=== PATIENT | female | born 1965 | race Caucasian/White ===

== ENCOUNTER 2018-04-27 17:34 | Inpatient (IN) ==
--- NOTE | 2018-04-27 18:05 | Emergency Department Report ---
General Adult HPI - General Stated complaint: pos intestinal blockage, vom Time Seen by Provider: 04/27/18 17:55 Source: patient Limitations: no limitations - History of Present Illness HPI narrative: Sxs started yesterday afternoon. Pain and vomiting started at 4pm. Last BM was yesterday - regular/formed. Was able to pass gas a few hours ago. Rates pain 9/10. Percocet 20mg up to QID for psoriatic arthritis and RA. Has h/o multiple abd surgeries and multiple bouts of SBO of which some have resolved w/ o hospitalization. Pt reports last hospitalization was 6-7 mos ago in [place]. complaint: REJI Garzon ([place]) - Related Data Home Medications Medication Instructions Recorded Confirmed Cyclobenzaprine [Flexeril] 10 mg PO TID PRN 04/27/18 04/27/18 Folic Acid [Folate] 1 mg PO HS 04/27/18 04/27/18 METHOTREXATE 2.5mg TAB 7.5 mg PO TH@2200 04/27/18 04/27/18 [Methotrexate] Oxycodone CR [Oxycontin] 20 mg PO QID PRN 04/27/18 04/27/18 Pantoprazole Sodium [Protonix] 40 mg PO HS 04/27/18 04/27/18 Warfarin [Coumadin] 6 mg PO HS 04/27/18 04/27/18 Allergies Allergy/AdvReac Type Severity Reaction Status Date / Time amoxicillin Allergy Verified 04/27/18 18:24 cefaclor [From Ceclor] Allergy Verified 04/27/18 18:24 levofloxacin [From Levaquin] Allergy Verified 04/27/18 18:24 Penicillins Allergy Verified 04/27/18 18:24 Sulfa (Sulfonamide Allergy Verified 04/27/18 18:24 Antibiotics) Review of Systems All systems: reviewed and negative except as stated (vomiting, nausea, pain, chronic pain) PFSH Patient Stated Medical History Cataracts Yes Gastroesophageal Reflux Yes Disease Ulcer Yes Hx Kidney Stones Yes: HX RA, psoriatic arthritis, chronic pain, gastric bypass surgery, PE following hyst - started on warfarin when port placed, power port chest Surgical History: c sect x 2, hyst, gastric bypass, surgery for repair of ruptured gastric ulcer, hernia repair from previous ulcer surgery, b/l TKA, R shoulder replacement, cataract, retinal detachment, levi cord stimulator R hip , uvula/tonsil/adenoids Family History: F, M - unknown - pt adopted - Social History Smoking status: Never smoker Substance use type: does not use Alcohol intake frequency: holidays/special occasions only Household members: none (during summer her daughter is home) Current occupational status: employed Current occupation: Drives bus for [employer] Current residence: Apartment/Private Home Physical Exam - Limitations Limitations: no limitations - General General appearance: in distress (pain) - Normal Exams: Head:: Normocephalic without trauma Eyes:: Pupils are PERRLA w/ EOMI Neck:: Full range of motion, without adenopathy Chest/Respirations:: Clear all [place] Cardiovascular:: Regular rate and rhythm, capillary refill Abdomen:: Bowel sounds positive Neurological:: Patient is alert, and oriented, exams w/o gross deficits Psychiatric:: Patient exhibits, appropriate attention - Abdominal Exam Abdominal exam: Present: tenderness (diffuse, worse in the epigastric region) - Skin Skin exam: Present: other (psoriatic rash on legs and arms) Course Vital Signs Temperature 98.6 F 04/27/18 17:35 Pulse Rate 101 H 04/27/18 17:35 Respiratory Rate 20 04/27/18 17:35 Blood Pressure 131/91 H 04/27/18 17:35 Pulse Oximetry 98 04/27/18 17:35 Temperature 96.2 F L 04/27/18 20:06 Pulse Rate 102 H 04/27/18 20:06 Respiratory Rate 16 04/27/18 20:06 Blood Pressure 121/66 04/27/18 20:06 Pulse Oximetry 96 04/27/18 20:06 Medical Decision Making - [facility] Narrative Medical decision making narrative: Pt with SBO confirmed by CT abd/pelvis. Pt takes oxycodone 20mg up to QID prn pain for her psoriatic/rheumatoid arthritis. Pt had significant improvement following Compazine 10mg IV and Fentanyl 50mcg IV. Pain improved to 5/10 compared to 9/10 initially. Nausea resolved. Bolused 1 L NS in ER. Discussed with Dr. Leong who accepted for pt for admission due to failed OP tx, pain control, etc. - Lab Data Result diagrams: 04/27/18 18:25 04/27/18 18:25 Lab Results 07/17/18 07/17/18 07/17/18 Range/Units 18:25 18:25 19:29 WBC 13.2 H (4.5-11.0) T/MM3 RBC 5.30 H (4.00-5.20) M/MM3 Hgb 15.2 (12-16) GM/DL Hct 45.1 (36-46) % MCV 85.1 (80-100) UM3 MCH 28.7 (26-34) UUG MCHC 33.7 (31-37) GM/DL RDW Std Deviation 43.1 (36.9-50.2) FL Plt Count 413 H (130-400) T/MM3 MPV 10.2 (9.4-12.4) UM3 Immature Gran % (Auto) Not performed Neut % (Auto) Not performed Lymph % (Auto) Not performed [place] % (Auto) Not performed Eos % (Auto) Not performed Baso % (Auto) Not performed Neut # (Auto) Not performed Lymph # (Auto) Not performed [place] # (Auto) Not performed Eos # (Auto) Not performed Baso # (Auto) Not performed Abs Immat Gran (auto) Not performed Neutrophils % (Manual) 90.0 H (33-66) % Band Neutrophils % 1.0 (0-6) % Lymphocytes % (Manual) 7.0 L (23-45) % Monocytes % (Manual) 2.0 (0-9.0) % Neutrophils # (Manual) 11.9 H (1.8-7.7) T/MM3 Band Neutrophils # 0.1 T/MM3 Lymphocytes # (Manual) 0.9 L (1-4.8) T/MM3 Monocytes # (Manual) 0.3 (0-0.8) T/MM3 RBC Morph Comment Normal Turbidity < 20 (0-20) Sodium 145 (136-146) MEQ/L Potassium 3.7 (3.6-5) MEQ/L Chloride 108 H (98-107) MEQ/L Carbon Dioxide 26 (22-30) MEQ/L Anion Gap 11 (5-15) meq/L BUN 12.0 (7-17) MG/DL Creatinine 0.5 L (0.7-1.2) mg/dL GFR Calculation 130 BUN/Creatinine Ratio 24 (6-26) RATIO Glucose 128 H (65-110) MG/DL Calculated Osmolality 281 H (261-280) MOSM/KG Calcium 9.7 (8.4-10.2) MG/DL Total Bilirubin 1.00 (0.20-1.30) MG/DL Icterus Index < 2 (0-7) AST 32 (14-36) U/L ALT 49 H (1-35) U/L Alkaline Phosphatase 219 H (38-126) U/L Total Protein 7.6 (6.3-8.2) g/dL Albumin 4.3 (3.5-5.0) g/dL Globulin 3.3 (2.4-3.6) G/DL Albumin/Globulin Ratio 1.3 (1.1-2.2) RATIO Specimen Hemolysis < 15 (0-25) Ur Collection Type Urine, void-cc/notcc Urine Color [place] (YELLOW) Urine Clarity Clear Urine pH 5.5 (5.0-8.0) Ur Specific [place] >=1.030 H (1.015-1.025) Urine Protein 2+ A (NEGATIVE) Urine Glucose (UA) Negative (NEGATIVE) Urine Ketones 1+ A (NEGATIVE) Urine Occult Blood Negative (NEGATIVE) Urine Nitrate Negative (NEGATIVE) Urine Bilirubin 1+ A (NEGATIVE) Urine Urobilinogen 1.0 (NORMAL) EU/DL Ur Leukocyte Esterase Negative (NEGATIVE) Urine RBC None seen (0-3) /HPF Urine WBC 5-10 H (0-5) /HPF Ur Squamous Epith Cells 0-5 Urine Bacteria Trace H (NEGATIVE) Ur Culture Indicated? Cult not indicated Disposition Clinical Impression: Small bowel obstruction Disposition: 02 To [facility] Acute Care Condition: Stable - Seen By: midlevel
[2018-04-27] MEDS ORDERED: FentaNYL 100 MCG/2 ML INJECTION IVP ONE (18:15)
[2018-04-27] MEDS ORDERED: NS 1,000 ML IV ONE (18:15)
[2018-04-27] MEDS ORDERED: PROCHLORPERAZINE 10 MG/2 ML INJECTION IVP ONE (18:15)
--- OUTSIDE RECORDS SUMMARY | 2018-04-27 18:33 | External Medical Summary ---
:1965 Author Name GENERATED, SYSTEM Care Team Providers Name Role Phone ROBERT MORENO DAWNA Primary Care Provider [phone] Reason For Visit Reason for Visit from 11/23/2017 2:04 PM:Pt Stated Reason for Adm : Lab draw/ Port flush Chief Complaint D50.9 D51 M17.9 Social History Functional Status Functional Status from 11/23/2017 2:04 PM:LOC : AlertOriented To : Person,Place, Time,Event Vital Signs Hospital Vital Signs from 11/23/2017 2:04 PM:Weight : 210/ lbs,ozHeight : 5/6 ft, inHeight : 5/6 ft,inTemperature : 96.5 FPulse : 99Respirations : 18BP : 137/83 Results Chemistry from 11/23/2017 2:25 [id number] MCG/DL (50-170 MCG/DL) VITAMIN [id number] PG/ML H (180-914 PG/ML) IABJUUY79.2 NG/ML (>3.0- NG/ML) RKLPXTXI86 NG/ML (13-150 NG/ML)Hematology from 11/23/2017 2:25 PMWBC7.4 X10e3/UL (3.6-11.2 X10e3/UL) RBC4.91 X10e6/UL (3.63-4.92 X10e6/UL) ACTWLWGEJE03.4 G/DL H (11.0-14.3 G/DL) FAEDAFFMPR75.3 % H (31.2-41.9 %) *MCV86.1 FL (79.0-98.0 FL) *MCH29.4 PG (27.0-33.0 PG) *MCHC34.2 G/DL (32.0-36.0 G/DL) *RDW13.4 % (12.3-17.0 %) *RDWSD41.1 (37.1-47.8 ) [id number] X10e3/UL (159-386 X10e3/UL) *MPV8.5 FL (7.4-10.4 FL)Coagulation from 11/23/2017 2:25 PM*PROTHROMBIN TIME19.6 SECONDS H (9.4-11.5 SECONDS) *INR1.87 H (0.90-1.10 ) Problems Encounter Diagnosis No relevant problems exist. Additional Problems Fall Risk Comment:Problem resolved by [facility] Workflow upon Discharge, Status: Resolved.Nausea & Vomiting Comment:Problem resolved by [facility] Workflow upon Discharge, Status:Resolved.Small Bowel Obstruction Comment:Problem resolved by [facility] Workflow upon Discharge, Status:Resolved. Encounters Encounter Diagnosis No relevant problems exist. Plan of Care Procedures Completed Procedure Code: [id number] Procedure Name: not valued, on 10/31/2015 12: 00 AMCompleted , on 02/13/2012 12:00 AMCompleted , on 01/16/2012 12:00 AMCompleted , on 10/30/2010 12:00 AMCompleted , on 10/30/2010 12:00 AMCompleted , on 2008 12:00 AMCompleted , on 07/31/2009 12:00 AMCompleted , on 02/26/2009 12:00 AM Immunizations No immunizations administered or ordered. Hospital Course Hospital Discharge Instructions Allergies, Adverse Reactions, Alerts This section is service liaison representative of the current allergy information, at the time of the CCD generation. In the case of regeneration of the CCD, the allergy information may not reflect the state of known allergies at the time of the CCD' s subject visit. Levaquin causes Unknown.erythromycin base causes Unknown.amoxicillin causes Unknown.Sulfa (Sulfonamide Antibiotics) causes Hives.Penicillins causes prob breathing.Macrolide Antibiotics causes Hives.No Latex Allergy.No IV Contrast Allergy.No Known Food Allergies. Medication Medication reconciliation has not been performed.
--- OUTSIDE RECORDS SUMMARY | 2018-04-27 18:33 | External Medical Summary ---
:1965 Author Name GENERATED, SYSTEM Care Team Providers Name Role Phone ROBERT MORENO DAWNA Primary Care Provider [phone] Reason For Visit Chief Complaint 02/23/17 RT SHOULDER Social History Functional Status Vital Signs Results Coagulation from 04/30/2017 10:16 AM*PROTHROMBIN TIME23.0 SECONDS H (9.4-11.5 SECONDS) *INR2.2 H (0.9-1.1 ) Problems Encounter Diagnosis No relevant problems exist. Additional Problems Fall Risk Comment:Problem resolved by [facility] Workflow upon Discharge, Status: Resolved.Nausea & Vomiting Comment:Problem resolved by [facility] Workflow upon Discharge, Status:Resolved.Small Bowel Obstruction Comment:Problem resolved by [facility] Workflow upon Discharge, Status:Resolved. Encounters Encounter Diagnosis No relevant problems exist. Plan of Care Procedures Completed Procedure Code: [id number] Procedure Name: not valued, on 10/31/2015 12: 00 AMCompleted , on 02/13/2012 12:00 AMCompleted , on 01/16/2012 12:00 AMCompleted , on 10/30/2010 12:00 AMCompleted , on 10/30/2010 12:00 AMCompleted , on 2008 12:00 AMCompleted , on 07/31/2009 12:00 AMCompleted , on 02/26/2009 12:00 AM Immunizations No immunizations administered or ordered. Hospital Course Hospital Discharge Instructions Allergies, Adverse Reactions, Alerts This section is security systems sales representative of the current allergy information, at [...]
--- OUTSIDE RECORDS SUMMARY | 2018-04-27 18:33 | External Medical Summary ---
:1965 Author Name GENERATED, SYSTEM Care Team Providers Name Role Phone CARY MORENON JITENDRA Primary Care Provider [phone] Reason For Visit Reason for Visit from 12/11/2016 8:40 AM:Pt Stated Reason for Adm : Portacath flush Chief Complaint PAC MAINTENANCE Social History Functional Status Functional Status from 12/11/2016 8:40 AM:LOC : AlertOriented To : Person,Place, Time,Event Vital Signs Hospital Vital Signs from 12/11/2016 8:40 AM:Weight : 99.79/ kgHeight : /67 ft, inHospital Vital Signs from 12/11/2016 8:17 AM:Height : /67 ft,inTemperature : 96.3 FPulse : 90Respirations : 18BP : 118/72 Results Coagulation from 12/11/2016 8:23 AM*PROTHROMBIN TIME23.4 SECONDS H (9.4-11.5 SECONDS) *INR2.2 H (0.9-1.1 ) Problems Encounter Diagnosis No relevant problems exist. Additional Problems Fall Risk Comment:Problem resolved by [facility] Workflow upon Discharge, Status: Resolved.Nausea & Vomiting Comment:Problem resolved by [facility] Workflow upon Discharge, Status:Resolved.Small Bowel Obstruction Comment:Problem resolved by [facility] Workflow upon Discharge, Status:Resolved. Encounters Encounter Diagnosis No relevant problems exist. Plan of Care Procedures Completed Procedure Code: [id number] Procedure Name: not valued, on 10/31/2015 12: 00 AMCompleted , on 02/13/2012 12:00 AMCompleted , on 01/16/2012 12:00 AMCompleted , on 10/30/2010 12:00 AMCompleted , on 10/30/2010 12:00 AMCompleted , on 2008 12:00 AMCompleted , on 07/31/2009 12:00 AMCompleted , on 02/26/2009 12:00 AM Immunizations No immunizations administered or ordered. Hospital Course Hospital Discharge Instructions Allergies, Adverse Reactions, Alerts Levaquin causes Unknown.erythromycin base causes Unknown.amoxicillin causes Unknown.Sulfa (Sulfonamide Antibiotics) causes Hives.Penicillins causes prob breathing.Macrolide Antibiotics causes Hives.No Latex Allergy.No IV Contrast Allergy.No Known Food Allergies. Medication Medication reconciliation has not been performed.
--- OUTSIDE RECORDS SUMMARY | 2018-04-27 18:33 | External Medical Summary ---
:1965 Author Name GENERATED, SYSTEM Care Team Providers Name Role Phone ROBERT MORENO DAWNA Primary Care Provider [phone] Reason For Visit Chief Complaint SWELLING L ARM Social History Functional Status Vital Signs Results Problems Encounter Diagnosis No relevant problems exist. Additional Problems Fall Risk Comment:Problem resolved by [facility] Workflow upon Discharge, Status: Resolved.Nausea & Vomiting Comment:Problem resolved by [facility] Workflow upon Discharge, Status:Resolved.Small Bowel Obstruction Comment:Problem resolved by [facility] Workflow upon Discharge, Status:Resolved. Encounters Encounter Diagnosis No relevant problems exist. Plan of Care Procedures Completed Procedure Code: [id number] Procedure Name: not valued, on 10/31/2015 12: 00 AMCompleted , on 02/13/2012 12:00 AMCompleted , on 01/16/2012 12:00 AMCompleted , on 10/30/2010 12:00 AMCompleted , on 10/30/2010 12:00 AMCompleted , on 2008 12:00 AMCompleted , on 07/31/2009 12:00 AMCompleted , on 02/26/2009 12:00 AM Immunizations No immunizations administered or ordered. Hospital Course Hospital Discharge Instructions Allergies, Adverse Reactions, Alerts This section is motor vehicle field representative of the current allergy information, at the time of the CCD generation. In the case of regeneration of the CCD, the allergy information may not reflect the state of known allergies at the time of the CCD' s subject visit. Levaquin causes Unknown.erythromycin base causes Unknown.amoxicillin causes Unknown.Sulfa (Sulfonamide Antibiotics) causes Hives.Penicillins causes prob breathing.Macrolide Antibiotics causes Hives.Latex Allergy has not been assessed.IV Contrast Allergy has not been assessed.No Known Food Allergies. Medication Medication reconciliation has not been performed.
--- OUTSIDE RECORDS SUMMARY | 2018-04-27 18:33 | External Medical Summary ---
:1965 Author Name GENERATED, SYSTEM Care Team Providers Name Role Phone ROBERT MORENO DAWNA Primary Care Provider [phone] Reason For Visit Reason for Visit from 03/16/2018 3:47 PM:Pt Stated Reason for Adm : PAC accessed and flush Chief Complaint Z86.2, D50.9, Z79.D Social History Functional Status Functional Status from 03/16/2018 3:47 PM:LOC : AlertOriented To : Person,Place, Time Vital Signs Hospital Vital Signs from 03/16/2018 3:47 PM:Weight : 203/ lbs,ozWeight : 92.079/ kgHeight : 5/6.5 ft,inHeight : 5/6.5 ft,inTemperature : 98.1 FPulse : 91Respirations : 18BP : 114/75 Results Problems Encounter Diagnosis No relevant problems exist. Additional Problems Fall Risk Comment:Problem resolved by [facility] Workflow upon Discharge, Status: Resolved.Nausea & Vomiting Comment:Problem resolved by [facility] Workflow upon Discharge, Status:Resolved.Small Bowel Obstruction Comment:Problem resolved by [facility] Workflow upon Discharge, Status:Resolved. Encounters Encounter Diagnosis No relevant problems exist. Plan of Care Procedures Completed Procedure Code: [id number] Procedure Name: not valued, on 10/31/2015 12: 00 AMCompleted , on 02/13/2012 12:00 AMCompleted , on 01/16/2012 12:00 AMCompleted , on 10/30/2010 12:00 AMCompleted , on 10/30/2010 12:00 AMCompleted , on 2008 12:00 AMCompleted , on 07/31/2009 12:00 AMCompleted , on 02/26/2009 12:00 AM Immunizations No immunizations administered or ordered. Hospital Course Hospital Discharge Instructions Allergies, Adverse Reactions, Alerts This section is food service sales representatives of the current allergy information, at the [...]
--- OUTSIDE RECORDS SUMMARY | 2018-04-27 18:33 | External Medical Summary ---
:1965 Author Name GENERATED, SYSTEM Care Team Providers Name Role Phone ROBERT MORENO DAWNA Primary Care Provider [phone] Reason For Visit Reason for Visit from 08/31/2017 1:00 PM:Pt Stated Reason for Adm : Lab/port flush Chief Complaint D50.9 D51 M17.9 Social History Functional Status Functional Status from 09/01/2017 2:00 PM:LOC : AlertOriented To : Person,Place, TimeFunctional Status from 08/31/2017 1:00 PM:LOC : AlertOriented To : Person, Place,Time,Event Vital Signs Hospital Vital Signs from 08/31/2017 1:00 PM:Weight : 196/ lbs,ozHeight : 5/7.5 ft,inHeight : 5/7.5 ft,inTemperature : 97.1 FPulse : 90Respirations : 18BP : 127 /85 Results Chemistry from 08/31/2017 1:18 MSQUIH55 MCG/DL (50-170 MCG/DL) VITAMIN B12>1500 PG/ML H (180-914 PG/ML) EJNOCZM63.4 NG/ML (>3.0- NG/ML) ASDOQDUU06 NG/ML (13-150 NG/ML)Hematology from 08/31/2017 1:18 PMWBC6.7 X10e3/ UL (3.6-11.2 X10e3/UL) RBC4.42 X10e6/UL (3.63-4.92 X10e6/UL) IDIHYCDMUV62.3 G/DL (11.0-14.3 G/DL) RQVEHQQHIE03.3 % (31.2-41.9 %) *MCV86.6 FL (79.0-98.0 FL) *MCH30.2 PG (27.0-33.0 PG) *MCHC34.8 G/DL (32.0-36.0 G/DL) *RDW13.5 % (12.3-17.0 %) *RDWSD41.6 (37.1-47.8 ) PXHCHVVC076 X10e3/UL (159-386 X10e3/UL) *MPV8.6 FL (7.4-10.4 FL) AUTOMATED DIFFPERFORMED (Reference Range: not available) SEGS69.4 % (Reference Range: not available) *ZRHOBBSYWFT90.1 % (Reference Range: not available) *MONOCYTES4.4 % (Reference Range: not available) *EOSINOPHILS1.0 % (Reference Range: not available) *BASOPHILS1.1 % (Reference Range: not available) *ABSOLUTE NEUTROPHILS4.70 X10e3/UL (1.80-7.80 X10e3/UL) *ABSOLUTE LYMPHOCYTES1.60 X10e3/UL (1.00-3.00 X10e3/UL) *ABSOLUTE MONOCYTES0.30 X10e3/UL (0.30-1.00 X10e3/UL) *ABSOLUTE EOSINOPHILS0.10 X10e3/UL (0.00-0.50 X10e3/UL) *ABSOLUTE BASOPHILS0.10 X10e3/UL (0.00-0.20 X10e3/UL)Coagulation from 2016 2:20 PM*PROTHROMBIN TIME14.9 SECONDS H (9.4-11.5 SECONDS) *INR1.41 H (0.90-1.10 ) Problems Encounter Diagnosis No relevant problems exist. Additional Problems Fall Risk Comment:Problem resolved by [facility] Workflow upon Discharge, Status: Resolved.Nausea & Vomiting Comment:Problem resolved by [facility] Workflow upon Discharge, Status:Resolved.Small Bowel Obstruction Comment:Problem resolved by [facility] Workflow upon Discharge, Status:Resolved. Encounters Encounter Diagnosis No relevant problems exist. Plan of Care Procedures Completed Procedure Code: [id number] Procedure Name: not valued, on 10/31/2015 12: 00 AMCompleted , on 02/13/2012 12:00 AMCompleted , on 01/16/2012 12:00 AMCompleted , on 10/30/2010 12:00 AMCompleted , on 10/30/2010 12:00 AMCompleted , on 2008 12:00 AMCompleted , on 07/31/2009 12:00 AMCompleted , on 02/26/2009 12:00 AM Immunizations No immunizations administered or ordered. Hospital Course Hospital Discharge Instructions Allergies, Adverse Reactions, Alerts This section is senior patient account representative of the current allergy information, at [...]
--- OUTSIDE RECORDS SUMMARY | 2018-04-27 18:33 | External Medical Summary | Clinical Summary ---
:1965 Author Organization [facility] Address [address] [place] [address] Care Team Providers Name Role Phone Self, Referral Primary Care Provider Unavailable Source Comments Some departments are not documenting in the electronic medical record. If you do not see the information that you expected, contact Release of Information in the Health Information Management department at [phone] for further assistance in locating additional records.[facility] Allergies Active Allergy Reactions Severity Noted Date Comments Amoxicillin ANAPHYLAXIS High 02/02/2017 Cefaclor HIVES Medium 02/02/2017 Erythromycin HIVES Medium 02/02/2017 Penicillins ANAPHYLAXIS High 02/02/2017 Sulfa (Sulfonamide Antibiotics) HIVES Medium 02/02/2017 Vancomycin HIVES Medium 02/02/2017 Current Medications Prescription Sig. Disp. Refills Start Date End Date Status oxycodone(+) (ROXICODONE, Take 10 mg by Active OXY-IR) 10 mg tablet mouth every 6 hours as needed for Pain oxyCODONE SR (OXYCONTIN) 20 Take 20 mg by Active mg tablet mouth every 12 hours cyclobenzaprine (FLEXERIL) Take 10 mg by Active 10 mg tablet mouth twice daily. warfarin (COUMADIN) 6 mg Take 6 mg by Active tablet mouth daily. PANTOPRAZOLE SODIUM Take by mouth. Active (PANTOPRAZOLE PO) Social History Tobacco Use Types Packs/Day Years Used Date Never Smoker Alcohol Use Drinks/Week oz/Week Comments Yes 0 Standard drinks or equivalent 0.0 rarely Sex Assigned at Date Recorded Not on file Last Filed Vital Signs Vital Sign Reading Time Taken Blood Pressure 128/91 04/03/2017 9:09 AM CDT Pulse 86 04/03/2017 9:09 AM CDT Temperature 37 C (98.6 F) 04/03/2017 8:31 AM CDT Respiratory Rate 16 02/02/2017 2:50 PM CDT Oxygen Saturation 96% 04/03/2017 9:09 AM CDT Inhaled Oxygen Concentration - - Weight 96.6 kg (213 lb) 04/03/2017 7:29 AM CDT Height 167.6 cm (5' 6") 04/03/2017 7:29 AM CDT Body Mass Index 34.38 04/03/2017 7:29 AM CDT Plan of Treatment Health Maintenance Due Date Last Done Comments PHYSICAL (COMPREHENSIVE) EXAM 1973 PERTUSSIS VACCINE 1977 HIV SCREENING 1981 TETANUS VACCINE 1983 CERVICAL CANCER SCREENING 1996 SHINGLES RECOMBINANT VACCINE (1 of 2) 2016 BREAST CANCER SCREENING 04/02/2018 04/02/2017 INFLUENZA VACCINE 07/12/2018 COLORECTAL CANCER SCREENING 04/03/2027 04/03/2017 Implants Implanted Type [employer] Device Identifier Expiration Date Model / Serial / Lot Port
--- OUTSIDE RECORDS SUMMARY | 2018-04-27 18:34 | External Medical Summary ---
:1965 Author Name GENERATED, SYSTEM Care Team Providers Name Role Phone ROBERT MORENO DAWNA Primary Care Provider [phone] Reason For Visit Chief Complaint 02/23/17 RT [...] Plan of Care Procedures Completed Procedure Code: [id number] Procedure Name: not valued, on 10/31/2015 12: 00 AMCompleted , on 02/13/2012 12:00 AMCompleted , on 01/16/2012 12:00 AMCompleted , on 10/30/2010 12:00 AMCompleted , on 10/30/2010 12:00 AMCompleted , on 2008 12:00 AMCompleted , on 07/31/2009 12:00 AMCompleted , on 02/26/2009 12:00 AM Immunizations No immunizations administered or ordered. Hospital Course Hospital Discharge Instructions Allergies, Adverse Reactions, Alerts This section is indirect sales representative of the current allergy information, [...]
--- OUTSIDE RECORDS SUMMARY | 2018-04-27 18:34 | External Medical Summary ---
:1965 Author Organization [facility] Address [address] [place], [place] [id number] Care Team Providers Name Role Phone Daphne Cortezberley Unavailable Unavailable PROBLEMS Type Condition ICD9-CM Code NEJ61-DV Onset Condition SNOMED Code Code Dates Status Problem Personal history of V12.51 Active 073659264 venous thrombosis and embolism Problem Peptic ulcer 533.90 Active 15161250 Problem Chronic back pain 724.5 Active 778741912 Problem Generalized 715.00 Active 588005967 osteoarthrosis, unspecified site Problem Unspecified iron 280.9 Active 28406794 deficiency anemia Problem Venous embolism 453.6 Active 333272574 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
--- OUTSIDE RECORDS SUMMARY | 2018-04-27 18:34 | External Medical Summary ---
:1965 Author Name GENERATED, SYSTEM Care Team Providers Name Role Phone ROBERT MORENO DAWNA Primary Care Provider [phone] Reason For Visit Chief Complaint PAC MAINTENANCE, HX PE AND DVT Social History Functional Status Vital Signs Results Problems Encounter Diagnosis No relevant problems exist. Additional Problems Fall Risk Comment:Problem resolved by [facility] Workflow upon Discharge, Status: Resolved.Nausea & Vomiting Comment:Problem resolved by [facility] Workflow upon Discharge, Status:Resolved.Small Bowel Obstruction Comment:Problem resolved by [facility] Workflow upon Discharge, Status:Resolved. Encounters Encounter Diagnosis No relevant problems exist. Plan of Care Procedures Completed Procedure Code: [id number] Procedure Name: not valued, on 10/31/2015 12: 00 AMCompleted , on 02/13/2012 12:00 AMCompleted , on 01/16/2012 12:00 AMCompleted , on 10/30/2010 12:00 AMCompleted , on 10/30/2010 12:00 AMCompleted , on 2008 12:00 AMCompleted , on 07/31/2009 12:00 AMCompleted , on 02/26/2009 12:00 AM Immunizations No immunizations administered or ordered. Hospital Course Hospital Discharge Instructions Allergies, Adverse Reactions, Alerts This section is screening representative of the current allergy information, at [...]
--- OUTSIDE RECORDS SUMMARY | 2018-04-27 18:34 | External Medical Summary ---
:1965 Author Name GENERATED, SYSTEM Care Team Providers Name Role Phone ROBERT MORENO DAWNA Primary Care Provider [phone] Reason For Visit Chief Complaint D50.9 D51 M17.9 Social History Functional Status Vital Signs Results Coagulation from 09/13/2017 4:17 PM*PROTHROMBIN TIME15.4 SECONDS H (9.4-11.5 SECONDS) *INR1.46 H (0.90-1.10 )CT Scan from 09/13/2017 2:43 PMCT PELVIS W/O CONTRASTHistory: trauma, mid back pain 52y/o f c injury yesterday, a horse ran into her, she hit a wall while standing c her right shoulder, fell on right side, did not hit head, no LOC, having back pain, radiates down right leg, denies GONZALES, denies vision changes, no bleeding mouth/ears Technique: Two-dimensional only reconstructions were performed Priors: None. Findings: No acute fractures are identified. The hips and proximal femora appear intact. SI joints and sacrum appear within normal limits. Soft tissues of the pelvis appear unremarkable. The uterus is surgically absent. There is a stimulating device in the subcutaneous fat of the right lower back Impression: No evidence acute fracture. Electronically signed by: Cody Tamez MD Dictated: 09/13/2017 15:55 (Reference Range: not available) CT SPINE LUMBAR W/O CONTRASTHistory: trauma, mid back pain. 52y/o f c injury yesterday, a horse ran into her, she hit a wall while standing c her right shoulder, fell on right side, did not hit head, no LOC, having back pain, radiates down right leg, denies GONZALES, denies vision changes, no bleeding mouth/ears Technique: All CT scans at are performed using dose optimization techniques as appropriate to a performed exam including the following: Automated exposure control Adjustment of the mA and/or kV according to patient size Use of iterative reconstruction technique Priors: None. Findings: Lumbar alignment is within normal limits No acute fractures are identified There is mild disc space narrowing all levels lumbar spine consistent mild diffuse degenerative disc disease. No focal disc protrusions or significant central spinal stenosis is identified. The visualized abdominal structures are unremarkable. Impression: Mild degenerative disease without acute fracture. Electronically signed by: Cody Tamez MD Dictated: 09/13/2017 15:52 (Reference Range: not available) CT SPINE THORACIC W/O CONTRASTHistory: trauma, mid back pain. 52y/o f c injury yesterday, a horse ran into her, she hit a wall while standing c her right shoulder, fell on right side, did not hit head, no LOC, having back pain, radiates down right leg, denies GONZALES, denies vision changes, no bleeding mouth/ears Technique: All CT scans at are performed using dose optimization techniques as appropriate to a performed exam including the following: Automated exposure control Adjustment of the mA and/or kV according to patient size Use of iterative reconstruction technique Priors: None. Findings: Thoracic alignment is within normal limits note is made of a dorsal column stimulator identified in the mid thoracic spine at the T7/T8 level. No acute Fractures or subluxations are identified Disc spaces are well maintained. No focal disc protrusions or significant central spinal stenosis is identified. Impression: No evidence acute fracture Electronically signed by: Cody Tamez MD Dictated: 09/13/2017 15:53 (Reference Range: not available) Problems Encounter Diagnosis No relevant problems exist. Additional Problems Fall Risk Comment:Problem resolved by [facility] Workflow upon Discharge, Status: Resolved.Nausea & Vomiting Comment:Problem resolved by [facility] Workflow upon Discharge, Status:Resolved.Small Bowel Obstruction Comment:Problem resolved by [facility] Workflow upon Discharge, Status:Resolved. Encounters Encounter Diagnosis No relevant problems exist. Plan of Care Procedures Completed Procedure Code: [id number] Procedure Name: not valued, on 10/31/2015 12: 00 AMCompleted , on 02/13/2012 12:00 AMCompleted , on 01/16/2012 12:00 AMCompleted , on 10/30/2010 12:00 AMCompleted , on 10/30/2010 12:00 AMCompleted , on 2008 12:00 AMCompleted , on 07/31/2009 12:00 AMCompleted , on 02/26/2009 12:00 AM Immunizations No immunizations administered or ordered. Hospital Course Hospital Discharge Instructions Allergies, Adverse Reactions, Alerts This section is labor union business representative of the current allergy information, at [...]
--- OUTSIDE RECORDS SUMMARY | 2018-04-27 18:34 | External Medical Summary ---
:1965 Author Name GENERATED, SYSTEM Care Team Providers Name Role Phone ROBERT MORENO DAWNA Primary Care Provider [phone] Reason For Visit Chief Complaint PAC MAINTENANNCE,CBC CMP LIPID TSH FT4 AIC IRON FERRITIN,B12 FOLATE Social History Functional Status Vital Signs Results Problems Encounter Diagnosis No relevant problems exist. Additional Problems Fall Risk Comment:Problem resolved by [facility] Workflow upon Discharge, Status: Resolved.Nausea & Vomiting Comment:Problem resolved by [facility] Workflow upon Discharge, Status:Resolved.Small Bowel Obstruction Comment:Problem resolved by [facility] Workflow upon Discharge, Status:Resolved. Encounters Encounter Diagnosis No relevant problems exist. Plan of Care Procedures Completed Procedure Code: [id number] Procedure Name: not valued, on 10/31/2015 12: [...]
--- OUTSIDE RECORDS SUMMARY | 2018-04-27 18:34 | External Medical Summary ---
:1965 Author Name GENERATED, SYSTEM Care Team Providers Name Role Phone ROBERT MORENO DAWNA Primary Care Provider [phone] Reason For Visit Chief Complaint PAC MAINTENANCE; HX PE AND DVT Social History Functional [...] Plan of Care Procedures Completed Procedure Code: [id number] Procedure Name: not valued, on 10/31/2015 12: 00 AMCompleted , on 02/13/2012 12:00 AMCompleted , on 01/16/2012 12:00 AMCompleted , on 10/30/2010 12:00 AMCompleted , on 10/30/2010 12:00 AMCompleted , on 2008 12:00 AMCompleted , on 07/31/2009 12:00 AMCompleted , on 02/26/2009 12:00 AM Immunizations No immunizations administered or ordered. Hospital Course Hospital Discharge Instructions Allergies, Adverse Reactions, Alerts This section is field sales representative of the current allergy information, [...]
--- OUTSIDE RECORDS SUMMARY | 2018-04-27 18:34 | External Medical Summary ---
:1965 Author Name GENERATED, SYSTEM Care Team Providers Name Role Phone ROBERT MORENO DAWNA Primary Care Provider [phone] Reason For Visit Reason for Visit from 01/26/2017 12:32 PM:Pt Stated Reason for Adm : lab and PAC flush Chief Complaint PAC MAINTENANCE Social History Functional Status Functional Status from 01/26/2017 12:32 PM:Oriented To : Person,Place,Time,Event Vital Signs Hospital Vital Signs from 01/26/2017 12:32 PM:Weight : 210/ lbs,ozHeight : 5/6.5 ft,inHospital Vital Signs from 01/26/2017 11:00 AM:Height : 5/6.5 ft, inTemperature : 96.2 FPulse : 87Respirations : 18BP : 131/94 Results Chemistry from 01/26/2017 11:45 [id number] MMOL/L (136-145 MMOL/L) POTASSIUM4.2 MMOL/L (3.5-5.1 MMOL/L) [id number] MMOL/L (98-107 MMOL/L) TWC928.7 MMOL/L (21.0-32.0 MMOL/L) *ANION GAP4.3 MMOL/L L (8.0-16.0 MMOL/L) BUN9 MG/DL (7-18 MG/DL) CREATININE0.57 MG/DL (0.55-1.02 MG/DL) *BUN/CREATININE RATIO15.8 (9.1-17.0 ) GDABCRI49 MG/DL (65-99 MG/DL) *GFR EST NON AFR ETHIOPIAN>90 ML/MIN (Reference Range: not available) *GFR EST AFR AMER>90 ML/MIN (Reference Range: not available) CALCIUM8.7 MG/DL (8.5-10.1 MG/DL) BILIRUBIN TOTAL0.90 MG/DL (0.20-1.00 MG/DL) TOTAL PROTEIN7.2 GM/DL (6.4-8.2 GM/DL) ALBUMIN3.4 GM/DL (3.4-5.0 GM/DL) *GLOBULIN3.8 GM/DL H (2.3-3.5 GM/DL) *A/G RATIO0.9 MG/DL L (1.5-2.2 MG/DL) ALK WGXW881 U/L H (46-116 U/L) ALT (SGPT)84 U/L H (16-63 U/L) AST (SGOT)90 U/L H (15-37 U/L)Hematology from 01/26/2017 11:45 AMWBC5.2 X10e3/UL (3.6-11.2 X10e3/UL) RBC4.54 X10e6/UL (3.63-4.92 X10e6/UL) ROPOAYKMYD61.1 G/DL (11.0-14.3 G/DL) UTHGFFDAIE24.9 % (31.2-41.9 %) *MCV85.7 FL (79.0-98.0 FL) *MCH28.9 PG (27.0-33.0 PG) *MCHC33.7 G/DL (32.0-36.0 G/DL) *RDW14.0 % (12.3-17.0 %) *RDWSD42.4 (37.1-47.8 ) CRSTOQYO134 X10e3/UL (159-386 X10e3/UL) *MPV8.5 FL (7.4-10.4 FL)Coagulation from 01/26/2017 11:45 AM*PROTHROMBIN TIME21.8 SECONDS H (9.4-11.5 SECONDS) *INR2.1 H (0.9-1.1 )Microbiology from 01/26/2017 11:53 [facility] C[facility] Specimen Number: [id number] Sample Collection Date/Time: 01/26/2017 11:53 AM Specimen Source: Nares Bilateral Nares MRSA SURVEILLANCE CULTURE: Negative- No MRSA detected Problems Encounter Diagnosis No relevant problems exist. Additional Problems Fall Risk Comment:Problem resolved by [facility] Workflow upon Discharge, Status: Resolved.Nausea & Vomiting Comment:Problem resolved by [facility] Workflow upon Discharge, Status:Resolved.Small Bowel Obstruction Comment:Problem resolved by [facility] Workflow upon Discharge, Status:Resolved. Encounters Encounter Diagnosis No relevant problems exist. Plan of Care Procedures Completed Procedure Code: [id number] Procedure Name: not valued, on 10/31/2015 12: 00 AMCompleted , on 02/13/2012 12:00 AMCompleted , on 01/16/2012 12:00 AMCompleted , on 10/30/2010 12:00 AMCompleted , on 10/30/2010 12:00 AMCompleted , on 2008 12:00 AMCompleted , on 07/31/2009 12:00 AMCompleted , on 02/26/2009 12:00 AM Immunizations No immunizations administered or ordered. Hospital Course Hospital Discharge Instructions Allergies, Adverse Reactions, Alerts This section is promotional representative of the current allergy information, at [...]
--- OUTSIDE RECORDS SUMMARY | 2018-04-27 18:34 | External Medical Summary ---
:1965 Author Organization [facility] Address [address] [place], [place] [id number] Care Team Providers Name Role Phone Iesha Cortez Unavailable Unavailable PROBLEMS ALLERGIES Unknown Allergies SOCIAL HISTORY No smoking Hx information available PLAN OF CARE VITAL SIGNS MEDICATIONS Unknown Medications RESULTS No Results PROCEDURES No Known procedures IMMUNIZATIONS No Known Immunizations
--- OUTSIDE RECORDS SUMMARY | 2018-04-27 18:34 | External Medical Summary ---
:1965 Author Name GENERATED, SYSTEM Care Team Providers Name Role Phone ROBERT MORENO DAWNA Primary Care Provider [phone] Reason For Visit Chief Complaint 02/23/17 RT [...] Plan of Care Procedures Completed Procedure Code: [id number] Procedure Name: not valued, on 10/31/2015 12: 00 AMCompleted , on 02/13/2012 12:00 AMCompleted , on 01/16/2012 12:00 AMCompleted , on 10/30/2010 12:00 AMCompleted , on 10/30/2010 12:00 AMCompleted , on 2008 12:00 AMCompleted , on 07/31/2009 12:00 AMCompleted , on 02/26/2009 12:00 AM Immunizations No immunizations administered or ordered. Hospital Course Hospital Discharge Instructions Allergies, Adverse Reactions, Alerts This section is sales development representative of the current allergy information, at [...]
--- OUTSIDE RECORDS SUMMARY | 2018-04-27 18:34 | External Medical Summary ---
:1965 Author Name GENERATED, SYSTEM Care Team Providers Name Role Phone ROBERT MORENO DAWNA Primary Care Provider [phone] Reason For Visit Chief Complaint D50.9 D51 [...] Plan of Care Procedures Completed Procedure Code: [id number] Procedure Name: not valued, on 10/31/2015 12: 00 AMCompleted , on 02/13/2012 12:00 AMCompleted , on 01/16/2012 12:00 AMCompleted , on 10/30/2010 12:00 AMCompleted , on 10/30/2010 12:00 AMCompleted , on 2008 12:00 AMCompleted , on 07/31/2009 12:00 AMCompleted , on 02/26/2009 12:00 AM Immunizations No immunizations administered or ordered. Hospital Course Hospital Discharge Instructions Allergies, Adverse Reactions, Alerts This section is business representative of the current allergy information, [...]
--- OUTSIDE RECORDS SUMMARY | 2018-04-27 18:34 | External Medical Summary ---
:1965 Author Name GENERATED, SYSTEM Care Team Providers Name Role Phone ROBERT MORENO DAWNA Primary Care Provider [phone] Reason For Visit Chief Complaint Z86.2 D50.9 Z79.01 Social History Functional Status Vital Signs Results Problems Encounter Diagnosis No relevant problems exist. Additional Problems Fall Risk Comment:Problem resolved by [facility] Workflow upon Discharge, Status: Resolved.Nausea & Vomiting Comment:Problem resolved by [facility] Workflow upon Discharge, Status:Resolved.Small Bowel Obstruction Comment:Problem resolved by [facility] Workflow upon Discharge, Status:Resolved. Encounters Encounter Diagnosis No relevant problems exist. Plan of Care Procedures Completed Procedure Code: [id number] Procedure Name: not valued, on 10/31/2015 12: 00 AMCompleted , on 02/13/2012 12:00 AMCompleted , on 01/16/2012 12:00 AMCompleted , on 10/30/2010 12:00 AMCompleted , on 10/30/2010 12:00 AMCompleted , on 2008 12:00 AMCompleted , on 07/31/2009 12:00 AMCompleted , on 02/26/2009 12:00 AM Immunizations No immunizations administered or ordered. Hospital Course Hospital Discharge Instructions Allergies, Adverse Reactions, Alerts This section is tour sales representative of the current allergy information, [...]
--- OUTSIDE RECORDS SUMMARY | 2018-04-27 18:34 | External Medical Summary ---
:1965 Author Name GENERATED, SYSTEM Care Team Providers Name Role Phone ROBERT MORENO DAWNA Primary Care Provider [phone] Reason For Visit Reason for Visit from 11/02/2017 4:59 PM:Pt Stated Reason for Adm : Lab/Port flush Chief Complaint D50.9 D51 M17.9 Social History Functional Status Functional Status from 11/02/2017 4:59 PM:LOC : AlertOriented To : Person,Place, Time,Event Vital Signs Hospital Vital Signs from 11/02/2017 4:59 PM:Weight : 205/ lbs,ozHeight : 5/6.5 ft,inHeight : 5/6.5 ft,inTemperature : 97.5 FPulse : 87Respirations : 18BP : 123 /71 Results Chemistry from 11/02/2017 5:18 [id number] MCG/DL (50-170 MCG/DL) VITAMIN [id number] PG/ML H (180-914 PG/ML) LSSXDFN10.7 NG/ML (>3.0- NG/ML) FGKUSKMI67 NG/ML (13-150 NG/ML)Hematology from 11/02/2017 5:18 PMWBC7.7 X10e3/UL (3.6-11.2 X10e3/UL) RBC4.64 X10e6/UL (3.63-4.92 X10e6/UL) MMYJAQFVDV24.7 G/DL (11.0-14.3 G/DL) EAYAYNQYHJ93.9 % (31.2-41.9 %) *MCV86.0 FL (79.0-98.0 FL) *MCH29.4 PG (27.0-33.0 PG) *MCHC34.2 G/DL (32.0-36.0 G/DL) *RDW13.7 % (12.3-17.0 %) *RDWSD41.6 (37.1-47.8 ) OHWDBEKA422 X10e3/UL (159-386 X10e3/UL) *MPV8.6 FL (7.4-10.4 FL)Coagulation from 11/02/2017 5:18 PM*PROTHROMBIN TIME22.7 SECONDS H (9.4-11.5 SECONDS) *INR2.17 H (0.90-1.10 ) Problems Encounter Diagnosis No relevant problems exist. Additional Problems Fall Risk Comment:Problem resolved by [facility] Workflow upon Discharge, Status: Resolved.Nausea & Vomiting Comment:Problem resolved by [facility] Workflow upon Discharge, Status:Resolved.Small Bowel Obstruction Comment:Problem resolved by [facility] Workflow upon Discharge, Status:Resolved. Encounters Encounter Diagnosis No relevant problems exist. Plan of Care Procedures Completed Procedure Code: [id number] Procedure Name: not valued, on 10/31/2015 12: 00 AMCompleted , on 02/13/2012 12:00 AMCompleted , on 01/16/2012 12:00 AMCompleted , on 10/30/2010 12:00 AMCompleted , on 10/30/2010 12:00 AMCompleted , on 2008 12:00 AMCompleted , on 07/31/2009 12:00 AMCompleted , on 02/26/2009 12:00 AM Immunizations No immunizations administered or ordered. Hospital Course Hospital Discharge Instructions Allergies, Adverse Reactions, Alerts This section is sales representative business courses of the current allergy information, at the [...]
--- OUTSIDE RECORDS SUMMARY | 2018-04-27 18:34 | External Medical Summary ---
:1965 Author Name GENERATED, SYSTEM Care Team Providers Name Role Phone [facility] TECHNICIANJITENDRA Rodriguez Primary Care Provider [phone] Reason For Visit Reason for Visit from 02/12/2017 12:45 PM:Pt Stated Reason for Adm : Activase Chief Complaint PAC MAINTENANCE Social History Functional Status Functional Status from 02/16/2017 4:54 PM:LOC : AlertOriented To : Person,Place, Time,EventFunctional Status from 02/12/2017 12:45 PM:LOC : AlertOriented To : Person,Place,Time Vital Signs Hospital Vital Signs from 02/12/2017 12:45 PM:Weight : 97.522/ kgHeight : 5/6 ft, inHospital Vital Signs from 02/12/2017 12:28 PM:Weight : 215/ lbs,ozHeight : 5/6 ft,inTemperature : 96.7 FPulse : 93Respirations : 18BP : 126/80 Results Coagulation from 02/12/2017 1:18 PM*PROTHROMBIN TIME24.4 SECONDS H (9.4-11.5 SECONDS) *INR2.3 H (0.9-1.1 )Reference Lab from 02/16/2017 4:55 PMCEA2.3 ng/mL (0.0-4.7 ng /mL) Problems Encounter Diagnosis No relevant problems exist. Additional Problems Fall Risk Comment:Problem resolved by [facility] Workflow upon Discharge, Status: Resolved.Nausea & Vomiting Comment:Problem resolved by [facility] Workflow upon Discharge, Status:Resolved.Small Bowel Obstruction Comment:Problem resolved by [facility] Workflow upon Discharge, Status:Resolved. Encounters Encounter Diagnosis No relevant problems exist. Plan of Care Procedures Completed Procedure Code: [id number] Procedure Name: not valued, on 10/31/2015 12: 00 AMCompleted , on 02/13/2012 12:00 AMCompleted , on 01/16/2012 12:00 AMCompleted , on 10/30/2010 12:00 AMCompleted , on 10/30/2010 12:00 AMCompleted , on 2008 12:00 AMCompleted , on 07/31/2009 12:00 AMCompleted , on 02/26/2009 12:00 AM Immunizations No immunizations administered or ordered. Hospital Course Hospital Discharge Instructions Allergies, Adverse Reactions, Alerts This section is assisted sales representative of the current allergy information, [...]
--- OUTSIDE RECORDS SUMMARY | 2018-04-27 18:34 | External Medical Summary ---
:1965 Author Name GENERATED, SYSTEM Care Team Providers Name Role Phone ROBERT MORENO DAWNA Primary Care Provider [phone] Reason For Visit Chief Complaint PAC MAINTENANCE; HX PE AND DVT Social History Functional Status Functional Status from 07/02/2017 11:17 AM:LOC : AlertOriented To : Person,Place, Time,Event Vital Signs Results Chemistry from 07/02/2017 9:45 [id number] MCG/DL (50-170 MCG/DL) VITAMIN [id number] PG/ML (180-914 PG/ML) SGATYFW66.1 NG/ML (>3.0- NG/ML) IFNQSNRR51 NG/ML (13-150 NG/ML)Hematology from 07/02/2017 9:45 AMWBC5.1 X10e3/UL (3.6-11.2 X10e3/UL) RBC4.67 X10e6/UL (3.63-4.92 X10e6/UL) LYJZUZYNZG18.8 G/DL (11.0-14.3 G/DL) ICZWFFCXGV10.9 % (31.2-41.9 %) *MCV85.4 FL (79.0-98.0 FL) *MCH29.6 PG (27.0-33.0 PG) *MCHC34.7 G/DL (32.0-36.0 G/DL) *RDW14.1 % (12.3-17.0 %) *RDWSD42.9 (37.1-47.8 ) QKDFATSE498 X10e3/UL (159-386 X10e3/UL) *MPV8.4 FL (7.4-10.4 FL)Coagulation from 07/02/2017 9:45 AM*PROTHROMBIN TIME28.5 SECONDS H (9.4-11.5 SECONDS) *INR2.74 H (0.90-1.10 ) Problems Encounter Diagnosis No relevant problems exist. Additional Problems Fall Risk Comment:Problem resolved by [facility] Workflow upon Discharge, Status: Resolved.Nausea & Vomiting Comment:Problem resolved by [facility] Workflow upon Discharge, Status:Resolved.Small Bowel Obstruction Comment:Problem resolved by [facility] Workflow upon Discharge, Status:Resolved. Encounters Encounter Diagnosis No relevant problems exist. Plan of Care Procedures Completed Procedure Code: [id number] Procedure Name: not valued, on 10/31/2015 12: 00 AMCompleted , on 02/13/2012 12:00 AMCompleted , on 01/16/2012 12:00 AMCompleted , on 10/30/2010 12:00 AMCompleted , on 10/30/2010 12:00 AMCompleted , on 2008 12:00 AMCompleted , on 07/31/2009 12:00 AMCompleted , on 02/26/2009 12:00 AM Immunizations No immunizations administered or ordered. Hospital Course Hospital Discharge Instructions Allergies, Adverse Reactions, Alerts This section is parts sales representative of the current allergy information, [...]
--- OUTSIDE RECORDS SUMMARY | 2018-04-27 18:34 | External Medical Summary ---
:1965 Author Name GENERATED, SYSTEM Care Team Providers Name Role Phone ROBERT MORENO DAWNA Primary Care Provider [phone] Reason For Visit Reason for Visit from 01/20/2018 5:40 PM:Pt Stated Reason for Adm : PAC flush Chief Complaint Z86.2 D50.9 Z79.01 Social History Functional Status Functional Status from 01/20/2018 5:40 PM:LOC : AlertOriented To : Person,Place, Time,Event Vital Signs Hospital Vital Signs from 01/20/2018 5:40 PM:Weight : 210/ lbs,ozHeight : 5/6 ft, in Results Chemistry from 02/01/2018 4:36 [id number] MMOL/L (136-145 MMOL/L) POTASSIUM4.0 MMOL/L (3.5-5.1 MMOL/L) VEJRYVZH686 MMOL/L (98-107 MMOL/L) KSD814.7 MMOL/L (21.0-32.0 MMOL/L) *ANION GAP8.3 MMOL/L (8.0-16.0 MMOL/L) BUN12 MG/DL (7-18 MG/DL) CREATININE0.56 MG/DL (0.55-1.02 MG/DL) *BUN/CREATININE RATIO21.4 H (9.1-17.0 ) EJSDNIW089 MG/DL H (65-99 MG/DL) *GFR EST NON AFR [place] AND [place]>90 ML/MIN (Reference Range: not available) *GFR EST AFR AMER>90 ML/MIN (Reference Range: not available) CALCIUM8.5 MG/DL (8.5-10.1 MG/DL) BILIRUBIN TOTAL0.70 MG/DL (0.20-1.00 MG/DL) TOTAL PROTEIN7.4 GM/DL (6.4-8.2 GM/DL) ALBUMIN3.5 GM/DL (3.4-5.0 GM/DL) *GLOBULIN3.9 GM/DL H (2.3-3.5 GM/DL) *A/G RATIO0.9 L (1.5-2.2 ) ALK LIDI887 U/L H (46-116 U/L) ALT (SGPT)39 U/L (16-63 U/L) AST (SGOT)36 U/L (15-37 U/L) URIC ACID4.0 MG/DL (2.6-6.0 MG/DL) C-REACTIVE PROTEIN0.17 MG/DL (0.00-0.30 MG/DL)Hematology from 02/01/2018 4:36 PMWBC6.3 X10e3/UL (3.6-11.2 X10e3/UL) RBC4.66 X10e6/UL (3.63-4.92 X10e6/UL) KRVIBNUMKP02.8 G/DL (11.0-14.3 G/DL) DUFRYBRXAX12.7 % (31.2-41.9 %) *MCV85.3 FL (79.0-98.0 FL) *MCH29.7 PG (27.0-33.0 PG) *MCHC34.8 G/DL (32.0-36.0 G/DL) *RDW14.0 % (12.3-17.0 %) *RDWSD42.4 (37.1-47.8 ) APZRJLFA864 X10e3/UL (159-386 X10e3/UL) *MPV8.1 FL (7.4-10.4 FL) SED RATE23 MM/HR (0-30 MM/HR)Coagulation from 01/20/2018 5:28 PM*PROTHROMBIN TIME34.5 SECONDS H (9.4-11.5 SECONDS) *INR3.48 H (0.90-1.10 )Serology from 02/01/2018 4:36 PMRHEUMATOID FACTOR NO REFLEXNegative (NEGATIVE )Reference Lab from 02/01/2018 4:36 PMCYCLIC CITRULLINATED PEPTIDE8 units (0-19 units) *BORIS SCREENNegative (Reference Range: not available) Problems Encounter Diagnosis No relevant problems exist. Additional Problems Fall Risk Comment:Problem resolved by [facility] Workflow upon Discharge, Status: Resolved.Nausea & Vomiting Comment:Problem resolved by [facility] Workflow upon Discharge, Status:Resolved.Small Bowel Obstruction Comment:Problem resolved by [facility] Workflow upon Discharge, Status:Resolved. Encounters Encounter Diagnosis No relevant problems exist. Plan of Care Procedures Completed Procedure Code: [id number] Procedure Name: not valued, on 10/31/2015 12: 00 AMCompleted , on 02/13/2012 12:00 AMCompleted , on 01/16/2012 12:00 AMCompleted , on 10/30/2010 12:00 AMCompleted , on 10/30/2010 12:00 AMCompleted , on 2008 12:00 AMCompleted , on 07/31/2009 12:00 AMCompleted , on 02/26/2009 12:00 AM Immunizations No immunizations administered or ordered. Hospital Course Hospital Discharge Instructions Allergies, Adverse Reactions, Alerts This section is representative phlebotomy services of the current allergy information, at the [...]
--- OUTSIDE RECORDS SUMMARY | 2018-04-27 18:34 | External Medical Summary ---
:1965 Author Organization [facility] Address [address] [place], [place] [address] Care Team Providers Name Role Phone Iesha Cortez Unavailable Unavailable PROBLEMS Type Condition ICD9-CM Code [id number] Onset Condition SNOMED Code Code Dates Status Problem Personal history of V12.51 Active 911061178 venous thrombosis and embolism Problem Peptic ulcer 533.90 Active 34814961 Problem Chronic back pain 724.5 Active 458932110 Problem Generalized 715.00 Active 491738181 osteoarthrosis, unspecified site Problem Unspecified iron 280.9 Active 81323164 deficiency anemia Problem Venous embolism 453.6 Active 339438244 Problem correction (current) V58.61 Active 376630224 use of anticoagulants ALLERGIES No Information ENCOUNTERS Encounter Location Date Diagnosis [facility] [address] Jan, [place] [address] [facility] [address] Nov, Encounter for PPD test [place], [place] Z11.1 [address] [facility] [address] Apr, [place] [address] [facility] [address] Nov, [place] [address] [facility] [address] Nov, [place] [address] [facility] [address] Sep, [place] [address] [facility] [address] Aug, Peptic ulcer 533.90 ; [place] Venous embolism 453.6 ; [address] Unspecified iron deficiency anemia 280.9 ; Chronic back pain 724.5 ; 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 and Encounter for care related to Port-a-Cath V58.81 [facility] [address] Aug, Sprain shoulder/arm 840.9 [place] [address] shoulder region 716.91 [facility] [address] Jul, Other affections of [place] shoulder region, not [address] elsewhere classified 726.2 [facility] [address] Jul, Other affections of [place] shoulder region, not [address] elsewhere classified 726.2 [facility] [address] Jul, [place] [address] [facility] [address] Jul, Other affections of [place] shoulder region, not [address] elsewhere classified 726.2 [facility] [address] Jul, [place] [address] [facility] [address] Jul, [place] [address] [facility] [address] Jul, Other affections of [place] shoulder region, not [address] elsewhere classified 726.2 [facility] [address] Jul, [place] [address] [facility] [address] Jul, Other affections of [place] shoulder region, not [address] elsewhere classified 726.2 [facility] [address] Jun, [place] [address] [facility] [address] Jun, Other affections of [facility] [place] shoulder region, not [address] elsewhere classified 726.2 [facility] [address] Jun, Other affections of [place] shoulder region, not [address] elsewhere classified 726.2 [facility] [address] Jun, Other affections of [place] shoulder region, not [address] elsewhere classified 726.2 [facility] [address] February, [place] [address] [facility] [address] February, [place] [address] REJI Irby-Fritz [facility] Sep, [place] [address] REJI Irby-Fritz [facility] May, [facility] [place] [address] REJI Irby-Fritz [facility] Apr, [place] [address] Radha Arndt PA-C [facility] Apr, [facility] [place] [address] REJI Irby-Fritz [facility] February, [facility] [place] [address] REJI Irby-Fritz [facility] February, [facility] [place] [address] REJI Irby-Fritz [facility] Jan, [facility] [place] [address] REJI Irby-Fritz [facility] Jan, [facility] [place] [address] Radha Arndt PA-C [facility] Jan, [facility] [place] [address] REJI Irby-Fritz [facility] Jan, [facility] [place] [address] REJI Irby-Fritz [facility] Jan, [facility] [place] [address] Radha Arndt PA-C [facility] Jan, [facility] [place] [address] Radha Arndt PA-C [facility] Dec, [facility] [place] [address] Radha Arndt PA-C [facility] Nov, [facility] [place] [address] Radha Arndt PA-C [facility] Sep, [facility] [place] [address] Radha Arndt PA-C [facility] Sep, [facility] [place] [address] Radha Arndt PA-C [facility] Aug, [facility] [place] [address] Radha Arndt PA-C [facility] Aug, [place] [address] Radha Arndt PA-C [facility] Aug, [place] [address] [facility] [address] Jun, [place] [address] [facility] [address] Jun, [place] [address] [facility] [address] May, [place] [address] [facility] [address] May, [place] [address] [facility] [address] May, [place] [address] [facility] [address] May, [place] [address] [facility] [address] May, [place] [address] [facility] [address] Apr, [place] [address] [facility] [address] Apr, [place] [address] [facility] [address] Apr, [place] [address] [facility] [address] Apr, [facility] [place] [address] IMMUNIZATIONS No Known Immunizations SOCIAL HISTORY Never Assessed REASON FOR VISIT Updating surgical Hx PLAN OF CARE VITAL SIGNS MEDICATIONS Unknown Medications RESULTS No Results PROCEDURES No Known procedures INSTRUCTIONS MEDICATIONS ADMINISTERED No Known Medications MEDICAL (GENERAL) HISTORY Type Description Date Medical History Wears dentures Medical History Arthritis Medical History Breast mass in female Medical History Injury of right shoulder Medical History Generalized osteoarthrosis, unspecified site Medical History Closed fracture of distal phalanx or phalanges of hand Medical History Unspecified iron deficiency anemia Medical History Personal history of venous thrombosis and embolism Medical History Unspecified nonsenile cataract Medical History Peptic ulcer Medical History Chronic back pain Medical History Port-a-cath for infed therapy d/t iron deficeincy anemia Surgical History bilateral total knee 2003,2006 Surgical History x2 1996,1995 Surgical History TOTAL HYSTERECTOMY - secondary to DUB, has both ovaries 1997 Surgical History perforated abdominal ulcer 2011 Surgical History 3 abdominal hernia repairs 2013 Surgical History cataract 2011,2012
--- OUTSIDE RECORDS SUMMARY | 2018-04-27 18:34 | External Medical Summary ---
:1965 Author Name GENERATED, SYSTEM Care Team Providers Name Role Phone ROBERT MORENO DAWNA Primary Care Provider [phone] Reason For Visit Reason for Visit from 03/30/2017 3:35 PM:Pt Stated Reason for Adm : Lab/ Port flush Chief Complaint PAC MAINTENANCE Social History Functional Status Functional Status from 03/30/2017 3:35 PM:LOC : AlertOriented To : Person,Place, Time,Event Vital Signs Hospital Vital Signs from 03/30/2017 3:35 PM:Weight : 213/ lbs,ozHeight : 5/6 ft, inHeight : 5/6 ft,inTemperature : 96.7 FPulse : 97Respirations : 18BP : 160/79 Results Chemistry from 03/30/2017 3:53 KVMXWN65 MCG/DL (50-170 MCG/DL) IHONBMXW80 NG/ML (13-150 NG/ML)Hematology from 03/30/2017 3:53 PMWBC6.8 X10e3/UL (3.6-11.2 X10e3/UL) RBC4.78 X10e6/UL (3.63-4.92 X10e6/UL) KYLTXGTGSN45.9 G/DL (11.0-14.3 G/DL) GURZEUEOTW40.9 % (31.2-41.9 %) *MCV85.6 FL (79.0-98.0 FL) *MCH29.1 PG (27.0-33.0 PG) *MCHC34.0 G/DL (32.0-36.0 G/DL) *RDW13.6 % (12.3-17.0 %) *RDWSD41.1 (37.1-47.8 ) VDTKWYBR778 X10e3/UL (159-386 X10e3/UL) *MPV9.0 FL (7.4-10.4 FL)Coagulation from 03/30/2017 3:53 PM*PROTHROMBIN TIME24.7 SECONDS H (9.4-11.5 SECONDS) *INR2.4 H (0.9-1.1 ) Problems Encounter Diagnosis No relevant problems exist. Additional Problems Fall Risk Comment:Problem resolved by [facility] Workflow upon Discharge, Status: Resolved.Nausea & Vomiting Comment:Problem resolved by [facility] Workflow upon Discharge, Status:Resolved.Small Bowel Obstruction Comment:Problem resolved by [facility] Workflow upon Discharge, Status:Resolved. Encounters Encounter Diagnosis No relevant problems exist. Plan of Care Procedures Completed Procedure Code: [id number] Procedure Name: not valued, on 10/31/2015 12: 00 AMCompleted , on 02/13/2012 12:00 AMCompleted , on 01/16/2012 12:00 AMCompleted , on 10/30/2010 12:00 AMCompleted , on 10/30/2010 12:00 AMCompleted , on 2008 12:00 AMCompleted , on 07/31/2009 12:00 AMCompleted , on 02/26/2009 12:00 AM Immunizations No immunizations administered or ordered. Hospital Course Hospital Discharge Instructions Allergies, Adverse Reactions, Alerts This section is practice representative of the current allergy information, at [...]
--- OUTSIDE RECORDS SUMMARY | 2018-04-27 18:34 | External Medical Summary ---
:1965 Author Name GENERATED, SYSTEM Care Team Providers Name Role Phone ROBERT MORENO DAWNA Primary Care Provider [phone] Reason For Visit Chief Complaint HIP/ BACK PAIN Social History Functional Status Vital Signs Results [...] Plan of Care Procedures Completed Procedure Code: [id number] Procedure Name: not valued, on 10/31/2015 12: 00 AMCompleted , on 02/13/2012 12:00 AMCompleted , on 01/16/2012 12:00 AMCompleted , on 10/30/2010 12:00 AMCompleted , on 10/30/2010 12:00 AMCompleted , on 2008 12:00 AMCompleted , on 07/31/2009 12:00 AMCompleted , on 02/26/2009 12:00 AM Immunizations No immunizations administered or ordered. Hospital Course Hospital Discharge Instructions Allergies, Adverse Reactions, Alerts This section is inside technical sales representative of the current allergy information, [...]
--- OUTSIDE RECORDS SUMMARY | 2018-04-27 18:34 | External Medical Summary ---
:1965 Author Organization [facility] Address [address] [place], [place] [address] Care Team Providers Name Role Phone Kristopher Juarez Unavailable Unavailable PROBLEMS Type Condition ICD9-CM Code [id number] Onset Condition SNOMED Code Code Dates Status Problem Personal history of V12.51 Active 013673793 venous thrombosis and embolism Problem Peptic ulcer 533.90 Active 92930069 Problem Chronic back pain 724.5 Active 398319735 Problem Generalized 715.00 Active 649102906 osteoarthrosis, unspecified site Problem Unspecified iron 280.9 Active 41456544 deficiency anemia Problem Venous embolism 453.6 Active 624812920 Problem FDC (current) V58.61 Active 794039142 use of anticoagulants ALLERGIES No Information ENCOUNTERS Encounter Location Date Diagnosis [facility] [address] Nov, Encounter for PPD test [place], [place] Z11.1 [address] [facility] [address] Apr, [place] [address] [facility] [address] Nov, [place] [address] [facility] [address] Nov, [place] [address] [facility] [address] Sep, [place] [address] [facility] [address] Aug, Peptic ulcer 533.90 ; [place], [place] Venous embolism 453.6 ; [address] Unspecified iron deficiency anemia 280.9 ; Chronic back pain 724.5 ; FDC (current) use of anticoagulants V58.61 and Encounter for care related to Port-a-Cath V58.81 [facility] [address] Aug, Sprain shoulder/arm 840.9 [place] [address] shoulder region 716.91 [facility] [address] Jul, Other affections of [place] shoulder region, not [address] elsewhere classified 726.2 [facility] [address] Jul, Other affections of [place] shoulder region, not [address] elsewhere classified 726.2 [facility] [address] Jul, [place] [address] [facility] [address] Jul, Other affections of [place] shoulder region, not [address] elsewhere classified 726.2 [facility] [address] Jul, [place] [address] [facility] [address] Jul, [place] [address] [facility] [address] Jul, Other affections of [place] shoulder region, not [address] elsewhere classified 726.2 [facility] [address] Jul, [place] [address] [facility] [address] Jul, Other affections of [place] shoulder region, not [address] elsewhere classified 726.2 [facility] [address] Jun, [place] [address] [facility] [address] Jun, Other affections of [place] shoulder region, not [address] elsewhere classified 726.2 [facility] [address] Jun, Other affections of [place] shoulder region, not [address] elsewhere classified 726.2 [facility] [address] Jun, Other affections of [place] shoulder region, not [address] elsewhere classified 726.[address] [facility] [address] February, [place] [address] [facility] [address] February, [place] [address] REJI Irby-C [facility] Sep, [facility] [place] [address] REJI Irby-C [facility] May, [facility] [place] [address] REJI Irby-C [facility] Apr, [facility] [place] [address] REJI Irby-Fritz [facility] Apr, [facility] [place] [address] REJI Irby-Fritz [facility] February, [facility] [place] [address] REJI Irby-C [facility] February, [facility] [place] [address] REJI Irby-C [facility] Jan, [facility] [place] [address] REJI Irby-Fritz [facility] Jan, [facility] [place] [address] REJI Irby-C [facility] Jan, [facility] [place] [address] REJI Irby-C [facility] Jan, [facility] [place] [address] REJI Irby-C [facility] Jan, [facility] [place] [address] REJI Irby-Fritz [facility] Jan, [facility] [place] [address] REJI Irby-Fritz [facility] Dec, [facility] [place] [address] REJI Irby-Fritz [facility] Nov, [facility] [place] [address] Radha Arndt PA-C [facility] Sep, [facility] [place] [address] Radha Arndt PA-C [facility] Sep, [facility] [place] [address] [facility]C [facility] Aug, [facility] [place] [address] Rad[facility] Arndt PA-C [facility] Aug, [facility] [place] [address] Radha Arndt PA-C [facility] Aug, [facility] [place] [address] [facility] [address] Jun, [facility] [place] [address] [facility] [address] Jun, [facility] [place] [address] [facility] [address] May, [facility] [place] [address] [facility] [address] May, [facility] [place] [address] [facility] [address] May, [facility] [place] [address] [facility] [address] May, [facility] [place] [address] [facility] [address] May, [facility] [place] [address] [facility] [address] Apr, [facility] [place] [address] [facility] [address] Apr, [facility] [place] [address] [facility] [address] Apr, [facility] [place] [address] [facility] [address] Apr, [facility] [place] [address] IMMUNIZATIONS Vaccine Route Administration Date Status *TB skin test (PPD) ID Intradermal Nov 23, 2017 Administered SOCIAL HISTORY Never Assessed REASON FOR VISIT tb test, Nurse TB skin test - placement and results - keep note open until resulted PLAN OF CARE VITAL SIGNS MEDICATIONS Medication Instructions Dosage Frequency Start End Duration Status Date Date Warfarin Sodium Orally 6.5mg 5mg 1Mg Active 5 MG daily 0.5mg=6.5mg total Heparin Flush by Intravenous May, Active 10 unit/mL route 2011 Infed 50 MG/ML by Injection May, Active route every 2011 month Flexeril Active Lansoprazole 30 take 1 capsule Aug, Active mg (30 mg) by 2011 oral route once daily before a meal for 8 weeks RESULTS No Results PROCEDURES Procedure Date Ordered Result Body Site OTHER-INTRADERMAL INJECTION FEE 2017-11-23 N/A INTRADERMAL TESTS Nov 23, 2017 *TB skin test (PPD) Nov 23, 2017 INSTRUCTIONS MEDICATIONS ADMINISTERED No Known Medications MEDICAL [...] 2003,2006 Surgical History x2 1996,1995 Surgical History partial hysterectomy secondary to DUB, has both ovaries 1997 Surgical History perforated abdominal ulcer 2011 Surgical History 3 abdominal hernia repairs 2013 Surgical History cataract 2011,2012
--- OUTSIDE RECORDS SUMMARY | 2018-04-27 18:34 | External Medical Summary ---
:1965 Author Name GENERATED, SYSTEM Care Team Providers Name Role Phone CARY MORENOJITENDRA Rodriguez Primary Care Provider [phone] Reason For Visit Reason for Visit from 04/30/2017 12:28 PM:Pt Stated Reason for Adm : lab and PAC flush Chief Complaint PAC MAINTENANCE, HX PE AND DVT Social History Functional Status Functional Status from 04/30/2017 12:28 PM:LOC : AlertOriented To : Person,Place, Time,Event Vital Signs Hospital Vital Signs from 04/30/2017 12:28 PM:Weight : 94.347/ kgHeight : 5/6 ft, inHospital Vital Signs from 04/30/2017 12:26 PM:Weight : 208/ lbs,ozHeight : 5/6 ft,inTemperature : 96.7 FPulse : 82Respirations : 18BP : 139/80 Results Coagulation from 04/30/2017 10:16 AM*PROTHROMBIN TIME23.0 [...] Plan of Care Procedures Completed Procedure Code: [id number] Procedure Name: not valued, on 10/31/2015 12: 00 AMCompleted , on 02/13/2012 12:00 AMCompleted , on 01/16/2012 12:00 AMCompleted , on 10/30/2010 12:00 AMCompleted , on 10/30/2010 12:00 AMCompleted , on 2008 12:00 AMCompleted , on 07/31/2009 12:00 AMCompleted , on 02/26/2009 12:00 AM Immunizations No immunizations administered or ordered. Hospital Course Hospital Discharge Instructions Allergies, Adverse Reactions, Alerts This section is support representative of the current allergy information, at [...]
--- OUTSIDE RECORDS SUMMARY | 2018-04-27 18:34 | External Medical Summary ---
:1965 Author Name GENERATED, SYSTEM Care Team Providers Name Role Phone ROBERT MORENO DAWNA Primary Care Provider [phone] Reason For Visit Chief Complaint M06.4, L40.8, D64.9 Social History Functional Status Vital Signs Results Problems Encounter Diagnosis No relevant problems exist. Additional Problems Fall Risk Comment:Problem resolved by [facility] Workflow upon Discharge, Status: Resolved.Nausea & Vomiting Comment:Problem resolved by [facility] Workflow upon Discharge, Status:Resolved.Small Bowel Obstruction Comment:Problem resolved by [facility] Workflow upon Discharge, Status:Resolved. Encounters Encounter Diagnosis No relevant problems exist. Plan of Care Procedures Completed Procedure Code: [id number] Procedure Name: not valued, on 10/31/2015 12: 00 AMCompleted , on 02/13/2012 12:00 AMCompleted , on 01/16/2012 12:00 AMCompleted , on 10/30/2010 12:00 AMCompleted , on 10/30/2010 12:00 AMCompleted , on 2008 12:00 AMCompleted , on 07/31/2009 12:00 AMCompleted , on 02/26/2009 12:00 AM Immunizations No immunizations administered or ordered. Hospital Course Hospital Discharge Instructions Allergies, Adverse Reactions, Alerts This section is termite control representative of the current allergy information, at [...]
--- OUTSIDE RECORDS SUMMARY | 2018-04-27 18:35 | External Medical Summary | Continuity of Care Document ---
:1965 Author Organization [facility] Allergies Active Description Code Type Severity Reaction Onset Reported/ Identified Relationship Clinical to Patient Status Yes 10-05-03 Drug N/A N/A PCN,AMOXIL,C Aller ECLOR,ERYTHR gy OMYCIN,ZYRTE C Yes No Known 17891 Misce Moderate N/A Drug 998 llane Allergies ous Aller gy Yes AMOXICILLIN 91253 Drug Unknown Hives 376 Aller gy Yes ERYTHROMYCIN 44327 Drug Unknown Hives 326 Aller gy Yes LEVAQUIN 25163 Drug Unknown Hives 604 Aller gy Yes PCN 92236 Drug Unknown Anaphylax (penicillin) 020 Aller is gy Yes SULFA 53475 Drug Unknown Hives (sulfonamide 022 Aller ) gy Yes AMOXIL AMOXI Drug null N/A L Aller gy Yes AMPICILLIN AMPIC Drug null N/A SODIUM ILLIN Aller SODIU gy M Yes PENICILLIN V PENIC Drug null N/A POTASSIUM ILLIN Aller V gy POTAS SIUM Yes SULFA DRUGS SULFA Drug null N/A DRUGS Aller gy Yes NKDA N/A N/A Yes PCN 41819 Drug Unknown N/A (penicillin) 020 Aller gy Yes AMOXIL AMOXI Drug N/A N/A L Aller gy Yes AMPICILLIN AMPIC Drug N/A N/A SODIUM ILLIN Aller SODIU gy M Yes PENICILLIN V PENIC Drug N/A N/A POTASSIUM ILLIN Aller V gy POTAS SIUM Yes SULFA DRUGS SULFA Drug N/A N/A DRUGS Aller gy Yes ciprofloxaci cipro Drug Unknown N/A 02/15/2004 n floxa Aller ivette gy Yes clindamycin clind Drug Unknown N/A 02/15/2004 amyci Aller n gy Yes Penicillins Penic Drug Unknown N/A 02/15/2004 illin Aller s gy Yes rofecoxib rofec Drug Unknown N/A 02/15/2004 oxib Aller gy Yes Sulfa Sulfa Drug Unknown N/A 02/15/2004 (Sulfonamide (Sulf Aller Antibiotics) onami gy de Antib iotic s) Yes .ANTIBIOTI .ANTI Drug Unknown PCN-RESPI 06/06/2004 BIOTI Aller RATORY gy PROBLEMS; EVERYTHIN G ELSE-HIVE S Yes No Known No Drug Unknown N/A 06/06/2004 Contrast Known Aller Allergies Contr gy ast Aller gies Yes No Known No Drug Unknown N/A 06/06/2004 Food Known Aller Allergies Food gy Aller gies Yes NO KNOWN NO Drug Unknown N/A 06/06/2004 LATEX KNOWN Aller ALLERGY/SENS LATEX gy ITI ALLER GY/SE NSITI Yes VIOXX VIOXX Drug Unknown GI BLEED 06/06/2004 Aller gy Yes Amoxicillin Drug Moderate HIVES 11/06/2010 Aller gy Yes Ceclor Drug Moderate HIVES 11/06/2010 Aller gy Yes Erythromycin Drug Moderate HIVES 11/06/2010 Base Aller gy Yes Penicillins Drug Severe ANAPHYLAC 11/06/2010 Aller TIC gy Yes Sulfa Drug Moderate HIVES 11/06/2010 (Sulfonamide Aller Antibiotics gy Yes Vancomycin Drug Moderate HIVES 11/06/2010 Aller gy Yes Zithromax Drug Moderate HIVES 11/06/2010 Aller gy Yes Levaquin Drug N/A Urticaria 02/09/2014 Aller (hives) gy Yes No Known Food N/A N/A 02/09/2014 Food Aller Allergies gy Yes Green Food N/A Wheezing 02/17/2014 Peppers Aller gy Yes ciprofloxaci cipro Drug Unknown UNKNOWN 06/05/2015 n floxa Aller ivette gy Yes clindamycin clind Drug Unknown UNKNOWN 06/05/2015 amyci Aller n gy Yes Penicillins Penic Drug Unknown ANAPHLYAX 06/05/2015 illin Aller IS s gy Yes rofecoxib rofec Drug Unknown UNKNOWN 06/05/2015 oxib Aller gy Yes Sulfa Sulfa Drug Unknown UNKNOWN 06/05/2015 (Sulfonamide (Sulf Aller Antibiotics) onami gy de Antib iotic s) Yes cefaclor cefac Drug Unknown UNKNOWN 03/11/2016 david Aller gy Yes levofloxacin levof Drug Unknown UNKNOWN 03/11/2016 loxac Aller in gy Medications Medication Packaging Start Date Stop Date Route Dosage Sig ZOFRAN ORAL 04/28/2016 ORAL 30 3 times a day WARFARIN ORAL 04/28/2016 ORAL 30 SODIUM daily ORAL 04/28/2016 ORAL 30 PANTOPRAZOLE SODIUM daily OXYCONTIN ORAL 04/28/2016 ORAL 60 twice daily OXYCODONE ORAL 04/28/2016 ORAL 40 HCL every 6 hours ORAL 04/28/2016 ORAL 30 CYCLOBENZAPRINE HCL 3 times a day ORAL 05/08/2016 ORAL 10 DOXYCYCLINE HYCLATE 6 twice daily 02/23/2017 600 CLINDAMYCIN (CLEOCIN) 7 Q6H&1400, 600 MG/4ML 2000,2000, 02/23/2017 0.5 HYDROMORPHONE 1 MG/ML 7 PRN& OXYCONTIN 02/23/2017 30 10 MG TAB BID&0900, 2100, TEMAZEPAM 02/23/2017 15 15 MG CAP 100 UD PRNHS& BISACODYL 02/23/2017 10 10 MG SUP PRN& 02/23/2017 4 ONDANSETRON 2MG/1ML PRNQ6H& SDV 02/23/2017 6.25 PROMETHAZINE 25 MG/ML PRNQ4H& AMP 1ML MORPHINE 02/23/2017 5 10 MG/ML 1ML PRNQ3H& DEMEROL 02/23/2017 50 25 MG/ML 1ML PRNQ3H& 02/23/2017 2 OXYCODONE/APAP 5/325 PRNQ4H& MG TAB 02/23/2017 30 MAG-AL/SIM PLUS ÓSCAR PRN& 30 ML NF 02/23/2017 40 PANTOPRAZOLE SODIUM DAILY&090 40MG ORAL TABLET, 0, 02/24/2017 600 CLINDAMYCIN (CLEOCIN) 7 X1& 600 MG/4ML SODIUM 02/24/2017 3 CHLOR 0.9 P/F VL Q12H& 10ML LOVENOX 02/24/2017 30 30 MG SYG 10 BID&0900, 2100, 02/24/2017 4 ONDANSETRON 2MG/1ML PRNQ6H& SDV COUMADIN 02/24/2017 6.5 5 MG TAB 100 UD 1700&1700 , Problems Date Dx Attending Type Code Diagnosis Diagnosed By Coded 07/19/2013 Final 534.90 GJU NOS W/O COMP 07/19/2013 Admitting 789.09 ABDOMINAL PAIN-SITE NEC 02/14/2014 Hugh KNOX, Final 518.52 PI NEC FOLLOW Burak B TRAUM/SURG 02/14/2014 Hugh KNOX, Final 553.21 INCISIONAL HERNIA Burak B 02/14/2014 Hugh KNOX, Final 564.00 CONSTIPATION NOS Burak B 02/14/2014 Hugh KNOX, Final 788.20 RETENTION OF URINE Burak B NOS 06/15/2015 Ingris KNOX, A 361.02 PART DETACH-MULT Pierre D DEFECT 11/11/2015 CRISTHIAN PEÑA D509 Iron deficiency A anemia, unspecified 11/11/2015 CRATERCRISTHIAN D519 Vitamin B12 A deficiency anemia, unspecified 11/11/2015 CRATERCRISTHIAN E8342 Hypomagnesemia A 11/11/2015 CRATERCRISTHIAN F329 Major depressive A disorder, single episode, unspecified 11/11/2015 CRATERCRISTHIAN G8929 Other chronic pain A 11/11/2015 CRATERCRISTHIAN K565 Intestinal adhesions A w obst (postprocedural) (postinfection) 11/11/2015 CRATERCRISTHIAN A K5660 Unspecified A intestinal obstruction 11/11/2015 CRATER, CRISTHIAN Degroot M549 Dorsalgia, A unspecified 11/11/2015 CRATERCRISTHIAN 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 11/11/2015 CRISTHIAN PEÑA [id number] Personal history of A pulmonary embolism 11/11/2015 CRISTHIAN PEÑA Z9884 Bariatric surgery A status 11/12/2015 CRISTHIAN PEÑA D509 Iron deficiency A anemia, unspecified 11/12/2015 CRACRISTHIAN RODRIGUEZ D519 Vitamin B12 A deficiency anemia, unspecified 11/12/2015 CRATERCRISTHIAN D E8342 Hypomagnesemia A 11/12/2015 CRATERCRISTHIAN D F329 Major depressive A disorder, single episode, unspecified 11/12/2015 CRATERCRISTHIAN D G8929 Other chronic pain A 11/12/2015 CRATER, CRISTHIAN D K565 Intestinal adhesions A w obst (postprocedural) (postinfection) 11/12/2015 CRATER, CRISTHIAN A K5660 Unspecified A intestinal obstruction 11/12/2015 CRATER, CRISTHIAN D M549 Dorsalgia, A unspecified 11/12/2015 CRATERCRISTHIAN D 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 11/12/2015 CRISTHIAN PEÑA [id number] Personal history of A pulmonary embolism 11/12/2015 CRISTHIAN PEÑA Z9884 Bariatric surgery A status 03/11/2016 Gerber KNOX, F D50.9 IRON DEFICIENCY Blanquita L ANEMIA, UNSPECIFIED 03/11/2016 Gerber KNOX, F E66.9 OBESITY, UNSPECIFIED Blanquita L 03/11/2016 Gerber KNOX, F G89.4 CHRONIC PAIN Blanquita L SYNDROME 03/11/2016 Gerber KNOX, F K21.9 GASTRO-ESOPHAGEAL Blanquita L REFLUX DISEASE WITHOUT ESOPHAGIT 03/11/2016 Gerber KNOX, F K27.9 PEPTIC ULC, SITE Blanquita L UNSP, UNSP AC OR CHR, W/O HEMO 03/11/2016 Gerber KNOX, F K56.60 UNSPECIFIED Blanquita L INTESTINAL OBSTRUCTION 03/11/2016 Gerber KNOX, A R11.2 NAUSEA WITH Blanquita L VOMITING, UNSPECIFIED 03/11/2016 Gerber KNOX, F Z68.33 BODY MASS INDEX Blanquita L (BMI) 33.0-33.9, ADULT 03/11/2016 Gerber KNOX, F Z79.01 GROUP HOME (CURRENT) Blanquita L USE OF ANTICOAGULANTS 03/11/2016 Gerber KNOX, F Z86.718 PERSONAL HISTORY OF Blanquita L OTHER VENOUS THROMBOSIS AND EM 03/11/2016 Gerber KNOX, F Z88.0 ALLERGY STATUS TO Blanquita L PENICILLIN 03/11/2016 Gerber KNOX, F Z88.1 ALLERGY STATUS TO Blanquita L OTHER ANTIBIOTIC AGENTS STATUS 03/11/2016 Gerber KNOX, F Z88.2 ALLERGY STATUS TO Blanquita L SULFONAMIDES STATUS 03/11/2016 Gerber KNOX, F Z98.84 BARIATRIC SURGERY Blanquita L STATUS 11/20/2016 F M19.011 Primary osteoarthritis, right shoulder 12/24/2016 F M17.11 Unilateral primary osteoarthritis, right knee 12/24/2016 F M17.12 Unilateral primary osteoarthritis, left knee 12/24/2016 F Z96.651 Presence of right artificial knee joint 12/24/2016 F Z96.652 Presence of left artificial knee joint 02/23/2017 F M19.011 Primary osteoarthritis, right shoulder 02/23/2017 F M66.821 Spontaneous rupture of other tendons, right upper arm 02/24/2017 PROHASKA, S E669 Obesity, unspecified JOSE Parsons 02/24/2017 PROEFRA S W77781 Unspecified asthma, JOSE Parsons uncomplicated 02/24/2017 QUOC S K219 Gastro-esophageal JOSE Parsons reflux disease without esophagitis 02/24/2017 QUOC P S35982 Primary JOSE Parsons osteoarthritis, right shoulder 02/24/2017 QUOC S P90806 Pain in right JOSE Parsons shoulder 02/24/2017 PROEFRA S S85802 Osteophyte, right JOSE Parsons shoulder 02/24/2017 PROEFRA S S83535 Incomplete rotator JOSE Parsons cuff tear or rupture of right shoulder, not specified as traumatic 02/24/2017 QUOC S 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, JOSE Parsons right shoulder 02/24/2017 QUOC S Z6835 Body mass index JOSE Parsons (BMI) 35.0-35.9, adult 02/24/2017 QUOC S Z7901 residential (current) JOSE Parsons use of anticoagulants 02/24/2017 QUOC S 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 02/24/2017 QUOC S M30349 Personal history of JOSE Parsons pulmonary embolism 02/24/2017 QUOC S Z880 Allergy status to JOSE Parsons penicillin 02/24/2017 QUOC S Z881 Allergy status to JOSE Parsons other antibiotic agents status 02/24/2017 QUOC S Z882 Allergy status to JOSE Parsons sulfonamides status 02/24/2017 QUOC S L43987 Presence of JOSE Parsons artificial knee joint, bilateral 02/24/2017 QUOC S Z9884 Bariatric surgery JOSE Parsons status 04/07/2017 F M19.011 Primary osteoarthritis, right shoulder 04/17/2017 JITENDRA MORENO D649 Anemia, unspecified 04/17/2017 JITENDRA MORENO Z452 Encounter for adjustment and management of VAD 05/18/2017 JITENDRA MORENO Z452 Encounter for adjustment and management of VAD 05/18/2017 JITENDRA MORENO K38746 Personal history of pulmonary embolism 05/18/2017 JITENDRA MORENO E00584 Personal history of other venous thrombosis and embolism 05/19/2017 F M19.011 Primary osteoarthritis, right shoulder 10/06/2017 ROSE HECTOR [id number] Breakdown R (mechanical) of infusion catheter, initial encounter 10/06/2017 ROSE HECTOR Y828 Other medical R devices associated with adverse incidents 10/13/2017 ROSE HECTOR Z39625 Other specified R postprocedural states 10/14/2017 ROSE HECTOR S67947 Other specified R postprocedural states 12/16/2017 JITENDRA MORENO D509 Iron deficiency anemia, unspecified 12/16/2017 JITENDRA MORENO D519 Vitamin B12 deficiency anemia, unspecified 12/16/2017 JITENDRA MORENO M179 Osteoarthritis of knee, unspecified 12/22/2017 ROSE HECTOR Z452 Encounter for R adjustment and management of vascular access device 12/23/2017 ROSE HECTOR Z452 Encounter for R adjustment and management of vascular access device 02/09/2018 ROSE HECTOR [id number] Breakdown R (mechanical) of infusion catheter, initial encounter 02/09/2018 ORSE HECTOR Y828 Other medical R devices associated with adverse incidents 02/16/2018 ROSE HECTOR Z4889 Encounter for other R specified surgical aftercare 02/16/2018 ROSE HECTOR I93556 Other specified R postprocedural states 02/17/2018 ROSE HECTOR Z4889 Encounter for other R specified surgical aftercare 02/17/2018 ROSE HECTOR E80983 Other specified R postprocedural states Procedures Code Description [place] [address] [facility] Dixie WALDROP MD, W 07/19/2013 ENDOSCOPY, DIAGNOSIS [place] 53.61 INC HERNIA Hugh KNOX, Burak Stevens 02/14/2014 REPAIR-GRAFT 86.83 SIZE RED Hugh KNOX, Burak Stevens 02/14/2014 PLASTIC OP 14.54 MARTA RETINA Ingris KNOX, Pierre Degroot 06/05/2015 LASER COAG 14.74 KELLE Amado MD, Pierre Degroot 06/05/2015 VITRECTOMY NEC 14.52 MARTA Amado MD, Pierre Degroot 06/15/2015 RETINA[facility]OTHERAP 14.74 [facility], Pierre Degroot 06/15/2015 VITRECTOMY NEC 10/31/2015 [id number] INSPECTION OF Blayne KNOX, Imad I 03/11/2016 [id number] UPPER INTESTINAL TRACT, ENDO 89416 Total [place], Jose 11/20/2016 Shoulder Arthroplasty 74150 5V Shldr IMP [place], Jose 11/20/2016 L3670 Ultrasling [place], Jose 11/20/2016 09356 Knee 1V Lat Serg Crowley 12/24/2016 83443 Knee 4V WB Serg Crowley 12/24/2016 Repair Right 02/23/2017 [id number] Shoulder Tendon, Open Approach Replacement 02/23/2017 [id number] of Right Shoulder Joint with Synthetic Substitute, Open Approach Introduction 02/23/2017 [id number] of Regional Anesthetic into Peripheral Nerves and Plexi, Percutaneous Approach 30533 Open Long [place], Jose 02/23/2017 Head of the Biceps Tendon Tenodesis 62909 Total [place], Jose 02/23/2017 Shoulder Arthroplasty 97995 Shld True Barbara Nation 04/07/2017 AP/Axillary 2V 93447 10/06/2017 55467 10/06/2017 28927 02/09/2018 60764 02/09/2018 <section xmlns="urn:hl7-org:v3" xmlns:xsi="http://www.w3.org/ 2001/XMLSchema-instance"> <templateId root=" [id number]" /> <templateId root=" [id number]" /> <code codeSystemName=" LOINC" codeSystem="[id number]" code="35425-8&quot ; displayName="Results" /> <title>Results</title> &lt ;text> <table> <thead> <tr> <th& gt;Test</th> <th>Result</th> <th>Range </th> </tr> </thead> <tbody> &lt ;tr> <th colspan="10"> TEST, SERUM - 14:28</th> </tr> <tr> <td> TEST, SERUM</td> <td>NEGATIVE </td> <td>NEGATIVE</td> </tr> <tr> & lt;td>Microbiology</td> <td> </td> < td /> </tr> <tr> <th colspan="10"& gt;PROTHROMBIN TIME WITH INR - 06/15/15 14:28</th> </tr> <tr> <td>INTERNATIONAL NORMAL RATIO</td> <td>1.5 </td> <td>0.9-1.1</td> </tr ><tr> <td>PROTHROMBIN TIME</td> <td&gt ;17.5 sec</td> <td>9.3-12.2</td> </tr> <tr> <td>Microbiology</td> <td> < /td> <td /> </tr> <tr> < th colspan="10">MRSA SURVEILLANCE SCREEN - 06/15/15 15:28</th&gt ; </tr> <tr> <td>Microbiology</td> <td> </td> <td /> </tr> <tr> <th colspan="10">URINALYSIS, ROUTINE - 03/11 16:24</th> </tr> <tr> <td>UA LEUKOCYTE ESTERASE DIPSTICK</td> <td>NEGATIVE </td> <td>NEGATIVE</td> </tr> <tr> < td>UA NITRITE DIPSTICK</td> <td>NEGATIVE </td> <td>NEGATIVE</td> </tr> <tr> & lt;td>UA PROTEIN DIPSTICK</td> <td>3+ </td> <td>NEGATIVE</td> </tr> <tr><td> UA GLUCOSE DIPSTICK</td> <td>NEGATIVE </td> <td>NEGATIVE</td> </tr> <tr> < td>UA KETONE DIPSTICK</td> <td>NEGATIVE </td> <td>NEGATIVE</td> </tr> <tr> <td>UA UROBILINOGEN DIPSTICK</td> <td>NORMAL </ td> <td>NORMAL</td> </tr> <tr&gt ; <td>UA BILIRUBIN DIPSTICK</td> <td>1+ < /td> <td>NEGATIVE</td> </tr> <tr& gt; <td>UA BLOOD DIPSTICK</td> <td>NEGATIVE </td& gt; <td>NEGATIVE</td> </tr> <tr> <td>UA SPECIFIC GRAVITY</td> <td>>= 1.030 </td> <td>1.015-1.025</td> </tr> <tr> <td>UR PH</td> <td>5.5 &lt ;/td> <td>5.0-7.0</td> </tr> <tr& gt; <th colspan="10">UA MICROSCOPIC - 05 16:24&lt ;/th> </tr> <tr> <td>UA BACTERIA< /td> <td>4+ </td> <td>NEGATIVE</td&gt ; </tr> <tr> <td>UA EPITHELIAL CELLS</td& gt; <td>3+ epi/hpf</td> <td>0 - 1+</td&gt ; </tr> <tr> <td>UA MUCUS</td> <td>2+ </td> <td>NEG TO 1+</td> &lt ;/tr> <tr> <td>UA RBC</td> <td& gt;0-3 rbc/hpf</td> <td>0 - 3</td> </tr&gt ; <tr> <td>UA VOLUME FOR EXAM</td> & lt;td>12.0 mL</td> <td>(12mL STD)</td> < /tr> <tr> <td>UA WBC</td> <td& gt;2-5 wbc/hpf</td> <td>0 - 5</td> </tr> <tr> <th colspan="10">CHEM/HEM PROFILE- BEDSIDE - 03/11/16 17:01</th> </tr> <tr> <td>POTASSIUM</td> <td>3.9 mmol/L</td> <td>3.5-5.3</td> </tr> <tr> <td>METHOD</td> <td>Bedside </td> <td /&gt ; </tr> <tr><td>ANION GAP</td> & lt;td>18 mmol/L</td> <td>10-20</td> </tr > <tr> <td>METHOD</td> <td> Bedside </td> <td /> </tr> <tr> <td>GLUCOSE</td> <td>113 mg/dL</td> <td>70-99</td> </tr> <tr> <td>BLOOD UREA NITROGEN</td> <td>11 mg/dL</td&gt ; <td>7-20</td> </tr> <tr> <td>CREATININE</td> <td>0.4 mg/dL</td> <td>0.6-1.0</td> </tr> <tr> <td>HEMOGLOBIN</td> <td>13.9 gm/dL</td> <td>12.0-16.0</td> </tr> <tr> & lt;td>HEMATOCRIT</td> <td>41.0 %</td> <td>37.0-47.0</td> </tr> <tr> <td>SODIUM</td> <td>139 mmol/L</td> < td>135-148</td> </tr> <tr> <td&gt ;CHLORIDE</td> <td>103 mmol/L</td> <td&gt ;98-110</td> </tr> <tr> <td> CARBON DIOXIDE</td> <td>23 mmol/L</td> < td>21-32</td> </tr> <tr> <td> CALCIUM IONIZED</td> <td>4.7 mg/dL</td> < td>4.5-5.3</td> </tr> <tr> <th colspan="10">CBC W/DIFF - 03/11/16 17:05</th> </tr& gt; <tr> <td>EOSINOPHIL #</td> <td> 0.1 k/cumm</td> <td>0.1-0.5</td> </tr> <tr> <td>EOSINOPHIL %</td> & lt;td>1 %</td> <td>2-4</td> </tr > <tr> <td>GRANULOCYTE #</td> <td& gt;7.0 k/cumm</td> <td>2.0-9.0</td> </tr> <tr> <td>GRANULOCYTE %</td> <td>73 %</td> <td>50-75</td> &lt ;/tr> <tr> <td>LYMPHOCYTE #</td> & lt;td>1.9 k/cumm</td> <td>1.0-4.0</td> < /tr> <tr> <td>LYMPHOCYTE %</td> <td>20 %</td> <td>20-30</td> </tr> <tr> <td>MEAN CELL HGB</td> <td>27.4 pg</td> <td>27.0-33.0</td> </tr> <tr> <td>MEAN CELL HGB CONCENTRATION< /td> <td>33.7 g/dL</td> <td>32.0-37.0< /td> </tr> <tr> <td>MEAN CELL VOLUME</td& gt; <td>81.3 fl</td> <td>80.0-100.0</td& gt; </tr> <tr> <td>MONOCYTE #</td&gt ; <td>0.6 k/cumm</td> <td>0.1-1.0</td> </tr> <tr> <td>MONOCYTE %</td&gt ; <td>6 %</td> <td>4-6</td> </tr> <tr> <td>RED BLOOD CELL</td> <td>5.03 m/cumm</td> <td>4.00-6.00</td& gt; </tr> <tr> <td>RED CELL DISTRIBUTION WIDTH</td> <td>15.3 %</td> <td&gt ;11.0-15.6</td> </tr><tr> <td>WHITE BLOOD CELL</td> <td>9.6 k/cumm</td> <td> 5.0-10.0</td> </tr> <tr> <td> HEMOGLOBIN</td> <td>13.8 gm/dL</td> <td& gt;12.0-16.0</td> </tr> <tr> <td> HEMATOCRIT</td> <td>40.9 %</td> < td>37.0-47.0</td> </tr> <tr> <td> PLATELET COUNT</td> <td>359 k/cumm</td> < td>150-400</td> </tr> <tr> <th colspan="10">HEPATIC FUNCTION PANEL - 03/11/16 17:05</th> </tr> <tr> <td>BILI UNCONJUGATED</td& gt; <td>0.8 mg/dL</td> <td>0.0-0.7</td&gt ; </tr> <tr> <td>AST/SGOT</td> <td>23 Units/L</td> <td>10-37</td> </tr> <tr> <td>ALT/SGPT</td> <td >19 Units/L</td> <td><66</td> </ tr> <tr> <td>TOTAL PROTEIN</td> <td&gt ;8.1 gm/dL</td> <td>6.4-8.2</td> </tr> <tr> <td>ALBUMIN</td> <td>3.7 gm/dL</td> <td>3.4-5.0</td> </tr> <tr> <td>BILI TOTAL</td> <td>0.9 mg/ dL</td> <td>0.0-1.0</td> </tr> <tr& gt; <td>ALKALINE PHOSPHATASE TOTAL</td> <td> 120 IU/L</td> <td>45-117</td> </tr> <tr> <td>BILI CONJUGATED</td> <td> 0.1 mg/dL</td> <td>0.0-0.3</td> </tr> <tr> <th colspan="10">PROTHROMBIN TIMEWITH INR - 03/11/16 17:05</th> </tr> <tr> & lt;td>INTERNATIONAL NORMAL RATIO</td> <td>3.9 </td&gt ; <td>0.9-1.1</td> </tr> <tr> <td>PROTHROMBIN TIME</td> <td>46.0 sec</td& gt; <td>9.3-12.2</td> </tr> <tr> <th colspan="10">LACTIC ACID - 03/12/16 05:30</th&gt ; </tr> <tr> <td>LACTIC ACID</td> <td>0.6 mmol/L</td> <td>0.5-2.0</td> </tr> <tr> <th colspan="10"> CBC W/DIFF - 03/12/16 05:30</th> </tr> <tr> <td>BASOPHIL #</td> <td>0.0 k/cumm</td> <td>0.0-0.2</td> </tr> <tr> <td>BASOPHIL %</td> <td>1 %</td> <td>0-1</td> </tr> <tr> <td>EOSINOPHIL #</td> <td>0.1 k/cumm</td> <td>0.1-0.5</td> </tr> <tr> <td>EOSINOPHIL %</td> <td>1 %</ td> <td>2-4</td> </tr> <tr> <td>GRANULOCYTE #</td> <td>2.1 k/cumm</td& gt; <td>2.0-9.0</td> </tr> <tr> <td>GRANULOCYTE %</td> <td>50 &# 37;</td> <td>50-75</td> </tr> &lt ;tr> <td>LYMPHOCYTE #</td> <td>1.7 k/cumm</td& gt; <td>1.0-4.0</td> </tr> <tr> <td>LYMPHOCYTE %</td> <td>40 &# 37;</td> <td>20-30</td> </tr> &lt ;tr> <td>MEAN CELL HGB</td> <td>26.6 pg& lt;/td> <td>27.0-33.0</td> </tr> <tr&gt ; <td>MEAN CELL HGB CONCENTRATION</td> <td> 32.2 g/dL</td> <td>32.0-37.0</td> </tr> <tr> <td>MEAN CELL VOLUME</td> < td>82.4 fl</td> <td>80.0-100.0</td> </tr > <tr> <td>MONOCYTE #</td> <td& gt;0.3 k/cumm</td> <td>0.1-1.0</td> </tr&gt ; <tr> <td>MONOCYTE %</td> & lt;td>8 %</td> <td>4-6</td> </tr > <tr> <td>RED BLOOD CELL</td> &lt ;td>4.03 m/cumm</td> <td>4.00-6.00</td> &lt ;/tr> <tr> <td>RED CELL DISTRIBUTION WIDTH</td > <td>15.3 %</td> <td>11.0-15.6& lt;/td> </tr> <tr> <td>WHITE BLOOD CELL</td> <td>4.3 k/cumm</td> <td>5.0- 10.0</td> </tr> <tr> <td> HEMOGLOBIN</td> <td>10.7 gm/dL</td> <td& gt;12.0-16.0</td> </tr> <tr> <td> HEMATOCRIT</td> <td>33.2 %</td> < td>37.0-47.0</td> </tr> <tr> <td& gt;PLATELET COUNT</td> <td>223 k/cumm</td> & lt;td>150-400</td> </tr> <tr> < th colspan="10">METABOLIC PANEL, [facility] - 03/12/16 05:30</th& gt; </tr> <tr> <td>POTASSIUM</td> <td>3.8 mmol/L</td> <td>3.5-5.3</td> </tr> <tr> <td>EST GFR (MDRD)</td> & lt;td>> 60 mL/min</td> <td>> 59</td&gt ; </tr> <tr> <td>ANION GAP</td> <td>7 mmol/L</td> <td>5-15</td> & lt;/tr> <tr> <td>EST CrCl (CG)</td> <td>> 60 mL/min</td> <td>> 59</td > </tr> <tr> <td>GLUCOSE</td> <td>94 mg/dL</td> <td>70-99</td> </tr> <tr> <td>CALCIUM</td> <td>7.2 mg/dL</td> <td>8.5-10.1</td> & lt;/tr> <tr> <td>BLOOD UREA NITROGEN</td> <td>11 mg/dL</td> <td>7-20</td> </tr> <tr> <td>CREATININE</td> <td>0.4 mg/dL</td> <td>0.6-1.0</td> & lt;/tr> <tr> <td>SODIUM</td><td>141 mmol/L</td> <td>135-148</td> </tr> <tr> <td>CHLORIDE</td> <td>111 mmol /L</td> <td>98-110</td> </tr> &lt ;tr> <td>AST/SGOT</td> <td>166 Units/L</td > <td>10-37</td> </tr><tr> & lt;td>ALT/SGPT</td> <td>106 Units/L</td><td> < 66</td> </tr> <tr> <td> CARBON DIOXIDE</td> <td>23 mmol/L</td> < td>21-32</td> </tr> <tr> <td> TOTAL PROTEIN</td> <td>6.2 gm/dL</td> <td >6.4-8.2</td> </tr> <tr> <td> ALBUMIN</td> <td>2.8 gm/dL</td> <td> 3.4-5.0</td> </tr> <tr> <td>BILI TOTAL</td> <td>0.6 mg/dL</td> <td>0.0- 1.0</td> </tr> <tr> <td>ALKALINE PHOSPHATASE TOTAL</td> <td>166 IU/L</td> &lt ;td>45-117</td> </tr> <tr> <th colspan="10">PHOSPHORUS - 03/12/16 05:30</th> </tr& gt; <tr> <td>PHOSPHORUS</td> <td& gt;2.6 mg/dL</td> <td>2.5-4.9</td> </tr&gt ; <tr> <th colspan="10">MAGNESIUM - 05:30</th> </tr> <tr> <td> MAGNESIUM</td> <td>1.8 mg/dL</td> <td> 1.8-2.4</td> </tr> <tr> <th colspan=& quot;10">PROTHROMBIN TIME WITH INR - 03/12/16 05:30</th></tr&gt ; <tr> <td>INTERNATIONAL NORMAL RATIO</td> <td>4.2 </td> <td>0.9-1.1</td> & lt;/tr> <tr> <td>PROTHROMBIN TIME</td> & lt;td>49.1 sec</td> <td>9.3-12.2</td> </ tr> <tr> <th colspan="10">CBC W/DIFF - 03/13/16 06:10</th> </tr> <tr> <td& gt;BASOPHIL#</td> <td>0.0 k/cumm</td> <td >0.0-0.2</td> </tr> <tr> <td> BASOPHIL %</td> <td>1 %</td> <td>0-1</td> </tr> <tr> <td& gt;EOSINOPHIL #</td> <td>0.0 k/cumm</td> &lt ;td>0.1-0.5</td> </tr> <tr> <td& gt;EOSINOPHIL %</td> <td>1 %</td> <td>2-4</td> </tr> <tr> <td& gt;GRANULOCYTE #</td> <td>3.2 k/cumm</td> <td> 2.0-9.0</td> </tr> <tr> <td> GRANULOCYTE %</td> <td>68 %</td> <td>50-75</td> </tr> <tr> <td >LYMPHOCYTE #</td> <td>1.2 k/cumm</td> & lt;td>1.0-4.0</td> </tr> <tr> <td >LYMPHOCYTE %</td> <td>25 %</td> <td>20-30</td> </tr> <tr> <td>MEAN CELL HGB</td> <td>26.7 pg</td> <td>27.0-33.0</td> </tr> <tr> < td>MEAN CELL HGB CONCENTRATION</td> <td>32.7 g/dL</td > <td>32.0-37.0</td> </tr> <tr&gt ; <td>MEAN CELL VOLUME</td> <td>81.7 fl</ td> <td>80.0-100.0</td> </tr> <tr > <td>MONOCYTE #</td> <td>0.3 k/cumm</ td> <td>0.1-1.0</td> </tr> <tr&gt ; <td>MONOCYTE %</td> <td>6 &#37 ;</td> <td>4-6</td> </tr> <tr> <td>RED BLOOD CELL</td> <td>4.04 m/cumm</td& gt; <td>4.00-6.00</td> </tr> <tr&gt ; <td>RED CELL DISTRIBUTION WIDTH</td> <td> 14.6 %</td> <td>11.0-15.6</td> </tr > <tr> <td>WHITE BLOOD CELL</td> & lt;td>4.8 k/cumm</td><td>5.0-10.0</td> </tr> <tr> <td>HEMOGLOBIN</td> <td> 10.8 gm/dL</td> <td>12.0-16.0</td> </tr&gt ; <tr> <td>HEMATOCRIT</td> <td> 33.0 %</td> <td>37.0-47.0</td> </tr > <tr> <td>PLATELET COUNT</td> &lt ;td>204 k/cumm</td> <td>150-400</td> </ tr> <tr> <th colspan="10">PROTHROMBIN TIME WITH INR - 03/13/16 06:10</th> </tr> <tr> <td>INTERNATIONAL NORMAL RATIO</td> <td>2.3 </td> <td>0.9-1.1</td> </tr> < tr> <td>PROTHROMBIN TIME</td> <td>26.4 sec</td> <td>9.3-12.2</td> </tr> <tr> <th colspan="10">[facility]:10</th> </tr> <tr> <td> POTASSIUM</td> <td>3.7 mmol/L</td> <td&gt ;3.5-5.3</td> </tr> <tr> <td>EST GFR (MDRD)</td> <td>> 60 mL/min</td> <td>> 59</td> </tr> <tr> & lt;td>ANION GAP</td> <td>9 mmol/L</td> < td>5-15</td> </tr> <tr> <td> EST CrCl (CG)</td> <td>> 60 mL/min</td> <td>> 59</td> </tr> <tr> <td>GLUCOSE</td> <td>76 mg/dL</td> <td>70-99</td> </tr> <tr> < td>CALCIUM</td> <td>7.6 mg/dL</td> <td >8.5-10.1</td> </tr> <tr> <td> BLOOD UREA NITROGEN</td> <td>8 mg/dL</td> & lt;td>7-20</td> </tr> <tr> <td&gt ;CREATININE</td> <td>0.4 mg/dL</td> <td& gt;0.6-1.0</td> </tr> <tr> <td>SODIUM< /td> <td>140 mmol/L</td> <td>135-148</ td> </tr> <tr> <td>CHLORIDE</td& gt; <td>108 mmol/L</td> <td>98-110</td&gt ; </tr> <tr> <td>AST/SGOT</td> <td>53 Units/L</td> <td>10-37</td> & lt;/tr> <tr> <td>ALT/SGPT</td> &lt ;td>67 Units/L</td> <td>< 66</td> & lt;/tr> <tr> <td>CARBON DIOXIDE</td> <td>23 mmol/L</td> <td>21-32</td> & lt;/tr> <tr> <td>TOTAL PROTEIN</td> <td>6.4 gm/dL</td> <td>6.4-8.2</td> & lt;/tr> <tr> <td>ALBUMIN</td> < td>2.9 gm/dL</td> <td>3.4-5.0</td> </tr> <tr> <td>BILI TOTAL</td> <td> 1.5 mg/dL</td> <td>0.0-1.0</td> </tr> <tr> <td>ALKALINE PHOSPHATASE TOTAL</td> <td>145 IU/L</td> <td>45-117</td> & lt;/tr> <tr> <th colspan="10">PHOSPHORUS - 11/27 06:10</th> </tr><tr> <td> PHOSPHORUS</td> <td>2.4 mg/dL</td><td>2.5-4.9& lt;/td> </tr> <tr> <th colspan="10 ">MAGNESIUM - 03/13/16 06:10</th> </tr> <tr > <td>MAGNESIUM</td> <td>1.7 mg/dL</td > <td>1.8-2.4</td> </tr> <tr> <th colspan="10">THYROID STIM HORMONE (TSH) - 03/13/16 06 :10</th> </tr> <tr> <td>THYROID STIM HORMONE (TSH)</td> <td>0.71 uIU/mL</td> <td>0.34-4.82</td> </tr> <tr> & lt;th colspan="10">PROTHROMBIN TIMEWITH INR - 03/14/16 17:37</th > </tr> <tr> <td>INTERNATIONAL NORMAL RATIO</td> <td>1.6 </td> <td> 0.9-1.1</td> </tr> <tr> <td> PROTHROMBIN TIME</td> <td>18.6 sec</td> < td>9.3-12.2</td> </tr> <tr> <th colspan="10">PROTHROMBIN TIME WITH INR - 03/15/16 05:20</th> </tr> <tr> <td>INTERNATIONAL NORMAL RATIO</ td> <td>1.5 </td> <td>0.9-1.1</td> </tr> <tr> <td>PROTHROMBIN TIME</td> <td>16.9 sec</td> <td>9.3-12.2</td> </tr> <tr> <th colspan="10"> CBC W/MANUAL DIFF - 03/15/16 09:27</th> </tr> <tr& gt; <td>MEAN CELL HGB</td> <td>26.9 pg</ td> <td>27.0-33.0</td> </tr> <tr& gt; <td>MEAN CELL HGB CONCENTRATION</td> <td>33.8 g/dL</td> <td>32.0-37.0</td> </tr><tr > <td>MEAN CELL VOLUME</td> <td>79.6 fl& lt;/td> <td>80.0-100.0</td> </tr> <tr& gt; <td>RED BLOOD CELL</td> <td>4.31 m/cumm& lt;/td> <td>4.00-6.00</td> </tr> <tr > <td>RED CELL DISTRIBUTION WIDTH</td> <td>14.3 & amp;#37;</td> <td>11.0-15.6</td> </tr> <tr> <td>WHITE BLOOD CELL</td> <td> 5.5 k/cumm</td> <td>5.0-10.0</td> </tr> <tr> <td>HEMOGLOBIN</td> <td> 11.6 gm/dL</td> <td>12.0-16.0</td> </tr> <tr> <td>HEMATOCRIT</td> <td>34.3 %</td> <td>37.0-47.0</td> </tr> <tr> <td>PLATELET COUNT</td> <td>252 k/cumm</td> <td>150-400</td> </tr> <tr> <th colspan="10">MANUAL DIFF(O) - 09:27</th> </tr> <tr> <td> GRANULOCYTE #</td> <td>4.2 k/cumm</td> < td>2.0-9.0</td> </tr> <tr> <td> LYMPHOCYTE #</td> <td>1.0 k/cumm</td> <td >1.0-4.0</td> </tr> <tr> <td> LYMPHOCYTE %</td> <td>18 %</td> <td>20-30</td> </tr> <tr> & lt;td>DIFFERENTIAL</td> <td>MANUAL </td> &lt ;td /> </tr> <tr> <td>MONOCYTE #</td&gt ; <td>0.3 k/cumm</td> <td>0.1-1.0</td&gt ; </tr> <tr> <td>MONOCYTE %< /td> <td>5 %</td> <td>4-6</td&gt ; </tr> <tr> <td>RBC MORPH</td> <td>NOTED </td> <td /> </tr> <tr> <td>SEGMENTED NEUTROPHIL %</td> <td>77 %</td> <td>50-70</td> </tr> <tr> <th colspan="10"> METABOLIC PANEL, COMPREHN - 03/15/16 09:27</th> </tr> <tr> <td>POTASSIUM</td><td>3.4 mmol/L</td&gt ; <td>3.5-5.3</td> </tr> <tr> <td>EST GFR (MDRD)</td> <td>> 60 mL/min </td> <td>> 59</td> </tr> & lt;tr> <td>ANION GAP</td> <td>9 mmol/L&lt ;/td> <td>5-15</td> </tr> <tr&gt ; <td>EST CrCl (CG)</td> <td>> 60 mL/ min</td> <td>> 59</td> </tr> <tr> <td>GLUCOSE</td> <td>86 mg/dL< /td> <td>70-99</td> </tr> <tr&gt ; <td>CALCIUM</td> <td>8.0 mg/dL</td> <td>8.5-10.1</td> </tr> <tr> <td>BLOOD UREA NITROGEN</td> <td>5 mg/dL</td& gt; <td>7-20</td> </tr> <tr> <td>CREATININE</td> <td>0.4 mg/dL</td> <td>0.6-1.0</td> </tr><tr> <td&gt ;SODIUM</td> <td>141 mmol/L</td> <td> 135-148</td> </tr> <tr> <td> CHLORIDE</td> <td>109 mmol/L</td> <td> 98-110</td> </tr> <tr> <td>AST/SGOT& lt;/td> <td>18 Units/L</td> <td>10-37</td&gt ; </tr> <tr> <td>ALT/SGPT</td> <td>41 Units/L</td> <td>< 66</td&gt ; </tr> <tr> <td>CARBON DIOXIDE</td& gt; <td>23 mmol/L</td> <td>21-32</td> </tr> <tr> <td>TOTAL PROTEIN</td&gt ; <td>6.8 gm/dL</td> <td>6.4-8.2</td> </tr> <tr> <td>ALBUMIN</td> <td>3.1 gm/dL</td> <td>3.4-5.0</td> </tr> <tr> <td>BILI TOTAL</td> <td>1.3 mg/dL</td> <td>0.0-1.0</td> </tr> <tr> <td>ALKALINE PHOSPHATASE TOTAL</ td> <td>131 IU/L</td> <td>45-117</td&gt ; </tr> <tr> <th colspan="10"> PHOSPHORUS - 03/15/ 09:27</th> </tr> <tr> <td>PHOSPHORUS</td> <td>2.5 mg/dL</td> <td>2.5-4.9</td> </tr> <tr> <th colspan="10">MAGNESIUM - 03/15/16 09:27</th> </tr> <tr> <td>MAGNESIUM</td> <td>1.6 mg/dL</td> <td>1.8-2.4</td> < /tr> <tr> <th colspan="10">PROTHROMBIN TIME WITH INR - 03/16/16 06:00</th> </tr> <tr> <td>INTERNATIONAL NORMAL RATIO</td> <td>2.0 </td> <td>0.9-1.1</td> </tr> < tr> <td>PROTHROMBIN TIME</td> <td>22.3 sec< /td> <td>9.3-12.2</td> </tr> <tr& gt; <th colspan="10">METABOLIC PANEL, COMPREHN - 06:00</th> </tr> <tr> <td> POTASSIUM</td> <td>3.4 mmol/L</td> <td&gt ;3.5-5.3</td> </tr> <tr> <td>EST GFR ( MDRD)</td> <td>> 60 mL/min</td> < td>> 59</td> </tr> <tr> < td>ANION GAP</td> <td>8 mmol/L</td> < td>5-15</td> </tr> <tr> <td>EST CrCl (CG)</td> <td>> 60 mL/min</td> & lt;td>> 59</td> </tr> <tr> & lt;td>GLUCOSE</td> <td>84 mg/dL</td> < td>70-99</td> </tr> <tr> <td> CALCIUM</td> <td>8.2 mg/dL</td> <td> 8.5-10.1</td> </tr> <tr> <td> BLOOD UREA NITROGEN</td> <td>3 mg/dL</td> & lt;td>7-20</td> </tr> <tr> <td&gt ;CREATININE</td> <td>0.4 mg/dL</td> <td& gt;0.6-1.0</td> </tr> <tr> <td> SODIUM</td> <td>141 mmol/L</td> <td> 135-148</td> </tr> <tr> <td> CHLORIDE</td><td>109 mmol/L</td> <td>98-110< /td> </tr> <tr> <td>AST/SGOT</td& gt; <td>17 Units/L</td> <td>10-37</td&gt ; </tr> <tr> <td>ALT/SGPT</td> <td>32 Units/L</td> <td>< 66</td> </tr> <tr> <td>CARBON DIOXIDE</td> <td>24 mmol/L</td> <td>21-32</td> </ tr> <tr> <td>TOTAL PROTEIN</td> & lt;td>6.6 gm/dL</td> <td>6.4-8.2</td> </ tr> <tr> <td>ALBUMIN</td> <td& gt;3.0 gm/dL</td> <td>3.4-5.0</td> </tr&gt ; <tr> <td>BILI TOTAL</td> <td> 1.1 mg/dL</td> <td>0.0-1.0</td> </tr> <tr> <td>ALKALINE PHOSPHATASE TOTAL</td> & lt;td>120 IU/L</td> <td>45-117</td> </tr > <tr> <th colspan="10">PHOSPHORUS - 06:00</th> </tr> <tr> <td> PHOSPHORUS</td> <td>2.1 mg/dL</td> <td> 2.5-4.9</td> </tr> <tr> <th colspan= "10">MAGNESIUM - 03/16/16 06:00</th> </tr> <tr> <td>MAGNESIUM</td> <td>1.9 mg/ dL</td> <td>1.8-2.4</td> </tr> & lt;tr> <th colspan="10">PROTHROMBIN TIME WITH INR - 03/17/16 06:35</th> </tr> <tr> <td& gt;INTERNATIONAL NORMAL RATIO</td> <td>2.7 </td> <td>0.9-1.1</td> </tr> <tr> <td>PROTHROMBIN TIME</td> <td>30.8 sec</td> <td>9.3-12.2</td> </tr> <tr> <th colspan="10">CBC WITH PLATELET NO DIFFERENTIAL - 16:46</th> </tr> <tr> <td>MPV& lt;/td> <td>8.7 fL</td> <td>7.4-10.4</ td> </tr> <tr> <td>PLATELETS</td& gt; <td>298 10*3/uL</td> <td>159-386</td& gt; </tr> <tr> <td>WBC</td> <td>7.9 10*3/uL</td> <td>3.6-11.2</td> </tr> <tr><td>RBC</td> <td> 4.65 </td> <td>3.63-4.92</td> </tr> <tr> <td>HEMOGLOBIN</td> <td>13.0 & lt;/td> <td>11.0-14.3</td> </tr> &lt ;tr> <td>HEMATOCRIT</td> <td>38.1 &# 37;</td> <td>31.2-41.9</td> </tr> <tr> <td>MCV</td> <td>82.0 fL</td > <td>79.0-98.0</td> </tr> <tr&gt ; <td>MCH</td> <td>27.9 pg</td> <td>27.0-33.0</td> </tr> <tr> &lt ;td>MCHC</td> <td>34.0 </td> <td> 32.0-36.0</td> </tr> <tr> <td>RDW</td& gt; <td>15.5 %</td> <td>12.3-17.0&lt ;/td> </tr> <tr> <td>RDWSD</td&gt ; <td>45.1 </td> <td>37.1-47.8</td> </tr> <tr> <th colspan="10">TSH - 11/ 15/16 16:46</th> </tr> <tr> <td> TSH</td> <td>0.431 u[IU]/L</td> <td> 0.340-4.820</td> </tr> <tr> <th colspan="10">THYROXINE, FREE - 08/26/16 16:46</th> &lt ;/tr> <tr> <td>THYROXINE FREE (FT4) (LAB)</td& gt; <td>1.08 ng/dL</td> <td>0.76-1.46</td > </tr> <tr> <th colspan="10" >IRON - 08/26/16 16:46</th> </tr> <tr> <td>IRON</td> <td>47 ug/dL</td> &lt ;td>50-170</td> </tr> <tr> <th colspan=& quot;10">COMPREHENSIVE METABOLIC PANEL - 08/26/16 16:46</th> </tr> <tr> <td>SODIUM</td> & lt;td>138 mmol/L</td> <td>136-145</td> < /tr> <tr> <td>POTASSIUM</td> <td& gt;3.9 mmol/L</td> <td>3.5-5.1</td> </tr&gt ; <tr> <td>CHLORIDE</td> <td>105 mmol/L& lt;/td> <td>98-107</td> </tr> <tr > <td>TCO2</td> <td>26.2 mmol/L</td&gt ; <td>21.0-32.0</td> </tr> <tr> <td>*ANION GAP</td> <td>6.8 mmol/L</td> <td>8.0-16.0</td> </tr> <tr> <td>BUN</td> <td>10 </td> <td&gt ;7-18</td> </tr> <tr> <td> CREATININE</td> <td>0.70 </td> <td>0.55-1.02& lt;/td> </tr> <tr> <td>*BUN/ CREATININE RATIO</td> <td>14.3 </td> <td>9.1- 17.0</td> </tr> <tr> <td>GLUCOSE& lt;/td> <td>104 </td> <td>65-99</td&gt ; </tr> <tr> <td>CALCIUM</td> <td>8.5 </td> <td>8.5-10.1</td> </tr& gt; <tr> <td>BILIFUBIN TOTAL</td> &lt ;td>0.60 </td> <td>0.20-1.00</td> </tr& gt; <tr> <td>TOTAL PROTEIN</td> <td >7.6 </td> <td>6.4-8.2</td> </tr> & lt;tr> <td>ALBUMIN</td> <td>3.7 </td& gt; <td>3.4-5.0</td> </tr> <tr> <td>*GLOBULIN</td> <td>3.9 </td><td& gt;2.3-3.5</td> </tr> <tr> <td>*A /G RATIO</td> <td>0.9 </td> <td>1.5- 2.2</td> </tr> <tr> <td>ALK PHOS</ td> <td>211 U/L</td><td>46-116</td> & lt;/tr> <tr> <td>ALT (SGPT)</td> & lt;td>147 U/L</td> <td>16-63</td> </tr& gt; <tr> <td>AST (SGOT)</td> <td> 150 U/L</td> <td>15-37</td> </tr> <tr& gt; <th colspan="10">LIPID PANEL W/ LDL DIRECT REFLEX - 08/26/16 16:46</th> </tr> <tr> <td >TRIGLYCERIDES</td> <td>60 </td> <td& gt;0-149</td> </tr> <tr> <td> CHOLESTEROL</td> <td>154 </td> <td>50-199&lt ;/td> </tr> <tr> <td>HDL CHOLESTEROL </td> <td>62 </td> <td>40-60</td&gt ; </tr> <tr> <td>*LDL (CALCULATED) CHOL </td> <td>80 </td> <td>0-99</td&gt ; </tr> <tr> <th colspan="10"> FERRITIN - 08/26/16 16:46</th> </tr> <tr> <td>FERRITIN</td> <td>16 ng/mL</td> <td>13-150</td> </tr> <tr> &lt ;th colspan="10">GFR ESTIMATION - 08/26/16 16:46</th> </tr> <tr> <td>*GFR EST NON AFR COSTA RICAN</td& gt; <td>>90 mL/min</td> <td>NRG</ td> </tr> <tr> <td>*GRFA ESTAFR AMER </td> <td>>90 mL/min</td> <td> NRG</td> </tr> <tr> <th colspan=& quot;10">VITAMIN B12 & FOLATE - 08/26/16 16:46</th> </tr> <tr> <td>VITAMIN B12</td> <td>529 pg/mL</td> <td>180-914</td> </tr> <tr> <th colspan="10"> HEMOGLOBIN A1C - 08/26/16 16:46</th> </tr> <tr> <td>HEMOGLOBIN A1C</td> <td>5.5 %</td&gt ; <td>4.5-6.2</td> </tr><tr> & lt;th colspan="10">EST AVG. GLUCOSE - 08/26/16 16:46</th> </tr> <tr> <td>EST AVG. GLUCOSE</td> <td>111.2 g/dL</td> <td>NRG</td> </tr> <tr><th colspan="10">HEPATIC FUNCTION PANEL - 09/24/16 17:04</th> </tr> <tr> <td>BILIFUBIN TOTAL</td> <td>0.60 </td> <td>0.20-1.00</td> </tr> <tr> <td>BILIRUBIN DIRECT</td> <td>0.10 </td> <td>0.00-0.30</td> </tr> <tr> & lt;td>TOTAL PROTEIN</td> <td>7.3 </td> & lt;td>6.4-8.2</td> </tr> <tr> <td >ALBUMIN</td> <td>3.5 </td> <td>3.4 -5.0</td> </tr> <tr> <td>ALK PHOS&lt ;/td> <td>116 U/L</td> <td>46-116</td& gt; </tr> <tr> <td>ALT (SGPT)</td&gt ; <td>25 U/L</td> <td>16-63</td> & lt;/tr> <tr> <td>AST (SGOT)</td> & lt;td>21 U/L</td> <td>15-37</td> </tr&gt ; <tr> <th colspan="10">PROTHROMBIN TIME - 12/11/16 08:23</th> </tr> <tr> <td >*INR</td> <td>2.2 </td> <td>0.9- 1.1</td> </tr> <tr> <td>* PROTHROMBIN TIME</td> <td>23.4 s</td> <td> 9.4-11.5</td> </tr> <tr> <th colspan ="10">CBC WITH PLATELET NO DIFFERENTIAL - 01/26/17 11:45</th&gt ; </tr> <tr> <td>MPV</td> <td>8.5 fL</td> <td>7.4-10.4</td> &lt ;/tr> <tr> <td>PLATELETS</td> <td> 263 10*3/uL</td> <td>159-386</td> </tr> <tr> <td>WBC</td> <td>5.2 10*3 /uL</td> <td>3.6-11.2</td> </tr> <tr> <td>RBC</td> <td>4.54 </td> <td>3.63-4.92</td> </tr> <tr> <td>HEMOGLOBIN</td> <td>13.1 </td> <td>11.0-14.3</td> </tr> <tr> <td>HEMATOCRIT</td> <td>38.9 %</td> <td>31.2-41.9</td> </tr> <tr> <td>MCV</td> <td>85.7 fL</td> <td> 79.0-98.0</td> </tr> <tr> <td>MCH </td> <td>28.9 pg</td> <td>27.0-33.0& lt;/td> </tr> <tr> <td>MCHC</td& gt; <td>33.7 </td> <td>32.0-36.0</td> </tr> <tr> <td>RDW</td> <td>14.0 %</td> <td>12.3-17.0</td> </tr> <tr> <td>RDWSD</td><td&gt ;42.4 </td> <td>37.1-47.8</td> </tr> <tr> <th colspan="10">COMPREHENSIVE METABOLIC PANEL - 01/26/17 11:45</th> </tr> <tr&gt ; <td>SODIUM</td> <td>140 mmol/L</td> <td>136-145</td> </tr> <tr> <td>POTASSIUM</td> <td>4.2 mmol/L</td> <td>3.5-5.1</td> </tr> <tr> <td>CHLORIDE</td> <td>105 mmol/L</td> <td>98-107</td> </tr> <tr> < td>TCO2</td> <td>30.7 mmol/L</td> <td& gt;21.0-32.0</td> </tr> <tr> <td> *ANION GAP</td> <td>4.3 mmol/L</td> <td& gt;8.0-16.0</td> </tr> <tr> <td> BUN</td> <td>9 </td> <td>7-18</td& gt; </tr> <tr> <td>CREATININE</td&gt ; <td>0.57 </td> <td>0.55-1.02</td> </tr> <tr> <td>*BUN/CREATININE RATIO</td& gt; <td>15.8 </td> <td>9.1-17.0</td> </tr> <tr> <td>GLUCOSE</td> & lt;td>96 </td> <td>65-99</td> </tr> <tr> <td>CALCIUM</td> <td>8.7 & lt;/td> <td>8.5-10.1</td> </tr> < tr> <td>BILIFUBIN TOTAL</td> <td>0.90 </td& gt; <td>0.20-1.00</td> </tr> <tr&gt ; <td>TOTAL PROTEIN</td> <td>7.2 </td&gt ; <td>6.4-8.2</td> </tr> <tr> <td>ALBUMIN</td> <td>3.4 </td> < td>3.4-5.0</td> </tr> <tr> <td&gt ;*GLOBULIN</td> <td>3.8 </td> <td>2.3- 3.5</td> </tr> <tr> <td>*A/G RATIO</td> <td>0.9 </td> <td>1.5-2.2</td& gt; </tr> <tr> <td>ALK PHOS</td> <td>153 U/L</td> <td>46-116</td> </tr> <tr> <td>ALT (SGPT)</td> &lt ;td>84 U/L</td> <td>16-63</td> </tr> <tr> <td>AST (SGOT)</td> <td> 90 U/L</td> <td>15-37</td> </tr> <tr> <th colspan="10">GFR ESTIMATION - 01/26/17 11:45</th> </tr> <tr> <td>*GFR EST NON AFR [facility]STA R[facility]</td> <td>>90 mL/min</td> <td>NRG</td> </tr> <tr> <td>*GRFA EST AFR AMER</td> <td>>90 mL/min</td& gt; <td>NRG</td> </tr> <tr> & lt;th colspan="10">PROTHROMBIN TIME - 01/26/17 11:45</th> </tr> <tr> <td>*INR</td> &lt ;td>2.1 </td> <td>0.9-1.1</td> </tr> <tr> <td>*PROTHROMBIN TIME</td> < td>21.8 s</td> <td>9.4-11.5</td> </tr&gt ; <tr> <th colspan="10">MRSA SCREEN - 11:53</th> </tr> <tr> <td> MRSA SURVEILLANCE CULTURE</td> <td>Negative- No MRSA detected </td> <td>NRG</td> </tr> <tr> <th colspan="10">PROTHROMBIN TIME - 13:18</th> </tr> <tr> <td>*INR </td> <td>2.3 </td> <td>0.9-1.1</td&gt ; </tr> <tr> <td>*PROTHROMBIN TIME</ td> <td>24.4 s</td> <td>9.4-11.5</td& gt; </tr> <tr> <th colspan="10"& gt;CEA - 02/16/17 16:55</th> </tr> <tr> <td>CEA</td> <td>2.3 </td> <td&gt ;0.0-4.7</td> </tr> <tr> <th colspan= "10">Bas Metab 2000 Pnl W Ca-I SerPl - 02/24/17 04:25</th> </tr> <tr> <td>BMP</td> & lt;td>LAB </td> <td /> </tr> <tr& gt; <td>GLUCOSE</td> <td>117 mg/dL</td&gt ; <td>70 - 105</td> </tr> <tr> <td>BUN</td> <td>6 mg/dL</td> &lt ;td>8 - 26</td> </tr> <tr> <td&gt ;CREATININE</td> <td>0.4 mg/dL</td> <td& gt;0.6 - 1.3</td> </tr> <tr> <td> SODIUM</td> <td>138 mEq/L</td> <td> 136 - 144</td> </tr> <tr> <td> POTASSIUM</td> <td>4.1 mEq/L</td> <td> 3.6 - 5.1</td> </tr> <tr> <td> CHLORIDE</td> <td>99 mEq/L</td> <td> 99 - 109</td> </tr> <tr> <td>TCO2</ td> <td>24 %</td> <td>22 - 32< /td> </tr> <tr> <td>ANION GAP</td > <td>19.0 mEq/L</td> <td>10.0 - 20.0< /td> </tr> <tr> <td>iCALCIUM</td& gt; <td>1.11 mmol/L</td> <td>1.19 - 1.41< /td> </tr> <tr> <th colspan="10& quot;>Hct/Hgb Bld Auto-Rto - 02/24/17 04:29</th> </tr> <tr><td>HEMOGLOBIN</td> <td>12.2 g/dL</ td> <td>14.0 - 18.0</td> </tr> < tr> <td>HEMATOCRIT</td> <td>36.0 &#37 ;PCV</td> <td>37.0 - 47.0</td> </tr> <tr> <th colspan="10">CBC WITH PLATELET NO DIFFERENTIAL - 03/30/17 15:53</th> </tr> <tr> <td>MPV</td> <td>9.0 fL</td> & lt;td>7.4-10.4</td> </tr> <tr> < td>PLATELETS</td> <td>267 10*3/uL</td> & lt;td>159-386</td> </tr> <tr> <td >WBC</td> <td>6.8 10*3/uL</td> <td> 3.6-11.2</td> </tr> <tr> <td>RBC& lt;/td> <td>4.78 </td> <td>3.63-4.92</ td> </tr> <tr> <td>HEMOGLOBIN</td > <td>13.9 </td> <td>11.0-14.3</td> </tr> <tr> <td>HEMATOCRIT</td> <td>40.9 %</td> <td>31.2-41.9</td> </tr> <tr> <td>MCV</td> < td>85.6 fL</td> <td>79.0-98.0</td> </tr& gt; <tr> <td>MCH</td> <td>29.1 pg&lt ;/td> <td>27.0-33.0</td> </tr> < tr> <td>MCHC</td> <td>34.0 </td> <td>32.0-36.0</td> </tr> <tr> <td>RDW</td> <td>13.6 %</td> & lt;td>12.3-17.0</td> </tr> <tr> < td>RDWSD</td> <td>41.1 </td> <td>37.1- 47.8</td> </tr> <tr> <th colspan=& quot;10">PROTHROMBIN TIME - 03/30/17 15:53</th> </tr> <tr> <td>*INR</td> <td>2.4 </td > <td>0.9-1.1</td> </tr> <tr> <td>*PROTHROMBIN TIME</td> <td>24.7 s</ td> <td>9.4-11.5</td> </tr> <tr&gt ; <th colspan="10">FERRITIN - 03/30/17 15:53</th&gt ; </tr> <tr> <td>FERRITIN</td> <td>48 ng/mL</td> <td>13-150</td> </tr> <tr> <th colspan="10">IRON - 03/30/17 15:53</th> </tr> <tr> <td> IRON</td> <td>65 ug/dL</td> <td>50-170 </td> </tr> <tr> <th colspan=" 10">PROTHROMBIN TIME - 04/30/17 10:16</th> </tr> <tr> <td>*INR</td> <td>2.2 </td > <td>0.9-1.1</td> </tr> <tr> <td>*PROTHROMBIN TIME</td> <td>23.0 s</ td> <td>9.4-11.5</td> </tr> <tr& gt; <thcolspan="10">CBC WITH PLATELET NO DIFFERENTIAL - 07/02/17 09:45</th> </tr> <tr> <td >MPV</td> <td>8.4 fL</td> <td>7.4-10.4< /td> </tr> <tr> <td>PLATELETS</td > <td>237 10*3/uL</td> <td>159-386</td > </tr> <tr> <td>WBC</td> <td>5.1 10*3/uL</td> <td>3.6-11.2</td> </tr> <tr> <td>RBC</td> & lt;td>4.67 </td> <td>3.63-4.92</td> </tr > <tr> <td>HEMOGLOBIN</td> <td& gt;13.8 </td> <td>11.0-14.3</td> </tr> <tr> <td>HEMATOCRIT</td> <td>39.9 & amp;#37;</td> <td>31.2-41.9</td> </tr> <tr> <td>MCV</td> <td>85.4 fL</ td> <td>79.0-98.0</td> </tr> <tr& gt; <td>MCH</td> <td>29.6 pg</td> <td>27.0-33.0</td></tr> <tr> < td>MCHC</td> <td>34.7 </td> <td>32.0 -36.0</td> </tr> <tr> <td>RDW< /td> <td>14.1 %</td> <td>12.3- 17.0</td> </tr> <tr> <td>RDWSD</td&gt ; <td>42.9 </td> <td>37.1-47.8</td> </tr> <tr> <th colspan="10"> PROTHROMBIN TIME - 07/02/17 09:45</th> </tr> <tr&gt ; <td>*INR</td> <td>2.74 </td> <td>0.90-1.10</td> </tr> <tr> <td>*PROTHROMBIN TIME</td> <td>28.5 s</td> & lt;td>9.4-11.5</td> </tr> <tr> < th colspan="10">FERRITIN - 07/02/17 09:45</th> </tr > <tr> <td>FERRITIN</td> <td&gt ;64 ng/mL</td> <td>13-150</td> </tr> <tr> <th colspan="10">IRON - 07/02/17 09:45&lt ;/th> </tr> <tr> <td>IRON</td&gt ; <td>151 ug/dL</td> <td>50-170</td> & lt;/tr> <tr> <th colspan="10">VITAMIN B12 & FOLATE - 07/02/17 09:45</th> </tr> < tr> <td>VITAMIN B12</td> <td>660 pg/mL&lt ;/td> <td>180-914</td> </tr> <tr& gt; <th colspan="10">CBC WITH PLATELET AND DIFFERENTIAL - 08/31/17 13:18</th> </tr> <tr> <td>SEGS</td> <td>69.4 %</td> <td>NRG</td> </tr><tr> <td>* BASOPHILS</td> <td>1.1 %</td> <td> NRG</td> </tr> <tr> <td>* EOSINOPHILS</td> <td>1.0 %</td> < td>NRG</td> </tr> <tr> <td> AUTOMATED DIFF</td> <td>PERFORMED </td> < td>NRG</td> </tr> <tr> <td>* LYMPHOCYTES</td> <td>24.1 %</td> &lt ;td>NRG</td> </tr> <tr> <td>* MONOCYTES</td> <td>4.4 %</td> <td >NRG</td> </tr> <tr> <td>* ABSOLUTE BASOPHILS</td> <td>0.10 10*3/uL</td> <td>0.00-0.20</td> </tr> <tr> <td>*ABSOLUTE EOSINOPHILS</td> <td>0.10 10*3/uL</ td> <td>0.00-0.50</td> </tr> <tr& gt; <td>*ABSOLUTE LYMPHOCYTES</td> <td>1.60 10*3/uL</td> <td>1.00-3.00</td> </tr> <tr> <td>*ABSOLUTE MONOCYTES</td> <td& gt;0.30 10*3/uL</td> <td>0.30-1.00</td> </ tr> <tr> <td>*ABSOLUTE NEUTROPHILS</td> <td>4.70 10*3/uL</td> <td>1.80-7.80</td&gt ; </tr> <tr> <td>MPV</td> <td>8.6 fL</td> <td>7.4-10.4</td> < /tr> <tr> <td>PLATELETS</td> < td>291 10*3/uL</td> <td>159-386</td> </ tr> <tr> <td>WBC</td> <td> 6.7 10*3/uL</td> <td>3.6-11.2</td> </tr&gt ; <tr> <td>RBC</td> <td>4.42 & lt;/td> <td>3.63-4.92</td> </tr> <tr& gt; <td>HEMOGLOBIN</td> <td>13.3 </td&gt ; <td>11.0-14.3</td> </tr> <tr> <td>HEMATOCRIT</td> <td>38.3 %</ td> <td>31.2-41.9</td> </tr> <tr& gt; <td>MCV</td> <td>86.6 fL</td> <td>79.0-98.0</td> </tr> <tr> &lt ;td>MCH</td> <td>30.2 pg</td> <td> 27.0-33.0</td> </tr> <tr> <td> MCHC</td> <td>34.8 </td> <td>32.0-36.0 </td> </tr> <tr> <td>RDW</td& gt; <td>13.5 %</td> <td>12.3-17.0&lt ;/td> </tr> <tr> <td>RDWSD</td&gt ; <td>41.6 </td> <td>37.1-47.8</td> </tr> <tr><th colspan="10">IRON - 08/31 13:18</th> </tr> <tr> <td> IRON</td> <td>64 ug/dL</td> <td>50-170 </td> </tr> <tr> <th colspan=" 10">FERRITIN - 08/31/17 13:18</th> </tr> < tr> <td>FERRITIN</td> <td>79 ng/mL</td > <td>13-150</td> </tr> <tr> <th colspan="10">VITAMIN B12 & FOLATE - 08/31/17 13: 18</th> </tr> <tr> <td>VITAMIN B12</td> <td>>1500 pg/mL</td> <td& gt;180-914</td> </tr> <tr> <th colspan=& quot;10">PROTHROMBIN TIME - 09/01/17 14:20</th> </tr> <tr> <td>*INR</td> <td>1.41 &lt ;/td> <td>0.90-1.10</td> </tr> < tr> <td>*PROTHROMBIN TIME</td> <td>14.9 s </td> <td>9.4-11.5</td> </tr> &lt ;tr> <th colspan="10">PROTHROMBIN TIME- 09/13/17 16: 17</th> </tr> <tr> <td>*INR</ td> <td>1.46 </td> <td>0.90-1.10</td&gt ; </tr><tr> <td>*PROTHROMBIN TIME</td> <td>15.4 s</td> <td>9.4-11.5</td> &lt ;/tr> <tr> <th colspan="10"> COMPREHENSIVE PROFILE* - 10/06/17 08:50</th> </tr> &lt ;tr> <td>ALBUMIN </td> <td>3.2 g/dL</td& gt; <td>3.4 - 5.0</td> </tr> <tr&gt ; <td>ALPI </td> <td>145 U/L</td> <td>46 - 116</td> </tr> <tr> <td>BUN</td> <td>9 mg/dL</td> < td>7 - 18</td> </tr> <tr> <td> CALCIUM </td> <td>8.6 mg/dL</td> <td> 8.5 - 10.1</td> </tr> <tr> <td> GLUCOSE </td> <td>93 mg/dL</td> <td>74 - 106</td> </tr> <tr> <td> POTASSIUM </td> <td>4.30 mmol/L</td> <td> 3.50 - 5.10</td> </tr> <tr> <td> SODIUM </td> <td>144 mmol/L</td> <td>136 - 145& lt;/td> </tr> <tr> <td> COMPREHENSIVEPROFILE*</td> <td> </td> <td >NRG</td> </tr> <tr> <td> CREATININE</td> <td>0.4 mg/dL</td> <td&gt ;0.6 - 1.3</td> </tr> <tr> <td> CHLORIDE</td> <td>107 mmol/L</td> <td> 98 - 107</td> </tr> <tr> <td>CO2</ td> <td>27 mmol/L</td> <td>21 - 32</td > </tr> <tr> <td>TOTAL PROTEIN</ td> <td>6.3 g/dL</td> <td>6.4 - 8.2</ td> </tr> <tr> <td>TOTAL BILI</td > <td>0.50 mg/dL</td> <td>0.50 - 1.50< /td> </tr> <tr> <td>AST</td> <td>26 U/L</td> <td>15 - 36</td> & lt;/tr> <tr> <td>ALTI</td> <td& gt;30 U/L</td> <td>30 - 65</td> </tr> <tr> <td>AGE</td> <td>52 years& lt;/td> <td>NRG</td> </tr> <tr> <td>eGFR NON AFR AMER</td> <td>168.28 mL/min< /td> <td>NRG</td> </tr> <tr> & lt;td>eGFR AFR AMER</td> <td>203.62 mL/min</td> <td>NRG</td> </tr> <tr> & lt;th colspan="10">CBC WITHPLATELET NO DIFFERENTIAL - 11/02/17 17: 18</th> </tr> <tr> <td>MPV</td > <td>8.6 fL</td> <td>7.4-10.4</td&gt ; </tr> <tr> <td>PLATELETS</td> <td>266 10*3/uL</td> <td>159-386</td> </tr> <tr> <td>WBC</td> & lt;td>7.7 10*3/uL</td> <td>3.6-11.2</td> & lt;/tr> <tr> <td>RBC</td> <td& gt;4.64 </td> <td>3.63-4.92</td> </tr> <tr> <td>HEMOGLOBIN</td> <td> 13.7 </td> <td>11.0-14.3</td> </tr> <tr> <td>HEMATOCRIT</td> <td>39.9 %</td> <td>31.2-41.9</td> </tr> <tr> <td>MCV</td> <td>86.0 fL& lt;/td> <td>79.0-98.0</td> </tr> &lt ;tr> <td>MCH</td> <td>29.4 pg</td> <td>27.0-33.0</td> </tr> <tr> <td>MCHC</td> <td>34.2 </td> <td& gt;32.0-36.0</td> </tr> <tr> <td> RDW</td> <td>13.7 %</td> <td> 12.3-17.0</td> </tr> <tr> <td>RDWSD&lt ;/td> <td>41.6 </td> <td>37.1-47.8</td > </tr> <tr> <th colspan="10" >PROTHROMBIN TIME - 11/02/17 17:18</th> </tr> < tr> <td>*INR</td> <td>2.17 </td> <td>0.90-1.10</td> </tr> <tr> & lt;td>*PROTHROMBIN TIME</td> <td>22.7 s</td> <td>9.4-11.5</td> </tr> <tr> < th colspan="10">FERRITIN - 11/02/17 17:18</th> </tr > <tr> <td>FERRITIN</td> <td&gt ;66 ng/mL</td> <td>13-150</td> </tr> <tr> <th colspan="10">IRON - 11/02/17 17:18& lt;/th> </tr> <tr> <td>IRON</td& gt; <td>60 ug/dL</td> <td>50-170</td> </tr> <tr> <th colspan="10"> VITAMIN B12 & FOLATE - 11/02/17 17:18</th></tr> < tr> <td>VITAMIN B12</td> <td>1028 pg/mL& lt;/td> <td>180-914</td> </tr> < tr> <th colspan="10">CBC WITH PLATELET NO DIFFERENTIAL - 11/23/17 14:25</th> </tr> <tr> <td>MPV</td> <td>8.5 fL</td> <td >7.4-10.4</td> </tr> <tr> <td> PLATELETS</td> <td>286 10*3/uL</td> <td& gt;159-386</td> </tr> <tr> <td> WBC</td> <td>7.4 10*3/uL</td> <td>3.6- 11.2</td> </tr> <tr> <td>RBC</ td> <td>4.91 </td> <td>3.63-4.92</td& gt; </tr> <tr> <td>HEMOGLOBIN</td&gt ; <td>14.4 </td> <td>11.0-14.3</td> </tr> <tr> <td>HEMATOCRIT</td> <td>42.3 %</td> <td>31.2-41.9</td&gt ; </tr> <tr> <td>MCV</td> <td>86.1 fL</td> <td>79.0-98.0</td> & lt;/tr> <tr> <td>MCH</td> <td& gt;29.4 pg</td> <td>27.0-33.0</td> </tr> <tr> <td>MCHC</td> <td>34.2 </td > <td>32.0-36.0</td> </tr> <tr&gt ; <td>RDW</td> <td>13.4 %</td&gt ; <td>12.3-17.0</td> </tr> <tr> <td>RDWSD</td> <td>41.1 </td> < td>37.1-47.8</td> </tr> <tr> <th colspan="10">PROTHROMBIN TIME - 11/23/17 14:25</th> & lt;/tr> <tr> <td>*INR</td> <td& gt;1.87 </td> <td>0.90-1.10</td> </tr> <tr> <td>*PROTHROMBIN TIME</td> <td&gt ;19.6 s</td> <td>9.4-11.5</td> </tr> <tr> <th colspan="10">FERRITIN - 11/23/17 14 :25</th> </tr> <tr> <td>FERRITIN& lt;/td> <td>65 ng/mL</td> <td>13-150</ td> </tr> <tr> <th colspan="10& quot;>IRON - 11/23/17 14:25</th> </tr> <tr> <td>IRON</td> <td>70 ug/dL</td> <td>50-170</td> </tr> <tr> <th colspan="10">VITAMIN B12 & FOLATE - 11/23/17 14:25</th& gt; </tr> <tr> <td>VITAMIN B12</td& gt; <td>1330 pg/mL</td> <td>180-914</td& gt; </tr> <tr> <th colspan="10"& gt;PROTHROMBIN TIME - 01/20/18 17:28</th> </tr> <tr > <td>*INR</td> <td>3.48 </td> <td>0.90-1.10</td> </tr> <tr> <td >*PROTHROMBIN TIME</td> <td>34.5 s</td> & lt;td>9.4-11.5</td> </tr> <tr> < th colspan="10">CBC WITH PLATELET NO DIFFERENTIAL - 02/01/18 16:36& lt;/th> </tr> <tr><td>MPV</td> <td>8.1 fL</td> <td>7.4-10.4</td> </ tr> <tr> <td>PLATELETS</td> <td >276 10*3/uL</td> <td>159-386</td> </tr& gt; <tr> <td>WBC</td> <td>6.3 10*3/uL&lt ;/td> <td>3.6-11.2</td> </tr> <tr > <td>RBC</td> <td>4.66</td> <td>3.63-4.92</td> </tr> <tr> <td>HEMOGLOBIN</td> <td>13.8 </td> & lt;td>11.0-14.3</td> </tr> <tr> < td>HEMATOCRIT</td> <td>39.7 %</td> <td>31.2-41.9</td> </tr> <tr> <td>MCV</td> <td>85.3 fL</td> <td& gt;79.0-98.0</td> </tr> <tr> <td> MCH</td> <td>29.7 pg</td> <td>27.0- 33.0</td> </tr> <tr> <td>MCHC</td& gt; <td>34.8 </td> <td>32.0-36.0</td> </tr> <tr> <td>RDW</td> <td>14.0 %</td> <td>12.3-17.0</td> </tr> <tr> <td>RDWSD</td> & lt;td>42.4 </td> <td>37.1-47.8</td> </tr > <tr> <th colspan="10">COMPREHENSIVE METABOLIC PANEL - 02/01/18 16:36</th> </tr> <tr&gt ; <td>SODIUM</td> <td>139 mmol/L</td> <td>136-145</td> </tr> <tr> <td>POTASSIUM</td> <td>4.0 mmol/L</td> <td>3.5-5.1</td> </tr> <tr> &lt ;td>CHLORIDE</td> <td>105 mmol/L</td> &lt ;td>98-107</td> </tr> <tr> <td&gt ;TCO2</td> <td>25.7 mmol/L</td> <td> 21.0-32.0</td> </tr> <tr> <td>*ANION GAP& lt;/td> <td>8.3 mmol/L</td> <td>8.0-16.0& lt;/td> </tr> <tr> <td>BUN</td&gt ; <td>12 </td> <td>7-18</td> & lt;/tr> <tr> <td>CREATININE</td> & lt;td>0.56 </td> <td>0.55-1.02</td> </tr > <tr> <td>*BUN/CREATININE RATIO</td><td >21.4 </td> <td>9.1-17.0</td> </tr> <tr> <td>GLUCOSE</td> <td>106 & lt;/td> <td>65-99</td> </tr> <tr& gt; <td>CALCIUM</td> <td>8.5 </td> <td>8.5-10.1</td> </tr> <tr> < td>BILIFUBIN TOTAL</td> <td>0.70 </td> & lt;td>0.20-1.00</td> </tr> <tr> < td>TOTAL PROTEIN</td> <td>7.4 </td> <td> 6.4-8.2</td> </tr> <tr> <td> ALBUMIN</td> <td>3.5 </td> <td>3.4-5.0 </td> </tr> <tr> <td>*GLOBULIN&lt ;/td> <td>3.9 </td> <td>2.3-3.5</td&gt ; </tr> <tr> <td>*A/G RATIO</td> <td>0.9 </td> <td>1.5-2.2</td> & lt;/tr> <tr> <td>ALK PHOS</td> &lt ;td>179 U/L</td> <td>46-116</td> </tr&gt ; <tr> <td>ALT (SGPT)</td> <td>39 U/L</td> <td>16-63</td> </tr> &lt ;tr> <td>AST (SGOT)</td> <td>36 U/L</ td> <td>15-37</td> </tr> <tr> <th colspan="10">C-REACTIVE PROTEIN - 02/01/18 16:36</ th> </tr> <tr> <td>C-REACTIVE PROTEIN</td> <td>0.17 </td> <td>0.00- 0.30</td> </tr> <tr> <th colspan=& quot;10">URIC ACID - 02/01/18 16:36</th> </tr> <tr> <td>URIC ACID</td> <td>4.0 </td > <td>2.6-6.0</td> </tr> <tr> <th colspan="10">GFR ESTIMATION - 02/01/18 16:36</ th> </tr> <tr> <td>*GFR EST NON AFR [facility]</td> <td>>90 mL/min</td> &lt ;td>NRG</td> </tr> <tr> <td>* GRFA EST AFR AMER</td> <td>>90 mL/min</td> <td>NRG</td> </tr> <tr> & lt;th colspan="10">ERYTH. SED. RATE - 02/01/18 16:36</th>< /tr> <tr> <td>ERYTH. SED. RATE</td> <td>23 mm/h</td> <td>0-30</td> </ tr> <tr> <th colspan="10">RHEUMATOID FACTOR NO REFLEX - 02/01/18 16:36</th> </tr> <tr&gt ; <td>RHEUMATOID FACTOR NO REFLEX</td> <td> Negative </td> <td>NEGATIVE</td> </tr> <tr><th colspan="10">ANTINUCLEAR ANTIBODIES, IFA - 02/01/18 16:36</th> </tr> <tr> <td& gt;*BORIS SCREEN</td> <td>Negative </td> < td>NRG</td> </tr> <tr> <th colspan="10">CYCLIC CITRULLINATED PEPTIDE - 02/01/18 16:36</th& gt; </tr><tr> <td>CYCLIC CITRULLINATED PEPTIDE </td> <td>8 </td> <td>0-19</td> </tr> <tr> <th colspan="10"> CBC AUTO DIFF MANUAL IF INDICATED* - 02/09/18 06:55</th> </tr&gt ; <tr> <td>HEMATOCRIT </td> <td> 39.4 %</td> <td>36.0 - 44.0</td> </ tr> <tr> <td>HEMOGLOBIN </td> < td>13.5 g/dL</td> <td>12.0 - 15.0</td> < /tr> <tr> <td>WBC </td> <td> 5.9 10^3/mL</td> <td>4.0 - 10.1</td> </tr& gt; <tr><td>%LYMPH</td> <td>34 & amp;#37;</td> <td>24- 44</td> </tr> <tr> <td>%MONO</td> <td>6.6 & amp;#37;</td> <td>1.0 - 15.0</td> </tr> <tr> <td>%GRAN</td> <td> 57.0 %</td> <td>35.0 - 71.0</td> </ tr> <tr> <td>%EOS</td> &lt ;td>1 %</td> <td>0 - 4</td> </tr > <tr> <td>%BASO</td> < td>1 %</td> <td>0 - 2</td> </tr& gt; <tr> <td>RBC</td> <td>4.56 10^6 /mL</td> <td>3.50 - 6.00</td> </tr> <tr> <td>MCV</td> <td>86.4 fl</ td> <td>80.0 - 100</td> </tr> <tr > <td>MCH</td> <td>29.6 pg</td> <td>27.0 - 34.0</td> </tr> <tr> <td>MCHC</td> <td>34.3 g/dL</td> <td>31.5 - 36.0</td> </tr> <tr> <td>RDW</td> <td>13.7 %</td> <td>11.5 - 14.0</td> </tr> <tr> <td>PLT</td> <td>279 10^3/mL</td> <td> 150 - 450</td> </tr> <tr> <td>MPV </td> <td>10.3 fl</td> <td>7.4 - 11.0& lt;/td> </tr> <tr> <td>MANUAL DIFF& lt;/td> <td>NOT INDICATED </td> <td>NRG&lt ;/td> </tr> <tr> <th colspan="10" >COMPREHENSIVE PROFILE* - 02/09/18 06:55</th> </tr> <tr> <td>ALBUMIN </td> <td>3.5 g/dL& lt;/td> <td>3.4 - 5.0</td> </tr> &lt ;tr> <td>ALPI </td> <td>180 U/L</td> <td>46 - 116</td> </tr> <tr> <td>BUN</td> <td>13 mg/dL</td> & lt;td>7 - 18</td> </tr> <tr><td> CALCIUM </td> <td>8.1 mg/dL</td> <td> 8.5 - 10.1</td> </tr> <tr> <td> GLUCOSE </td> <td>97 mg/dL</td> <td> 74 - 106</td> </tr> <tr> <td> POTASSIUM </td> <td>4.10 mmol/L</td> <td& gt;3.50 - 5.10</td> </tr> <tr> <td& gt;SODIUM </td> <td>139 mmol/L</td> <td> 136 - 145</td> </tr> <tr> <td> COMPREHENSIVEPROFILE*</td> <td> </td> <td> NRG</td> </tr> <tr> <td> CREATININE</td> <td>0.6 mg/dL</td> <td&gt ;0.6 - 1.3</td> </tr> <tr> <td> CHLORIDE</td> <td>104 mmol/L</td> <td> 98 - 107</td> </tr> <tr> <td>CO2& lt;/td> <td>28 mmol/L</td> <td>21 - 32&lt ;/td> </tr> <tr> <td>TOTAL PROTEIN& lt;/td> <td>7.2 g/dL</td> <td>6.4 - 8.2& lt;/td> </tr> <tr> <td>TOTAL BILI&lt ;/td> <td>1.00 mg/dL</td> <td>0.20 - 1.00 </td> </tr> <tr> <td>AST</td& gt; <td>39 U/L</td> <td>15 - 37</td> </tr> <tr> <td>ALTI</td> <td>52 U/L</td> <td>12 - 78</td> </tr& gt; <tr> <td>AGE</td> <td>52 years</td> <td>NRG</td> </tr> &lt ;tr> <td>eGFRNON AFR AMER</td> <td> 105.39 mL/min</td> <td>NRG</td> </tr> <tr> <td>eGFR AFR AMER</td> <td> 127.53 mL/min</td> <td>NRG</td> </tr> <tr> <th colspan="10">=>PATHOLOGY ORDER& amp;lt;=- 05 09:50</th> </tr> <tr> & lt;td>=>PATHOLOGYORDER<=</td> <td> </td> <td>NRG</td> </tr> </tbody> < /table> </text> <entry> <organizer moodCode="EVN& quot; classCode="BATTERY"> <templateId root=" [id number].1" /> <id nullFlavor="NA" /&gt ; <code codeSystem="local" code="PREG" displayName=& quot; TEST, SERUM" /> <statusCode code="completed& quot; /> <component> <observation moodCode="EVN& quot; classCode="OBS"> <templateId root=" 2.16.840.1.360285.10.20.22.4.2" /> <id nullFlavor="NA& quot; /> <code codeSystem="local" code="PREG&quot ; displayName=" TEST, SERUM" /> <statusCode code="completed" /> <effectiveTime value=" [id number]" /> <value xsi:type="ST" value=" <pre><b> TEST, SERUM</b> NEGATIVE</pre>" / > <referenceRange> <observationRange> <text>NEGATIVE</text> </observationRange> </referenceRange> </observation> </component> <component> <observation moodCode="EVN" classCode=& quot;OBS"> <templateId root=" 2.16.840.1.661647.10.20.22.4.2" /> <id nullFlavor="NA& quot; /> <code codeSystem="local" code="MB" displayName="Microbiology" /> <statusCode code=" completed" /> <effectiveTime value="374084956453" /> <value xsi:type="ST" value="<pre><b> TEST, SERUM</b> NEGATIVE</pre>" /> < referenceRange> <observationRange> <text /& gt; </observationRange> </referenceRange> </observation> </component> </organizer> </entry > <entry> <organizer moodCode="EVN" classCode=" BATTERY"> <templateId root="2.16.840.1.996139.10.20.22.4.1& quot; /> <id nullFlavor="NA" /> <code codeSystem=& quot;local" code="PT" displayName="PROTHROMBIN TIME WITHINR& quot; /> <statusCode code="completed" /> < component> <observation moodCode="EVN" classCode=" OBS"> <templateId root="2.16.840.1.721335.10.20.22.4.2& quot; /> <id nullFlavor="NA" /> <code codeSystem ="local" code="INRX" displayName="INTERNATIONAL NORMALRATIO" /> <statusCode code="completed" /&gt ; <effectiveTime value="699347812397" /> < value xsi:type="ST" value="<pre><b>PROTHROMBIN TIME WITH INR</b> 17.51.5</pre>" /> < interpretationCode codeSystem="local" code="*" /> <referenceRange> <observationRange> <text& gt;0.9-1.1</text> </observationRange> </ referenceRange> </observation> </component> < component> <observation moodCode="EVN" classCode=" OBS"> <templateId root="2.16.840.1.003431.10.20.22.4.2& quot; /> <id nullFlavor="NA" /> <code codeSystem="local" code="PTPAT" displayName=" PROTHROMBIN TIME" /> <statusCode code="completed" /> <effectiveTime value="318914178389" /> < value xsi:type="ST" value="<pre><b>PROTHROMBIN TIME WITH INR</b> 17.51.5</pre>" /> < interpretationCode codeSystem="local" code="*" /> <referenceRange> <observationRange> < text>9.3-12.2</text> </observationRange> </ referenceRange> </observation> </component> < component> <observation moodCode="EVN" classCode=" OBS"> <templateId root="2.16.840.1.955177.10.20.22.4.2& quot; /> <id nullFlavor="NA" /> <code codeSystem="local" code="MB" displayName="Microbiology& quot; /> <statusCode code="completed" /> & lt;effectiveTime value="548179122688" /> <value xsi: type="ST" value="<pre><b>PROTHROMBIN TIME WITH INR&lt ;/b> 17.51.5</pre>" /> <referenceRange> <observationRange> <text /> </ observationRange> </referenceRange> </observation&gt ; </component> </organizer> </entry> <entry> <organizermoodCode="EVN" classCode="BATTERY"> <templateId root="2.16.840.1.377788.10.20.22.4.1" /> < id nullFlavor="NA" /> <code codeSystem="local" code="MRSAS" displayName="MRSA SURVEILLANCE SCREEN" />&lt ;statusCode code="completed" /> <component> < observation moodCode="EVN" classCode="OBS"> < templateId root="2.16.840.1.603875.10.20.22.4.2" /> < id nullFlavor="NA" /> <code codeSystem="local&quot ; code="MB" displayName="Microbiology" /> < statusCode code="completed" /> <effectiveTime value=& quot;142339765839" /> <value xsi:type="ST" value=& quot;<pre><b>MRSA SURVEILLANCE SCREEN</b> See BelowMRSA SURVEILLANCE SCREEN(F) Silvia Date/Time: 06/15/2015 15:28 Gracia Date/ Time: 06/16/2015 12:56SOURCE: ANTERIOR NARESSPEC DESC: [facility] [place] [address]</pre>" /> <referenceRange> < observationRange> <text /> </observationRange&gt ; </referenceRange> </observation> </ component> </organizer> </entry> <entry> < organizer moodCode="EVN" classCode="BATTERY"> < templateId root="2.16.840.1.036036.10.20.22.4.1" /> <id nullFlavor="NA" /> <code codeSystem="local" code= "UA" displayName="URINALYSIS, ROUTINE" /> < statusCode code="completed" /> <component> < observation moodCode="EVN" classCode="OBS"> < templateId root="2.16.840.1.216400.10.20.22.4.2" /> < id nullFlavor="NA" /> <code codeSystem="local&quot ; code="LEUESU" displayName="UA LEUKOCYTE ESTERASE DIPSTICK&quot ; /> <statusCode code="completed" /> < effectiveTime value="235430384864" /> <value unit=&quot ;" xsi:type="PQ" value="NEGATIVE" /> < referenceRange> <observationRange> <text> NEGATIVE</text> </observationRange> </ referenceRange> </observation> </component> < component> <observation moodCode="EVN"classCode="OBS "> <templateId root="2.16.840.1.975359.10.20.22.4.2& quot; /> <id nullFlavor="NA" /> <code codeSystem="local" code="NITRIU" displayName="UA NITRITE DIPSTICK" /> <statusCode code="completed" /> <effectiveTime value="575619003021" /> < value unit="" xsi:type="PQ" value="NEGATIVE" /&gt ; <referenceRange> <observationRange> <text>NEGATIVE</text> </observationRange> </referenceRange> </observation> </component> <component> <observation moodCode="EVN" classCode= "OBS"> <templateId root=" 2.16.840.1.250724.10.20.22.4.2" /> <id nullFlavor="NA& quot; /> <code codeSystem="local" code="PROTEIU& quot; displayName="UA PROTEIN DIPSTICK" /> <statusCode code="completed" /> <effectiveTime value=" 438041834830" /> <value unit="" xsi:type="PQ& quot; value="3+" /> <interpretationCode codeSystem=& quot;local" code="*" /> <referenceRange> < observationRange> <text>NEGATIVE</text> & lt;/observationRange> </referenceRange> </ observation> </component> <component> < observation moodCode="EVN" classCode="OBS"> < templateId root="2.16.840.1.352803.10.20.22.4.2" /> < id nullFlavor="NA" /> <code codeSystem="local&quot ; code="DGLUU" displayName="UA GLUCOSE DIPSTICK" /> <statusCode code="completed" /> <effectiveTime value=& quot;628858096848" /> <value unit="" xsi:type=& quot;PQ" value="NEGATIVE" /> <referenceRange> <observationRange> <text>NEGATIVE</text& gt; </observationRange> </referenceRange> </observation> </component> <component> &lt ;observation moodCode="EVN" classCode="OBS"> &lt ;templateId root="2.16.840.1.420746.10.20.22.4.2" /> < id nullFlavor="NA" /> <code codeSystem="local&quot ; code="KETONU" displayName="UA KETONE DIPSTICK" /> <statusCode code="completed" /> <effectiveTime value="159149508011" /> <value unit="" xsi: type="PQ" value="NEGATIVE" /> <referenceRange > <observationRange> <text>NEGATIVE</ text> </observationRange> </referenceRange> &lt ;/observation> </component> <component> < observation moodCode="EVN" classCode="OBS"> < templateIdroot="2.16.840.1.725979.10.20.22.4.2" /> <id nullFlavor="NA" /> <code codeSystem="local" code="UROBILU" displayName="UA UROBILINOGEN DIPSTICK" /> <statusCode code="completed" /> < effectiveTime value="934374735474" /> <value unit=&quot ;" xsi:type="PQ" value="NORMAL" /> < referenceRange> <observationRange> <text> NORMAL</text> </observationRange> </ referenceRange> </observation> </component> < component><observation moodCode="EVN" classCode="OBS"& gt; <templateId root="2.16.840.1.583836.10.20.22.4.2" /&gt ; <id nullFlavor="NA" /> <code codeSystem=" local" code="BILU" displayName="UA BILIRUBIN DIPSTICK" /> <statusCode code="completed" /> < effectiveTime value="674404432894" /> <value unit=&quot ;" xsi:type="PQ" value="1+" /> < interpretationCode codeSystem="local" code="*" /> <referenceRange> <observationRange> < text>NEGATIVE</text> </observationRange> < /referenceRange> </observation> </component> &lt ;component> <observation moodCode="EVN" classCode=" OBS"> <templateId root="2.16.840.1.385751.10.20.22.4.2& quot; /> <id nullFlavor="NA" /> <code codeSystem="local" code="MARTINA" displayName="UA BLOOD DIPSTICK" /> <statusCode code="completed" /> <effectiveTime value="406779413938" /> < value unit="" xsi:type="PQ" value="NEGATIVE" /&gt ; <referenceRange> <observationRange> < text>NEGATIVE</text> </observationRange> < /referenceRange> </observation> </component> &lt ;component> <observation moodCode="EVN" classCode=" OBS"> <templateId root="2.16.840.1.222848.10.20.22.4.2& quot;/> <id nullFlavor="NA" /> <code codeSystem="local"code="SPGRU" displayName="UA SPECIFIC GRAVITY" /> <statusCode code="completed" /> <effectiveTime value="951802066169" /> <value unit="" xsi:type="PQ" value=">=1.030" /> <interpretationCode codeSystem="local" code="*" /> <referenceRange> <observationRange> & lt;text>1.015-1.025</text> </observationRange> </ referenceRange> </observation> </component> < component> <observation moodCode="EVN" classCode=" OBS"> <templateId root="2.16.840.1.722031.10.20.22.4.2& quot; /><id nullFlavor="NA" /> <code codeSystem=& quot;local" code="KIRA" displayName="UR PH" /> <statusCode code="completed" /> <effectiveTime value="056288674299" /> <value unit="" xsi: type="PQ" value="5.5" /> <referenceRange> <observationRange> <text>5.0-7.0</text& gt; </observationRange> </referenceRange> & lt;/observation> </component> </organizer> </entry&gt ; <entry> <organizer moodCode="EVN" classCode=" BATTERY"> <templateId root="2.16.840.1.862029.10.20.22.4.1& quot; /> <id nullFlavor="NA" /> <code codeSystem ="local" code="UAMICRO" displayName="UA MICROSCOPIC& quot; /> <statusCode code="completed" /> < component> <observation moodCode="EVN" classCode=" OBS"> <templateId root="2.16.840.1.146199.10..22.4.2" /& gt; <id nullFlavor="NA" /> <code codeSystem ="local" code="BACU" displayName="UA BACTERIA" /& gt; <statusCode code="completed" /> < effectiveTime value="541367173913" /> <value unit=&quot ;" xsi:type="PQ" value="4+" /> < interpretationCode codeSystem="local" code="*" /> <referenceRange> <observationRange> < text>NEGATIVE</text> </observationRange> < /referenceRange> </observation> </component> &lt ;component> <observation moodCode="EVN" classCode=" OBS"> <templateId root="2.16.840.1.596272.10.20.22.4.2& quot; /> <id nullFlavor="NA" /> <code codeSystem="local" code="EPIU" displayName="UA EPITHELIAL CELLS" /> <statusCode code="completed" /&gt ; <effectiveTime value="521496334621" /> < value unit="epi/hpf" xsi:type="PQ" value="3+" /&gt ; <interpretationCode codeSystem="local" code="*&quot ; /> <referenceRange> <observationRange> <text>0 - 1+</text> </observationRange> </referenceRange> </observation> </component> <component> <observation moodCode="EVN" classCode ="OBS"> <templateId root=" 2.16.840.1.371865.10.20.22.4.2" /> <id nullFlavor="NA& quot; /> <code codeSystem="local" code="MUCUSU& quot; displayName="UA MUCUS" /> <statusCode code=" completed" /> <effectiveTime value="365894442313" /> <valueunit="" xsi:type="PQ" value="2+ " /> <interpretationCodecodeSystem="local" code=& quot;*" /> <referenceRange> < observationRange> <text>NEG TO 1+</text> </observationRange> </referenceRange> </ observation> </component> <component> < observation moodCode="EVN" classCode="OBS"> < templateId root="2.16.840.1.125377.10.20.22.4.2" /> < id nullFlavor="NA" /> <code codeSystem="local&quot ; code="RBCU" displayName="UA RBC" /> < statusCode code="completed" /> <effectiveTime value=& quot;007420152797" /> <value unit="rbc/hpf" xsi: type="PQ" value="0-3" /> <referenceRange> <observationRange> <text>0 - 3</text&gt ; </observationRange> </referenceRange> & lt;/observation> </component> <component> < observation moodCode="EVN" classCode="OBS"> < templateId root="2.16.840.1.172467.10.20.22.4.2" /> < id nullFlavor="NA" /> <code codeSystem="local&quot ; code="UAVOL" displayName="UA VOLUME FOR EXAM" /> <statusCode code="completed" /> <effectiveTime value="081724441277" /> <value unit="mL" xsi: type="PQ" value="12.0" /> <referenceRange&gt ; <observationRange> <text>(12mL STD)</ text> </observationRange> </referenceRange> </observation> </component> <component> <observation moodCode="EVN" classCode="OBS"> <templateId root="2.16.840.1.860106.10.20.22.4.2" /> <id nullFlavor="NA" /> <code codeSystem=" local" code="WBCU" displayName="UA WBC" /> <statusCode code="completed" /> <effectiveTime value ="022640256394" /> <value unit="wbc/hpf" xsi: type="PQ" value="2-5" /> <referenceRange> <observationRange> <text>0 - 5</text> </observationRange> </referenceRange> & lt;/observation> </component> </organizer> </entry&gt ; <entry> <organizer moodCode="EVN" classCode=" BATTERY"> <templateId root="2.16.840.1.314298.10.20.22.4.1& quot; /> <id nullFlavor="NA" /> <code codeSystem ="local" code="iCHEM8" displayName="CHEM/HEM PROFILE- BEDSIDE" /> <statusCode code="completed" /> < component> <observation moodCode="EVN" classCode=" OBS"> <templateId root="2.16.840.1.664552.10.20.22.4.2& quot; /> <id nullFlavor="NA" /> <code codeSystem="local" code="K" displayName="POTASSIUM&quot ; /> <statusCode code="completed" /> < effectiveTime value="454093641750" /> <value unit=" mmol/L" xsi:type="PQ" value="3.9" /> < referenceRange> <observationRange> <text> 3.5-5.3</text> </observationRange> </ referenceRange> </observation> </component> < component> <observation moodCode="EVN" classCode=" OBS"> <templateId root="2.16.840.1.944462.10.20.22.4.2& quot; /> <id nullFlavor="NA" /> <code codeSystem="local" code="CMETHOD" displayName="METHOD& quot; /> <statusCode code="completed" /> & lt;effectiveTime value="671946157710" /> <value unit=& quot;" xsi:type="PQ" value="Bedside" /> &lt ;referenceRange> <observationRange> <text /& gt; </observationRange> </referenceRange> </observation> </component> <component> &lt ;observation moodCode="EVN" classCode="OBS"> &lt ;templateId root="2.16.840.1.684958.10.20.22.4.2" /> < id nullFlavor="NA" /> <code codeSystem="local&quot ; code="GAP" displayName="ANION GAP" /> < statusCode code="completed" /> <effectiveTime value=& quot;273927801176" /> <value unit="mmol/L" xsi: type="PQ" value="18" /> <referenceRange> <observationRange> <text>10-20</text> </observationRange> </referenceRange> < /observation> </component> <component> < observation moodCode="EVN" classCode="OBS"> < templateId root="[id number]" /> < id nullFlavor="NA" /> <code codeSystem="local&quot ; code="HMETHOD" displayName="METHOD" /> < statusCode code="completed" /> <effectiveTime value=& quot;455624479853" /> <value unit="" xsi:type=& quot;PQ" value="Bedside" /> <referenceRange> <observationRange> <text /> </ observationRange> </referenceRange> </observation&gt ; </component> <component> <observation moodCode= "EVN" classCode="OBS"> <templateId root=&quot ;[id number]" /> <id nullFlavor="NA& quot; /> <code codeSystem="local" code="GLU" displayName="GLUCOSE" /> <statusCode code=" completed" /> <effectiveTime value="[id number]" /> <value unit="mg/dL" xsi:type="PQ" value=& quot;113" /> <interpretationCode codeSystem="local&quot ; code="*" /> <referenceRange> < observationRange> <text>70-99</text> < /observationRange> </referenceRange> </observation&gt ; </component> <component> <observation moodCode ="EVN" classCode="OBS"> <templateId root=& quot;[id number]" /> <id nullFlavor=&quot ;NA" /> <code codeSystem="local" code="BUN& quot; displayName="BLOOD UREA NITROGEN" /> <statusCode code="completed" /> <effectiveTime value=" [id number]" /> <value unit="mg/dL" xsi:type=& quot;PQ" value="11" /> <referenceRange> <observationRange> <text>7-20</text> </observationRange> </referenceRange> </ observation> </component> <component> < observation moodCode="EVN" classCode="OBS"> < templateId root="[id number]" /> < id nullFlavor="NA" /> <code codeSystem="local" code=& quot;CREAT" displayName="CREATININE" /> < statusCode code="completed" /> <effectiveTime value=& quot;075391197910" /> <value unit="mg/dL" xsi:type ="PQ" value="0.4" /> <interpretationCode codeSystem="local" code="*" /> <referenceRange > <observationRange> <text>0.6-1.0</ text> </observationRange> </referenceRange> </observation> </component> <component> <observation moodCode="EVN" classCode="OBS"> <templateId root="[id number].2" /> <id nullFlavor="NA" /> <code codeSystem=" local" code="HGBT" displayName="HEMOGLOBIN" /> <statusCode code="completed" /> <effectiveTime value="[id number]" /> <value unit="gm/dL" xsi:type="PQ" value="13.9" /> <referenceRange > <observationRange> <text>12.0-16.0</ text> </observationRange> </referenceRange> </observation> </component> <component> &lt ;observation moodCode="EVN" classCode="OBS"> &lt ;templateId root="[id number].2" /> <id nullFlavor="NA" /> <code codeSystem="local" code="HCTT" displayName="HEMATOCRIT" /> < statusCode code="completed" /> <effectiveTime value=& quot;[id number]" /> <value unit="%" xsi: type="PQ" value="41.0" /> <referenceRange&gt ; <observationRange> <text>37.0-47.0</text > </observationRange> </referenceRange> </observation> </component> <component> & lt;observation moodCode="EVN" classCode="OBS"> & lt;templateId root="2.16.840.1.095242.10.20.22.4.2" /> &lt ;id nullFlavor="NA" /> <code codeSystem="local& quot; code="NA" displayName="SODIUM" /> < statusCode code="completed" /> <effectiveTime value=& quot;352786684806" /> <value unit="mmol/L" xsi: type="PQ" value="139" /> <referenceRange> <observationRange> <text>135-148</text& gt; </observationRange> </referenceRange> </ observation> </component> <component> < observation moodCode="EVN" classCode="OBS"> < templateId root="[id number].2" /> < id nullFlavor="NA" /> <code codeSystem="local&quot ; code="CL" displayName="CHLORIDE" /> < statusCode code="completed" /> <effectiveTime value=& quot;192749468067" /> <value unit="mmol/L" xsi: type="PQ" value="103" /> <referenceRange> <observationRange> <text>98-110</text> </observationRange> </referenceRange> </ observation> </component> <component> < observation moodCode="EVN" classCode="OBS"> < templateId root="2.16.840.1.823168.10.20.22.4.2" /> < id nullFlavor="NA" /> <code codeSystem="local&quot ; code="CO2" displayName="CARBON DIOXIDE" /> < statusCode code="completed" /> <effectiveTime value=& quot;643375922407" /> <value unit="mmol/L" xsi: type="PQ" value="23" /> <referenceRange> <observationRange> <text>21-32</text> </observationRange> </referenceRange> & lt;/observation> </component> <component> < observation moodCode="EVN" classCode="OBS"> < templateId root="2.16.840.1.819714.10.20.22.4.2" /> < id nullFlavor="NA" /> <code codeSystem="local&quot ; code="CAION" displayName="CALCIUM IONIZED" /> <statusCodecode="completed" /> <effectiveTime value= "768754434509" /> <value unit="mg/dL" xsi:type=& quot;PQ" value="4.7" /> <referenceRange> <observationRange> <text>4.5-5.3</text> </observationRange> </referenceRange> </ observation> </component> </organizer> </entry> &lt ;entry> <organizer moodCode="EVN" classCode="BATTERY& quot;> <templateId root="2.16.840.1.958309.10.20.22.4.1" /& gt; <id nullFlavor="NA" /> <code codeSystem=" local" code="CBCD" displayName="CBC W/DIFF" /> <statusCode code="completed" /> <component> & lt;observation moodCode="EVN" classCode="OBS"> & lt;templateId root="2.16.840.1.396088.10.20.22.4.2" /> &lt ;id nullFlavor="NA" /> <code codeSystem="local& quot; code="EO#" displayName="EOSINOPHIL #" /> & lt;statusCode code="completed" /> <effectiveTime value= "836311705175" /> <value unit="k/cumm" xsi: type="PQ" value="0.1" /> <referenceRange> <observationRange> <text>0.1-0.5</text& gt; </observationRange> </referenceRange> </observation> </component> <component> &lt ;observation moodCode="EVN" classCode="OBS"> &lt ;templateId root="2.16.840.1.597501.10.20.22.4.2" /> < idnullFlavor="NA" /> <code codeSystem="local&quot ; code="EO%" displayName="EOSINOPHIL %" /&gt ; <statusCode code="completed" /> < effectiveTime value="791973774160" /> <value unit=&quot ;%" xsi:type="PQ" value="1" /> < interpretationCode codeSystem="local" code="*" /> <referenceRange><observationRange> <text>2-4& lt;/text> </observationRange> </referenceRange& gt; </observation> </component> <component> <observation moodCode="EVN" classCode="OBS"> <templateId root="2.16.840.1.564517.10.20.22.4.2" /> <id nullFlavor="NA" /> <code codeSystem=&quot ;local" code="GR#" displayName="GRANULOCYTE #" /> <statusCode code="completed" /> < effectiveTime value="821012289235" /> <value unit=&quot ;k/cumm" xsi:type="PQ" value="7.0" /> < referenceRange> <observationRange> <text> 2.0-9.0</text> </observationRange> </ referenceRange> </observation> </component> < component><observation moodCode="EVN" classCode="OBS"& gt; <templateId root="2.16.840.1.080936.10.20.22.4.2" /&gt ; <id nullFlavor="NA" /> <code codeSystem=" local" code="GR%" displayName="GRANULOCYTE%& quot; /> <statusCode code="completed" /> & lt;effectiveTime value="191275275933" /> <value unit=& quot;%" xsi:type="PQ" value="73" /> <referenceRange> <observationRange> < text>50-75</text> </observationRange> </ referenceRange> </observation> </component> < component> <observation moodCode="EVN" classCode=" OBS"> <templateId root="2.16.840.1.251207.10.20.22.4.2& quot; /> <id nullFlavor="NA" /> <code codeSystem="local" code="LY#" displayName="LYMPHOCYTE # " /> <statusCode code="completed" /> & lt;effectiveTime value="573146705097" /> <value unit=& quot;k/cumm" xsi:type="PQ" value="1.9" /> & lt;referenceRange> <observationRange> <text& gt;1.0-4.0</text> </observationRange> </ referenceRange> </observation> </component> < component> <observation moodCode="EVN" classCode=" OBS"> <templateId root="2.16.840.1.450049.10.20.22.4.2& quot; /> <id nullFlavor="NA" /> <code codeSystem="local" code="LY%" displayName=" LYMPHOCYTE %" /> <statusCode code="completed& quot; /> <effectiveTime value="799748573044" /> <value unit="%" xsi:type="PQ" value=" 20" /> <referenceRange> <observationRange& gt; <text>20-30</text> </observationRange > </referenceRange> </observation> </ component> <component> <observation moodCode="EVN& quot; classCode="OBS"> <templateId root=" 2.16.840.1.464085.10..22.4.2" /> <id nullFlavor="NA& quot; /> <code codeSystem="local" code="MCH" displayName="MEAN CELL HGB" /> <statusCode code=" completed" /> <effectiveTime value="414693085133" /> <value unit="pg" xsi:type="PQ" value=&quot ;27.4" /> <referenceRange> <observationRange&gt ; <text>27.0-33.0</text> </ observationRange> </referenceRange> </observation&gt ; </component> <component> <observation moodCode ="EVN" classCode="OBS"> <templateId root=& quot;2.16.840.1.398701.10..22.4.2" /> <id nullFlavor=&quot ;NA" /> <code codeSystem="local" code="[facility]& quot; displayName="MEAN CELL HGB CONCENTRATION" /> < statusCode code="completed" /> <effectiveTime value=& quot;709418099299" /> <value unit="g/dL" xsi:type= "PQ" value="33.7" /> <referenceRange> <observationRange> <text>32.0-37.0</text> </observationRange> </referenceRange> </ observation> </component> <component> < observation moodCode="EVN" classCode="OBS"> < templateId root="2.16.840.1.432702.10.20.22.4.2" /> < id nullFlavor="NA" /> <code codeSystem="local&quot ; code="MCV" displayName="MEAN CELL VOLUME" /> & lt;statusCode code="completed" /> <effectiveTime value= "325830420866" /> <value unit="fl" xsi:type=& quot;PQ" value="81.3" /> <referenceRange> <observationRange> <text>80.0-100.0</text&gt ; </observationRange> </referenceRange> </ observation> </component> <component> < observation moodCode="EVN" classCode="OBS"> < templateId root="2.16.840.1.174153.10.20.22.4.2" /> <id nullFlavor="NA" /> <code codeSystem="local" code="MO#" displayName="MONOCYTE #" /> < statusCode code="completed"/> <effectiveTime value=& quot;262778115014" /> <value unit="k/cumm" xsi: type="PQ" value="0.6" /> <referenceRange> <observationRange> <text>0.1-1.0</text> </observationRange> </referenceRange> </ observation> </component> <component> < observation moodCode="EVN" classCode="OBS"> < templateId root="2.16.840.1.619077.10.20.22.4.2" /> < id nullFlavor="NA" /> <code codeSystem="local&quot ; code="MO%" displayName="MONOCYTE %" /> <statusCode code="completed" /> < effectiveTime value="279798232008" /> <value unit=&quot ;%" xsi:type="PQ" value="6" /> < referenceRange> <observationRange> <text>4-6</ text> </observationRange> </referenceRange> </observation> </component> <component> <observation moodCode="EVN" classCode="OBS"> <templateId root="2.16.840.1.217479.10.20.22.4.2" /> <id nullFlavor="NA" /> <code codeSystem=" local" code="RBC" displayName="RED BLOOD CELL" /> <statusCode code="completed" /> < effectiveTime value="193597355941" /> <value unit=&quot ;m/cumm" xsi:type="PQ" value="5.03" /> < referenceRange> <observationRange> <text> 4.00-6.00</text> </observationRange> </referenceRange > </observation> </component> <component> <observation moodCode="EVN" classCode="OBS"> <templateId root="2.16.840.1.173705.10.20.22.4.2" /> <id nullFlavor="NA" /> <code codeSystem=&quot ;local" code="RDW" displayName="RED CELL DISTRIBUTION WIDTH& quot; /> <statusCode code="completed" /> & lt;effectiveTime value="856771654469" /> <value unit=& quot;%" xsi:type="PQ" value="15.3" /> <referenceRange> <observationRange> < text>11.0-15.6</text> </observationRange> </ referenceRange> </observation> </component> < component> <observation moodCode="EVN" classCode=" OBS"> <templateId root="2.16.840.1.871422.10.20.22.4.2& quot; /> <id nullFlavor="NA" /> <code codeSystem="local" code="WBC" displayName="WHITE BLOOD CELL" /> <statusCode code="completed" /> <effectiveTime value="533462448779" /> <value unit="k/cumm" xsi:type="PQ" value="9.6" /> <referenceRange> <observationRange> &lt ;text>5.0-10.0</text> </observationRange> &lt ;/referenceRange> </observation> </component> & lt;component> <observation moodCode="EVN" classCode=&quot ;OBS"> <templateId root="2.16.840.1.933888.10..22.4.2 " /> <id nullFlavor="NA" /> <code codeSystem ="local" code="HGBT" displayName="HEMOGLOBIN" /&gt ; <statusCode code="completed" /> < effectiveTime value="018176974825" /> <value unit=&quot ;gm/dL" xsi:type="PQ" value="13.8" /> < referenceRange> <observationRange> <text> 12.0-16.0</text> </observationRange> </ referenceRange> </observation> </component> < component> <observation moodCode="EVN" classCode=" OBS"> <templateId root="2.16.840.1.410742.10.20.22.4.2& quot; /> <id nullFlavor="NA" /> <code codeSystem="local" code="HCTT" displayName="HEMATOCRIT& quot; /> <statusCode code="completed" /> & lt;effectiveTime value="221433209759" /> <value unit=& quot;%" xsi:type="PQ" value="40.9" /> <referenceRange> <observationRange> < text>37.0-47.0</text> </observationRange> &lt ;/referenceRange> </observation> </component> & lt;component> <observation moodCode="EVN" classCode=&quot ;OBS"> <templateId root="2.16.840.1.690859.10.20.22.4.2 " /> <id nullFlavor="NA" /> <code codeSystem="local" code="PLT" displayName="PLATELET COUNT" /> <statusCode code="completed" /> <effectiveTime value="425304463507" /> <value unit=& quot;k/cumm" xsi:type="PQ" value="359" /> & lt;referenceRange> <observationRange> <text& gt;150-400</text> </observationRange> </ referenceRange> </observation> </component> </ organizer> </entry> <entry> <organizer moodCode="EVN " classCode="BATTERY"> <templateId root=" 2.16.840.1.865060.10.20.22.4.1" /> <id nullFlavor="NA&quot ; /> <code codeSystem="local" code="LIVER" displayName="HEPATIC FUNCTION PANEL" /> <statusCode code=& quot;completed" /> <component> <observation moodCode="EVN" classCode="OBS"> <templateId root="2.16.840.1.794195.10.20.22.4.2" /> <id nullFlavor ="NA" /> <code codeSystem="local" code=" BILUC" displayName="BILI UNCONJUGATED" /> < statusCode code="completed" /> <effectiveTime value=& quot;045146592131" /> <value unit="mg/dL" xsi:type=& quot;PQ" value="0.8" /><interpretationCode codeSystem=&quot ;local" code="*" /> <referenceRange> <observationRange> <text>0.0-0.7</text></ observationRange> </referenceRange> </observation&gt ; </component> <component> <observation moodCode ="EVN" classCode="OBS"> <templateId root=& quot;2.16.840.1.283060.10.20.22.4.2" /> <id nullFlavor=&quot ;NA" /> <code codeSystem="local" code="AST& quot; displayName="AST/SGOT" /> <statusCode code=" completed" /> <effectiveTime value="304246985616" /&gt ; <value unit="Units/L" xsi:type="PQ" value=& quot;23" /> <referenceRange> < observationRange> <text>10-37</text> < /observationRange> </referenceRange> </observation& gt; </component> <component> <observation moodCode="EVN" classCode="OBS"> <templateId root="2.16.840.1.188700.10.20.22.4.2" /> <id nullFlavor ="NA" /> <code codeSystem="local" code=" ALT" displayName="ALT/SGPT" /> <statusCode code=& quot;completed" /> <effectiveTimevalue="016118948678& quot; /> <value unit="Units/L" xsi:type="PQ" value="19" /> <referenceRange> < observationRange> <text>< 66</text> & lt;/observationRange> </referenceRange> </ observation> </component> <component> < observation moodCode="EVN" classCode="OBS"> < templateId root="2.16.840.1.575864.10.20.22.4.2" /> < id nullFlavor="NA" /> <code codeSystem="local" code=& quot;TP" displayName="TOTAL PROTEIN" /> < statusCode code="completed" /> <effectiveTime value=& quot;401658262413" /> <value unit="gm/dL" xsi:type ="PQ" value="8.1" /> <referenceRange> <observationRange> <text>6.4-8.2</text> </observationRange> </referenceRange> </ observation> </component> <component> < observation moodCode="EVN" classCode="OBS"> < templateId root="2.16.840.1.969368.10.20.22.4.2" /> < id nullFlavor="NA" /> <code codeSystem="local&quot ; code="ALB" displayName="ALBUMIN" /> < statusCode code="completed" /> <effectiveTime value=& quot;163062056561" /> <value unit="gm/dL" xsi:type=& quot;PQ" value="3.7" /> <referenceRange> < observationRange> <text>3.4-5.0</text> & lt;/observationRange> </referenceRange> </ observation> </component> <component> < observation moodCode="EVN" classCode="OBS"> < templateId root="2.16.840.1.350017.10.20.22.4.2" /> < id nullFlavor="NA" /> <code codeSystem="local&quot ; code="BILTOT" displayName="BILI TOTAL" /> < statusCode code="completed" /> <effectiveTime value=& quot;365959470868" /> <valueunit="mg/dL" xsi:type= "PQ" value="0.9" /> <referenceRange> <observationRange> <text>0.0-1.0</text> </observationRange> </referenceRange> < /observation> </component> <component> < observation moodCode="EVN" classCode="OBS"> < templateId root="2.16.840.1.414871.10.20.22.4.2" /> < id nullFlavor="NA" /> <code codeSystem="local&quot ; code="ALKP" displayName="ALKALINE PHOSPHATASE TOTAL" /&gt ; <statusCode code="completed" /> < effectiveTime value="824265464121" /> <value unit=&quot ;IU/L" xsi:type="PQ" value="120" /> < interpretationCode codeSystem="local" code="*" /> <referenceRange> <observationRange> < text>45-117</text> </observationRange> </ referenceRange> </observation> </component> < component> <observation moodCode="EVN" classCode=" OBS"> <templateId root="2.16.840.1.708143.10.20.22.4.2& quot; /> <id nullFlavor="NA" /> <code codeSystem="local" code="BILC" displayName="BILI CONJUGATED" /> <statusCode code="completed" /> <effectiveTime value="427429011964" /> < value unit="mg/dL" xsi:type="PQ" value="0.1" /&gt ; <referenceRange> <observationRange> <text>0.0-0.3</text> </observationRange> </referenceRange> </observation> </component> </organizer> </entry> <entry> <organizer moodCode= "EVN" classCode="BATTERY"> <templateId root=" 2.16.840.1.297016.10.20.22.4.1" /> <id nullFlavor="NA&quot ; /> <code codeSystem="local" code="PT" displayName="PROTHROMBIN TIME WITH INR" /> <statusCode code ="completed" /> <component> <observation moodCode="EVN" classCode="OBS"> <templateId root="2.16.840.1.298281.10.20.22.4.2" /> <id nullFlavor ="NA" /> <code codeSystem="local" code=" INRX" displayName="INTERNATIONAL NORMAL RATIO" /> &lt ;statusCode code="completed" /> <effectiveTime value=" 903470892439" /> <value unit="" xsi:type="PQ& quot; value="3.9" /> <interpretationCode codeSystem=& quot;local" code="*" /> <referenceRange> <observationRange> <text>0.9-1.1</text> </observationRange> </referenceRange> </ observation> </component> <component> < observation moodCode="EVN" classCode="OBS"> < templateId root="2.16.840.1.980299.10.20.22.4.2" /> < id nullFlavor="NA" /> <code codeSystem="local&quot ; code="PTPAT" displayName="PROTHROMBIN TIME" /> <statusCode code="completed" /> <effectiveTime value="800717969442" /> <value unit="sec" xsi :type="PQ" value="46.0" /> < interpretationCode codeSystem="local" code="*" /> <referenceRange> <observationRange> < text>9.3-12.2</text> </observationRange> < /referenceRange> </observation> </component> </ organizer> </entry> <entry> <organizer moodCode="EVN " classCode="BATTERY"> <templateId root=" 2.16.840.1.646906.10.20.22.4.1" /> <id nullFlavor="NA&quot ; /> <code codeSystem="local" code="LACT" displayName="LACTIC ACID" /> <statusCode code=" completed" /> <component> <observation moodCode=& quot;EVN" classCode="OBS"> <templateId root=" 2.16.840.1.368105.10.20.22.4.2" /> <id nullFlavor="NA& quot; /> <code codeSystem="local" code="LACT&quot ; displayName="LACTIC ACID" /> <statusCode code=" completed" /> <effectiveTime value="485097736034" /> <value unit="mmol/L" xsi:type="PQ" value="0.6 " /> <referenceRange> <observationRange&gt ; <text>0.5-2.0</text> </observationRange& gt; </referenceRange> </observation> </component > </organizer> </entry> <entry> <organizer moodCode="EVN" classCode="BATTERY"> <templateId root="2.16.840.1.244152.10.20.22.4.1" /> <id nullFlavor=& quot;NA" /> <code codeSystem="local" code="CBCD& quot; displayName="CBC W/DIFF" /> <statusCode code=" completed" /> <component> <observation moodCode=& quot;EVN" classCode="OBS"> <templateId root=" 2.16.840.1.336213.10.20.22.4.2" /> <id nullFlavor="NA& quot; /> <code codeSystem="local" code="BA#" displayName="BASOPHIL #" /> <statusCode code=" completed" /> <effectiveTime value="169999756717" /> <value unit="k/cumm" xsi:type="PQ" value=& quot;0.0" /> <referenceRange> < observationRange> <text>0.0-0.2</text> & lt;/observationRange> </referenceRange> </ observation> </component> <component> < observation moodCode="EVN" classCode="OBS"> < templateId root="2.16.840.1.263950.10.20.22.4.2" /> < id nullFlavor="NA" /> <code codeSystem="local&quot ; code="BA%" displayName="BASOPHIL %" /> <statusCode code="completed" /> < effectiveTime value="525186726523" /> <value unit=&quot ;%" xsi:type="PQ" value="1" /> < referenceRange> <observationRange> <text>0-1 </text> </observationRange> </referenceRange& gt; </observation> </component> <component> <observation moodCode="EVN" classCode="OBS"> &lt ;templateId root="2.16.840.1.825951.10.20.22.4.2" /> < id nullFlavor="NA" /> <code codeSystem="local&quot ; code="EO#" displayName="EOSINOPHIL #" /> < statusCode code="completed" /> <effectiveTime value=& quot;054084374727" /> <value unit="k/cumm" xsi: type="PQ" value="0.1" /> <referenceRange> <observationRange> <text>0.1-0.5</text& gt; </observationRange> </referenceRange> </ observation> </component> <component> < observation moodCode="EVN" classCode="OBS"> < templateId root="2.16.840.1.493433.10.20.22.4.2" /> < id nullFlavor="NA" /> <code codeSystem="local&quot ; code="EO%" displayName="EOSINOPHIL %" /&gt ; <statusCode code="completed" /> < effectiveTime value="088454579640" /> <value unit=&quot ;%" xsi:type="PQ" value="1" /> < interpretationCode codeSystem="local" code="*" /> <referenceRange> <observationRange> <text& gt;2-4</text> </observationRange> </ referenceRange> </observation> </component> < component> <observation moodCode="EVN" classCode=" OBS"> <templateId root="2.16.840.1.570229.10.20.22.4.2& quot; /> <id nullFlavor="NA" /> <code codeSystem="local" code="GR#" displayName="GRANULOCYTE #" /> <statusCode code="completed" /> < effectiveTime value="452520404507" /> <value unit=&quot ;k/cumm" xsi:type="PQ" value="2.1" /> < referenceRange> <observationRange> <text> 2.0-9.0</text> </observationRange> </ referenceRange> </observation> </component> < component> <observation moodCode="EVN" classCode=" OBS"> <templateId root="2.16.840.1.719744.10..22.4.2& quot; /> <id nullFlavor="NA" /> <code codeSystem="local" code="GR%" displayName=" GRANULOCYTE %" /> <statusCode code="completed" /& gt; <effectiveTime value="262443435219" /> &lt ;value unit="%" xsi:type="PQ" value="50" / > <referenceRange> <observationRange> <text>50-75</text> </observationRange> </referenceRange> </observation> </component&gt ; <component> <observation moodCode="EVN" classCode="OBS"> <templateId root=" 2.16.840.1.285454.10.20.22.4.2" /> <id nullFlavor="NA& quot; /> <code codeSystem="local" code="LY#" displayName="LYMPHOCYTE #" /> <statusCode code=" completed" /> <effectiveTime value="617650461004" /> <value unit="k/cumm" xsi:type="PQ" value=" 1.7" /> <referenceRange> <observationRange& gt; <text>1.0-4.0</text> </ observationRange> </referenceRange> </observation&gt ; </component> <component> <observation moodCode=& quot;EVN" classCode="OBS"> <templateId root=" 2.16.840.1.573864.10.20.22.4.2" /> <id nullFlavor="NA& quot; /> <code codeSystem="local" code="LY&#37 ;" displayName="LYMPHOCYTE %" /> < statusCode code="completed" /> <effectiveTime value=& quot;110365360434" /> <value unit="%" xsi:type=& quot;PQ" value="40" /> <interpretationCode codeSystem="local" code="*" /> < referenceRange> <observationRange> <text> 20-30</text> </observationRange> </ referenceRange> </observation> </component> < component> <observation moodCode="EVN" classCode=" OBS"> <templateId root="2.16.840.1.167422.10..22.4.2& quot; /> <id nullFlavor="NA" /> <code codeSystem="local" code="MCH" displayName="MEAN CELL HGB" /> <statusCode code="completed" /> & lt;effectiveTime value="739929714996" /> <value unit=& quot;pg"xsi:type="PQ" value="26.6" /> < interpretationCode codeSystem="local" code="*" /> <referenceRange> <observationRange> < text>27.0-33.0</text> </observationRange> &lt ;/referenceRange> </observation> </component> & lt;component> <observation moodCode="EVN" classCode="OBS& quot;> <templateId root="2.16.840.1.764046.10.20.22.4.2&quot ; /> <id nullFlavor="NA" /> <code codeSystem="local" code="[facility]" displayName="MEAN CELL HGB CONCENTRATION" /> <statusCode code="completed&quot ; /> <effectiveTime value="245592411322" /> <value unit="g/dL" xsi:type="PQ" value="32.2&quot ; /> <referenceRange> <observationRange> <text>32.0-37.0</text> </observationRange&gt ; </referenceRange> </observation> </ component> <component> <observation moodCode="EVN" classCode="OBS"> <templateId root=" 2.16.840.1.907326.10.20.22.4.2" /> <id nullFlavor="NA& quot; /> <code codeSystem="local" code="MCV" displayName="MEAN CELL VOLUME" /> <statusCode code=& quot;completed" /> <effectiveTime value="665857100626& quot; /> <value unit="fl" xsi:type="PQ" value ="82.4" /> <referenceRange> < observationRange> <text>80.0-100.0</text> </ observationRange> </referenceRange> </observation&gt ; </component> <component> <observation moodCode ="EVN" classCode="OBS"> <templateId root=& quot;2.16.840.1.758738.10..22.4.2" /> <id nullFlavor=&quot ;NA" /> <code codeSystem="local" code="MO#& quot; displayName="MONOCYTE #" /><statusCode code=" completed" /> <effectiveTime value="662898611573" /> <value unit="k/cumm" xsi:type="PQ" value=& quot;0.3" /> <referenceRange> < observationRange> <text>0.1-1.0</text> & lt;/observationRange> </referenceRange> </ observation> </component> <component> < observation moodCode="EVN" classCode="OBS"> < templateId root="2.16.840.1.406320.10..22.4.2" /> < id nullFlavor="NA" /> <code codeSystem="local&quot ; code="MO%" displayName="MONOCYTE %" /> <statusCode code="completed" /> < effectiveTime value="339161470179" /> <value unit=&quot ;%" xsi:type="PQ" value="8" /> < interpretationCode codeSystem="local" code="*" /> <referenceRange> <observationRange> < text>4-6</text> </observationRange> </ referenceRange> </observation> </component> < component> <observation moodCode="EVN" classCode=" OBS"> <templateId root="2.16.840.1.267452.10.20.22.4.2& quot; /> <id nullFlavor="NA" /> <code codeSystem="local" code="RBC" displayName="RED BLOOD CELL" /> <statusCode code="completed" /> <effectiveTime value="925101394522" /> <value unit="m/cumm" xsi:type="PQ" value="4.03" /> <referenceRange> <observationRange> & lt;text>4.00-6.00</text> </observationRange> </referenceRange> </observation> </component> <component> <observation moodCode="EVN" classCode=& quot;OBS"> <templateId root=" 2.16.840.1.612040.10..22.4.2" /> <id nullFlavor="NA& quot; /> <code codeSystem="local" code="RDW" displayName="RED CELL DISTRIBUTION WIDTH" /> < statusCode code="completed" /> <effectiveTime value=& quot;418095688340" /> <value unit="%" xsi: type="PQ" value="15.3" /> <referenceRange&gt ; <observationRange> <text>11.0-15.6</ text> </observationRange> </referenceRange> </observation> </component> <component> <observation moodCode="EVN" classCode="OBS"> <templateId root="2.16.840.1.171080.10.20.22.4.2" /> <idnullFlavor="NA" /> <code codeSystem=" local" code="WBC" displayName="WHITE BLOOD CELL" /> <statusCode code="completed" /> < effectiveTime value="350566635867" /> <value unit=&quot ;k/cumm" xsi:type="PQ" value="4.3" /> < interpretationCode codeSystem="local" code="*" /> <referenceRange> <observationRange> < text>5.0-10.0</text> </observationRange> </ referenceRange> </observation> </component> < component> <observation moodCode="EVN" classCode=" OBS"> <templateId root="[id number]& quot; /> <id nullFlavor="NA" /> <code codeSystem="local" code="HGBT" displayName="HEMOGLOBIN& quot; /> <statusCode code="completed" /> & lt;effectiveTime value="[id number]" /> <value unit=& quot;gm/dL" xsi:type="PQ" value="10.7" /> & lt;interpretationCode codeSystem="local" code="*" /> <referenceRange> <observationRange> & lt;text>12.0-16.0</text> </observationRange> </referenceRange> </observation> </component> < component> <observation moodCode="EVN" classCode=" OBS"> <templateId root="[id number]& quot; /> <id nullFlavor="NA" /> <code codeSystem="local" code="HCTT" displayName="HEMATOCRIT& quot; /> <statusCode code="completed" /> & lt;effectiveTime value="019602919566" /> <value unit=& quot;%" xsi:type="PQ" value="33.2" /> <interpretationCode codeSystem="local" code="*" /> <referenceRange> <observationRange> <text>37.0-47.0</text> </observationRange> </referenceRange> </observation> </component> & lt;component> <observation moodCode="EVN" classCode=&quot ;OBS"> <templateId root="2.16.840.1.327133.10.20.22.4.2 " /> <id nullFlavor="NA" /> <code codeSystem="local" code="PLT" displayName="PLATELET COUNT" /> <statusCode code="completed" /> <effectiveTime value="180171162586" /> <value unit="k/cumm" xsi:type="PQ" value="223" /> <referenceRange> <observationRange> & lt;text>150-400</text> </observationRange> & lt;/referenceRange> </observation> </component> & lt;/organizer> </entry> <entry> <organizer moodCode=&quot ;EVN" classCode="BATTERY"> <templateId root=" 2.16.840.1.082538.10.20.22.4.1" /> <id nullFlavor="NA&quot ; /> <code codeSystem="local" code="METABC" displayName="METABOLIC PANEL, COMPREHN" /> <statusCode code ="completed" /> <component> <observation moodCode="EVN" classCode="OBS"> <templateId root="2.16.840.1.470602.10.20.22.4.2" /> <id nullFlavor= "NA" /> <code codeSystem="local" code="K " displayName="POTASSIUM" /> <statusCode code=& quot;completed" /> <effectiveTime value="305525371703& quot; /> <value unit="mmol/L" xsi:type="PQ" value="3.8" /> <referenceRange> < observationRange> <text>3.5-5.3</text> & lt;/observationRange> </referenceRange> </ observation> </component> <component> < observation moodCode="EVN" classCode="OBS"> < templateId root="2.16.840.1.646435.10.20.22.4.2" /> < id nullFlavor="NA" /> <code codeSystem="local&quot ; code="eGFR" displayName="EST GFR (MDRD)" /> & lt;statusCode code="completed" /> <effectiveTime value=" 104501505202" /> <value unit="mL/min"xsi:type=& quot;PQ" value="> 60" /> <referenceRange&gt ; <observationRange> <text>> 59</text> </observationRange> </referenceRange> < /observation> </component> <component> < observation moodCode="EVN" classCode="OBS"> < templateId root="2.16.840.1.720564.10.20.22.4.2" /> < id nullFlavor="NA" /> <code codeSystem="local&quot ; code="GAP" displayName="ANION GAP" /> < statusCode code="completed" /> <effectiveTime value=& quot;513354399479" /> <value unit="mmol/L" xsi: type="PQ" value="7" /> <referenceRange> <observationRange> <text>5-15</text> </observationRange> </referenceRange> < /observation> </component> <component> <observation moodCode="EVN" classCode="OBS"> <templateId root="2.16.840.1.701245.10.20.22.4.2" /> <id nullFlavor ="NA" /> <code codeSystem="local" code="eCrCl " displayName="EST CrCl (CG)" /> <statusCode code= "completed" /> <effectiveTime value="452247442047& quot; /> <value unit="mL/min" xsi:type="PQ" value="> 60" /> <referenceRange> & lt;observationRange> <text>> 59</text> </observationRange> </referenceRange> </ observation> </component> <component> < observation moodCode="EVN" classCode="OBS"> < templateId root="2.16.840.1.065403.10.20.22.4.2" /> < id nullFlavor="NA" /> <code codeSystem="local" code=& quot;GLU" displayName="GLUCOSE" /> <statusCode code=& quot;completed" /> <effectiveTime value="097890392324& quot; /> <value unit="mg/dL" xsi:type="PQ" value="94" /> <referenceRange> < observationRange> <text>70-99</text> < /observationRange> </referenceRange> </observation& gt; </component> <component> <observation moodCode="EVN" classCode="OBS"> <templateId root="2.16.840.1.425209.10.20.22.4.2" /> <id nullFlavor ="NA" /> <code codeSystem="local" code=" CA" displayName="CALCIUM" /> <statusCode code=& quot;completed" /> <effectiveTime value="926508551826& quot; /> <value unit="mg/dL" xsi:type="PQ" value="7.2" /> <interpretationCode codeSystem=" local" code="*" /> <referenceRange> & lt;observationRange> <text>8.5-10.1</text> </observationRange> </referenceRange> </ observation> </component> <component> < observation moodCode="EVN" classCode="OBS"> < templateId root="2.16.840.1.644352.10.20.22.4.2" /> < id nullFlavor="NA" /> <code codeSystem="local&quot ; code="BUN" displayName="BLOOD UREA NITROGEN" /> <statusCode code="completed" /> <effectiveTime value="025558863927" /> <value unit="mg/dL" xsi:type="PQ" value="11" /> <referenceRange& gt; <observationRange> <text>7-20</text& gt; </observationRange> </referenceRange> </observation> </component> <component> &lt ;observation moodCode="EVN" classCode="OBS"> &lt ;templateId root="2.16.840.1.590529.10.20.22.4.2" /> < id nullFlavor="NA" /> <code codeSystem="local&quot ; code="CREAT" displayName="CREATININE" /> < statusCode code="completed" /> <effectiveTime value=& quot;252931939513" /> <value unit="mg/dL" xsi:type ="PQ" value="0.4" /> <interpretationCode codeSystem="local" code="*" /> < referenceRange> <observationRange><text>0.6-1.0</ text> </observationRange> </referenceRange> </observation> </component> <component> <observation moodCode="EVN" classCode="OBS"> <templateId root="2.16.840.1.444250.10.20.22.4.2" /> <id nullFlavor="NA" /> <code codeSystem=" local" code="NA" displayName="SODIUM" /> & lt;statusCode code="completed" /> <effectiveTime value= "088601721197" /> <value unit="mmol/L" xsi: type="PQ" value="141" /> <referenceRange> <observationRange> <text>135-148</text> </observationRange> </referenceRange> </ observation> </component> <component> < observation moodCode="EVN" classCode="OBS"> < templateId root="2.16.840.1.844641.10.20.22.4.2"/> <id nullFlavor="NA" /> <code codeSystem="local" code="CL" displayName="CHLORIDE" /> < statusCode code="completed" /> <effectiveTime value=& quot;808987655342" /> <value unit="mmol/L" xsi: type="PQ" value="111" /> <interpretationCode codeSystem="local" code="*" /> < referenceRange><observationRange> <text>98-110</ text> </observationRange> </referenceRange> </observation> </component> <component> <observation moodCode="EVN" classCode="OBS"> <templateId root="2.16.840.1.682563.10.20.22.4.2" /> <id nullFlavor="NA" /> <code codeSystem=" local" code="AST" displayName="AST/SGOT" /> <statusCode code="completed" /> <effectiveTime value="357944659047" /> <value unit="Units/L&quot ; xsi:type="PQ" value="166" /> < interpretationCode codeSystem="local" code="*" /> <referenceRange> <observationRange> <text>10-37& lt;/text> </observationRange> </referenceRange& gt; </observation> </component> <component> <observation moodCode="EVN" classCode="OBS"> <templateId root="2.16.840.1.741144.10.20.22.4.2" /> <id nullFlavor="NA" /> <code codeSystem=&quot ;local" code="ALT" displayName="ALT/SGPT" /> <statusCode code="completed" /> <effectiveTime value="693279840981" /> <value unit="Units/L&quot ; xsi:type="PQ" value="106" /> < interpretationCode codeSystem="local" code="*" /> <referenceRange> <observationRange> < text>< 66</text> </observationRange> & lt;/referenceRange> </observation> </component> < component> <observation moodCode="EVN" classCode=" OBS"> <templateId root="2.16.840.1.447448.10.20.22.4.2& quot; /> <id nullFlavor="NA" /> <code codeSystem="local" code="CO2" displayName="CARBON DIOXIDE" /> <statusCode code="completed" /> <effectiveTime value="716232780135" /> < value unit="mmol/L" xsi:type="PQ" value="23" /&gt ; <referenceRange> <observationRange> <text>21-32</text> </observationRange> </referenceRange> </observation> </component> <component> <observation moodCode="EVN" classCode= "OBS"> <templateId root=" 2.16.840.1.568045.10.20.22.4.2" /> <id nullFlavor="NA& quot; /> <code codeSystem="local" code="TP" displayName="TOTAL PROTEIN" /> <statusCode code=" completed" /> <effectiveTime value="572733810401" /> <value unit="gm/dL" xsi:type="PQ" value="6.2 " /> <interpretationCode codeSystem="local" code=& quot;*" /> <referenceRange> < observationRange> <text>6.4-8.2</text> & lt;/observationRange> </referenceRange> </ observation> </component> <component> < observation moodCode="EVN" classCode="OBS"> < templateId root="2.16.840.1.934561.10.20.22.4.2" /> < id nullFlavor="NA" /> <code codeSystem="local" code=& quot;ALB" displayName="ALBUMIN" /> <statusCode code=& quot;completed" /> <effectiveTime value="416782505503& quot; /> <value unit="gm/dL" xsi:type="PQ" value="2.8" /> <interpretationCode codeSystem=" local" code="*" /> <referenceRange> < observationRange> <text>3.4-5.0</text> & lt;/observationRange> </referenceRange> </ observation> </component> <component> < observation moodCode="EVN"classCode="OBS"> < templateId root="2.16.840.1.936414.10.20.22.4.2" /> < id nullFlavor="NA" /> <code codeSystem="local&quot ; code="BILTOT" displayName="BILI TOTAL" /> < statusCode code="completed" /> <effectiveTime value=& quot;763226090999" /> <value unit="mg/dL" xsi:type ="PQ" value="0.6" /> <referenceRange> <observationRange> <text>0.0-1.0</text> </observationRange> </referenceRange> </ observation> </component> <component> < observation moodCode="EVN" classCode="OBS"> < templateId root="2.16.840.1.290376.10.20.22.4.2" /> < id nullFlavor="NA" /> <code codeSystem="local&quot ; code="ALKP" displayName="ALKALINE PHOSPHATASE TOTAL" /&gt ; <statusCode code="completed" /> < effectiveTime value="046949844681" /> <valueunit=" IU/L" xsi:type="PQ" value="166" /> < interpretationCode codeSystem="local" code="*" /> <referenceRange> <observationRange> <text>45- 117</text> </observationRange> </ referenceRange> </observation> </component> </ organizer> </entry> <entry> <organizer moodCode="EVN " classCode="BATTERY"> <templateId root=" 2.16.840.1.130670.10.20.22.4.1" /> <id nullFlavor="NA&quot ; /> <code codeSystem="local" code="PHOS" displayName="PHOSPHORUS" /> <statusCode code=" completed" /> <component> <observation moodCode=& quot;EVN" classCode="OBS"> <templateId root=" 2.16.840.1.700617.10.20.22.4.2" /> <id nullFlavor="NA& quot; /> <code codeSystem="local" code="PHOS&quot ; displayName="PHOSPHORUS" /> <statusCode code=" completed" /> <effectiveTime value="788162941326" /> <value unit="mg/dL" xsi:type="PQ" value=& quot;2.6" /> <referenceRange> < observationRange> <text>2.5-4.9</text> & lt;/observationRange> </referenceRange> </ observation> </component> </organizer> </entry> & lt;entry> <organizer moodCode="EVN" classCode="BATTERY& quot;> <templateId root="2.16.840.1.057408.10.20.22.4.1" /& gt; <id nullFlavor="NA" /> <code codeSystem=" local" code="MAG" displayName="MAGNESIUM" /> & lt;statusCode code="completed" /> <component> < observation moodCode="EVN" classCode="OBS"> < templateId root="2.16.840.1.752614.10.20.22.4.2" /> < id nullFlavor="NA" /> <code codeSystem="local" code="MAG" displayName="MAGNESIUM" /> < statusCode code="completed" /> <effectiveTime value=& quot;867410280153" /> <value unit="mg/dL" xsi:type ="PQ" value="1.8" /> <referenceRange> <observationRange> <text>1.8-2.4</text> </observationRange> </referenceRange> < /observation> </component> </organizer> </entry> <entry> <organizer moodCode="EVN" classCode="BATTERY& quot;> <templateId root="2.16.840.1.412867.10.20.22.4.1" /& gt; <id nullFlavor="NA" /> <code codeSystem="local& quot; code="PT" displayName="PROTHROMBIN TIME WITH INR" /&gt ; <statusCode code="completed" /> <component> <observation moodCode="EVN" classCode="OBS"> <templateId root="2.16.840.1.648866.10.20.22.4.2" /> <id nullFlavor="NA" /><code codeSystem="local&quot ; code="INRX" displayName="INTERNATIONAL NORMAL RATIO" /&gt ; <statusCode code="completed" /> < effectiveTime value="280535724914" /> <value unit=&quot ;" xsi:type="PQ" value="4.2" /> < interpretationCode codeSystem="local" code="" /> <referenceRange> <observationRange> < text>0.9-1.1</text> </observationRange> </ referenceRange> </observation> </component> < component> <observation moodCode="EVN" classCode=" OBS"> <templateId root="2.16.840.1.769416.10.20.22.4.2& quot; /> <id nullFlavor="NA" /> <code codeSystem="local" code="PTPAT" displayName=" PROTHROMBIN TIME" /> <statusCode code="completed" /> <effectiveTime value="795759031967" /> & lt;value unit="sec" xsi:type="PQ" value="49.1" /& gt; <interpretationCode codeSystem="local" code="*" / > <referenceRange> <observationRange> <text>9.3-12.2</text> </observationRange> </referenceRange> </observation> </component> </organizer> </entry> <entry> <organizer moodCode=& quot;EVN" classCode="BATTERY"> <templateId root=" 2.16.840.1.795831.10.20.22.4.1" /> <id nullFlavor="NA&quot ; /> <code codeSystem="local" code="CBCD" displayName="CBC W/DIFF" /> <statusCode code=" completed" /> <component> <observation moodCode=& quot;EVN" classCode="OBS"> <templateId root=" 2.16.840.1.241558.10.20.22.4.2" /> <id nullFlavor="NA" / > <code codeSystem="local" code="BA#" displayName="BASOPHIL #" /> <statusCode code=" completed" /> <effectiveTime value="149162304640" /> <value unit="k/cumm" xsi:type="PQ" value=& quot;0.0" /> <referenceRange> <observationRange& gt; <text>0.0-0.2</text> </ observationRange> </referenceRange> </observation&gt ; </component> <component> <observation moodCode=& quot;EVN" classCode="OBS"> <templateId root=" 2.16.840.1.444304.10.20.22.4.2" /> <id nullFlavor="NA& quot; /> <code codeSystem="local" code="BA&#37 ;" displayName="BASOPHIL %" /> < statusCode code="completed" /> <effectiveTime value=& quot;206091282337" /> <value unit="%" xsi: type="PQ" value="1" /> <referenceRange> <observationRange> <text>0-1</text> </observationRange> </referenceRange> </ observation> </component> <component> < observation moodCode="EVN" classCode="OBS">< templateId root="2.16.840.1.338312.10.20.22.4.2" /> < id nullFlavor="NA" /> <code codeSystem="local&quot ; code="EO#" displayName="EOSINOPHIL #" /> < statusCode code="completed" /> <effectiveTime value=& quot;338834048183" /> <value unit="k/cumm" xsi: type="PQ" value="0.0" /> <interpretationCode codeSystem="local"code="*" /> <referenceRange > <observationRange> <text>0.1-0.5</text> </observationRange> </referenceRange> < /observation> </component> <component> < observation moodCode="EVN" classCode="OBS"> < templateId root="2.16.840.1.346217.10.20.22.4.2" /> < id nullFlavor="NA" /> <code codeSystem="local&quot ; code="EO%" displayName="EOSINOPHIL %" /&gt ; <statusCode code="completed" /> < effectiveTime value="077007438590" /> <value unit=&quot ;%" xsi:type="PQ" value="1" /> < interpretationCode codeSystem="local" code="*" /> <referenceRange> <observationRange> < text>2-4</text> </observationRange> </ referenceRange> </observation> </component> < component> <observation moodCode="EVN" classCode=" OBS"> <templateId root="2.16.840.1.467045.10.20.22.4.2& quot; /> <id nullFlavor="NA" /> <code codeSystem="local" code="GR#" displayName="GRANULOCYTE #" /> <statusCode code="completed" /> <effectiveTime value="952711364526" /> <value unit="k/ cumm" xsi:type="PQ" value="3.2" /> < referenceRange> <observationRange> <text> 2.0-9.0</text> </observationRange> </ referenceRange> </observation> </component> < component> <observation moodCode="EVN" classCode=" OBS"> <templateId root="2.16.840.1.547350.10.20.22.4.2& quot; /> <id nullFlavor="NA" /> <code codeSystem="local" code="GR%" displayName=" GRANULOCYTE %" /> <statusCode code="completed& quot; /> <effectiveTime value="934900486074" /> &lt ;value unit="%" xsi:type="PQ" value="68" / > <referenceRange> <observationRange> <text>50-75</text> </observationRange> </referenceRange> </observation> </component> <component> <observation moodCode="EVN" classCode=& quot;OBS"> <templateId root=" 2.16.840.1.255343.10.20.22.4.2" /> <id nullFlavor="NA&quot ; /> <code codeSystem="local" code="LY#" displayName="LYMPHOCYTE #" /> <statusCode code=" completed" /> <effectiveTime value="447450429256" /> <value unit="k/cumm" xsi:type="PQ" value=& quot;1.2" /> <referenceRange> < observationRange> <text>1.0-4.0</text> & lt;/observationRange> </referenceRange> </ observation> </component> <component> < observation moodCode="EVN" classCode="OBS"> < templateId root="2.16.840.1.339627.10.20.22.4.2" /> < id nullFlavor="NA" /> <code codeSystem="local&quot ; code="LY%" displayName="LYMPHOCYTE %" /&gt ; <statusCode code="completed" /> < effectiveTime value="340957751039" /> <value unit=&quot ;%" xsi:type="PQ" value="25" /> &lt ;referenceRange> <observationRange> <text&gt ;20-30</text> </observationRange> </ referenceRange> </observation> </component> < component> <observation moodCode="EVN" classCode=" OBS"> <templateId root="2.16.840.1.234611.10.20.22.4.2& quot; /> <id nullFlavor="NA" /> <code codeSystem="local" code="MCH" displayName="MEAN CELL HGB" /> <statusCode code="completed" /> < effectiveTime value="273215280169" /> <value unit=&quot ;pg" xsi:type="PQ" value="26.7" /> < interpretationCode codeSystem="local" code="*" /> <referenceRange> <observationRange> < text>27.0-33.0</text> </observationRange> &lt ;/referenceRange> </observation> </component> & lt;component> <observation moodCode="EVN" classCode=&quot ;OBS"> <templateId root="2.16.840.1.472000.10.20.22.4.2 " /> <id nullFlavor="NA" /> <code codeSystem="local" code="MCHC" displayName="MEAN CELL HGB CONCENTRATION" /> <statusCode code="completed&quot ; /> <effectiveTime value="100056963628" /> <value unit="g/dL" xsi:type="PQ" value="32.7&quot ; /> <referenceRange> <observationRange> <text>32.0-37.0</text> </observationRange> </referenceRange> </observation> </ component> <component> <observation moodCode="EVN& quot; classCode="OBS"> <templateId root=" 2.16.840.1.014977.10.20.22.4.2" /> <id nullFlavor="NA& quot; /> <code codeSystem="local" code="MCV" displayName="MEAN CELL VOLUME"/> <statusCode code=&quot ;completed" /> <effectiveTime value="368895089980&quot ; /> <value unit="fl" xsi:type="PQ" value=& quot;81.7" /> <referenceRange> < observationRange> <text>80.0-100.0</text> </observationRange> </referenceRange> </ observation> </component> <component> < observation moodCode="EVN" classCode="OBS"> < templateId root="2.16.840.1.114949.10.20.22.4.2" /> < id nullFlavor="NA" /> <code codeSystem="local&quot ; code="MO#" displayName="MONOCYTE #" /> < statusCode code="completed" /> <effectiveTime value=& quot;436592222788"/> <value unit="k/cumm" xsi:type ="PQ" value="0.3" /> <referenceRange> <observationRange> <text>0.1-1.0</text> </observationRange> </referenceRange> < /observation> </component> <component> < observation moodCode="EVN" classCode="OBS"> < templateId root="2.16.840.1.626310.10.20.22.4.2" /> < id nullFlavor="NA" /> <code codeSystem="local&quot ; code="MO%" displayName="MONOCYTE %" /> <statusCode code="completed" /> < effectiveTime value="279096202537" /> <value unit=&quot ;%" xsi:type="PQ" value="6" /> < referenceRange> <observationRange> <text> 4-6</text> </observationRange> </ referenceRange> </observation> </component> < component> <observation moodCode="EVN" classCode=" OBS"> <templateId root="2.16.840.1.283627.10.20.22.4.2& quot; /> <id nullFlavor="NA" /> <code codeSystem="local" code="RBC" displayName="RED BLOOD CELL" /> <statusCode code="completed" /> <effectiveTime value="597074147061" /> <value unit="m/cumm" xsi:type="PQ" value="4.04" /> <referenceRange> <observationRange> & lt;text>4.00-6.00</text> </observationRange> </ referenceRange> </observation> </component> < component> <observation moodCode="EVN" classCode=" OBS"> <templateId root="2.16.840.1.534975.10.20.22.4.2& quot; /><id nullFlavor="NA" /> <code codeSystem=& quot;local" code="RDW" displayName="RED CELL DISTRIBUTION WIDTH" /> <statusCode code="completed" /> <effectiveTime value="541056258232" /> <value unit="%" xsi:type="PQ" value="14.6" /> <referenceRange> <observationRange> <text>11.0-15.6</text> </observationRange> & lt;/referenceRange> </observation> </component> <component> <observation moodCode="EVN" classCode=& quot;OBS"> <templateId root=" 2.16.840.1.859497.10.20.22.4.2" /> <id nullFlavor="NA" /& gt; <code codeSystem="local" code="WBC" displayName="WHITE BLOOD CELL" /> <statusCode code=& quot;completed" /> <effectiveTime value="474386953408& quot; /> <value unit="k/cumm" xsi:type="PQ" value="4.8" /> <interpretationCode codeSystem=" local" code="*" /> <referenceRange> <observationRange> <text>5.0-10.0</text> </observationRange> </referenceRange> </ observation> </component> <component> < observation moodCode="EVN" classCode="OBS"> < templateId root="2.16.840.1.298469.10.20.22.4.2" /> < id nullFlavor="NA" /> <code codeSystem="local&quot ; code="HGBT" displayName="HEMOGLOBIN" /> < statusCode code="completed" /> <effectiveTime value=& quot;409407443647" /> <value unit="gm/dL" xsi:type ="PQ" value="10.8" /> <interpretationCode codeSystem="local" code="*" /> < referenceRange> <observationRange> <text>12.0-16.0&lt ;/text> </observationRange> </referenceRange&gt ; </observation> </component> <component> <observation moodCode="EVN" classCode="OBS"> <templateId root="2.16.840.1.923194.10.20.22.4.2" /> <id nullFlavor="NA" /> <codecodeSystem=" local" code="HCTT" displayName="HEMATOCRIT" />< statusCode code="completed" /> <effectiveTime value=& quot;420087280194" /> <value unit="%" xsi: type="PQ" value="33.0" /> < interpretationCode codeSystem="local" code="*" /> < referenceRange> <observationRange> <text> 37.0-47.0</text> </observationRange> </ referenceRange> </observation> </component> < component> <observation moodCode="EVN"classCode="OBS "> <templateId root="2.16.840.1.737634.10..22.4.2& quot; /> <id nullFlavor="NA" /> <code codeSystem="local" code="PLT" displayName="PLATELET COUNT" /> <statusCode code="completed" /> <effectiveTime value="793146517609" /> <value unit="k/cumm" xsi:type="PQ" value="204" /> <referenceRange> <observationRange> & lt;text>150-400</text> </observationRange> </ referenceRange> </observation> </component> </ organizer> </entry> <entry> <organizer moodCode="EVN " classCode="BATTERY"> <templateId root=" 2.16.840.1.969487.10.20.22.4.1" /> <id nullFlavor="NA&quot ; /> <code codeSystem="local" code="PT" displayName="PROTHROMBIN TIME WITH INR" /> <statusCode code ="completed" /> <component> <observation moodCode="EVN" classCode="OBS"> <templateId root="2.16.840.1.387021.10.20.22.4.2"/> <id nullFlavor= "NA" /> <code codeSystem="local"code=" INRX" displayName="INTERNATIONAL NORMAL RATIO" /> &lt ;statusCode code="completed" /> <effectiveTime value=& quot;282763688913" /> <value unit="" xsi:type=" PQ" value="2.3" /> <interpretationCode codeSystem= "local" code="*" /> <referenceRange> <observationRange> <text>0.9-1.1</text> </observationRange> </referenceRange> < /observation> </component> <component> < observation moodCode="EVN" classCode="OBS"> < templateId root="2.16.840.1.694404.10.20.22.4.2" /> < id nullFlavor="NA" /> <code codeSystem="local&quot ; code="PTPAT" displayName="PROTHROMBIN TIME" /> <statusCode code="completed" /> <effectiveTime value="945433334990" /> <value unit="sec" xsi :type="PQ" value="26.4" /> < interpretationCode codeSystem="local" code="*" /> <referenceRange> <observationRange> < text>9.3-12.2</text> </observationRange> </ referenceRange> </observation> </component> </ organizer></entry> <entry> <organizer moodCode="EVN& quot; classCode="BATTERY"> <templateId root=" 2.16.840.1.232817.10.20.22.4.1" /> <id nullFlavor="NA&quot ; /> <code codeSystem="local" code="METABC" displayName="METABOLIC PANEL, COMPREHN" /> <statusCode code ="completed" /> <component> <observation moodCode=& quot;EVN" classCode="OBS"> <templateId root=" 2.16.840.1.866477.10.20.22.4.2" /> <id nullFlavor="NA& quot; /> <code codeSystem="local" code="K" displayName="POTASSIUM" /> <statusCode code=" completed" /> <effectiveTime value="267532029146" /> <value unit="mmol/L" xsi:type="PQ" value=& quot;3.7" /> <referenceRange> < observationRange> <text>3.5-5.3</text> & lt;/observationRange> </referenceRange> </ observation> </component> <component> < observation moodCode="EVN" classCode="OBS"> < templateId root="[id number]" /> < id nullFlavor="NA" /> <code codeSystem="local" code="eGFR" displayName="EST GFR (MDRD)" /> < statusCode code="completed" /> <effectiveTime value=& quot;[id number]" /> <value unit="mL/min" xsi: type="PQ" value="> 60" /> < referenceRange> <observationRange> <text>& amp;gt; 59</text> </observationRange> </ referenceRange> </observation> </component> < component><observation moodCode="EVN" classCode="OBS"& gt; <templateId root="[id number]" /&gt ; <id nullFlavor="NA" /> <code codeSystem=" local" code="GAP" displayName="ANION GAP" /> <statusCode code="completed" /> <effectiveTime value="140787789229" /> <value unit="mmol/L" xsi:type="PQ" value="9" /> <referenceRange&gt ; <observationRange> <text>5-15</text&gt ; </observationRange> </referenceRange></ observation> </component> <component> < observation moodCode="EVN" classCode="OBS"> < templateId root="2.16.840.1.543734.10.20.22.4.2" /> < id nullFlavor="NA" /> <code codeSystem="local&quot ; code="eCrCl" displayName="EST CrCl (CG)" /> & lt;statusCode code="completed" /> <effectiveTime value= "848290499125" /> <value unit="mL/min" xsi: type="PQ" value="> 60" /> < referenceRange> <observationRange> <text> > 59</text> </observationRange> </ referenceRange> </observation> </component> < component> <observation moodCode="EVN" classCode=" OBS"> <templateId root="2.16.840.1.836851.10.20.22.4.2& quot; /> <id nullFlavor="NA" /> <code codeSystem="local" code="GLU" displayName="GLUCOSE&quot ; /> <statusCode code="completed" /> < effectiveTime value="081807136229" /><value unit="mg/dL& quot; xsi:type="PQ" value="76" /> < referenceRange> <observationRange> <text> 70-99</text> </observationRange> </referenceRange&gt ; </observation> </component> <component> <observation moodCode="EVN" classCode="OBS"> <templateId root="2.16.840.1.109920.10.20.22.4.2" /> < id nullFlavor="NA" /> <code codeSystem="local&quot ; code="CA" displayName="CALCIUM" /> < statusCode code="completed" /> <effectiveTime value=& quot;641646602252" /> <value unit="mg/dL" xsi:type ="PQ" value="7.6" /> <interpretationCode codeSystem="local" code="*" /> < referenceRange> <observationRange> <text> 8.5-10.1</text> </observationRange> </referenceRange& gt; </observation> </component> <component> <observation moodCode="EVN" classCode="OBS"> <templateIdroot="2.16.840.1.491395.10.20.22.4.2" /> <id nullFlavor="NA" /> <code codeSystem=" local" code="BUN" displayName="BLOOD UREA NITROGEN" /& gt; <statusCode code="completed" /> < effectiveTime value="818503318047" /> <value unit=&quot ;mg/dL" xsi:type="PQ" value="8" /> < referenceRange> <observationRange> <text>7-20& lt;/text> </observationRange> </referenceRange& gt; </observation> </component> <component> <observation moodCode="EVN" classCode="OBS"> <templateId root="2.16.840.1.427709.10.20.22.4.2" /> <id nullFlavor="NA" /> <code codeSystem=&quot ;local" code="CREAT" displayName="CREATININE" /> & lt;statusCode code="completed" /> <effectiveTime value= "682135200556" /> <value unit="mg/dL" xsi: type="PQ" value="0.4" /> <interpretationCode codeSystem="local" code="*" /> <referenceRange> <observationRange> <text>0.6-1.0</text> </observationRange> </referenceRange> & lt;/observation> </component> <component> < observation moodCode="EVN" classCode="OBS"> < templateId root="2.16.840.1.748048.10.20.22.4.2" /> < id nullFlavor="NA" /> <code codeSystem="local&quot ; code="NA" displayName="SODIUM" /> < statusCode code="completed" /> <effectiveTime value=& quot;023883047930" /> <value unit="mmol/L" xsi: type="PQ" value="140" /> <referenceRange> <observationRange> <text>135-148</text&gt ; </observationRange> </referenceRange> & lt;/observation> </component> <component> < observation moodCode="EVN" classCode="OBS"> < templateId root="2.16.840.1.977020.10.20.22.4.2" /> < id nullFlavor="NA" /> <code codeSystem="local&quot ; code="CL" displayName="CHLORIDE" /> < statusCode code="completed" /> <effectiveTime value=& quot;949452858984" /> <value unit="mmol/L" xsi: type="PQ" value="108" /> <referenceRange> <observationRange> <text>98-110</text&gt ; </observationRange> </referenceRange> </ observation> </component> <component> < observation moodCode="EVN" classCode="OBS"> < templateId root="2.16.840.1.710620.10.20.22.4.2" /> < id nullFlavor="NA" /> <code codeSystem="local&quot ; code="AST" displayName="AST/SGOT" /> < statusCode code="completed" /> <effectiveTime value=& quot;511503570869" /> <value unit="Units/L" xsi: type="PQ" value="53" /> <interpretationCode codeSystem="local" code="*" /> < referenceRange> <observationRange> <text> 10-37</text> </observationRange> </ referenceRange> </observation> </component> < component> <observation moodCode="EVN" classCode=" OBS"> <templateId root="2.16.840.1.340943.10..22.4.2& quot; /> <id nullFlavor="NA" /> <code codeSystem="local" code="ALT" displayName="ALT/SGPT& quot; /> <statusCode code="completed" /> & lt;effectiveTime value="886529446939" /> <value unit=& quot;Units/L" xsi:type="PQ" value="67" /> & lt;interpretationCode codeSystem="local" code="*" /> <referenceRange> <observationRange> &lt ;text>< 66</text> </observationRange> </referenceRange> </observation> </component> <component> <observation moodCode="EVN" classCode=& quot;OBS"> <templateId root=" 2.16.840.1.976584.10.20.22.4.2" /> <id nullFlavor="NA& quot; /> <code codeSystem="local" code="CO2" displayName="CARBON DIOXIDE" /> <statusCode code=" completed" /> <effectiveTime value="048979160041" /& gt; <value unit="mmol/L" xsi:type="PQ" value=& quot;23" /> <referenceRange> < observationRange> <text>21-32</text> < /observationRange> </referenceRange> </observation& gt; </component> <component> <observation moodCode="EVN" classCode="OBS"> <templateId root="2.16.840.1.486618.10.20.22.4.2" /> <id nullFlavor ="NA" /> <code codeSystem="local" code=" TP" displayName="TOTAL PROTEIN" /> <statusCode code="completed" /> <effectiveTime value=" 836929942194" /> <value unit="gm/dL" xsi:type=& quot;PQ" value="6.4" /> <referenceRange> <observationRange> <text>6.4-8.2</text> </observationRange> </referenceRange> </ observation> </component> <component> < observation moodCode="EVN" classCode="OBS"> < templateId root="2.16.840.1.271318.10.20.22.4.2" /> < id nullFlavor="NA" /> <code codeSystem="local" code=& quot;ALB" displayName="ALBUMIN" /> <statusCode code=& quot;completed" /> <effectiveTime value="038883157346& quot; /> <value unit="gm/dL" xsi:type="PQ" value="2.9" /> <interpretationCode codeSystem=" local" code="*" /> <referenceRange> < observationRange> <text>3.4-5.0</text> & lt;/observationRange> </referenceRange> </ observation> </component> <component> < observation moodCode="EVN"classCode="OBS"> < templateId root="2.16.840.1.269696.10.20.22.4.2" /> < id nullFlavor="NA" /> <code codeSystem="local&quot ; code="BILTOT" displayName="BILI TOTAL" /> < statusCode code="completed" /> <effectiveTime value=& quot;357794962821" /> <value unit="mg/dL" xsi:type ="PQ" value="1.5" /> <interpretationCode codeSystem="local" code="*" /> < referenceRange> <observationRange> <text>0.0- 1.0</text> </observationRange> </ referenceRange> </observation> </component> < component> <observation moodCode="EVN" classCode=" OBS"> <templateId root="2.16.840.1.049907.10.20.22.4.2&quot ; /> <id nullFlavor="NA" /> <code codeSystem="local" code="ALKP" displayName="ALKALINE PHOSPHATASE TOTAL" /> <statusCode code="completed&quot ; /> <effectiveTime value="187032879725" /> <value unit="IU/L" xsi:type="PQ" value="145" /> <interpretationCode codeSystem="local" code="*& quot; /> <referenceRange> <observationRange> <text>45-117</text> </observationRange& gt; </referenceRange> </observation> </component> </organizer> </entry> <entry> <organizer moodCode= "EVN" classCode="BATTERY"> <templateId root=&quot ;2.16.840.1.870975.10.20.22.4.1" /> <id nullFlavor="NA&quot ; /> <code codeSystem="local" code="PHOS" displayName="PHOSPHORUS" /> <statusCode code=" completed" /> <component> <observation moodCode=& quot;EVN" classCode="OBS"> <templateId root=" 2.16.840.1.238090.10.20.22.4.2" /> <id nullFlavor="NA& quot; /> <code codeSystem="local" code="PHOS&quot ; displayName="PHOSPHORUS" /> <statusCode code=" completed" /> <effectiveTime value="641571523853" /> <value unit="mg/dL" xsi:type="PQ" value=& quot;2.4" /> <interpretationCode codeSystem="local&quot ; code="*" /> <referenceRange> < observationRange> <text>2.5-4.9</text> & lt;/observationRange> </referenceRange> </ observation> </component> </organizer> </entry> & lt;entry> <organizer moodCode="EVN" classCode="BATTERY& quot;> <templateId root="2.16.840.1.166354.10.20.22.4.1" /& gt; <id nullFlavor="NA" /> <code codeSystem=" local" code="MAG" displayName="MAGNESIUM" /> & lt;statusCode code="completed" /> <component> &lt ;observation moodCode="EVN" classCode="OBS"> &lt ;templateId root="2.16.840.1.117919.10.20.22.4.2" /> < id nullFlavor="NA" /> <code codeSystem="local&quot ; code="MAG" displayName="MAGNESIUM" /> < statusCode code="completed" /> <effectiveTime value=& quot;464055235115" /> <value unit="mg/dL" xsi:type=&quot ;PQ" value="1.7" /> <interpretationCode codeSystem ="local" code="*" /> <referenceRange> <observationRange> <text>1.8-2.4</text> </observationRange> </referenceRange> &lt ;/observation> </component> </organizer> </entry> <entry> <organizer moodCode="EVN" classCode=" BATTERY"> <templateId root="2.16.840.1.932151.10.20.22.4.1& quot; /> <id nullFlavor="NA" /> <code codeSystem ="local" code="TSH" displayName="THYROID STIM HORMONE ( TSH)" /> <statusCode code="completed" /> < component> <observation moodCode="EVN" classCode=" OBS"> <templateId root="2.16.840.1.586187.10.20.22.4.2& quot; /> <id nullFlavor="NA" /> <code codeSystem="local" code="TSH" displayName="THYROID STIM HORMONE (TSH)" /> <statusCode code="completed&quot ; /> <effectiveTime value="122119570698" /> < value unit="uIU/mL" xsi:type="PQ" value="0.71" /& gt; <referenceRange> <observationRange> <text>0.34-4.82</text> </observationRange> </referenceRange> </observation> </component&gt ; </organizer> </entry> <entry> <organizer moodCode ="EVN" classCode="BATTERY"> <templateId root=& quot;2.16.840.1.650342.10.20.22.4.1" /> <id nullFlavor="NA& quot; /> <code codeSystem="local" code="PT" displayName="PROTHROMBIN TIME WITH INR" /> <statusCode code ="completed" /> <component> <observation moodCode="EVN" classCode="OBS"> <templateId root="2.16.840.1.436685.10.20.22.4.2" /> <id nullFlavor ="NA" /> <code codeSystem="local" code=" INRX" displayName="INTERNATIONAL NORMAL RATIO" /> &lt ;statusCode code="completed" /> <effectiveTime value=& quot;797513342211" /> <value unit="" xsi:type=& quot;PQ" value="1.6" /> <interpretationCode codeSystem=& quot;local" code="*" /> <referenceRange> <observationRange> <text>0.9-1.1</text> </observationRange> </referenceRange> </ observation> </component> <component> < observation moodCode="EVN" classCode="OBS"> < templateId root="2.16.840.1.004912.10.20.22.4.2" /><id nullFlavor="NA" /> <code codeSystem="local" code="PTPAT" displayName="PROTHROMBIN TIME" /> & lt;statusCode code="completed" /> <effectiveTime value= "303433714124" /> <value unit="sec" xsi:type= "PQ" value="18.6" /> <interpretationCode codeSystem="local" code="*" /> < referenceRange> <observationRange> <text> 9.3-12.2</text> </observationRange> </ referenceRange> </observation> </component> </ organizer> </entry> <entry> <organizer moodCode="EVN " classCode="BATTERY"> <templateId root=" 2.16.840.1.491273.10.20.22.4.1" /> <id nullFlavor="NA&quot ; /> <code codeSystem="local" code="PT" displayName="PROTHROMBIN TIME WITH INR" /> <statusCode code ="completed" /> <component> <observation moodCode="EVN" classCode="OBS"> <templateId root="2.16.840.1.442906.10.20.22.4.2" /> <id nullFlavor ="NA" /> <code codeSystem="local" code=" INRX" displayName="INTERNATIONAL NORMAL RATIO" /> &lt ;statusCode code="completed" /> <effectiveTime value=& quot;625872878635" /> <value unit="" xsi:type=& quot;PQ" value="1.5" /> <interpretationCode codeSystem="local" code="*" /> < referenceRange> <observationRange> <text> 0.9-1.1</text> </observationRange> </referenceRange& gt; </observation> </component> <component> <observation moodCode="EVN" classCode="OBS"> <templateId root="2.16.840.1.583654.10.20.22.4.2" /> <id nullFlavor="NA" /> <code codeSystem=" local" code="PTPAT" displayName="PROTHROMBIN TIME" /&gt ; <statusCode code="completed" /> < effectiveTime value="430265233984" /> <value unit=&quot ;sec" xsi:type="PQ" value="16.9" /> < interpretationCode codeSystem="local" code="*" /> <referenceRange> <observationRange> < text>9.3-12.2</text> </observationRange> < /referenceRange> </observation> </component> </ organizer> </entry> <entry> <organizer moodCode="EVN " classCode="BATTERY"> <templateId root=" 2.16.840.1.272268.10.20.22.4.1" /> <id nullFlavor="NA&quot ; /> <code codeSystem="local" code="CBCM" displayName="CBC W/MANUAL DIFF"/> <statusCode code=" completed" /> <component> <observation moodCode=& quot;EVN" classCode="OBS"> <templateId root=" 2.16.840.1.706789.10.20.22.4.2" /> <id nullFlavor="NA& quot; /> <code codeSystem="local" code="MCH" displayName="MEAN CELL HGB" /> <statusCode code=" completed" /> <effectiveTime value="411126024820" /> <value unit="pg" xsi:type="PQ" value=&quot ;26.9" /> <interpretationCode codeSystem="local" code="*" /> <referenceRange> < observationRange> <text>27.0-33.0</text> </observationRange> </referenceRange> </ observation> </component> <component> < observation moodCode="EVN" classCode="OBS"> < templateId root="2.16.840.1.591670.10.20.22.4.2" /> < id nullFlavor="NA" /> <code codeSystem="local&quot ; code="MCHC" displayName="MEAN CELL HGB CONCENTRATION" /&gt ; <statusCodecode="completed" /> < effectiveTime value="789100702228" /> <value unit="g/dL " xsi:type="PQ" value="33.8" /> < referenceRange> <observationRange> <text> 32.0-37.0</text> </observationRange> </ referenceRange> </observation> </component> < component> <observation moodCode="EVN" classCode=" OBS"> <templateId root="2.16.840.1.527071.10.20.22.4.2& quot; /> <id nullFlavor="NA" /> <code codeSystem="local" code="MCV" displayName="MEAN CELL VOLUME" /> <statusCode code="completed" /> <effectiveTime value="892756739275" /> <value unit="fl" xsi:type="PQ" value="79.6" /> <interpretationCode codeSystem="local" code="*" /> <referenceRange> <observationRange> <text >80.0-100.0</text> </observationRange> </ referenceRange> </observation> </component> < component> <observation moodCode="EVN" classCode=" OBS"> <templateId root="2.16.840.1.768951.10.20.22.4.2&quot ; /> <id nullFlavor="NA" /> <code codeSystem="local" code="RBC" displayName="RED BLOOD CELL" /> <statusCode code="completed" /> <effectiveTime value="477871352496" /> <value unit="m/cumm" xsi:type="PQ" value="4.31" /> <referenceRange> <observationRange> & lt;text>4.00-6.00</text> </observationRange> & lt;/referenceRange> </observation> </component> <component> <observation moodCode="EVN" classCode=& quot;OBS"> <templateId root=" 2.16.840.1.349784.10.20.22.4.2" /> <id nullFlavor="NA& quot; /> <code codeSystem="local" code="RDW" displayName="RED CELL DISTRIBUTION WIDTH" /> < statusCode code="completed" /> <effectiveTime value=& quot;826695778324" /> <value unit="%" xsi: type="PQ" value="14.3" /> <referenceRange&gt ; <observationRange> <text>11.0-15.6</ text> </observationRange> </referenceRange> </observation> </component> <component> <observation moodCode="EVN" classCode="OBS"> <templateId root="2.16.840.1.704033.10.20.22.4.2" /> <id nullFlavor="NA" /> <code codeSystem=" local" code="WBC" displayName="WHITE BLOOD CELL" /> <statusCode code="completed" /> < effectiveTime value="565985011417" /> <value unit=&quot ;k/cumm" xsi:type="PQ" value="5.5" /> < referenceRange> <observationRange> <text> 5.0-10.0</text> </observationRange> </ referenceRange> </observation> </component> < component> <observation moodCode="EVN" classCode="OBS& quot;> <templateId root="2.16.840.1.913617.10..22.4.2&quot ; /> <id nullFlavor="NA" /> <code codeSystem="local" code="HGBT" displayName="HEMOGLOBIN& quot; /> <statusCode code="completed" /> & lt;effectiveTime value="205375851274" /> <value unit=& quot;gm/dL" xsi:type="PQ" value="11.6" /> & lt;interpretationCode codeSystem="local" code="*"/> <referenceRange> <observationRange> &lt ;text>12.0-16.0</text> </observationRange> & lt;/referenceRange> </observation> </component> <component> <observation moodCode="EVN" classCode=& quot;OBS"> <templateId root=" 2.16.840.1.960499.10.20.22.4.2" /> <id nullFlavor="NA& quot; /> <code codeSystem="local" code="HCTT&quot ; displayName="HEMATOCRIT" /> <statusCode code=" completed" /> <effectiveTime value="977553193076" /> <value unit="%" xsi:type="PQ" value=& quot;34.3" /> <interpretationCode codeSystem="local" code= "*" /> <referenceRange> < observationRange> <text>37.0-47.0</text> </ observationRange> </referenceRange> </observation&gt ; </component> <component> <observation moodCode ="EVN" classCode="OBS"> <templateId root=& quot;2.16.840.1.842771.10.20.22.4.2" /><id nullFlavor="NA" /> <code codeSystem="local" code="PLT" displayName="PLATELET COUNT" /> <statusCode code=" completed" /> <effectiveTime value="997412920633" /> <value unit="k/cumm" xsi:type="PQ" value=& quot;252" /> <referenceRange> <observationRange& gt; <text>150-400</text> </ observationRange> </referenceRange> </observation&gt ; </component> </organizer> </entry> <entry> & lt;organizer moodCode="EVN" classCode="BATTERY"> &lt ;templateId root="2.16.840.1.144177.10.20.22.4.1" /> <id nullFlavor="NA" /> <code codeSystem="local" code= "DIFFMORD" displayName="MANUAL DIFF(O)" /> < statusCode code="completed" /> <component> < observation moodCode="EVN" classCode="OBS"> < templateId root="2.16.840.1.616759.10.20.22.4.2" /> < id nullFlavor="NA" /> <code codeSystem="local&quot ; code="GR#"displayName="GRANULOCYTE #" /> < statusCode code="completed" /> <effectiveTime value=& quot;998137810054" /> <value unit="k/cumm" xsi: type="PQ" value="4.2" /> <referenceRange>& lt;observationRange> <text>2.0-9.0</text> </observationRange> </referenceRange> </ observation> </component> <component> < observation moodCode="EVN" classCode="OBS">< templateId root="2.16.840.1.126606.10.20.22.4.2" /> < id nullFlavor="NA" /> <code codeSystem="local&quot ; code="LY#" displayName="LYMPHOCYTE #" /> < statusCode code="completed" /> <effectiveTime value=& quot;394574413577" /> <value unit="k/cumm" xsi: type="PQ" value="1.0" /> <referenceRange> <observationRange> <text>1.0-4.0</text& gt; </observationRange> </referenceRange> </observation> </component> <component> < observation moodCode="EVN" classCode="OBS"> < templateId root="2.16.840.1.555512.10.20.22.4.2" /> < id nullFlavor="NA" /> <code codeSystem="local" code="LY%" displayName="LYMPHOCYTE %" /> <statusCode code="completed" /> < effectiveTime value="235768608685" /> <value unit=&quot ;%" xsi:type="PQ" value="18" /> &lt ;interpretationCode codeSystem="local"code="*" /> <referenceRange> <observationRange> <text>20 -30</text> </observationRange> </ referenceRange> </observation> </component> < component> <observation moodCode="EVN" classCode=" OBS"> <templateId root="2.16.840.1.253383.10.20.22.4.2& quot; /> <id nullFlavor="NA" /> <code codeSystem="local" code="MANDIFF" displayName=" DIFFERENTIAL" /> <statusCode code="completed" /> <effectiveTime value="237946507201" /> <value unit="" xsi:type="PQ" value="MANUAL"/> <referenceRange> <observationRange> < text /> </observationRange> </referenceRange&gt ; </observation> </component> <component> <observation moodCode="EVN" classCode="OBS"> <templateId root="2.16.840.1.537978.10..22.4.2" /> & lt;id nullFlavor="NA" /> <code codeSystem="local& quot; code="MO#" displayName="MONOCYTE #" /> &lt ;statusCode code="completed" /> <effectiveTime value=& quot;012425935835" /> <value unit="k/cumm" xsi: type="PQ" value="0.3" /> <referenceRange> <observationRange> <text>0.1-1.0</text&gt ; </observationRange> </referenceRange> & lt;/observation> </component> <component> < observation moodCode="EVN" classCode="OBS"> < templateId root="2.16.840.1.916003.10..22.4.2" /> < id nullFlavor="NA" /> <code codeSystem="local&quot ; code="MO%" displayName="MONOCYTE %" /> <statusCode code="completed" /> < effectiveTime value="129318679001" /> <value unit=&quot ;%" xsi:type="PQ" value="5" /> < referenceRange> <observationRange> <text>4-6& lt;/text> </observationRange> </referenceRange& gt; </observation> </component><component> <observation moodCode="EVN" classCode="OBS"> < templateId root="2.16.840.1.268914.10.20.22.4.2" /> < id nullFlavor="NA" /> <code codeSystem="local&quot ; code="RMORPH" displayName="RBC MORPH" /> < statusCode code="completed" /> <effectiveTime value=& quot;336283130213" /> <value unit="" xsi:type=& quot;PQ" value="NOTED" /> <referenceRange> <observationRange> <text /> </ observationRange> </referenceRange> </observation&gt ; </component> <component> <observation moodCode ="EVN" classCode="OBS"> <templateId root=& quot;2.16.840.1.415278.10.20.22.4.2" /> <id nullFlavor=&quot ;NA" /> <code codeSystem="local" code="SEG& amp;#37;" displayName="SEGMENTED NEUTROPHIL %" /> <statusCode code="completed" /> < effectiveTimevalue="577026594077" /> <value unit=" %" xsi:type="PQ" value="77" /> < interpretationCode codeSystem="local" code="*" /> <referenceRange> <observationRange> < text>50-70</text> </observationRange> </ referenceRange> </observation> </component> </ organizer> </entry> <entry> <organizer moodCode="EVN " classCode="BATTERY"> <templateId root=" 2.16.840.1.884977.10.20.22.4.1" /> <id nullFlavor="NA&quot ; /> <code codeSystem="local" code="METABC" displayName="METABOLIC PANEL, COMPREHN" /> <statusCode code ="completed" /> <component> <observation moodCode="EVN" classCode="OBS"> <templateId root="2.16.840.1.899228.10.20.22.4.2" /> <id nullFlavor ="NA" /> <code codeSystem="local" code="K" displayName="POTASSIUM" /> <statusCode code=" completed" /> <effectiveTime value="537194950736" /> <value unit="mmol/L" xsi:type="PQ" value=& quot;3.4" /> <interpretationCode codeSystem="local&quot ; code="*" /> <referenceRange> < observationRange> <text>3.5-5.3</text> & lt;/observationRange> </referenceRange> </ observation> </component> <component> < observation moodCode="EVN" classCode="OBS"> < templateId root="2.16.840.1.465090.10.20.22.4.2" /> < id nullFlavor="NA" /> <code codeSystem="local&quot ; code="eGFR" displayName="EST GFR (MDRD)" /> & lt;statusCode code="completed" /> <effectiveTime value= "325609208120" /> <value unit="mL/min" xsi: type="PQ" value="> 60" /> < referenceRange> <observationRange> <text> > 59</text> </observationRange> </ referenceRange> </observation> </component> < component> <observation moodCode="EVN" classCode=" OBS"> <templateId root="2.16.840.1.813507.10.20.22.4.2& quot; /> <id nullFlavor="NA" /> <code codeSystem="local" code="GAP" displayName="ANION GAP& quot; /> <statusCode code="completed" /> & lt;effectiveTime value="059563950648" /> <value unit=& quot;mmol/L" xsi:type="PQ" value="9" /> &lt ;referenceRange> <observationRange> <text&gt ;5-15</text> </observationRange> </ referenceRange> </observation> </component> < component> <observation moodCode="EVN" classCode=" OBS"> <templateId root="2.16.840.1.323014.10.20.22.4.2& quot; /> <id nullFlavor="NA" /> <code codeSystem="local" code="eCrCl" displayName="EST CrCl ( CG)" /> <statusCode code="completed" /> &lt ;effectiveTime value="860940416819" /> <value unit=& quot;mL/min" xsi:type="PQ" value="> 60" /> <referenceRange> <observationRange> <text >> 59</text> </observationRange> </ referenceRange> </observation> </component> < component> <observation moodCode="EVN" classCode=" OBS"> <templateId root="2.16.840.1.507733.10.20.22.4.2& quot; /> <id nullFlavor="NA" /> <code codeSystem="local" code="GLU" displayName="GLUCOSE&quot ; /> <statusCode code="completed" /> < effectiveTime value="408710309287" /> <value unit=&quot ;mg/dL" xsi:type="PQ" value="86" /> < referenceRange> <observationRange> <text> 70-99</text> </observationRange> </ referenceRange> </observation> </component> < component> <observation moodCode="EVN" classCode="OBS&quot ;> <templateId root="[id number]" /& gt; <id nullFlavor="NA" /> <code codeSystem=& quot;local" code="CA" displayName="CALCIUM" /> <statusCode code="completed" /> <effectiveTime value="[id number]" /> <value unit="mg/dL" xsi:type="PQ" value="8.0" /> < interpretationCode codeSystem="local" code="*" /> <referenceRange> <observationRange> <text >8.5-10.1</text> </observationRange> </ referenceRange> </observation> </component> < component> <observation moodCode="EVN" classCode=" OBS"> <templateId root="2.16.840.1.780896.10..22.4.2& quot; /> <id nullFlavor="NA" /> <code codeSystem="local" code="BUN" displayName="BLOOD UREA NITROGEN" /> <statusCode code="completed" /> <effectiveTime value="513497778752" /> <value unit ="mg/dL" xsi:type="PQ" value="5" /> & lt;interpretationCode codeSystem="local" code="*" /> <referenceRange> <observationRange> & lt;text>7-20</text> </observationRange> </ referenceRange> </observation> </component> < component> <observation moodCode="EVN" classCode=" OBS"> <templateId root="2.16.840.1.796741.10.20.22.4.2& quot; /> <id nullFlavor="NA" /> <code codeSystem="local" code="CREAT" displayName="CREATININE " /> <statusCode code="completed" /> < effectiveTime value="341395864319" /> <value unit=&quot ;mg/dL" xsi:type="PQ" value="0.4" /> < interpretationCode codeSystem="local" code="*" /> <referenceRange> <observationRange> < text>0.6-1.0</text> </observationRange> </ referenceRange> </observation> </component> < component> <observation moodCode="EVN" classCode=" OBS"> <templateId root="2.16.840.1.868006.10.20.22.4.2& quot; /> <id nullFlavor="NA" /> <code codeSystem ="local" code="NA" displayName="SODIUM" /> <statusCode code="completed" /> <effectiveTime value ="738262476765" /> <value unit="mmol/L" xsi: type="PQ" value="141" /> <referenceRange> <observationRange> <text>135-148</text& gt; </observationRange> </referenceRange> </observation> </component> <component> &lt ;observation moodCode="EVN" classCode="OBS"> &lt ;templateId root="2.16.840.1.430326.10.20.22.4.2" /> < id nullFlavor="NA" /> <code codeSystem="local&quot ; code="CL" displayName="CHLORIDE" /> < statusCode code="completed" /> <effectiveTime value=& quot;228240630093" /> <value unit="mmol/L" xsi:type=" PQ" value="109" /> <referenceRange> <observationRange> <text>98-110</text> & lt;/observationRange> </referenceRange> </ observation> </component> <component> < observation moodCode="EVN" classCode="OBS"> < templateId root="2.16.840.1.755769.10.20.22.4.2" /> <id nullFlavor="NA" /> <code codeSystem="local" code="AST" displayName="AST/SGOT" /> < statusCode code="completed" /> <effectiveTime value=& quot;949419864098" /> <value unit="Units/L" xsi: type="PQ" value="18" /> <referenceRange> <observationRange> <text>10-37</text> </observationRange> </referenceRange> </ observation> </component> <component> < observation moodCode="EVN" classCode="OBS"> < templateId root="2.16.840.1.986717.10.20.22.4.2" /> < id nullFlavor="NA" /> <code codeSystem="local&quot ; code="ALT" displayName="ALT/SGPT" /> < statusCode code="completed" /> <effectiveTime value=& quot;257999141490" /> <value unit="Units/L" xsi: type="PQ" value="41" /> <referenceRange> <observationRange> <text>< 66</ text> </observationRange> </referenceRange> & lt;/observation> </component> <component> < observation moodCode="EVN" classCode="OBS"> < templateId root="2.16.840.1.553446.10.20.22.4.2" /> < id nullFlavor="NA" /> <code codeSystem="local&quot ; code="CO2" displayName="CARBON DIOXIDE" /> &lt ;statusCode code="completed" /> <effectiveTime value=& quot;807774536144" /> <value unit="mmol/L" xsi: type="PQ" value="23" /> <referenceRange> <observationRange> <text>21-32</text> </observationRange> </referenceRange> </ observation> </component> <component> < observation moodCode="EVN" classCode="OBS"> < templateId root="2.16.840.1.670243.10.20.22.4.2" /> < id nullFlavor="NA" /> <code codeSystem="local&quot ; code="TP" displayName="TOTAL PROTEIN" /> < statusCode code="completed" /> <effectiveTime value=& quot;173810511533" /> <value unit="gm/dL" xsi:type ="PQ" value="6.8" /> <referenceRange> <observationRange> <text>6.4-8.2</text> </observationRange> </referenceRange> &lt ;/observation> </component> <component> < observation moodCode="EVN" classCode="OBS"> < templateId root="2.16.840.1.715481.10.20.22.4.2" /> < id nullFlavor="NA" /> <code codeSystem="local&quot ; code="ALB" displayName="ALBUMIN" /> < statusCode code="completed" /> <effectiveTime value=& quot;568963696019" /> <value unit="gm/dL" xsi:type ="PQ" value="3.1" /> <interpretationCode codeSystem="local" code="*" /> < referenceRange> <observationRange> <text> 3.4-5.0</text> </observationRange> </ referenceRange> </observation> </component> < component> <observation moodCode="EVN" classCode=" OBS"> <templateId root="2.16.840.1.222357.10.20.22.4.2& quot; /> <id nullFlavor="NA" /> <code codeSystem="local" code="BILTOT" displayName="BILI TOTAL" /> <statusCode code="completed" /> &lt ;effectiveTime value="496693772430" /> <value unit=& quot;mg/dL" xsi:type="PQ" value="1.3" /> & lt;interpretationCode codeSystem="local" code="*" /> <referenceRange> <observationRange> & lt;text>0.0-1.0</text> </observationRange> & lt;/referenceRange> </observation> </component> <component> <observation moodCode="EVN" classCode=& quot;OBS"> <templateId root=" 2.16.840.1.840458.10.20.22.4.2" /> <id nullFlavor="NA& quot; /> <code codeSystem="local" code="ALKP" displayName="ALKALINE PHOSPHATASE TOTAL" /> < statusCode code="completed" /> <effectiveTime value=& quot;038097091031" /> <value unit="IU/L" xsi:type= "PQ" value="131" /> <interpretationCode codeSystem="local" code="*" /> < referenceRange> <observationRange> <text> 45-117</text> </observationRange> </ referenceRange> </observation> </component> </ organizer> </entry> <entry> <organizer moodCode="EVN " classCode="BATTERY"> <templateId root=" 2.16.840.1.848106.10.20.22.4.1" /> <id nullFlavor="NA&quot ; /> <code codeSystem="local" code="PHOS" displayName="PHOSPHORUS" /> <statusCode code="completed& quot; /> <component> <observation moodCode="EVN& quot; classCode="OBS"> <templateId root=" 2.16.840.1.863276.10.20.22.4.2" /> <id nullFlavor="NA& quot; /> <code codeSystem="local" code="PHOS&quot ; displayName="PHOSPHORUS" /> <statusCode code=" completed" /> <effectiveTime value="952535792696" /> <value unit="mg/dL" xsi:type="PQ" value=& quot;2.5" /> <referenceRange> <observationRange > <text>2.5-4.9</text> </ observationRange> </referenceRange> </observation&gt ; </component> </organizer> </entry> <entry> <organizermoodCode="EVN" classCode="BATTERY"> <templateId root="2.16.840.1.422099.10.20.22.4.1" /> < id nullFlavor="NA" /> <code codeSystem="local" code="MAG" displayName="MAGNESIUM" /> < statusCode code="completed" /> <component> < observation moodCode="EVN" classCode="OBS"> < templateId root="2.16.840.1.733345.10.20.22.4.2" /> < id nullFlavor="NA" /> <code codeSystem="local&quot ; code="MAG" displayName="MAGNESIUM" /> < statusCode code="completed" /> <effectiveTime value=& quot;824130049623" /> <value unit="mg/dL" xsi:type ="PQ" value="1.6" /> <interpretationCode codeSystem="local" code="*" /> < referenceRange> <observationRange> <text>1.8-2.4& lt;/text> </observationRange> </referenceRange& gt; </observation> </component> </organizer> & lt;/entry> <entry> <organizer moodCode="EVN" classCode ="BATTERY"> <templateId root=" 2.16.840.1.525772.10.20.22.4.1" /><id nullFlavor="NA" /&gt ; <code codeSystem="local" code="PT" displayName=& quot;PROTHROMBIN TIME WITH INR" /> <statusCode code=" completed" /> <component> <observation moodCode=& quot;EVN" classCode="OBS"> <templateId root=" 2.16.840.1.993663.10.20.22.4.2" /> <id nullFlavor="NA& quot; /> <code codeSystem="local" code="INRX&quot ; displayName="INTERNATIONAL NORMAL RATIO" /> < statusCode code="completed" /> <effectiveTime value=& quot;409960679633" /> <value unit="" xsi:type=& quot;PQ" value="2.0" /> <interpretationCode codeSystem="local" code="*" /> < referenceRange> <observationRange> <text> 0.9-1.1</text> </observationRange> </ referenceRange> </observation> </component> < component> <observation moodCode="EVN" classCode=" OBS"> <templateId root="2.16.840.1.542840.10.20.22.4.2& quot; /> <id nullFlavor="NA" /> <code codeSystem="local" code="PTPAT" displayName=" PROTHROMBIN TIME" /> <statusCode code="completed" /> <effectiveTime value="712949228331" /> & lt;value unit="sec" xsi:type="PQ" value="22.3" /& gt; <interpretationCode codeSystem="local" code="*& quot; /> <referenceRange> <observationRange> <text>9.3-12.2</text> </observationRange> </referenceRange> </observation> </component> </organizer> </entry> <entry> <organizer moodCode= "EVN" classCode="BATTERY"> <templateId root=&quot ;2.16.840.1.839510.10.20.22.4.1" /> <id nullFlavor="NA&quot ; /> <code codeSystem="local" code="METABC" displayName="METABOLIC PANEL, COMPREHN" /> <statusCode code ="completed" /> <component> <observation moodCode="EVN" classCode="OBS"> < templateIdroot="2.16.840.1.971234.10.20.22.4.2" /> <id nullFlavor="NA" /> <code codeSystem="local" code="K" displayName="POTASSIUM"/> < statusCode code="completed" /> <effectiveTime value=& quot;454557927702" /> <value unit="mmol/L" xsi: type="PQ" value="3.4" /> <interpretationCode codeSystem="local" code="*" /> < referenceRange> <observationRange> <text> 3.5-5.3</text> </observationRange> </ referenceRange> </observation> </component> < component> <observation moodCode="EVN" classCode=" OBS"> <templateId root="2.16.840.1.816739.10.20.22.4.2& quot; /> <id nullFlavor="NA" /> <code codeSystem="local" code="eGFR" displayName="EST GFR ( MDRD)" /> <statusCodecode="completed" /> <effectiveTime value="443780077029" /> <value unit=& quot;mL/min" xsi:type="PQ" value="> 60" /> <referenceRange> <observationRange> &lt ;text>> 59</text> </observationRange> </referenceRange> </observation> </component> <component> <observation moodCode="EVN" classCode=& quot;OBS"> <templateId root=" 2.16.840.1.818644.10..22.4.2" /> <id nullFlavor="NA& quot; /> <code codeSystem="local" code="GAP" displayName="ANION GAP" /> <statusCode code=" completed" /> <effectiveTime value="404715172100" /> <value unit="mmol/L" xsi:type="PQ" value=& quot;8" /> <referenceRange> < observationRange> <text>5-15</text></ observationRange> </referenceRange> </observation&gt ; </component> <component> <observation moodCode ="EVN" classCode="OBS"> <templateId root=& quot;2.16.840.1.772189.10.20.22.4.2" /> <id nullFlavor=&quot ;NA" /> <code codeSystem="local" code="eCrCl& quot; displayName="EST CrCl (CG)" /> <statusCode code=& quot;completed" /> <effectiveTime value="342489455714& quot; /> <value unit="mL/min" xsi:type="PQ" value="> 60" /> <referenceRange> & lt;observationRange> <text>> 59</text> </observationRange> </referenceRange> </ observation> </component> <component> < observation moodCode="EVN" classCode="OBS"> < templateId root="2.16.840.1.539566.10..22.4.2" /> < idnullFlavor="NA" /> <code codeSystem="local&quot ; code="GLU" displayName="GLUCOSE" /> < statusCode code="completed" /> <effectiveTime value=" 683775423577" /> <value unit="mg/dL" xsi:type=& quot;PQ" value="84" /> <referenceRange> <observationRange> <text>70-99</text> </observationRange> </referenceRange> </ observation> </component> <component> < observation moodCode="EVN" classCode="OBS"> < templateId root="2.16.840.1.331580.10.20.22.4.2" /> < id nullFlavor="NA" /> <code codeSystem="local&quot ; code="CA" displayName="CALCIUM" /> < statusCode code="completed" /> <effectiveTime value=& quot;477629280103" /> <value unit="mg/dL" xsi:type ="PQ" value="8.2" /> <interpretationCode codeSystem="local" code="*" /> < referenceRange> <observationRange> <text> 8.5-10.1</text> </observationRange> </ referenceRange> </observation> </component> < component> <observation moodCode="EVN" classCode=" OBS"> <templateId root="2.16.840.1.827456.10.20.22.4.2& quot; /> <id nullFlavor="NA" /> <code codeSystem="local" code="BUN" displayName="BLOOD UREA NITROGEN" /> <statusCode code="completed" /> <effectiveTime value="314601448928" /> < value unit="mg/dL" xsi:type="PQ" value="3" /> <interpretationCode codeSystem="local" code="*" /> <referenceRange> <observationRange> <text>7-20</text></observationRange> </ referenceRange> </observation> </component> < component> <observation moodCode="EVN" classCode=" OBS"> <templateId root="2..840.1.453063.10.20.22.4.2& quot; /> <id nullFlavor="NA" /> <code codeSystem="local" code="CREAT" displayName="CREATININE " /> <statusCode code="completed" /> & lt;effectiveTime value="908867370702" /> <value unit=& quot;mg/dL" xsi:type="PQ" value="0.4" /> & lt;interpretationCode codeSystem="local" code="*" /> <referenceRange> <observationRange> & lt;text>0.6-1.0</text> </observationRange> </ referenceRange> </observation> </component> < component> <observation moodCode="EVN" classCode="OBS& quot;> <templateIdroot="2.16.840.1.170469.10.20.22.4.2&quot ; /> <id nullFlavor="NA" /> <code codeSystem="local" code="NA" displayName="SODIUM" /> <statusCode code="completed" /> < effectiveTime value="805032418806" /> <value unit=&quot ;mmol/L" xsi:type="PQ" value="141" /> < referenceRange> <observationRange> <text> 135-148</text> </observationRange> </ referenceRange> </observation> </component> < component> <observation moodCode="EVN" classCode=" OBS"> <templateId root="2.16.840.1.346367.10.20.22.4.2& quot; /> <id nullFlavor="NA" /> <code codeSystem="local" code="CL" displayName="CHLORIDE&quot ; /> <statusCode code="completed" /> < effectiveTime value="213472230856" /> <value unit=&quot ;mmol/L" xsi:type="PQ" value="109" /> < referenceRange> <observationRange> <text> 98-110</text> </observationRange> </ referenceRange> </observation> </component> < component> <observation moodCode="EVN" classCode=" OBS"> <templateId root="2.16.840.1.177039.10..22.4.2& quot; /> <id nullFlavor="NA" /> <code codeSystem="local" code="AST" displayName="AST/SGOT& quot; /> <statusCode code="completed" /> & lt;effectiveTime value="826579244212" /> <value unit=& quot;Units/L" xsi:type="PQ" value="17" /> & lt;referenceRange> <observationRange> <text& gt;10-37</text> </observationRange> </ referenceRange> </observation> </component> < component> <observation moodCode="EVN" classCode=" OBS"> <templateId root="2.16.840.1.812094.10.20.22.4.2& quot; /> <id nullFlavor="NA" /> <code codeSystem="local" code="ALT" displayName="ALT/SGPT& quot; /> <statusCode code="completed" />< effectiveTime value="926615398089" /> <value unit=&quot ;Units/L" xsi:type="PQ" value="32" /> < referenceRange> <observationRange> <text> < 66</text> </observationRange> </ referenceRange> </observation> </component> < component> <observation moodCode="EVN" classCode=" OBS"> <templateId root="2.16.840.1.026416.10.20.22.4.2& quot; /> <id nullFlavor="NA" /> <code codeSystem="local" code="CO2" displayName="CARBON DIOXIDE" /> <statusCode code="completed" /> <effectiveTime value="841878250095" /> < value unit="mmol/L" xsi:type="PQ" value="24" /&gt ; <referenceRange> <observationRange> <text>21-32</text> </observationRange> </referenceRange> </observation> </component> <component> <observation moodCode="EVN" classCode= "OBS"> <templateId root=" 2.16.840.1.268928.10..22.4.2" /> <id nullFlavor="NA& quot; /> <code codeSystem="local" code="TP" displayName="TOTAL PROTEIN" /> <statusCode code=" completed" /> <effectiveTime value="350983290039" /> <value unit="gm/dL" xsi:type="PQ" value=& quot;6.6" /> <referenceRange> < observationRange> <text>6.4-8.2</text> & lt;/observationRange> </referenceRange> </observation&gt ; </component> <component> <observation moodCode ="EVN" classCode="OBS"> <templateId root=& quot;2.16.840.1.457776.10.20.22.4.2" /> <id nullFlavor=&quot ;NA" /> <code codeSystem="local" code="ALB& quot; displayName="ALBUMIN" /> <statusCode code=" completed" /> <effectiveTime value="405416443391" /> <value unit="gm/dL" xsi:type="PQ" value=&quot ;3.0" /><interpretationCode codeSystem="local" code="* " /> <referenceRange> <observationRange&gt ; <text>3.4-5.0</text></observationRange> </referenceRange> </observation> </component> <component> <observation moodCode="EVN" classCode ="OBS"> <templateId root=" 2.16.840.1.255210.10.20.22.4.2" /> <id nullFlavor="NA& quot; /> <code codeSystem="local" code="BILTOT& quot; displayName="BILI TOTAL" /> <statusCode code=& quot;completed" /> <effectiveTime value="409244262905& quot; /> <value unit="mg/dL" xsi:type="PQ" value="1.1" /> <interpretationCode codeSystem=" local" code="*" /> <referenceRange> <observationRange> <text>0.0-1.0</text> </observationRange> </referenceRange> </observation&gt ; </component> <component> <observation moodCode= "EVN" classCode="OBS"> <templateId root=&quot ;2.16.840.1.698199.10..22.4.2" /> <id nullFlavor="NA& quot; /> <code codeSystem="local" code="ALKP&quot ; displayName="ALKALINE PHOSPHATASE TOTAL" /> < statusCode code="completed" /> <effectiveTime value=& quot;492139955435" /> <value unit="IU/L" xsi:type= "PQ" value="120" /> <interpretationCode codeSystem="local" code="*" /> < referenceRange> <observationRange> <text>45-117< /text> </observationRange> </referenceRange> </observation> </component> </organizer> < /entry> <entry> <organizer moodCode="EVN" classCode=& quot;BATTERY"> <templateId root=" 2.16.840.1.586770.10.20.22.4.1" /> <id nullFlavor="NA&quot ; /> <code codeSystem="local" code="PHOS" displayName="PHOSPHORUS"/> <statusCode code="completed " /> <component> <observation moodCode="EVN& quot; classCode="OBS"> <templateId root=" 2.16.840.1.000334.10.20.22.4.2" /> <id nullFlavor="NA& quot; /> <code codeSystem="local" code="PHOS&quot ; displayName="PHOSPHORUS" /> <statusCode code="completed& quot; /> <effectiveTime value="787204163381" /> <value unit="mg/dL" xsi:type="PQ" value="2.1& quot; /> <interpretationCode codeSystem="local" code=& quot;*" /> <referenceRange> < observationRange> <text>2.5-4.9</text> & lt;/observationRange> </referenceRange> </ observation> </component> </organizer> </entry> & lt;entry> <organizer moodCode="EVN" classCode="BATTERY& quot;> <templateId root="2.16.840.1.949569.10.20.22.4.1" /& gt; <id nullFlavor="NA" /> <code codeSystem=" local" code="MAG" displayName="MAGNESIUM" /> & lt;statusCode code="completed" /> <component> &lt ;observation moodCode="EVN" classCode="OBS"> &lt ;templateId root="2.16.840.1.587279.10.20.22.4.2" /> < id nullFlavor="NA" /> <code codeSystem="local&quot ; code="MAG" displayName="MAGNESIUM" /> < statusCode code="completed" /> <effectiveTime value=& quot;473864377140" /> <value unit="mg/dL" xsi:type ="PQ" value="1.9" /> <referenceRange> <observationRange> <text>1.8-2.4</text> </observationRange> </referenceRange> < /observation> </component> </organizer> </entry> <entry> <organizer moodCode="EVN" classCode="BATTERY& quot;> <templateId root="2.16.840.1.987670.10.20.22.4.1" /& gt; <id nullFlavor="NA" /> <code codeSystem=" local" code="PT" displayName="PROTHROMBIN TIME WITH INR&quot ; /> <statusCode code="completed" /> <component& gt; <observation moodCode="EVN" classCode="OBS"&gt ; <templateId root="2.16.840.1.212303.10.20.22.4.2" /> <id nullFlavor="NA" /> <code codeSystem=" local" code="INRX" displayName="INTERNATIONAL NORMAL RATIO& quot; /> <statusCode code="completed" /> & lt;effectiveTime value="064987158770" /> <value unit=& quot;" xsi:type="PQ" value="2.7" /> < interpretationCode codeSystem="local" code="*" /> <referenceRange> <observationRange> <text>0.9 -1.1</text> </observationRange> </ referenceRange> </observation> </component> < component> <observation moodCode="EVN" classCode=" OBS"> <templateId root="2.16.840.1.848867.10.20.22.4.2" /& gt; <id nullFlavor="NA" /> <code codeSystem ="local" code="PTPAT" displayName="PROTHROMBIN TIME& quot; /> <statusCode code="completed" /> & lt;effectiveTime value="199263935637" /> <value unit=& quot;sec" xsi:type="PQ" value="30.8" /> &lt ;interpretationCode codeSystem="local" code="*" /> <referenceRange> <observationRange> < text>9.3-12.2</text> </observationRange> < /referenceRange> </observation> </component> </ organizer> </entry> <entry> <organizer moodCode="EVN " classCode="BATTERY"> <templateId root=" 2.16.840.1.489316.10.20.22.4.1" /> <id nullFlavor="NA&quot ; /> <code codeSystem="local" code="CBCND" displayName="CBC WITH PLATELET NO DIFFERENTIAL" /> < statusCode code="completed" /> <component> < observation moodCode="EVN" classCode="OBS">< templateId root="2.16.840.1.231417.10.20.22.4.2" /> < id nullFlavor="NA" /> <code codeSystem="local&quot ; code="MPV" displayName="MPV" /> < statusCode code="completed" /> <effectiveTimevalue=& quot;379328884821" /> <value unit="fL" xsi:type=& quot;PQ" value="8.7" /> <referenceRange> <observationRange> <text>7.4-10.4</text> </observationRange> </referenceRange> </ observation> </component> <component> < observation moodCode="EVN" classCode="OBS"> < templateId root="2.16.840.1.596363.10.20.22.4.2" /> < id nullFlavor="NA" /> <code codeSystem="local&quot ; code="PLT" displayName="PLATELETS" /> <statusCode code="completed" /> <effectiveTime value=" 557970943765" /> <value unit="10*3/uL" xsi:type=& quot;PQ" value="298" /> <referenceRange> <observationRange> <text>159-386</text> </observationRange> </referenceRange> </ observation> </component> <component> < observation moodCode="EVN" classCode="OBS"> < templateId root="2.16.840.1.120383.10.20.22.4.2" /> < id nullFlavor="NA" /> <code codeSystem="local&quot ; code="WBCIR" displayName="WBC" /> < statusCode code="completed" /> <effectiveTime value=& quot;952921059482" /> <value unit="10*3/uL" xsi: type="PQ" value="7.9" /> <referenceRange> <observationRange> <text>3.6-11.2</text& gt; </observationRange> </referenceRange> & lt;/observation></component> <component> < observation moodCode="EVN" classCode="OBS"> < templateId root="2.16.840.1.964163.10.20.22.4.2" /> <id nullFlavor="NA" /> <code codeSystem="local" code="RBC" displayName="RBC" /> <statusCode code="completed" /> <effectiveTime value=" 264427870401" /> <value unit="" xsi:type="PQ& quot; value="4.65" /> <referenceRange> & lt;observationRange> <text>3.63-4.92</text> </observationRange> </referenceRange> </ observation> </component> <component> < observation moodCode="EVN" classCode="OBS"> < templateId root="2.16.840.1.412691.10.20.22.4.2" /> < id nullFlavor="NA" /> <code codeSystem="local&quot ; code="HGB" displayName="HEMOGLOBIN" /> < statusCode code="completed" /> <effectiveTime value=& quot;624380330307" /> <value unit="" xsi:type=& quot;PQ" value="13.0" /> <referenceRange> <observationRange> <text>11.0-14.3</text> </observationRange> </referenceRange> </ observation> </component> <component> < observation moodCode="EVN" classCode="OBS"> < templateId root="2.16.840.1.358788.10.20.22.4.2" /> < id nullFlavor="NA" /><code codeSystem="local" code=& quot;HCT" displayName="HEMATOCRIT" /> <statusCode code="completed" /> <effectiveTime value=" 934252755178" /> <value unit="%" xsi:type= "PQ" value="38.1" /> <referenceRange> <observationRange> <text>31.2-41.9</text&gt ; </observationRange> </referenceRange> & lt;/observation> </component> <component> < observation moodCode="EVN" classCode="OBS"> < templateId root="2.16.840.1.924418.10.20.22.4.2" /> < id nullFlavor="NA" /> <code codeSystem="local&quot ; code="MCV" displayName="MCV" /> < statusCode code="completed" /> <effectiveTime value=& quot;144078365790" /> <value unit="fL" xsi:type=&quot ;PQ" value="82.0" /> <referenceRange> <observationRange> <text>79.0-98.0</text> </observationRange> </referenceRange> </ observation> </component> <component> < observation moodCode="EVN" classCode="OBS"> < templateId root="2.16.840.1.833467.10.20.22.4.2" /> < id nullFlavor="NA" /> <code codeSystem="local&quot ; code="MCH" displayName="MCH" /> < statusCode code="completed" /> <effectiveTime value=& quot;913858146750" /> <value unit="pg" xsi:type=& quot;PQ" value="27.9" /> <referenceRange> & lt;observationRange> <text>27.0-33.0</text> </observationRange> </referenceRange> </ observation> </component> <component> < observation moodCode="EVN" classCode="OBS"> < templateId root="[id number]" /> < id nullFlavor="NA" /> <code codeSystem="local&quot ; code="MCHC" displayName="MCHC" /> < statusCode code="completed" /> <effectiveTime value=& quot;[id number]" /> <value unit="" xsi:type=& quot;PQ" value="34.0" /> <referenceRange> <observationRange> <text>32.0-36.0</text> </observationRange> </referenceRange> & lt;/observation> </component> <component> < observation moodCode="EVN" classCode="OBS"> < templateId root="2.16.840.1.675044.10..22.4.2" /> < id nullFlavor="NA" /> <code codeSystem="local" code= "RDW" displayName="RDW" /> <statusCode code=" completed" /> <effectiveTime value="157377082052" /> <value unit="%" xsi:type="PQ" value="15.5" /> <referenceRange> < observationRange> <text>12.3-17.0</text> </observationRange> </referenceRange> </observation& gt; </component> <component> <observation moodCode="EVN" classCode="OBS"> <templateId root="2.16.840.1.565579.10.20.22.4.2" /> <id nullFlavor ="NA" /> <code codeSystem="local" code=" RDWSD" displayName="RDWSD" /> <statusCode code=& quot;completed" /> <effectiveTime value="197488264332& quot; /> <value unit="" xsi:type="PQ" value=& quot;45.1" /> <referenceRange> < observationRange> <text>37.1-47.8</text> </observationRange> </referenceRange> </ observation> </component> </organizer> </entry> &lt ;entry> <organizer moodCode="EVN" classCode="BATTERY& quot;> <templateId root="2.16.840.1.807928.10.20.22.4.1" /& gt; <id nullFlavor="NA" /> <code codeSystem=" local" code="TSH" displayName="TSH" /> < statusCode code="completed" /> <component> < observation moodCode="EVN" classCode="OBS"> < templateId root="2.16.840.1.301635.10.20.22.4.2" /> <id nullFlavor="NA" /> <code codeSystem="local" code="TSH" displayName="TSH" /> <statusCode code="completed" /> <effectiveTime value=" 852441151545" /> <value unit="u[IU]/L" xsi:type=& quot;PQ" value="0.431" /> <referenceRange> &lt ;observationRange> <text>0.340-4.820</text> </observationRange> </referenceRange> </ observation> </component></organizer> </entry> < entry> <organizer moodCode="EVN" classCode="BATTERY&quot ;> <templateId root="2.16.840.1.037278.10.20.22.4.1" /> <id nullFlavor="NA" /> <code codeSystem="local& quot; code="FT4" displayName="THYROXINE, FREE" /> & lt;statusCode code="completed" /> <component> &lt ;observation moodCode="EVN" classCode="OBS"> &lt ;templateId root="2.16.840.1.341632.10.20.22.4.2" /> < id nullFlavor="NA" /> <code codeSystem="local&quot ; code="FT4" displayName="THYROXINE FREE (FT4) (LAB)" /> <statusCode code="completed" /> < effectiveTime value="592384740224" /> <value unit=&quot ;ng/dL" xsi:type="PQ" value="1.08" /> < referenceRange> <observationRange> <text>0.76 -1.46</text> </observationRange> </ referenceRange> </observation> </component> </ organizer> </entry> <entry> <organizer moodCode="EVN " classCode="BATTERY"> <templateId root=" 2.16.840.1.007311.10.20.22.4.1" /> <id nullFlavor="NA&quot ; /> <code codeSystem="local" code="IRN" displayName="IRON" /> <statusCode code="completed&quot ; /> <component> <observation moodCode="EVN" classCode="OBS"> <templateId root=" 2.16.840.1.657758.10.20.22.4.2" /> <id nullFlavor="NA& quot; /> <code codeSystem="local" code="IRN" displayName="IRON" /> <statusCode code="completed& quot; /> <effectiveTime value="992455642463" /> <value unit="ug/dL" xsi:type="PQ" value="47& quot; /> <interpretationCode codeSystem="local" code=& quot;*" /> <referenceRange> < observationRange><text>50-170</text> </ observationRange> </referenceRange> </observation&gt ; </component> </organizer> </entry> <entry> <organizer moodCode="EVN" classCode="BATTERY"> <templateIdroot="2.16.840.1.985521.10.20.22.4.1" /> < id nullFlavor="NA" /> <code codeSystem="local" code=& quot;CMP" displayName="COMPREHENSIVE METABOLIC PANEL" /> <statusCode code="completed" /> <component> < observation moodCode="EVN" classCode="OBS"> < templateId root="2.16.840.1.879519.10.20.22.4.2" /> < id nullFlavor="NA" /> <code codeSystem="local" code="NA" displayName="SODIUM" /> <statusCode code="completed" /> <effectiveTime value=" 006007206572" /> <value unit="mmol/L" xsi:type=& quot;PQ" value="138" /> <referenceRange> <observationRange> <text>136-145</text> </observationRange> </referenceRange> </ observation> </component> <component> < observation moodCode="EVN" classCode="OBS"> < templateId root="2.16.840.1.239867.10.20.22.4.2" /> < id nullFlavor="NA" /> <code codeSystem="local&quot ; code="K" displayName="POTASSIUM" /> < statusCode code="completed" /> <effectiveTime value=& quot;710400093693" /> <value unit="mmol/L" xsi:type=& quot;PQ" value="3.9" /><referenceRange> < observationRange> <text>3.5-5.1</text> & lt;/observationRange> </referenceRange> </ observation> </component> <component> < observation moodCode="EVN" classCode="OBS"> < templateId root="2.16.840.1.342013.10.20.22.4.2" /> < id nullFlavor="NA" /> <code codeSystem="local&quot ; code="CL" displayName="CHLORIDE" /> < statusCode code="completed" /> <effectiveTime value=& quot;782455763506" /> <value unit="mmol/L" xsi: type="PQ" value="105" /> <referenceRange> <observationRange> <text>98-107</text&gt ; </observationRange> </referenceRange> & lt;/observation> </component> <component> < observation moodCode="EVN" classCode="OBS"> < templateId root="2.16.840.1.562862.10.20.22.4.2" /> < id nullFlavor="NA" /> <code codeSystem="local&quot ; code="TCO2" displayName="TCO2" /> < statusCode code="completed" /> <effectiveTime value=& quot;298309053676" /> <value unit="mmol/L" xsi: type="PQ" value="26.2" /> <referenceRange&gt ; <observationRange> <text>21.0-32.0</ text> </observationRange> </referenceRange> </observation> </component> <component> < observation moodCode="EVN" classCode="OBS"> < templateId root="2.16.840.1.818720.10.20.22.4.2" /> < id nullFlavor="NA" /> <code codeSystem="local&quot ; code="AGAP" displayName="*ANION GAP" /> < statusCode code="completed" /> <effectiveTime value=& quot;087371423356" /> <value unit="mmol/L" xsi: type="PQ" value="6.8" /> <interpretationCode codeSystem="local" code="*" /> < referenceRange> <observationRange> <text> 8.0-16.0</text> </observationRange> </ referenceRange> </observation> </component> < component> <observation moodCode="EVN" classCode=" OBS"> <templateId root="2.16.840.1.872419.10.20.22.4.2& quot; /> <id nullFlavor="NA" /> <code codeSystem="local" code="BUN" displayName="BUN" /& gt; <statusCode code="completed" /> < effectiveTime value="738901114383" /> <value unit="" xsi:type="PQ" value="10" /> <referenceRange& gt; <observationRange> <text>7-18</text& gt;</observationRange> </referenceRange> </ observation> </component> <component> < observation moodCode="EVN" classCode="OBS"> < templateId root="2.16.840.1.490823.10.20.22.4.2" /> < id nullFlavor="NA" /> <code codeSystem="local&quot ; code="CREA" displayName="CREATININE" /> < statusCode code="completed" /> <effectiveTime value=& quot;630766747149" /> <value unit=""xsi:type=&quot ;PQ" value="0.70" /> <referenceRange> <observationRange> <text>0.55-1.02</text> </observationRange> </referenceRange> </ observation> </component> <component> < observation moodCode="EVN" classCode="OBS"> < templateId root="2.16.840.1.604447.10.20.22.4.2" /> < id nullFlavor="NA" /> <code codeSystem="local&quot ; code="B/C" displayName="*BUN/CREATININE RATIO" /> <statusCode code="completed" /> <effectiveTime value="551433187598" /> <value unit="" xsi: type="PQ" value="14.3" /> <referenceRange&gt ; <observationRange> <text>9.1-17.0</text > </observationRange></referenceRange> </ observation> </component> <component> < observation moodCode="EVN" classCode="OBS"> < templateId root="2.16.840.1.304980.10.20.22.4.2" /> < id nullFlavor="NA" /> <code codeSystem="local&quot ; code="GLU" displayName="GLUCOSE" /> < statusCode code="completed" /> <effectiveTime value=& quot;109368299311" /> <value unit="" xsi:type=& quot;PQ" value="104" /> <interpretationCode codeSystem="local" code="*" /> <referenceRange& gt; <observationRange> <text>65-99</text& gt; </observationRange> </referenceRange> </observation> </component> <component> &lt ;observation moodCode="EVN"classCode="OBS"> < templateId root="2.16.840.1.317711.10..22.4.2" /> < id nullFlavor="NA" /> <code codeSystem="local&quot ; code="CA" displayName="CALCIUM" /> < statusCode code="completed" /> <effectiveTime value=& quot;129082003917" /> <value unit="" xsi:type=& quot;PQ" value="8.5" /> <referenceRange> <observationRange> <text>8.5-10.1</text> </observationRange> </referenceRange> </ observation> </component> <component> < observation moodCode="EVN" classCode="OBS"> < templateId root="2.16.840.1.468988.10.20.22.4.2" /> < id nullFlavor="NA" /> <code codeSystem="local&quot ; code="BILT" displayName="BILIFUBIN TOTAL" /> & lt;statusCode code="completed" /> <effectiveTime value=&quot ;707644312618" /> <value unit="" xsi:type="PQ " value="0.60" /> <referenceRange> & lt;observationRange> <text>0.20-1.00</text> </observationRange> </referenceRange> </ observation> </component> <component> < observation moodCode="EVN" classCode="OBS"> < templateId root="2.16.840.1.921097.10.20.22.4.2" /> < id nullFlavor="NA" /> <code codeSystem="local&quot ; code="TP" displayName="TOTAL PROTEIN" /> < statusCode code="completed" /> <effectiveTime value=& quot;308803873436" /> <value unit="" xsi:type=& quot;PQ" value="7.6" /> <referenceRange> <observationRange> <text>6.4-8.2</text> </observationRange> </referenceRange> </ observation> </component> <component> < observation moodCode="EVN" classCode="OBS"> < templateId root="2.16.840.1.817235.10.20.22.4.2" /> < id nullFlavor="NA" /> <code codeSystem="local&quot ; code="ALB" displayName="ALBUMIN" /> < statusCode code="completed" /> <effectiveTime value=& quot;672132127209" /> <value unit="" xsi:type=& quot;PQ" value="3.7" /> <referenceRange> <observationRange> <text>3.4-5.0</text> </observationRange> </referenceRange> </ observation> </component> <component> < observation moodCode="EVN" classCode="OBS"> < templateId root="2.16.840.1.246037.10.20.22.4.2" /> < id nullFlavor="NA" /> <code codeSystem="local&quot ; code="GLOB" displayName="*GLOBULIN" /> < statusCode code="completed" /> <effectiveTime value=& quot;016327120471" /> <value unit="" xsi:type=& quot;PQ" value="3.9" /> <interpretationCode codeSystem="local" code="*" /> < referenceRange><observationRange> <text>2.3-3.5</ text> </observationRange> </referenceRange> </observation> </component> <component> <observation moodCode="EVN" classCode="OBS">< templateId root="2.16.840.1.320987.10.20.22.4.2" /> < id nullFlavor="NA" /> <code codeSystem="local&quot ; code="AGR" displayName="*A/G RATIO" /> < statusCode code="completed" /> <effectiveTime value=& quot;025223289609" /> <value unit="" xsi:type=& quot;PQ" value="0.9" /> <interpretationCode codeSystem="local" code="*" /> < referenceRange> <observationRange> <text> 1.5-2.2</text> </observationRange> </ referenceRange> </observation> </component> < component> <observation moodCode="EVN" classCode=" OBS"> <templateId root="2.16.840.1.237239.10.20.22.4.2& quot; /> <id nullFlavor="NA" /> <code codeSystem="local" code="ALP" displayName="ALK PHOS& quot; /> <statusCode code="completed" /> & lt;effectiveTime value="949706722519" /> <value unit=& quot;U/L" xsi:type="PQ" value="211" /> < interpretationCode codeSystem="local" code="*" /> <referenceRange> <observationRange> < text>46-116</text></observationRange> </ referenceRange> </observation> </component> < component> <observation moodCode="EVN" classCode=" OBS"> <templateId root="2.16.840.1.783617.10.20.22.4.2& quot; /> <id nullFlavor="NA" /> <code codeSystem="local" code="ALT" displayName="ALT (SGPT)& quot; /> <statusCode code="completed" /> < effectiveTime value="968373564168" /> <value unit=&quot ;U/L" xsi:type="PQ" value="147" /> < interpretationCode codeSystem="local" code="*" /> <referenceRange> <observationRange> < text>16-63</text> </observationRange> </ referenceRange> </observation> </component> < component><observation moodCode="EVN" classCode="OBS"& gt; <templateId root="2.16.840.1.054910.10.20.22.4.2" /&gt ; <id nullFlavor="NA" /> <code codeSystem=" local" code="AST" displayName="AST (SGOT)" /> <statusCode code="completed" /> <effectiveTime value="896715968224" /> <value unit="U/L" xsi :type="PQ" value="150" /> < interpretationCode codeSystem="local" code="*" /> <referenceRange> <observationRange> <text >15-37</text> </observationRange> </ referenceRange> </observation> </component> </ organizer> </entry> <entry> <organizermoodCode="EVN& quot; classCode="BATTERY"> <templateId root=" 2.16.840.1.930012.10.20.22.4.1" /> <id nullFlavor="NA&quot ; /> <code codeSystem="local" code="LIPID" displayName="LIPID PANEL W/ LDL DIRECT REFLEX" /> < statusCode code="completed" /> <component> < observation moodCode="EVN" classCode="OBS"> < templateId root="2.16.840.1.113710.10.20.22.4.2" /> < id nullFlavor="NA" /> <code codeSystem="local&quot ; code="TGL" displayName="TRIGLYCERIDES" />< statusCode code="completed" /> <effectiveTime value=& quot;668352341885" /> <value unit="" xsi:type=& quot;PQ" value="60" /> <referenceRange> <observationRange> <text>0-149</text> </observationRange> </referenceRange> </ observation> </component> <component> < observation moodCode="EVN"classCode="OBS"> < templateId root="2.16.840.1.431175.10.20.22.4.2" /> < id nullFlavor="NA" /> <code codeSystem="local&quot ; code="CHOL" displayName="CHOLESTEROL" /> < statusCode code="completed" /> <effectiveTime value=& quot;225574089683" /> <value unit="" xsi:type=& quot;PQ" value="154" /> <referenceRange> <observationRange> <text>50-199</text> </observationRange> </referenceRange> </ observation> </component> <component> < observation moodCode="EVN" classCode="OBS"> < templateId root="2.16.840.1.993565.10.20.22.4.2" /> < id nullFlavor="NA" /> <code codeSystem="local&quot ; code="HDL" displayName="HDL CHOLESTEROL" /> & lt;statusCode code="completed" /> <effectiveTime value=& quot;832144485556" /> <value unit="" xsi:type=& quot;PQ" value="62" /> <interpretationCode codeSystem="local" code="*" /> < referenceRange> <observationRange> <text> 40-60</text> </observationRange> </ referenceRange> </observation> </component> < component> <observation moodCode="EVN" classCode=" OBS"> <templateId root="2.16.840.1.258493.10.20.22.4.2& quot; /> <id nullFlavor="NA" /><code codeSystem=& quot;local" code="LDLR" displayName="*LDL (CALCULATED) CHOL& quot; /> <statusCode code="completed" /> & lt;effectiveTime value="514349645923" /> <value unit=& quot;" xsi:type="PQ" value="80" /> < referenceRange> <observationRange> <text> 0-99</text> </observationRange> </ referenceRange> </observation> </component> </ organizer> </entry> <entry> <organizer moodCode="EVN " classCode="BATTERY"> <templateId root=" 2.16.840.1.586942.10.20.22.4.1" /> <id nullFlavor="NA&quot ; /> <code codeSystem="local" code="FERR" displayName="FERRITIN" /> <statusCode code="completed&quot ; /> <component> <observation moodCode="EVN" classCode="OBS"> <templateId root=" 2.16.840.1.803892.10.20.22.4.2" /> <id nullFlavor="NA& quot; /> <code codeSystem="local" code="FERR&quot ; displayName="FERRITIN" /> <statusCode code=" completed" /> <effectiveTime value="785628943576" /> <value unit="ng/mL" xsi:type="PQ" value=& quot;16" /> <referenceRange> <observationRange> <text>13-150</text> </observationRange& gt; </referenceRange> </observation> </ component> </organizer> </entry> <entry> < organizer moodCode="EVN" classCode="BATTERY"> < templateId root="2.16.840.1.018898.10.20.22.4.1" /> <id nullFlavor="NA" /> <code codeSystem="local" code= "GFRE" displayName="GFR ESTIMATION" /> < statusCode code="completed" /> <component> < observation moodCode="EVN" classCode="OBS"> < templateId root="2.16.840.1.292935.10.20.22.4.2" /> < id nullFlavor="NA" /> <code codeSystem="local&quot ; code="GFRN" displayName="*GFR EST NON AFR [place] R[place]" /> <statusCode code="completed" /> < effectiveTime value="055741824775" /> <value unit=" mL/min" xsi:type="PQ" value=">90" /> <referenceRange> <observationRange> < text>NRG</text> </observationRange> </ referenceRange> </observation> </component> < component> <observation moodCode="EVN" classCode=" OBS"> <templateId root="2.16.840.1.605378.10..22.4.2& quot; /> <id nullFlavor="NA" /> <code codeSystem="local" code="GFRA" displayName="*GRFA EST AFR AMER" /> <statusCode code="completed" /> <effectiveTime value="893323088749" /> <value unit=& quot;mL/min" xsi:type="PQ" value=">90" /> & lt;referenceRange> <observationRange> <text& gt;NRG</text> </observationRange> </ referenceRange> </observation> </component> </ organizer> </entry> <entry> <organizer moodCode="EVN " classCode="BATTERY"> <templateId root=" 2.16.840.1.638963.10.20.22.4.1" /> <id nullFlavor="NA&quot ; /> <code codeSystem="local" code="B12FO" displayName="VITAMIN B12 & FOLATE" /> <statusCode code="completed" /> <component> <observation moodCode="EVN" classCode="OBS"> <templateId root="2.16.840.1.484972.10.20.22.4.2" /> <id nullFlavor ="NA" /> <code codeSystem="local" code=" B12" displayName="VITAMIN B12" /> <statusCode code ="completed" /> <effectiveTime value="422963287650 " /> <value unit="pg/mL" xsi:type="PQ" value ="529" /> <referenceRange> < observationRange> <text>180-914</text> & lt;/observationRange> </referenceRange> </ observation> </component> </organizer> </entry> & lt;entry> <organizer moodCode="EVN" classCode="BATTERY& quot;> <templateId root="2.16.840.1.333513.10.20.22.4.1" /& gt; <id nullFlavor="NA" /> <code codeSystem=" local" code="HBA1C" displayName="HEMOGLOBIN A1C" /> <statusCode code="completed" /> <component> <observation moodCode="EVN" classCode="OBS"> <templateId root="2.16.840.1.192162.10.20.22.4.2" /> <id nullFlavor="NA" /> <code codeSystem=" local" code="HBA1C" displayName="HEMOGLOBIN A1C" /> <statusCode code="completed" /> < effectiveTime value="601978293116" /> <value unit=&quot ;%" xsi:type="PQ" value="5.5" /> & lt;referenceRange> <observationRange> <text& gt;4.5-6.2</text> </observationRange> </ referenceRange> </observation> </component> </ organizer> </entry> <entry> <organizer moodCode="EVN " classCode="BATTERY"> <templateId root=" 2.16.840.1.952574.10.20.22.4.1" /> <id nullFlavor="NA&quot ; /> <code codeSystem="local" code="EAG" displayName="EST AVG. GLUCOSE" /> <statusCode code=" completed" /> <component> <observation moodCode=& quot;EVN" classCode="OBS"> <templateId root=" 2.16.840.1.747713.10..22.4.2" /> <id nullFlavor="NA& quot; /> <code codeSystem="local" code="EAG" displayName="EST AVG. GLUCOSE" /> <statusCode code=& quot;completed" /> <effectiveTime value="042633815131& quot; /> <value unit="g/dL" xsi:type="PQ" value="111.2" /> <referenceRange> < observationRange> <text>NRG</text> </ observationRange> </referenceRange> </observation&gt ; </component> </organizer> </entry> <entry> <organizer moodCode="EVN" classCode="BATTERY"> <templateId root="2.16.840.1.777819.10.20.22.4.1" /> < id nullFlavor="NA" /> <code codeSystem="local" code="HEPAT" displayName="HEPATIC FUNCTION PANEL" /> <statusCode code="completed" /> <component> <observation moodCode="EVN" classCode="OBS"> <templateId root="2.16.840.1.916732.10.20.22.4.2" /> & lt;id nullFlavor="NA" /> <code codeSystem="local& quot; code="BILT" displayName="BILIFUBIN TOTAL" /> <statusCode code="completed" /> <effectiveTime value="829303701610" /> <value unit="" xsi: type="PQ" value="0.60" /> <referenceRange&gt ; <observationRange> <text>0.20-1.00</ text> </observationRange> </referenceRange> </observation> </component> <component> <observation moodCode="EVN" classCode="OBS"> <templateId root="2.16.840.1.815222.10.20.22.4.2" /> <idnullFlavor="NA" /> <code codeSystem=" local" code="BILD"displayName="BILIRUBIN DIRECT" /> <statusCode code="completed" /> < effectiveTime value="152203514485" /> <value unit=&quot ;" xsi:type="PQ" value="0.10" /> < referenceRange> <observationRange> <text> 0.00-0.30</text> </observationRange> </ referenceRange> </observation> </component> < component> <observation moodCode="EVN" classCode=" OBS"><templateId root="2.16.840.1.424497.10.20.22.4.2" /&gt ; <id nullFlavor="NA" /> <code codeSystem=& quot;local" code="TP" displayName="TOTAL PROTEIN" /&gt ; <statusCode code="completed" /> < effectiveTime value="921302691596" /> <value unit=&quot ;" xsi:type="PQ" value="7.3" /> < referenceRange> <observationRange> <text> 6.4-8.2</text> </observationRange> </ referenceRange> </observation> </component> < component> <observation moodCode="EVN" classCode=" OBS"> <templateId root="2.16.840.1.711237.10.20.22.4.2& quot; /> <id nullFlavor="NA" /> <code codeSystem= "local" code="ALB" displayName="ALBUMIN" /> <statusCode code="completed" /> <effectiveTime value="160143570824" /> <value unit="" xsi: type="PQ" value="3.5" /> <referenceRange> <observationRange> <text>3.4-5.0</text& gt; </observationRange> </referenceRange> </observation> </component> <component> &lt ;observation moodCode="EVN" classCode="OBS"> &lt ;templateId root="2.16.840.1.078185.10.20.22.4.2" /> < id nullFlavor="NA" /> <code codeSystem="local&quot ; code="ALP" displayName="ALK PHOS" /> < statusCode code="completed" /> <effectiveTime value=& quot;419367605703" /> <value unit="U/L" xsi:type=& quot;PQ" value="116" /> <referenceRange> <observationRange> <text>46-116</text> & lt;/observationRange> </referenceRange> </ observation> </component> <component> < observation moodCode="EVN" classCode="OBS"> < templateId root="2.16.840.1.796541.10.20.22.4.2" /> < id nullFlavor="NA" /> <code codeSystem="local&quot ; code="ALT" displayName="ALT (SGPT)" /> < statusCode code="completed" /> <effectiveTime value=& quot;328636641312" /> <value unit="U/L" xsi:type=& quot;PQ" value="25" /> <referenceRange> <observationRange> <text>16-63</text> </observationRange> </referenceRange> </ observation> </component> <component> < observation moodCode="EVN" classCode="OBS"> < templateId root="2.16.840.1.338393.10.20.22.4.2" /> < id nullFlavor="NA" /> <code codeSystem="local&quot ; code="AST" displayName="AST (SGOT)" /> < statusCode code="completed" /> <effectiveTime value=& quot;536656635600" /> <value unit="U/L" xsi:type=& quot;PQ" value="21" /> <referenceRange> <observationRange> <text>15-37</text> </observationRange> </referenceRange> </ observation> </component> </organizer> </entry>&lt ;entry> <organizer moodCode="EVN" classCode="BATTERY& quot;> <templateId root="2.16.840.1.857651.10.20.22.4.1" /& gt; <id nullFlavor="NA"/> <code codeSystem=" local" code="PT" displayName="PROTHROMBIN TIME" /> <statusCode code="completed" /> <component> <observation moodCode="EVN" classCode="OBS"> <templateId root="2.16.840.1.906386.10.20.22.4.2" /> <id nullFlavor="NA" /> <code codeSystem="local&quot ; code="INR" displayName="*INR" /> <statusCode code= "completed" /> <effectiveTime value="508966213695& quot; /> <value unit="" xsi:type="PQ" value=& quot;2.2" /> <interpretationCode codeSystem="local&quot ; code="*" /> <referenceRange> < observationRange> <text>0.9-1.1</text> &lt ;/observationRange> </referenceRange> </observation& gt; </component> <component> <observation moodCode=& quot;EVN" classCode="OBS"> <templateId root=" 2.16.840.1.825937.10.20.22.4.2" /> <id nullFlavor="NA&quot ; /> <code codeSystem="local" code="PTI" displayName="*PROTHROMBIN TIME" /> <statusCode code=& quot;completed" /> <effectiveTime value="805560876356& quot; /> <value unit="s" xsi:type="PQ" value= "23.4" /> <interpretationCode codeSystem="local& quot; code="*" /> <referenceRange> < observationRange> <text>9.4-11.5</text> & lt;/observationRange> </referenceRange> </ observation> </component> </organizer> </entry> & lt;entry> <organizer moodCode="EVN" classCode="BATTERY& quot;> <templateId root="2.16.840.1.461118.10.20.22.4.1" /& gt; <id nullFlavor="NA" /> <code codeSystem=" local" code="CBCND"displayName="CBC WITH PLATELET NO DIFFERENTIAL" /> <statusCode code="completed" /> <component> <observation moodCode="EVN" classCode= "OBS"> <templateId root=" [id number]" /> <id nullFlavor="NA" /& gt; <code codeSystem="local" code="MPV" displayName="MPV" /> <statusCode code="completed& quot; /> <effectiveTime value="[id number]" /> <value unit="fL"xsi:type="PQ" value="8.5" /& gt; <referenceRange> <observationRange> <text>7.4-10.4</text> </observationRange> </referenceRange> </observation> </component& gt; <component> <observation moodCode="EVN" classCode="OBS"> <templateId root=" [id number]" /> <id nullFlavor="NA& quot; /> <code codeSystem="local" code="PLT" displayName="PLATELETS" /> <statusCode code=" completed" /> <effectiveTime value="963545612940" /> <value unit="10*3/uL" xsi:type="PQ" value= "263" /> <referenceRange> < observationRange> <text>159-386</text> &lt ;/observationRange> </referenceRange> </observation& gt; </component> <component> <observation moodCode="EVN" classCode="OBS"> <templateId root="2.16.840.1.868457.10.20.22.4.2" /> <id nullFlavor ="NA" /><code codeSystem="local" code="WBCIR&quot ; displayName="WBC" /> <statusCode code="completed" /> <effectiveTime value="882842573150" /> & lt;value unit="10*3/uL" xsi:type="PQ" value="5.2" /> <referenceRange> <observationRange> <text>3.6-11.2</text> </observationRange> </referenceRange> </observation> </component > <component> <observation moodCode="EVN" classCode="OBS"> <templateId root=" 2.16.840.1.390686.10.20.22.4.2" /> <id nullFlavor="NA& quot; /> <code codeSystem="local" code="RBC" displayName="RBC" /> <statusCode code="completed& quot; /> <effectiveTime value="664693193835" /> <value unit="" xsi:type="PQ" value="4.54&quot ; /> <referenceRange> <observationRange> <text>3.63-4.92</text> </observationRange> </referenceRange> </observation> </component> <component> <observation moodCode="EVN" classCode="OBS"> <templateId root=" 2.16.840.1.521974.10.20.22.4.2" /><id nullFlavor="NA" /&gt ; <code codeSystem="local" code="HGB" displayName="HEMOGLOBIN" /> <statusCode code=" completed" /> <effectiveTime value="890975922239" /> <value unit="" xsi:type="PQ" value=" 13.1" /> <referenceRange> <observationRange > <text>11.0-14.3</text> </ observationRange> </referenceRange> </observation&gt ; </component> <component> <observation moodCode ="EVN" classCode="OBS"><templateId root=" 2.16.840.1.814829.10.20.22.4.2" /> <id nullFlavor="NA& quot; /> <code codeSystem="local" code="HCT" displayName="HEMATOCRIT" /> <statusCode code=" completed" /> <effectiveTime value="254077224523" /> <value unit="%" xsi:type="PQ" value="38.9" /> <referenceRange> < observationRange> <text>31.2-41.9</text> </observationRange> </referenceRange> </observation> </component> <component> <observation moodCode=& quot;EVN" classCode="OBS"> <templateId root=" 2.16.840.1.865437.10.20.22.4.2" /> <id nullFlavor="NA& quot; /> <code codeSystem="local" code="MCV" displayName="MCV" /> <statusCode code="completed& quot; /> <effectiveTime value="294483217120" /> <value unit="fL" xsi:type="PQ" value="85.7& quot; /> <referenceRange> <observationRange> <text>79.0-98.0</text> </ observationRange> </referenceRange> </observation> </component> <component> <observation moodCode=& quot;EVN" classCode="OBS"> <templateId root=" 2.16.840.1.034584.10.20.22.4.2" /> <id nullFlavor="NA& quot; /> <code codeSystem="local" code="MCH" displayName="MCH" /> <statusCode code="completed& quot; /> <effectiveTime value="066417395036" /> & lt;value unit="pg" xsi:type="PQ" value="28.9" /&gt ; <referenceRange> <observationRange> <text>27.0-33.0</text> </observationRange> </referenceRange> </observation> </component> <component> <observation moodCode="EVN" classCode ="OBS"> <templateId root=" 2.16.840.1.614497.10.20.22.4.2" /> <id nullFlavor="NA& quot; /> <code codeSystem="local" code="MCHC&quot ; displayName="MCHC" /> <statusCode code=" completed"/> <effectiveTime value="708638804830" / > <value unit="" xsi:type="PQ" value=" 33.7" /> <referenceRange> <observationRange> <text>32.0-36.0</text> </observationRange> </referenceRange> </observation> </ component> <component> <observation moodCode="EVN& quot; classCode="OBS"> <templateId root=" 2.16.840.1.103717.10.20.22.4.2" /> <id nullFlavor="NA& quot; /> <code codeSystem="local" code="RDW" displayName="RDW" /> <statusCode code="completed& quot; /> <effectiveTime value="383637325311" /> <value unit="%" xsi:type="PQ" value=" 14.0" /> <referenceRange> <observationRange > <text>12.3-17.0</text> </ observationRange> </referenceRange> </observation&gt ; </component> <component> <observation moodCode=& quot;EVN" classCode="OBS"> <templateId root=" 2.16.840.1.165886.10..22.4.2" /> <id nullFlavor="NA& quot; /> <code codeSystem="local" code="RDWSD" displayName="RDWSD" /> <statusCode code="completed " /> <effectiveTime value="154580456904" /> <value unit="" xsi:type="PQ" value="42.4&quot ; /> <referenceRange> <observationRange> <text>37.1-47.8</text> </observationRange&gt ; </referenceRange> </observation> </component&gt ; </organizer> </entry> <entry> <organizer moodCode= "EVN" classCode="BATTERY"> <templateId root=&quot ;2.16.840.1.742245.10.20.22.4.1" /> <id nullFlavor="NA&quot ; /> <code codeSystem="local" code="CMP" displayName="COMPREHENSIVE METABOLIC PANEL" /> <statusCode code="completed" /> <component> <observation moodCode="EVN" classCode="OBS"> <templateId root="2.16.840.1.346447.10..22.4.2" /> <id nullFlavor ="NA" /> <code codeSystem="local" code="NA" displayName="SODIUM" /> <statusCode code="completed&quot ; /> <effectiveTime value="243160149513" /> <value unit="mmol/L" xsi:type="PQ" value="140&quot ; /> <referenceRange> <observationRange> <text>136-145</text> </observationRange> </referenceRange> </observation> </ component> <component> <observation moodCode="EVN& quot; classCode="OBS"> <templateId root=" 2.16.840.1.418977.10.20.22.4.2" /> <id nullFlavor="NA& quot; /> <code codeSystem="local" code="K" displayName="POTASSIUM" /> <statusCode code=" completed" /> <effectiveTime value="314675734594" /> <value unit="mmol/L" xsi:type="PQ" value="4.2& quot; /> <referenceRange> <observationRange> <text>3.5-5.1</text> </observationRange&gt ; </referenceRange> </observation> </component&gt ; <component> <observation moodCode="EVN" classCode="OBS"> <templateId root=" 2.16.840.1.791188.10..22.4.2" /> <id nullFlavor="NA&quot ; /> <code codeSystem="local" code="CL" displayName="CHLORIDE" /> <statusCode code=" completed"/> <effectiveTime value="875748564456" / > <value unit="mmol/L" xsi:type="PQ" value=& quot;105" /> <referenceRange> <observationRange& gt; <text>98-107</text> </ observationRange> </referenceRange> </observation&gt ; </component> <component> <observation moodCode=& quot;EVN" classCode="OBS"> <templateId root=" 2.16.840.1.117272.10.20.22.4.2" /> <id nullFlavor="NA& quot; /> <code codeSystem="local" code="TCO2&quot ; displayName="TCO2" /> <statusCode code=" completed" /> <effectiveTime value="789524084033" /> <value unit="mmol/L" xsi:type="PQ" value=& quot;30.7" /> <referenceRange> < observationRange> <text>21.0-32.0</text> </observationRange> </referenceRange> </ observation> </component> <component> < observation moodCode="EVN" classCode="OBS"> < templateId root="2.16.840.1.705618.10.20.22.4.2" /> < id nullFlavor="NA" /> <code codeSystem="local" code="AGAP" displayName="*ANION GAP" /> < statusCode code="completed" /> <effectiveTime value=& quot;535860727137" /> <value unit="mmol/L" xsi: type="PQ" value="4.3" /> <interpretationCode codeSystem="local" code="*" /> < referenceRange> <observationRange> <text> 8.0-16.0</text> </observationRange> </ referenceRange> </observation> </component> < component> <observation moodCode="EVN" classCode=" OBS"> <templateId root="2.16.840.1.846136.10.20.22.4.2& quot; /> <id nullFlavor="NA" /> <code codeSystem="local" code="BUN" displayName="BUN" /& gt; <statusCode code="completed" /> < effectiveTime value="540350837350" /> <value unit=&quot ;" xsi:type="PQ" value="9" /> < referenceRange> <observationRange> <text> 7-18</text> </observationRange> </ referenceRange> </observation> </component> < component> <observation moodCode="EVN" classCode=" OBS"> <templateId root="2.16.840.1.713355.10.20.22.4.2& quot; /> <id nullFlavor="NA" /> <code codeSystem="local" code="CREA" displayName="CREATININE& quot; /> <statusCode code="completed" /> < effectiveTime value="197514522677" /> <value unit=&quot ;" xsi:type="PQ" value="0.57" /> < referenceRange> <observationRange> <text> 0.55-1.02</text> </observationRange> </ referenceRange> </observation> </component> < component> <observation moodCode="EVN" classCode=" OBS"> <templateId root="2.16.840.1.229953.10.20.22.4.2& quot; /> <id nullFlavor="NA" /> <code codeSystem="local" code="B/C" displayName="*BUN/ CREATININE RATIO" /> <statusCode code="completed" /> <effectiveTime value="719627987404" /> & lt;value unit="" xsi:type="PQ" value="15.8" /> <referenceRange> <observationRange> <text>9.1-17.0</text> </observationRange> </referenceRange> </observation> </component> <component> <observation moodCode="EVN" classCode="OBS"> <templateId root=" 2.16.840.1.398025.10..22.4.2" /> <id nullFlavor="NA& quot; /> <code codeSystem="local" code="GLU" displayName="GLUCOSE" /> <statusCode code="completed " /> <effectiveTime value="398818115972" /> <value unit="" xsi:type="PQ" value="96"/ > <referenceRange> <observationRange> <text>65-99</text> </observationRange> </referenceRange> </observation> </component&gt ; <component> <observation moodCode="EVN" classCode="OBS"> <templateId root=" 2.16.840.1.176292.10..22.4.2" /> <id nullFlavor="NA& quot; /> <code codeSystem="local" code="CA" displayName="CALCIUM" /> <statusCode code=" completed" /> <effectiveTime value="600952086721" /> <value unit="" xsi:type="PQ" value=" 8.7" /> <referenceRange> <observationRange& gt; <text>8.5-10.1</text> </ observationRange> </referenceRange> </observation&gt ; </component> <component> <observation moodCode ="EVN" classCode="OBS"> <templateId root=& quot;2.16.840.1.345763.10.20.22.4.2" /> <id nullFlavor=&quot ;NA" /> <code codeSystem="local" code="BILT& quot; displayName="BILIFUBIN TOTAL" /> <statusCode code ="completed" /> <effectiveTime value="053063177579 " /> <value unit="" xsi:type="PQ" value= "0.90" /> <referenceRange> < observationRange> <text>0.20-1.00</text> </observationRange> </referenceRange> </ observation> </component> <component> < observation moodCode="EVN" classCode="OBS"> < templateId root="2.16.840.1.554730.10.20.22.4.2" /> < id nullFlavor="NA" /> <code codeSystem="local&quot ; code="TP" displayName="TOTAL PROTEIN" /> < statusCode code="completed" /> <effectiveTime value=& quot;832923434863" /> <value unit="" xsi:type=& quot;PQ" value="7.2" /> <referenceRange> <observationRange> <text>6.4-8.2</text> </observationRange> </referenceRange> </ observation> </component> <component> < observation moodCode="EVN" classCode="OBS"> < templateId root="2.16.840.1.895012.10.20.22.4.2" /> < id nullFlavor="NA" /> <code codeSystem="local" code=& quot;ALB" displayName="ALBUMIN" /> <statusCode code=& quot;completed" /> <effectiveTime value="212527170790& quot; /> <value unit="" xsi:type="PQ" value=& quot;3.4"/> <referenceRange> < observationRange> <text>3.4-5.0</text> & lt;/observationRange> </referenceRange> </ observation> </component> <component> < observation moodCode="EVN" classCode="OBS"> < templateId root="2.16.840.1.171772.10.20.22.4.2" /> < id nullFlavor="NA" /> <code codeSystem="local&quot ; code="GLOB" displayName="*GLOBULIN" /> < statusCode code="completed" /> <effectiveTime value=& quot;122380213669" /> <value unit="" xsi:type="PQ&quot ; value="3.8" /> <interpretationCode codeSystem=" local" code="*" /> <referenceRange> < observationRange> <text>2.3-3.5</text> & lt;/observationRange> </referenceRange> </ observation> </component> <component> < observation moodCode="EVN" classCode="OBS"> < templateId root="2.16.840.1.411768.10.20.22.4.2" /> < id nullFlavor="NA" /> <code codeSystem="local&quot ; code="AGR" displayName="*A/G RATIO" /> < statusCode code="completed" /> <effectiveTime value=& quot;058321025383" /> <value unit="" xsi:type=& quot;PQ" value="0.9" /> <interpretationCode codeSystem="local"code="*" /> <referenceRange > <observationRange> <text>1.5-2.2</text> </observationRange> </referenceRange> < /observation> </component> <component> < observation moodCode="EVN" classCode="OBS"> < templateId root="2.16.840.1.396261.10.20.22.4.2" /> < id nullFlavor="NA" /> <code codeSystem="local&quot ; code="ALP" displayName="ALK PHOS" /> < statusCode code="completed" /> <effectiveTime value=& quot;631673424198" /> <value unit="U/L" xsi:type=& quot;PQ" value="153" /> <interpretationCode codeSystem="local" code="*" /> < referenceRange> <observationRange> <text> 46-116</text> </observationRange> </ referenceRange> </observation> </component> < component> <observation moodCode="EVN" classCode=" OBS"> <templateId root="2.16.840.1.087947.10.20.22.4.2& quot; /> <id nullFlavor="NA" /> <code codeSystem="local" code="ALT" displayName="ALT (SGPT)& quot; /> <statusCode code="completed" /> & lt;effectiveTime value="736239201387" /> <value unit=& quot;U/L" xsi:type="PQ" value="84" /> < interpretationCode codeSystem="local" code="*" /> <referenceRange> <observationRange> < text>16-63</text> </observationRange> </ referenceRange> </observation> </component> < component> <observation moodCode="EVN" classCode="OBS "> <templateId root="2.16.840.1.682066.10.20.22.4.2& quot; /> <id nullFlavor="NA" /> <code codeSystem="local" code="AST" displayName="AST (SGOT)& quot; /> <statusCode code="completed" /> & lt;effectiveTime value="002383671402" /> <value unit=& quot;U/L" xsi:type="PQ" value="90" /> < interpretationCode codeSystem="local" code="*" /> <referenceRange> <observationRange> < text>15-37</text> </observationRange> </ referenceRange> </observation> </component> </ organizer> </entry> <entry> <organizer moodCode="EVN " classCode="BATTERY"> <templateId root=" 2.16.840.1.525536.10.20.22.4.1" /> <id nullFlavor="NA&quot ; /> <code codeSystem="local" code="GFRE" displayName="GFR ESTIMATION" /> <statusCode code=" completed" /> <component> <observation moodCode=& quot;EVN" classCode="OBS"> <templateId root=" 2.16.840.1.229510.10..22.4.2" /> <id nullFlavor="NA& quot; /> <code codeSystem="local" code="GFRN&quot ; displayName="*GFR EST NON AFR [place]" /><statusCode code=& quot;completed" /> <effectiveTime value="746615660806& quot; /> <value unit="mL/min" xsi:type="PQ" value=">90" /> <referenceRange> & lt;observationRange> <text>NRG</text> &lt ;/observationRange> </referenceRange> </observation& gt; </component> <component> <observation moodCode="EVN" classCode="OBS"> <templateId root="2.16.840.1.689531.10.20.22.4.2" /> <id nullFlavor ="NA" /> <code codeSystem="local" code=" GFRA" displayName="*GRFA EST AFR AMER" /> < statusCode code="completed" /> <effectiveTime value=& quot;470628896212" /> <value unit="mL/min" xsi: type="PQ" value=">90" /> < referenceRange> <observationRange> <text> NRG</text> </observationRange> </ referenceRange> </observation> </component> </ organizer> </entry> <entry> <organizer moodCode="EVN " classCode="BATTERY"> <templateId root=" 2.16.840.1.115686.10.20.22.4.1" /> <id nullFlavor="NA&quot ; /> <code codeSystem="local" code="PT" displayName="PROTHROMBIN TIME" /> <statusCode code=" completed" /> <component> <observation moodCode=& quot;EVN" classCode="OBS"> <templateId root=" 2.16.840.1.049458.10.20.22.4.2" /> <id nullFlavor="NA& quot; /> <code codeSystem="local" code="INR" displayName="*INR" /> <statusCode code="completed& quot; /> <effectiveTime value="709161704364" /> <value unit="" xsi:type="PQ" value="2.1" /> <interpretationCode codeSystem="local" code="*& quot; /> <referenceRange> <observationRange> <text>0.9-1.1</text> </observationRange> </referenceRange> </observation> </component> <component> <observation moodCode="EVN" classCode="OBS"> <templateId root=" 2.16.840.1.235880.10.20.22.4.2" /> <id nullFlavor="NA& quot; /> <code codeSystem="local" code="PTI" displayName="*PROTHROMBIN TIME" /> <statusCode code=& quot;completed" /> <effectiveTime value="980601897895& quot; /> <value unit="s" xsi:type="PQ" value= "21.8" /> <interpretationCode codeSystem="local& quot; code="*" /> <referenceRange> < observationRange> <text>9.4-11.5</text> </ observationRange> </referenceRange> </observation&gt ; </component> </organizer> </entry> <entry> <organizer moodCode="EVN" classCode="BATTERY"> <templateId root="2.16.840.1.232601.10.20.22.4.1" /> < id nullFlavor="NA" /> <code codeSystem="local" code="MRSA" displayName="MRSA SCREEN" /> < statusCode code="completed" /> <component> < observation moodCode="EVN" classCode="OBS"> < templateId root="2.16.840.1.332942.10.20.22.4.2" /> < id nullFlavor="NA" /> <code codeSystem="local&quot ; code="MRSA" displayName="MRSA SURVEILLANCE CULTURE" /> <statusCode code="completed" /> < effectiveTime value="202528618991" /> <value unit=&quot ;" xsi:type="PQ" value="Negative- No MRSA detected" /& gt; <referenceRange> <observationRange> <text>NRG</text> </observationRange> </referenceRange> </observation> </component> </organizer> </entry> <entry> <organizer moodCode=& quot;EVN" classCode="BATTERY"> <templateId root=" 2.16.840.1.003054.10.20.22.4.1" /> <id nullFlavor="NA&quot ; /> <code codeSystem="local" code="PT" displayName="PROTHROMBIN TIME" /> <statusCode code=" completed" /> <component> <observation moodCode=& quot;EVN" classCode="OBS"> <templateId root=" 2.16.840.1.385773.10.20.22.4.2" /> <id nullFlavor="NA& quot; /> <code codeSystem="local" code="INR" displayName="*INR" /> <statusCode code="completed& quot; /> <effectiveTime value="422905620414" /> <value unit="" xsi:type="PQ" value="2.3" /> <interpretationCode codeSystem="local" code="*& quot; /> <referenceRange> <observationRange> <text>0.9-1.1</text> </observationRange& gt; </referenceRange> </observation> </ component> <component> <observation moodCode="EVN& quot; classCode="OBS"> <templateId root=" 2.16.840.1.139558.10.20.22.4.2" /> <id nullFlavor="NA& quot; /> <code codeSystem="local" code="PTI" displayName="*PROTHROMBIN TIME" /> <statusCode code=& quot;completed" /> <effectiveTime value="863400803537& quot; /> <value unit="s" xsi:type="PQ" value=" 24.4" /> <interpretationCode codeSystem="local" code="*" /> <referenceRange> < observationRange> <text>9.4-11.5</text> & lt;/observationRange> </referenceRange> </ observation> </component> </organizer> </entry> & lt;entry> <organizer moodCode="EVN" classCode="BATTERY& quot;> <templateId root="2.16.840.1.650826.10.20.22.4.1" /& gt; <id nullFlavor="NA" /> <code codeSystem=" local" code="CEA" displayName="CEA" /> < statusCode code="completed" /> <component> < observation moodCode="EVN" classCode="OBS"> < templateId root="2.16.840.1.631994.10.20.22.4.2" /> < id nullFlavor="NA" /> <code codeSystem="local&quot ; code="CEA" displayName="CEA" /> < statusCode code="completed" /> <effectiveTime value=& quot;592690707501" /> <value unit="" xsi:type=& quot;PQ" value="2.3" /> <referenceRange> <observationRange> <text>0.0-4.7</text> </observationRange> </referenceRange> </ observation> </component> </organizer> </entry> & lt;entry> <organizer moodCode="EVN" classCode="BATTERY& quot;> <templateId root="2.16.840.1.530288.10.20.22.4.1" /& gt; <id nullFlavor="NA" /> <code codeSystem=" local" code="37740-5" displayName="Bas Metab 2000 Pnl W Ca- I SerPl" /> <statusCode code="completed" /> & lt;component> <observation moodCode="EVN" classCode=&quot ;OBS"> <templateId root="2.16.840.1.953116.10..22.4.2 " /> <id nullFlavor="NA" /> <code codeSystem="local" code="BMP" displayName="BMP" /& gt; <statusCode code="completed" /> < effectiveTime value="794176020769" /> <value unit=&quot ;" xsi:type="PQ" value="LAB" /> < referenceRange> <observationRange> <text /> </observationRange> </referenceRange> </ observation> </component> <component> < observation moodCode="EVN" classCode="OBS"> < templateId root="2.16.840.1.596141.10.20.22.4.2" /> < id nullFlavor="NA" /> <code codeSystem="local&quot ; code="GLUCOSE" displayName="GLUCOSE" /> < statusCode code="completed" /> <effectiveTime value=& quot;122324421776" /> <value unit="mg/dL" xsi:type=" PQ" value="117" /> <interpretationCode codeSystem= "local" code="H" /> <referenceRange> <observationRange> <text>70 - 105</text> </observationRange> </referenceRange> &lt ;/observation> </component> <component> < observation moodCode="EVN" classCode="OBS"> < templateId root="2.16.840.1.817197.10.20.22.4.2" /> < id nullFlavor="NA" /> <code codeSystem="local&quot ; code="BUN" displayName="BUN" /> < statusCode code="completed" /> <effectiveTime value=& quot;095183188964" /> <value unit="mg/dL" xsi:type ="PQ" value="6" /> <interpretationCode codeSystem="local" code="LL" /> < referenceRange> <observationRange> <text>8 - 26</text> </observationRange> </ referenceRange> </observation> </component> < component> <observation moodCode="EVN" classCode=" OBS"> <templateId root="2.16.840.1.947784.10.20.22.4.2& quot; /> <id nullFlavor="NA" /> <code codeSystem="local" code="CREATININE" displayName=" CREATININE" /> <statusCode code="completed" /> <effectiveTime value="228237811458" /> < value unit="mg/dL" xsi:type="PQ" value="0.4" /&gt ; <interpretationCode codeSystem="local" code="L&quot ; /> <referenceRange> <observationRange> <text>0.6 - 1.3</text> </observationRange> </referenceRange> </observation> </ component> <component> <observation moodCode="EVN& quot; classCode="OBS"> <templateId root=" 2.16.840.1.096261.10.20.22.4.2" /> <id nullFlavor="NA& quot; /> <code codeSystem="local" code="SODIUM& quot; displayName="SODIUM" /> <statusCode code=" completed" /> <effectiveTime value="638478850510" /> <value unit="mEq/L" xsi:type="PQ" value=& quot;138" /> <referenceRange> < observationRange> <text>136 - 144</text> </ observationRange> </referenceRange> </observation&gt ; </component> <component> <observation moodCode ="EVN" classCode="OBS"> <templateId root=& quot;2.16.840.1.665428.10.20.22.4.2" /> <id nullFlavor="NA&quot ; /> <code codeSystem="local" code="POTASSIUM&quot ; displayName="POTASSIUM" /> <statusCode code=" completed" /> <effectiveTime value="626978904546" /> <value unit="mEq/L" xsi:type="PQ" value=& quot;4.1" /> <referenceRange> <observationRange > <text>3.6 - 5.1</text> </ observationRange> </referenceRange> </observation&gt ; </component> <component> <observation moodCode ="EVN" classCode="OBS"> <templateId root=& quot;2.16.840.1.030760.10.20.22.4.2" /> <id nullFlavor=&quot ;NA" /> <code codeSystem="local" code=" CHLORIDE" displayName="CHLORIDE" /> <statusCode code="completed" /> <effectiveTime value="929850356197& quot; /> <value unit="mEq/L" xsi:type="PQ" value="99" /> <referenceRange> < observationRange> <text>99 - 109</text> & lt;/observationRange> </referenceRange> </observation& gt; </component> <component> <observation moodCode="EVN" classCode="OBS"> <templateId root="2.16.840.1.945175.10.20.22.4.2" /> <id nullFlavor ="NA" /> <code codeSystem="local" code=" TCO2" displayName="TCO2" /> <statusCode code=&quot ;completed" /> <effectiveTime value="474401781781&quot ; /> <value unit="%" xsi:type="PQ" value="24" /> <referenceRange> < observationRange> <text>22 - 32</text> </ observationRange> </referenceRange> </observation&gt ; </component> <component> <observation moodCode ="EVN" classCode="OBS"> <templateId root=& quot;2.16.840.1.108499.10.20.22.4.2" /> <id nullFlavor=&quot ;NA" /> <code codeSystem="local" code=" ANIONGAP" displayName="ANION GAP" /> <statusCode code= "completed" /> <effectiveTime value="067533207199& quot; /> <value unit="mEq/L" xsi:type="PQ" value="19.0" /> <referenceRange> < observationRange> <text>10.0 - 20.0</text> </observationRange> </referenceRange> </ observation> </component> <component> < observation moodCode="EVN" classCode="OBS"> < templateId root="2.16.840.1.753925.10.20.22.4.2" /> < id nullFlavor="NA" /> <code codeSystem="local&quot ; code="N" displayName="iCALCIUM" /> < statusCode code="completed" /> <effectiveTime value=& quot;270174252456" /> <value unit="mmol/L" xsi:type=& quot;PQ" value="1.11" /> <interpretationCode codeSystem=& quot;local" code="L" /> <referenceRange> <observationRange> <text>1.19 - 1.41</text&gt ; </observationRange> </referenceRange> </ observation> </component> </organizer> </entry> & lt;entry> <organizer moodCode="EVN" classCode="BATTERY& quot;> <templateId root="[id number]" /& gt; <id nullFlavor="NA" /> <code codeSystem=" local" code="88018-7" displayName="Hct/Hgb Bld Auto-Rto&quot ; /> <statusCode code="completed" /> <component& gt; <observation moodCode="EVN"classCode="OBS"&gt ; <templateId root="[id number]" /> <id nullFlavor="NA" /> <code codeSystem=& quot;local" code="HEMOGLOBIN" displayName="HEMOGLOBIN" /> <statusCode code="completed" /> < effectiveTime value="149697698691" /> <value unit=&quot ;g/dL" xsi:type="PQ" value="12.2" /> < interpretationCode codeSystem="local" code="L" /> <referenceRange> <observationRange> < text>14.0 - 18.0</text> </observationRange> & lt;/referenceRange> </observation> </component> <component> <observation moodCode="EVN" classCode=& quot;OBS"> <templateId root=" 2.16.840.1.340602.10.20.22.4.2" /> <id nullFlavor="NA& quot; /> <code codeSystem="local" code="HEMATOCRIT " displayName="HEMATOCRIT" /> <statusCode code=& quot;completed" /> <effectiveTime value="752417414668& quot; /> <value unit="%PCV" xsi:type="PQ& quot; value="36.0" /> <interpretationCode codeSystem=& quot;local" code="L" /> <referenceRange> <observationRange> <text>37.0 - 47.0</text&gt ; </observationRange> </referenceRange> & lt;/observation> </component> </organizer> </entry&gt ; <entry> <organizer moodCode="EVN" classCode=" BATTERY"> <templateId root="2.16.840.1.726659.10.20.22.4.1& quot; /> <id nullFlavor="NA" /> <code codeSystem ="local" code="CBCND" displayName="CBC WITH PLATELET NO DIFFERENTIAL" /> <statusCode code="completed" /&gt ; <component> <observation moodCode="EVN" classCode="OBS"> <templateId root=" 2.16.840.1.865129.10.20.22.4.2" /><id nullFlavor="NA" /&gt ; <code codeSystem="local" code="MPV" displayName="MPV" /> <statusCode code="completed& quot; /> <effectiveTime value="797899546495" /> <value unit="fL" xsi:type="PQ" value="9.0" /&gt ; <referenceRange> <observationRange> <text>7.4-10.4</text> </observationRange> </referenceRange> </observation> </component> <component> <observation moodCode="EVN" classCode="OBS"> <templateId root=" 2.16.840.1.098547.10.20.22.4.2" /> <id nullFlavor="NA& quot; /> <code codeSystem="local" code="PLT" displayName="PLATELETS" /> <statusCode code=" completed" /> <effectiveTime value="180613879895" /> <value unit="10*3/uL" xsi:type="PQ" value= "267" /> <referenceRange> < observationRange> <text>159-386</text> </ observationRange> </referenceRange> </observation&gt ; </component> <component> <observation moodCode ="EVN" classCode="OBS"> <templateId root=& quot;2.16.840.1.988890.10.20.22.4.2" /> <id nullFlavor=&quot ;NA" /> <code codeSystem="local" code="WBCIR& quot; displayName="WBC" /> <statusCode code="completed&quot ; /> <effectiveTime value="995740038972" /> <value unit="10*3/uL" xsi:type="PQ" value="6.8& quot; /> <referenceRange> <observationRange> <text>3.6-11.2</text> </observationRange > </referenceRange> </observation> </ component> <component> <observation moodCode="EVN& quot; classCode="OBS"> <templateId root=" 2.16.840.1.071157.10.20.22.4.2" /> <id nullFlavor="NA& quot; /> <code codeSystem="local" code="RBC" displayName="RBC" /> <statusCode code="completed& quot; /> <effectiveTime value="281036977947" /> <value unit="" xsi:type="PQ" value="4.78&quot ; /> <referenceRange> <observationRange> <text>3.63-4.92</text> </observationRange> </referenceRange> </observation> </component> <component> <observation moodCode="EVN" classCode= "OBS"> <templateId root=" 2.16.840.1.794230.10.20.22.4.2" /> <id nullFlavor="NA& quot; /> <code codeSystem="local" code="HGB" displayName="HEMOGLOBIN" /> <statusCode code=" completed" /> <effectiveTime value="417545006428" /> <value unit="" xsi:type="PQ" value=" 13.9" /> <referenceRange> <observationRange > <text>11.0-14.3</text> </ observationRange> </referenceRange> </observation&gt ; </component> <component> <observation moodCode ="EVN" classCode="OBS"> <templateId root=& quot;2.16.840.1.181585.10..22.4.2" /> <id nullFlavor=&quot ;NA" /> <code codeSystem="local" code="HCT& quot; displayName="HEMATOCRIT" /> <statusCode code=& quot;completed" /> <effectiveTime value="068896239285& quot; /> <value unit="%" xsi:type="PQ&quot ; value="40.9" /> <referenceRange> < observationRange> <text>31.2-41.9</text> </observationRange></referenceRange> </observation> </component> <component> <observation moodCode=" EVN" classCode="OBS"> <templateId root=" 2.16.840.1.105078.10..22.4.2" /> <id nullFlavor="NA& quot; /> <code codeSystem="local" code="MCV" displayName="MCV" /> <statusCode code="completed& quot; /> <effectiveTime value="649796674324" /> <value unit="fL" xsi:type="PQ" value="85.6& quot; /> <referenceRange> <observationRange> <text>79.0-98.0</text> </ observationRange> </referenceRange> </observation> </component> <component> <observation moodCode=& quot;EVN" classCode="OBS"> <templateId root=" 2.840.1.009910.10.20.22.4.2" /> <id nullFlavor="NA& quot; /> <code codeSystem="local" code="MCH" displayName="MCH" /> <statusCode code="completed& quot; /> <effectiveTime value="775190647640" /> &lt ;value unit="pg" xsi:type="PQ" value="29.1" /> <referenceRange> <observationRange> <text>27.0-33.0</text> </observationRange> </referenceRange> </observation> </component> & lt;component> <observation moodCode="EVN" classCode=&quot ;OBS"> <templateId root="2.840.1.215623.10.20.22.4.2 " /> <id nullFlavor="NA" /> <code codeSystem="local" code="MCHC" displayName="MCHC" /> <statusCode code="completed" /> < effectiveTime value="236519611898" /> <value unit=&quot ;" xsi:type="PQ" value="34.0" /> < referenceRange> <observationRange> <text> 32.0-36.0</text> </observationRange> </ referenceRange> </observation> </component> < component> <observation moodCode="EVN" classCode=" OBS"> <templateId root="2.16.840.1.846978.10.20.22.4.2" /& gt; <id nullFlavor="NA" /> <code codeSystem ="local" code="RDW" displayName="RDW" /> <statusCode code="completed" /> <effectiveTime value="827094092472" /> <value unit="%& quot; xsi:type="PQ" value="13.6" /> < referenceRange> <observationRange> <text> 12.3-17.0</text> </observationRange> </ referenceRange> </observation> </component> < component> <observation moodCode="EVN" classCode="OBS" > <templateId root="2.16.840.1.024404.10.20.22.4.2" /& gt; <id nullFlavor="NA" /> <code codeSystem=& quot;local" code="RDWSD" displayName="RDWSD" /> <statusCode code="completed" /> < effectiveTime value="187632250811" /> <value unit=&quot ;" xsi:type="PQ" value="41.1" /> < referenceRange> <observationRange> <text> 37.1-47.8</text> </observationRange> </ referenceRange> </observation> </component> </ organizer> </entry> <entry> <organizer moodCode="EVN& quot; classCode="BATTERY"> <templateId root=" 2.16.840.1.152231.10.20.22.4.1" /> <id nullFlavor="NA&quot ; /> <code codeSystem="local" code="PT" displayName="PROTHROMBIN TIME" /> <statusCode code=" completed" /> <component> <observation moodCode=& quot;EVN" classCode="OBS"> <templateId root=" 2.16.840.1.757310.10..22.4.2" /> <id nullFlavor="NA& quot; /> <code codeSystem="local" code="INR" displayName="*INR" /> <statusCode code="completed& quot; /> <effectiveTime value="265196444519" /> <value unit="" xsi:type="PQ" value="2.4" /& gt; <interpretationCode codeSystem="local" code="*& quot; /> <referenceRange> <observationRange> <text>0.9-1.1</text> </observationRange& gt; </referenceRange> </observation> </ component> <component> <observation moodCode="EVN& quot; classCode="OBS"> <templateId root=" 2.16.840.1.188996.10..22.4.2" /> <id nullFlavor="NA& quot; /> <code codeSystem="local" code="PTI" displayName="*PROTHROMBIN TIME" /> <statusCode code=& quot;completed" /> <effectiveTime value="042192353925& quot; /> <value unit="s" xsi:type="PQ" value= "24.7" /> <interpretationCode codeSystem="local& quot; code="*" /> <referenceRange> < observationRange> <text>9.4-11.5</text> & lt;/observationRange> </referenceRange> </ observation> </component> </organizer> </entry> & lt;entry> <organizer moodCode="EVN" classCode="BATTERY& quot;> <templateId root="2.16.840.1.664714.10.20.22.4.1" /& gt; <id nullFlavor="NA" /> <code codeSystem=" local" code="FERR" displayName="FERRITIN" /> & lt;statusCode code="completed" /> <component> < observation moodCode="EVN" classCode="OBS"> < templateId root="2.16.840.1.645202.10.20.22.4.2" /> < id nullFlavor="NA" /> <code codeSystem="local" code="FERR" displayName="FERRITIN"/> < statusCode code="completed" /> <effectiveTime value=& quot;188361212318" /> <value unit="ng/mL" xsi:type ="PQ" value="48" /> <referenceRange> <observationRange> <text>13-150</text> </observationRange> </referenceRange> </ observation> </component> </organizer> </entry> & lt;entry> <organizer moodCode="EVN" classCode="BATTERY& quot;> <templateId root="2.16.840.1.059551.10.20.22.4.1" /& gt; <id nullFlavor="NA" /><code codeSystem="local& quot; code="IRN" displayName="IRON" /> < statusCode code="completed" /> <component> < observation moodCode="EVN" classCode="OBS"> < templateId root="2.16.840.1.818117.10.20.22.4.2" /> < id nullFlavor="NA" /> <code codeSystem="local&quot ; code="IRN" displayName="IRON" /> < statusCode code="completed" /> <effectiveTime value=& quot;684128572559" /> <value unit="ug/dL" xsi:type="PQ " value="65" /> <referenceRange> &lt ;observationRange> <text>50-170</text> </ observationRange> </referenceRange> </observation&gt ; </component> </organizer> </entry> <entry> <organizer moodCode="EVN" classCode="BATTERY"> <templateId root="2.16.840.1.148384.10.20.22.4.1" /> < id nullFlavor="NA" /> <code codeSystem="local" code="PT" displayName="PROTHROMBIN TIME" /> < statusCode code="completed" /> <component> < observation moodCode="EVN" classCode="OBS"> < templateId root="2.16.840.1.595322.10.20.22.4.2" /> <id nullFlavor="NA" /> <code codeSystem="local" code="INR" displayName="*INR" /> <statusCode code="completed"/> <effectiveTime value=" 145290854311" /> <value unit="" xsi:type="PQ& quot; value="2.2" /> <interpretationCode codeSystem=& quot;local" code="*" /> <referenceRange> <observationRange> <text>0.9-1.1</text> </observationRange> </referenceRange> </ observation> </component> <component> < observation moodCode="EVN" classCode="OBS"> < templateIdroot="2.16.840.1.623750.10.20.22.4.2" /> <id nullFlavor="NA" /> <code codeSystem="local" code="PTI" displayName="*PROTHROMBIN TIME" /> & lt;statusCode code="completed" /> <effectiveTime value= "839502975769" /> <value unit="s" xsi:type=& quot;PQ" value="23.0" /> <interpretationCode codeSystem="local" code="*" /> < referenceRange> <observationRange> <text> 9.4-11.5</text> </observationRange> </ referenceRange> </observation> </component> </ organizer> </entry> <entry> <organizer moodCode="EVN& quot; classCode="BATTERY"> <templateId root=" 2.16.840.1.177553.10.20.22.4.1" /> <id nullFlavor="NA&quot ; /> <code codeSystem="local" code="CBCND" displayName="CBC WITH PLATELET NO DIFFERENTIAL" /> < statusCode code="completed" /> <component> < observation moodCode="EVN" classCode="OBS"> < templateId root="2.16.840.1.906894.10.20.22.4.2" /> < id nullFlavor="NA" /> <code codeSystem="local" code="MPV" displayName="MPV" /> <statusCode code= "completed" /> <effectiveTime value="931192666261& quot; /> <value unit="fL" xsi:type="PQ" value ="8.4" /> <referenceRange> < observationRange> <text>7.4-10.4</text> & lt;/observationRange> </referenceRange> </ observation> </component> <component> < observation moodCode="EVN" classCode="OBS"> < templateId root="2.16.840.1.615599.10.20.22.4.2" /> < id nullFlavor="NA" /> <code codeSystem="local&quot ; code="PLT" displayName="PLATELETS" /> < statusCode code="completed" /> <effectiveTime value=& quot;723219539285" /> <value unit="10*3/uL" xsi:type=&quot ;PQ" value="237" /> <referenceRange> <observationRange> <text>159-386</text> </observationRange> </referenceRange> </ observation> </component> <component> < observation moodCode="EVN" classCode="OBS"> < templateId root="2.16.840.1.424633.10.20.22.4.2" /> <id nullFlavor="NA" /> <code codeSystem="local" code="WBCIR" displayName="WBC" /> < statusCode code="completed"/> <effectiveTime value=& quot;180335117387" /> <value unit="10*3/uL" xsi: type="PQ" value="5.1" /> <referenceRange> <observationRange> <text>3.6-11.2</text> </observationRange> </referenceRange> &lt ;/observation> </component> <component> < observation moodCode="EVN" classCode="OBS"> < templateId root="2.16.840.1.790271.10.20.22.4.2" /> < id nullFlavor="NA" /> <code codeSystem="local&quot ; code="RBC" displayName="RBC" /> < statusCode code="completed" /> <effectiveTime value=& quot;132882629685" /> <value unit="" xsi:type=& quot;PQ" value="4.67" /> <referenceRange> <observationRange> <text>3.63-4.92</text> </observationRange> </referenceRange> & lt;/observation> </component> <component> < observation moodCode="EVN" classCode="OBS"> < templateId root="2.16.840.1.222645.10.20.22.4.2" /> < id nullFlavor="NA" /> <code codeSystem="local" code= "HGB" displayName="HEMOGLOBIN" /> < statusCode code="completed" /> <effectiveTime value=& quot;271024982053" /> <value unit="" xsi:type=& quot;PQ" value="13.8" /> <referenceRange> <observationRange> <text>11.0-14.3</text> </observationRange> </referenceRange> </ observation> </component> <component> < observation moodCode="EVN" classCode="OBS"> < templateId root="2.16.840.1.695193.10.20.22.4.2" /> < id nullFlavor="NA" /> <code codeSystem="local&quot ; code="HCT" displayName="HEMATOCRIT" /> < statusCode code="completed" /> <effectiveTime value=& quot;265177666685" /> <value unit="%" xsi: type="PQ" value="39.9" /> <referenceRange> <observationRange> <text>31.2-41.9</text&gt ; </observationRange> </referenceRange> & lt;/observation> </component> <component> < observation moodCode="EVN" classCode="OBS"> < templateId root="2.16.840.1.667986.10.20.22.4.2" /> < id nullFlavor="NA" /> <code codeSystem="local&quot ; code="MCV" displayName="MCV" /> < statusCode code="completed" /> <effectiveTime value=& quot;735004650442" /> <value unit="fL" xsi:type=& quot;PQ" value="85.4" /> <referenceRange> <observationRange> <text>79.0-98.0</text> </observationRange> </referenceRange> & lt;/observation> </component> <component> < observation moodCode="EVN" classCode="OBS"> < templateId root="2.16.840.1.281782.10.20.22.4.2" /> < id nullFlavor="NA" /> <code codeSystem="local&quot ; code="MCH" displayName="MCH" /> < statusCode code="completed" /> <effectiveTime value=& quot;981396392398" /> <value unit="pg" xsi:type=& quot;PQ" value="29.6" /> <referenceRange> <observationRange> <text>27.0-33.0</text> </observationRange> </referenceRange> </ observation> </component> <component> < observation moodCode="EVN" classCode="OBS"> < templateId root="2.16.840.1.872767.10.20.22.4.2" /> < id nullFlavor="NA" /> <code codeSystem="local&quot ; code="MCHC" displayName="MCHC" /> < statusCode code="completed" /> <effectiveTime value=& quot;770137973484" /> <value unit="" xsi:type=& quot;PQ" value="34.7" /> <referenceRange> <observationRange> <text>32.0-36.0</text> </observationRange> </referenceRange> </ observation> </component> <component> < observation moodCode="EVN" classCode="OBS"> < templateId root="2.16.840.1.051864.10.20.22.4.2" /> < id nullFlavor="NA" /> <code codeSystem="local&quot ; code="RDW" displayName="RDW" /> < statusCode code="completed" /> <effectiveTime value=& quot;728819682028" /> <value unit="%" xsi:type=& quot;PQ" value="14.1" /> <referenceRange> & lt;observationRange> <text>12.3-17.0</text> </observationRange> </referenceRange> </ observation> </component> <component> < observation moodCode="EVN" classCode="OBS"> < templateId root="2.16.840.1.939704.10.20.22.4.2"/> <id nullFlavor="NA" /> <code codeSystem="local" code="RDWSD" displayName="RDWSD" /> < statusCode code="completed" /> <effectiveTime value=& quot;390375565749" /> <value unit="" xsi:type=& quot;PQ" value="42.9" /> <referenceRange> <observationRange> <text>37.1-47.8</text> </observationRange> </referenceRange> < /observation> </component> </organizer> </entry> <entry> <organizer moodCode="EVN" classCode="BATTERY& quot;> <templateId root="2.16.840.1.042219.10.20.22.4.1" /& gt; <id nullFlavor="NA" /> <code codeSystem=" local" code="PT" displayName="PROTHROMBIN TIME" /> <statusCode code="completed" /> <component> <observation moodCode="EVN" classCode="OBS"> <templateId root="2.16.840.1.808838.10.20.22.4.2" /> <id nullFlavor="NA" /> <code codeSystem=" local" code="INR" displayName="*INR" /> &lt ;statusCode code="completed" /> <effectiveTime value=" 997713010477" /> <value unit="" xsi:type="PQ& quot; value="2.74" /> <interpretationCode codeSystem=& quot;local" code="*" /> <referenceRange> <observationRange> <text>0.90-1.10</text> </observationRange> </referenceRange> </ observation> </component> <component> < observation moodCode="EVN" classCode="OBS"> < templateId root="2.16.840.1.474314.10.20.22.4.2" /> < id nullFlavor="NA" /> <code codeSystem="local&quot ; code="PTI" displayName="*PROTHROMBIN TIME" /> <statusCode code="completed" /> <effectiveTime value ="326991221446" /> <value unit="s" xsi:type=& quot;PQ" value="28.5" /> <interpretationCode codeSystem="local" code="*" /> <referenceRange > <observationRange> <text>9.4-11.5</ text> </observationRange> </referenceRange> </observation> </component> </organizer> </ entry> <entry> <organizer moodCode="EVN" classCode=& quot;BATTERY"> <templateId root=" 2.16.840.1.946170.10.20.22.4.1" /> <id nullFlavor="NA&quot ; /> <code codeSystem="local" code="FERR" displayName="FERRITIN" /> <statusCode code="completed& quot; /> <component> <observation moodCode="EVN& quot; classCode="OBS"> <templateId root=" 2.16.840.1.470319.10.20.22.4.2" /> <id nullFlavor="NA& quot; /> <code codeSystem="local" code="FERR&quot ; displayName="FERRITIN" /> <statusCode code=" completed" /> <effectiveTime value="917871798434" /> <value unit="ng/mL" xsi:type="PQ" value=& quot;64" /> <referenceRange> < observationRange> <text>13-150</text> </ observationRange> </referenceRange> </observation&gt ; </component> </organizer> </entry> <entry> <organizer moodCode="EVN" classCode="BATTERY"> <templateId root="2.16.840.1.204799.10.20.22.4.1" /> < id nullFlavor="NA" /> <code codeSystem="local" code="IRN" displayName="IRON" /> <statusCode code ="completed"/> <component> <observation moodCode="EVN" classCode="OBS"> <templateId root="2.16.840.1.316474.10.20.22.4.2" /> <id nullFlavor ="NA" /> <code codeSystem="local" code=" IRN" displayName="IRON" /> <statusCode code=" completed" /> <effectiveTime value="216041129705" /> <value unit="ug/dL" xsi:type="PQ" value=& quot;151" /> <referenceRange> < observationRange> <text>50-170</text> &lt ;/observationRange> </referenceRange> </observation> </component> </organizer> </entry> <entry> &lt ;organizer moodCode="EVN" classCode="BATTERY"> < templateId root="2.16.840.1.296924.10.20.22.4.1" /> <id nullFlavor="NA" /> <code codeSystem="local" code= "B12FO" displayName="VITAMIN B12 & FOLATE" /> <statusCode code="completed" /> <component> & lt;observation moodCode="EVN" classCode="OBS"> &lt ;templateId root="2.16.840.1.938914.10.20.22.4.2" /> < id nullFlavor="NA" /> <code codeSystem="local&quot ; code="B12" displayName="VITAMIN B12" /> < statusCode code="completed" /> <effectiveTime value=& quot;941786186876" /> <value unit="pg/mL" xsi:type ="PQ" value="660" /> <referenceRange> <observationRange> <text>180-914</text> </observationRange> </referenceRange> </ observation> </component> </organizer> </entry> & lt;entry> <organizer moodCode="EVN" classCode="BATTERY& quot;> <templateId root="2.16.840.1.529281.10.20.22.4.1" /& gt; <id nullFlavor="NA" /> <code codeSystem=" local" code="CBC" displayName="CBC WITH PLATELET AND DIFFERENTIAL" /> <statusCode code="completed" /> <component> <observation moodCode="EVN" classCode= "OBS"> <templateId root=" 2.16.840.1.224237.10.20.22.4.2" /> <id nullFlavor="NA& quot; /> <code codeSystem="local" code="SEGR&quot ; displayName="SEGS" /> <statusCode code=" completed" /> <effectiveTime value="748922168709" /> <value unit="%" xsi:type="PQ" value="69.4" /> <referenceRange> < observationRange> <text>NRG</text> </ observationRange> </referenceRange> </observation> </component> <component> <observation moodCode=& quot;EVN" classCode="OBS"> <templateId root=" 2.16.840.1.134901.10.20.22.4.2" /> <id nullFlavor="NA& quot; /> <code codeSystem="local" code="BASOR&quot ; displayName="*BASOPHILS" /> <statusCode code=" completed" /> <effectiveTime value="149988734457" /> <value unit="%" xsi:type="PQ" value="1.1" /> <referenceRange> < observationRange> <text>NRG</text> </ observationRange> </referenceRange> </observation&gt ; </component> <component> <observation moodCode ="EVN" classCode="OBS"> <templateId root=& quot;2.16.840.1.091880.10.20.22.4.2" /> <id nullFlavor=&quot ;NA" /> <code codeSystem="local" code="EOSR& quot; displayName="*EOSINOPHILS" /> <statusCode code=" completed" /> <effectiveTime value="937869344502" /> <value unit="%" xsi:type="PQ" value="1.0" /> <referenceRange> < observationRange> <text>NRG</text> </ observationRange> </referenceRange> </observation&gt ; </component> <component> <observation moodCode ="EVN" classCode="OBS"> <templateId root=& quot;2.16.840.1.562042.10.20.22.4.2" /> <id nullFlavor=&quot ;NA" /> <code codeSystem="local" code="ADIFP& quot; displayName="AUTOMATED DIFF" /> <statusCode code= "completed" /> <effectiveTime value="151897321367& quot; /> <value unit="" xsi:type="PQ" value=& quot;PERFORMED" /> <referenceRange> < observationRange> <text>NRG</text> </ observationRange> </referenceRange> </observation&gt ; </component> <component> <observation moodCode ="EVN" classCode="OBS"> <templateId root=& quot;2.16.840.1.399643.10.20.22.4.2" /> <id nullFlavor=&quot ;NA" /> <code codeSystem="local" code="LYMPR& quot; displayName="*LYMPHOCYTES" /> <statusCode code=& quot;completed" /> <effectiveTime value="929761013418& quot; /> <valueunit="%" xsi:type="PQ&quot ; value="24.1" /> <referenceRange> < observationRange> <text>NRG</text> </ observationRange> </referenceRange> </observation&gt ; </component> <component> <observation moodCode ="EVN" classCode="OBS"> <templateId root=& quot;2.16.840.1.035120.10.20.22.4.2" /> <id nullFlavor=&quot ;NA" /> <code codeSystem="local" code="MONOR& quot; displayName="*MONOCYTES" /> <statusCode code=& quot;completed" /> <effectiveTime value="170848430083& quot; /> <value unit="%" xsi:type="PQ&quot ; value="4.4" /> <referenceRange> < observationRange> <text>NRG</text> </ observationRange> </referenceRange> </observation&gt ; </component> <component> <observation moodCode ="EVN" classCode="OBS"> <templateId root=& quot;2.16.840.1.749856.10.20.22.4.2" /> <id nullFlavor=&quot ;NA" /> <code codeSystem="local" code="ABACT& quot; displayName="*ABSOLUTE BASOPHILS" /> <statusCode code="completed" /> <effectiveTime value=" 705107544906" /> <value unit="10*3/uL" xsi:type=& quot;PQ" value="0.10" /> <referenceRange> <observationRange> <text>0.00-0.20</text> </observationRange> </referenceRange> & lt;/observation> </component> <component> < observation moodCode="EVN" classCode="OBS"> < templateId root="2.16.840.1.648412.10.20.22.4.2" /> < id nullFlavor="NA" /> <code codeSystem="local&quot ; code="AEOCT" displayName="*ABSOLUTE EOSINOPHILS" /> <statusCode code="completed" /> < effectiveTime value="323848546678" /> <value unit=&quot ;10*3/uL" xsi:type="PQ" value="0.10" /> &lt ;referenceRange> <observationRange> <text&gt ;0.00-0.50</text> </observationRange> </ referenceRange> </observation> </component> < component> <observation moodCode="EVN" classCode=" OBS"> <templateId root="2.16.840.1.836423.10.20.22.4.2& quot; /> <id nullFlavor="NA" /> <code codeSystem="local" code="ALYCT" displayName="*ABSOLUTE LYMPHOCYTES" /> <statusCode code="completed" /&gt ; <effectiveTime value="[id number]" /> < value unit="10*3/uL" xsi:type="PQ" value="1.60" /& gt; <referenceRange> <observationRange> <text>1.00-3.00</text> </observationRange> </referenceRange> </observation> </component> <component> <observation moodCode="EVN" classCode= "OBS"> <templateId root=" [id number]" /> <id nullFlavor="NA& quot; /> <code codeSystem="local" code="AMOCT&quot ; displayName="*ABSOLUTE MONOCYTES" /> <statusCode code ="completed" /> <effectiveTime value="[id number] " /> <value unit="10*3/uL" xsi:type="PQ&quot ; value="0.30" /> <referenceRange> < observationRange> <text>0.30-1.00</text> </observationRange> </referenceRange> </ observation> </component> <component> < observation moodCode="EVN" classCode="OBS"> < templateId root="2.16.840.1.421542.10.20.22.4.2" /> < id nullFlavor="NA" /> <code codeSystem="local" code="ANECT" displayName="*ABSOLUTE NEUTROPHILS" /> <statusCode code="completed" /> <effectiveTime value="273393298801" /> <value unit="10*3/uL&quot ; xsi:type="PQ" value="4.70" /> < referenceRange> <observationRange> <text> 1.80-7.80</text> </observationRange> </ referenceRange> </observation> </component> < component> <observation moodCode="EVN" classCode="OBS" > <templateId root="2.16.840.1.965981.10.20.22.4.2" /& gt; <id nullFlavor="NA" /> <code codeSystem=& quot;local" code="MPV" displayName="MPV" /> &lt ;statusCode code="completed" /> <effectiveTime value=& quot;602238704225" /> <value unit="fL" xsi:type=& quot;PQ" value="8.6" /> <referenceRange> <observationRange> <text>7.4-10.4</text> </observationRange> </referenceRange> < /observation> </component> <component> < observation moodCode="EVN" classCode="OBS"> < templateId root="2.16.840.1.363145.10.20.22.4.2" /> < id nullFlavor="NA" /> <code codeSystem="local&quot ; code="PLT" displayName="PLATELETS" /> < statusCode code="completed" /> <effectiveTime value=& quot;777934670755" /> <value unit="10*3/uL" xsi:type=&quot ;PQ" value="291" /> <referenceRange> <observationRange> <text>159-386</text> </observationRange> </referenceRange> </ observation> </component> <component> < observation moodCode="EVN" classCode="OBS"> < templateId root="2.16.840.1.767159.10.20.22.4.2" /> <id nullFlavor="NA" /> <code codeSystem="local" code="WBCIR" displayName="WBC" /> < statusCode code="completed"/> <effectiveTime value=& quot;741057709259" /> <value unit="10*3/uL" xsi: type="PQ" value="6.7" /> <referenceRange> <observationRange> <text>3.6-11.2</text> </observationRange> </referenceRange> &lt ;/observation> </component> <component> < observation moodCode="EVN" classCode="OBS"> < templateId root="2.16.840.1.952189.10.20.22.4.2" /> < id nullFlavor="NA" /> <code codeSystem="local&quot ; code="RBC" displayName="RBC" /> < statusCode code="completed" /> <effectiveTime value=& quot;698448302127" /> <value unit="" xsi:type=& quot;PQ" value="4.42" /> <referenceRange> <observationRange> <text>3.63-4.92</text> </observationRange> </referenceRange> & lt;/observation> </component> <component> < observation moodCode="EVN" classCode="OBS"> < templateId root="2.16.840.1.936785.10.20.22.4.2" /> < id nullFlavor="NA" /> <code codeSystem="local" code= "HGB" displayName="HEMOGLOBIN" /> < statusCode code="completed" /> <effectiveTime value=& quot;541691569076" /> <value unit="" xsi:type=& quot;PQ" value="13.3" /> <referenceRange> <observationRange> <text>11.0-14.3</text> </observationRange> </referenceRange> </ observation> </component> <component> < observation moodCode="EVN" classCode="OBS"> < templateId root="2.16.840.1.578271.10.20.22.4.2" /> < id nullFlavor="NA" /> <code codeSystem="local&quot ; code="HCT" displayName="HEMATOCRIT" /> < statusCode code="completed" /> <effectiveTime value=& quot;746556795032" /> <value unit="%" xsi: type="PQ" value="38.3" /> <referenceRange> <observationRange> <text>31.2-41.9</text&gt ; </observationRange> </referenceRange> & lt;/observation> </component> <component> < observation moodCode="EVN" classCode="OBS"> < templateId root="2.16.840.1.672067.10.20.22.4.2" /> < id nullFlavor="NA" /> <code codeSystem="local&quot ; code="MCV" displayName="MCV" /> < statusCode code="completed" /> <effectiveTime value=& quot;486630836120" /> <value unit="fL" xsi:type=& quot;PQ" value="86.6" /> <referenceRange> <observationRange> <text>79.0-98.0</text> </observationRange> </referenceRange> & lt;/observation> </component> <component> < observation moodCode="EVN" classCode="OBS"> < templateId root="2.16.840.1.670042.10.20.22.4.2" /> < id nullFlavor="NA" /> <code codeSystem="local&quot ; code="MCH" displayName="MCH" /> < statusCode code="completed" /> <effectiveTime value=& quot;161013075672" /> <value unit="pg" xsi:type=& quot;PQ" value="30.2" /> <referenceRange> <observationRange> <text>27.0-33.0</text> </observationRange> </referenceRange> </ observation> </component> <component> < observation moodCode="EVN" classCode="OBS"> < templateId root="2.16.840.1.428897.10.20.22.4.2" /> < id nullFlavor="NA" /> <code codeSystem="local&quot ; code="MCHC" displayName="MCHC" /> < statusCode code="completed" /> <effectiveTime value=& quot;803293274128" /> <value unit="" xsi:type=& quot;PQ" value="34.8" /> <referenceRange> <observationRange> <text>32.0-36.0</text> </observationRange> </referenceRange> </ observation> </component> <component> < observation moodCode="EVN" classCode="OBS"> < templateId root="2.16.840.1.542011.10.20.22.4.2" /> < id nullFlavor="NA" /> <code codeSystem="local&quot ; code="RDW" displayName="RDW" /> < statusCode code="completed" /> <effectiveTime value=& quot;271425834995" /> <value unit="%" xsi:type=& quot;PQ" value="13.5" /> <referenceRange> & lt;observationRange> <text>12.3-17.0</text> </observationRange> </referenceRange> </ observation> </component> <component> < observation moodCode="EVN" classCode="OBS"> < templateId root="2.16.840.1.104339.10.20.22.4.2"/> <id nullFlavor="NA" /> <code codeSystem="local" code="RDWSD" displayName="RDWSD" /> < statusCode code="completed" /> <effectiveTime value=& quot;933361647703" /> <value unit="" xsi:type=& quot;PQ" value="41.6" /> <referenceRange> <observationRange> <text>37.1-47.8</text> </observationRange> </referenceRange> < /observation> </component> </organizer> </entry> <entry> <organizer moodCode="EVN" classCode="BATTERY& quot;> <templateId root="2.16.840.1.744811.10.20.22.4.1" /& gt; <id nullFlavor="NA" /> <code codeSystem=" local" code="IRN" displayName="IRON" /> < statusCode code="completed" /> <component> < observation moodCode="EVN" classCode="OBS"> < templateId root="2.16.840.1.023635.10..22.4.2" /> < id nullFlavor="NA" /> <code codeSystem="local&quot ; code="IRN" displayName="IRON" /> < statusCode code="completed" /> <effectiveTime value=& quot;934253007634" /> <value unit="ug/dL" xsi:type ="PQ" value="64" /> <referenceRange> <observationRange> <text>50-170</text> </observationRange> </referenceRange> </ observation> </component> </organizer> </entry> & lt;entry> <organizer moodCode="EVN" classCode="BATTERY& quot;> <templateId root="2.16.840.1.659141.10..22.4.1" /> <id nullFlavor="NA" /> <code codeSystem=" local" code="FERR" displayName="FERRITIN" /> & lt;statusCode code="completed" /> <component> &lt ;observation moodCode="EVN" classCode="OBS"> &lt ;templateId root="2.16.840.1.528489.10..22.4.2" /> < id nullFlavor="NA" /> <code codeSystem="local" code= "FERR" displayName="FERRITIN" /> <statusCode code="completed" /> <effectiveTime value=" 077716483421" /> <value unit="ng/mL" xsi:type=& quot;PQ" value="79" /> <referenceRange> <observationRange> <text>13-150</text> </observationRange> </referenceRange> </ observation> </component> </organizer> </entry> & lt;entry> <organizer moodCode="EVN" classCode="BATTERY&quot ;> <templateId root="2.16.840.1.482956.10.20.22.4.1" /> <id nullFlavor="NA" /> <code codeSystem=" local" code="B12FO" displayName="VITAMIN B12 & FOLATE" /> <statusCode code="completed" /> &lt ;component> <observation moodCode="EVN" classCode=" OBS"> <templateId root="2.16.840.1.641145.10...4.2& quot; /> <id nullFlavor="NA" /><code codeSystem=& quot;local" code="B12" displayName="VITAMIN B12" /> <statusCode code="completed" /> < effectiveTime value="235846149988" /> <value unit=&quot ;pg/mL" xsi:type="PQ" value=">1500" /> <interpretationCode codeSystem="local" code="*" /&gt ; <referenceRange> <observationRange> <text>180-914</text> </observationRange> </referenceRange> </observation> </component> </organizer> </entry> <entry> <organizer moodCode= "EVN" classCode="BATTERY"> <templateId root=&quot ;2.16.840.1.131755.10.20.22.4.1" /> <id nullFlavor="NA&quot ; /> <code codeSystem="local" code="PT" displayName="PROTHROMBIN TIME" /> <statusCode code=" completed" /> <component> <observation moodCode=& quot;EVN" classCode="OBS"> <templateId root=" 2.16.840.1.792496.10.20.22.4.2" /> <id nullFlavor="NA& quot; /> <code codeSystem="local" code="INR" displayName="*INR" /> <statusCode code="completed& quot; /> <effectiveTime value="160246684581" /> &lt ;value unit="" xsi:type="PQ" value="1.41" /> <interpretationCode codeSystem="local" code="*" / > <referenceRange> <observationRange> <text>0.90-1.10</text> </observationRange> </referenceRange> </observation> </component& gt; <component> <observation moodCode="EVN" classCode="OBS"> <templateId root=" 2.16.840.1.887775.10.20.22.4.2" /> <id nullFlavor="NA& quot; /> <code codeSystem="local" code="PTI" displayName="*PROTHROMBIN TIME" /> <statusCode code=& quot;completed" /> <effectiveTime value="080069314370& quot; /> <value unit="s"xsi:type="PQ" value=& quot;14.9" /> <interpretationCode codeSystem="local& quot; code="*" /> <referenceRange> < observationRange> <text>9.4-11.5</text> & lt;/observationRange> </referenceRange> </ observation> </component> </organizer> </entry> & lt;entry> <organizer moodCode="EVN" classCode="BATTERY& quot;> <templateId root="2.16.840.1.204775.10.20.22.4.1" /& gt; <id nullFlavor="NA" /> <code codeSystem=" local" code="PT" displayName="PROTHROMBIN TIME" /> <statusCode code="completed" /> <component> <observation moodCode="EVN" classCode="OBS"> <templateId root="2.16.840.1.538814.10.20.22.4.2" /> <id nullFlavor="NA" /> <code codeSystem=" local" code="INR" displayName="*INR" /> &lt ;statusCode code="completed" /> <effectiveTime value=& quot;947632926981" /> <value unit="" xsi:type=& quot;PQ" value="1.46" /> <interpretationCode codeSystem="local" code="*" /> <referenceRange& gt; <observationRange> <text>0.90-1.10</ text> </observationRange> </referenceRange> </observation> </component> <component> <observation moodCode="EVN" classCode="OBS"> <templateId root="2.16.840.1.022669.10.20.22.4.2" /> <id nullFlavor="NA" /> <code codeSystem=" local" code="PTI" displayName="*PROTHROMBIN TIME" /&gt ; <statusCode code="completed" /> < effectiveTime value="255883057058" /> <value unit="s&quot ; xsi:type="PQ" value="15.4" /> < interpretationCode codeSystem="local" code="*" /> <referenceRange> <observationRange> < text>9.4-11.5</text> </observationRange> < /referenceRange> </observation> </component> </ organizer> </entry> <entry> <organizer moodCode="EVN " classCode="BATTERY"> <templateId root=" 2.16.840.1.988096.10.20.22.4.1" /> <id nullFlavor="NA&quot ; /> <code codeSystem="local" code="3342896" displayName="COMPREHENSIVE PROFILE*" /> <statusCode code=& quot;completed" /> <component> <observation moodCode="EVN" classCode="OBS"> <templateId root="2.16.840.1.692182.10.20.22.4.2" /> <id nullFlavor=& quot;NA" /> <code codeSystem="local" code=" ALBUMIN " displayName="ALBUMIN " /> <statusCode code="completed" /> <effectiveTime value=" 583594416512" /> <value unit="g/dL" xsi:type=&quot ;PQ" value="3.2" /> <interpretationCodecodeSystem= "local" code="*" /> <referenceRange> <observationRange> <text>3.4 - 5.0</text> </observationRange> </referenceRange> & lt;/observation> </component> <component> < observation moodCode="EVN" classCode="OBS"> < templateId root="2.16.840.1.139739.10.20.22.4.2" /> < id nullFlavor="NA" /> <code codeSystem="local&quot ; code="ALPI " displayName="ALPI " /> < statusCode code="completed" /> <effectiveTime value=& quot;199590756175" /> <value unit="U/L" xsi:type=& quot;PQ" value="145" /> <interpretationCode codeSystem="local" code="*" /> < referenceRange> <observationRange> <text> 46 - 116</text> </observationRange> </ referenceRange> </observation> </component> < component> <observation moodCode="EVN" classCode=" OBS"> <templateId root="2.16.840.1.874462.10..22.4.2& quot; /> <id nullFlavor="NA" /> <code codeSystem="local" code="BUN" displayName="BUN" /& gt; <statusCode code="completed" /> < effectiveTime value="400919876390" /> <value unit="mg/dL " xsi:type="PQ" value="9" /> < referenceRange> <observationRange> <text> 7 - 18</text> </observationRange> </ referenceRange> </observation></component> < component> <observation moodCode="EVN" classCode=" OBS"> <templateId root="2.16.840.1.794993.10.20.22.4.2& quot; /> <id nullFlavor="NA" /> <code codeSystem="local" code="CALCIUM " displayName=" CALCIUM " /> <statusCode code="completed" /> <effectiveTime value="366519173656" /> < value unit="mg/dL" xsi:type="PQ" value="8.6" /&gt ; <referenceRange> <observationRange> <text>8.5 - 10.1</text> </observationRange> </referenceRange> </observation> </component&gt ; <component> <observation moodCode="EVN" classCode="OBS"> <templateId root=" 2.16.840.1.506751.10.20.22.4.2" /> <id nullFlavor="NA& quot; /> <code codeSystem="local" code="GLUCOSE & quot; displayName="GLUCOSE " /> <statusCode code=" completed" /> <effectiveTime value="117545239581" /&gt ; <value unit="mg/dL" xsi:type="PQ" value=" 93" /> <referenceRange> <observationRange& gt; <text>74 - 106</text> </ observationRange> </referenceRange> </observation&gt ; </component> <component> <observation moodCode ="EVN" classCode="OBS"> <templateId root=& quot;2.16.840.1.170889.10..22.4.2" /> <id nullFlavor=&quot ;NA" /> <code codeSystem="local" code=" POTASSIUM " displayName="POTASSIUM " /> < statusCode code="completed" /> <effectiveTime value=& quot;067185309436" /> <value unit="mmol/L" xsi: type="PQ" value="4.30" /> <referenceRange&gt ; <observationRange> <text>3.50 - 5.10</ text> </observationRange> </referenceRange> & lt;/observation> </component> <component> < observation moodCode="EVN" classCode="OBS"> < templateId root="2.16.840.1.952271.10.20.22.4.2" /> < id nullFlavor="NA" /> <code codeSystem="local&quot ; code="SODIUM " displayName="SODIUM " /> < statusCode code="completed" /> <effectiveTime value=& quot;346046685116" /> <value unit="mmol/L" xsi: type="PQ" value="144" /> <referenceRange> <observationRange> <text>136 - 145</text> </observationRange> </referenceRange> </ observation> </component> <component> < observation moodCode="EVN" classCode="OBS"> < templateId root="2.16.840.1.424316.10.20.22.4.2" /> < id nullFlavor="NA" /> <code codeSystem="local&quot ; code="COMPREHENSIVEPROFILE*" displayName="COMPREHENSIVEPROFILE* " /> <statusCode code="completed" /> & lt;effectiveTime value="479841879401" /> <value unit=& quot;" xsi:type="PQ" value="" /> < referenceRange> <observationRange> <text>NRG&lt ;/text> </observationRange> </referenceRange&gt ; </observation> </component> <component> <observation moodCode="EVN" classCode="OBS"> <templateId root="2.16.840.1.204794.10.20.22.4.2" /> <id nullFlavor="NA" /> <codecodeSystem=" local" code="CREATININE" displayName="CREATININE" /&gt ; <statusCode code="completed" /> < effectiveTime value="975471404939" /> <value unit=&quot ;mg/dL" xsi:type="PQ" value="0.4" /> < interpretationCode codeSystem="local" code="*" /> < referenceRange> <observationRange> <text> 0.6 - 1.3</text> </observationRange> </ referenceRange> </observation> </component> < component> <observation moodCode="EVN" classCode=" OBS"> <templateId root="2.16.840.1.153387.10.20.22.4.2& quot; /> <id nullFlavor="NA" /> <code codeSystem="local" code="CHLORIDE" displayName=" CHLORIDE" /> <statusCode code="completed" /> <effectiveTime value="350783452573" /> < value unit="mmol/L" xsi:type="PQ" value="107" /&gt ; <referenceRange> <observationRange> <text>98 - 107</text> </observationRange> &lt ;/referenceRange> </observation> </component> & lt;component> <observation moodCode="EVN" classCode=&quot ;OBS"> <templateId root="2.16.840.1.372368.10.20.22.4.2 " /> <id nullFlavor="NA" /> <code codeSystem ="local" code="CO2" displayName="CO2" /> <statusCode code="completed" /> <effectiveTime value ="763478722432" /> <value unit="mmol/L" xsi: type="PQ" value="27" /> <referenceRange> <observationRange> <text>21 - 32</text&gt ; </observationRange> </referenceRange> & lt;/observation> </component> <component> < observation moodCode="EVN" classCode="OBS"> < templateId root="2.16.840.1.101646.10.20.22.4.2" /> < id nullFlavor="NA" /> <code codeSystem="local&quot ; code="TOTALPROTEIN" displayName="TOTAL PROTEIN" /> <statusCode code="completed" /> < effectiveTime value="119221914714" /> <value unit=&quot ;g/dL" xsi:type="PQ" value="6.3" /> < interpretationCode codeSystem="local" code="*" /> <referenceRange> <observationRange> <text& gt;6.4 - 8.2</text> </observationRange> </ referenceRange> </observation> </component> < component> <observation moodCode="EVN" classCode=" OBS"> <templateId root="2.16.840.1.215315.10.20.22.4.2& quot; /> <id nullFlavor="NA" /> <code codeSystem="local" code="TOTALBILI" displayName="TOTAL BILI" /> <statusCode code="completed" /> <effectiveTime value="877886384958" /> <value unit="mg/dL" xsi:type="PQ" value="0.50" /> <referenceRange> <observationRange> & lt;text>0.50 - 1.50</text> </observationRange> </referenceRange> </observation> </component> <component> <observationmoodCode="EVN" classCode= "OBS"> <templateId root=" 2.16.840.1.975192.10.20.22.4.2" /> <id nullFlavor="NA& quot; /> <code codeSystem="local" code="AST" displayName="AST" /> <statusCode code="completed& quot; /> <effectiveTime value="523248497858" /> <value unit="U/L" xsi:type="PQ" value="26&quot ; /> <referenceRange> <observationRange> <text>15 - 36</text> </observationRange> </referenceRange> </observation> </component > <component> <observation moodCode="EVN" classCode="OBS"> <templateId root=" 2.16.840.1.229721.10.20.22.4.2" /> <id nullFlavor="NA& quot; /> <code codeSystem="local" code="ALTI&quot ; displayName="ALTI" /> <statusCode code=" completed" /> <effectiveTime value="293821915095" /> <value unit="U/L" xsi:type="PQ" value=& quot;30" /> <referenceRange> <observationRange> <text>30 - 65</text> </observationRange& gt; </referenceRange> </observation> </ component><component> <observation moodCode="EVN" classCode="OBS"> <templateId root=" 2.16.840.1.829854.10.20.22.4.2" /> <id nullFlavor="NA& quot; /> <code codeSystem="local" code="AGE" displayName="AGE" /> <statusCode code="completed& quot; /> <effectiveTime value="330180381656" /> <value unit="years" xsi:type="PQ" value="52& quot; /> <referenceRange> <observationRange> <text>NRG</text> </observationRange> </referenceRange> </observation> </component > <component> <observation moodCode="EVN" classCode="OBS"> <templateId root=" 2.16.840.1.370881.10.20.22.4.2" /> <id nullFlavor="NA& quot; /> <code codeSystem="local" code=" eGFRNONAFRAMER" displayName="eGFR NON AFR AMER" /> & lt;statusCode code="completed" /> <effectiveTime value= "055566027813" /> <value unit="mL/min" xsi: type="PQ" value="168.28" /> <referenceRange& gt; <observationRange> <text>NRG</text> </observationRange> </referenceRange> < /observation> </component> <component> < observation moodCode="EVN" classCode="OBS"> < templateId root="2.16.840.1.185182.10.20.22.4.2" /> < id nullFlavor="NA" /> <code codeSystem="local&quot ; code="eGFRAFRAMER" displayName="eGFR AFR AMER" /> <statusCode code="completed" /> <effectiveTime value="954764376907" /> <value unit="mL/min" xsi:type="PQ" value="203.62" /> < referenceRange> <observationRange><text>NRG</text& gt; </observationRange> </referenceRange> & lt;/observation> </component> </organizer> </entry&gt ; <entry> <organizer moodCode="EVN" classCode=" BATTERY"> <templateId root="2.16.840.1.276640.10.20.22.4.1& quot; /> <id nullFlavor="NA" /> <code codeSystem ="local" code="CBCND" displayName="CBC WITH PLATELET NO DIFFERENTIAL" /> <statusCode code="completed" /&gt ; <component> <observation moodCode="EVN" classCode= "OBS"> <templateId root=" 2.16.840.1.745356.10.20.22.4.2" /> <id nullFlavor="NA& quot; /> <code codeSystem="local" code="MPV" displayName="MPV" /> <statusCode code="completed& quot; /> <effectiveTime value="125003075043" /> <value unit="fL" xsi:type="PQ" value="8.6&quot ; /> <referenceRange> <observationRange> <text>7.4-10.4</text> </observationRange&gt ; </referenceRange> </observation> </component> <component> <observation moodCode="EVN" classCode="OBS"> <templateId root=" 2.16.840.1.932052.10.20.22.4.2" /> <id nullFlavor="NA& quot; /> <code codeSystem="local" code="PLT" displayName="PLATELETS" /> <statusCode code=" completed" /> <effectiveTime value="457342283861" /> <value unit="10*3/uL" xsi:type="PQ" value=& quot;266" /> <referenceRange> <observationRange> <text>159-386</text> </observationRange& gt; </referenceRange> </observation> </ component> <component> <observation moodCode="EVN& quot; classCode="OBS"> <templateId root=" 2.16.840.1.043297.10.20.22.4.2" /> <id nullFlavor="NA& quot; /> <code codeSystem="local" code="WBCIR&quot ; displayName="WBC" /> <statusCode code="completed " /> <effectiveTime value="859904123117" /> <value unit="10*3/uL" xsi:type="PQ" value=" 7.7" /> <referenceRange> <observationRange& gt; <text>3.6-11.2</text> </ observationRange> </referenceRange> </observation&gt ; </component> <component> <observation moodCode ="EVN" classCode="OBS"> <templateId root=& quot;2.16.840.1.342092.10.20.22.4.2" /> <id nullFlavor=&quot ;NA" /> <code codeSystem="local" code="RBC& quot; displayName="RBC" /> <statusCode code=" completed" /> <effectiveTime value="926818093581" /> <value unit="" xsi:type="PQ" value=" 4.64" /> <referenceRange> <observationRange > <text>3.63-4.92</text> </ observationRange> </referenceRange> </observation&gt ; </component> <component> <observation moodCode=& quot;EVN" classCode="OBS"> <templateId root=" 2.16.840.1.730867.10.20.22.4.2" /> <id nullFlavor="NA& quot; /> <code codeSystem="local" code="HGB" displayName="HEMOGLOBIN"/> <statusCode code=" completed" /> <effectiveTime value="939525041061" /> <value unit="" xsi:type="PQ" value=" 13.7" /> <referenceRange> <observationRange > <text>11.0-14.3</text> </ observationRange> </referenceRange> </observation> </component> <component> <observation moodCode= "EVN" classCode="OBS"> <templateId root=&quot ;2.16.840.1.806816.10.20.22.4.2" /> <id nullFlavor="NA& quot; /> <code codeSystem="local" code="HCT" displayName="HEMATOCRIT" /> <statusCode code=" completed" /> <effectiveTime value="456518231453" /> <value unit="%" xsi:type="PQ" value="39.9" /> <referenceRange> < observationRange> <text>31.2-41.9</text> </observationRange> </referenceRange> </ observation> </component> <component> < observation moodCode="EVN" classCode="OBS"> < templateId root="2.16.840.1.666144.10.20.22.4.2" /> < id nullFlavor="NA" /> <code codeSystem="local&quot ; code="MCV" displayName="MCV" /> < statusCode code="completed" /> <effectiveTime value=& quot;690084919445" /> <value unit="fL" xsi:type=& quot;PQ" value="86.0" /> <referenceRange> <observationRange> <text>79.0-98.0</text> </observationRange> </referenceRange> & lt;/observation> </component> <component> < observation moodCode="EVN" classCode="OBS"> < templateId root="2.16.840.1.284994.10..22.4.2" /> < id nullFlavor="NA" /> <code codeSystem="local&quot ; code="MCH" displayName="MCH" /> < statusCode code="completed" /><effectiveTime value=" 790728790369" /> <value unit="pg" xsi:type=" PQ" value="29.4" /> <referenceRange> <observationRange> <text>27.0-33.0</text> </observationRange> </referenceRange> </ observation> </component> <component> < observation moodCode="EVN" classCode="OBS"> < templateId root="2.16.840.1.133677.10.20.22.4.2" /> < id nullFlavor="NA"/> <code codeSystem="local&quot ; code="MCHC" displayName="MCHC" /> < statusCode code="completed" /> <effectiveTime value=& quot;[id number]" /> <value unit="" xsi:type=& quot;PQ" value="34.2" /> <referenceRange> <observationRange> <text>32.0-36.0</text> </observationRange> </referenceRange> & lt;/observation> </component> <component> < observation moodCode="EVN" classCode="OBS"> < templateId root="[id number]" /> < id nullFlavor="NA" /> <code codeSystem="local&quot ; code="RDW" displayName="RDW" /> < statusCode code="completed" /> <effectiveTime value=& quot;[id number]" /> <value unit="%" xsi: type="PQ" value="13.7" /> <referenceRange> <observationRange> <text>12.3-17.0</text&gt ; </observationRange> </referenceRange> & lt;/observation> </component> <component> < observation moodCode="EVN" classCode="OBS"> < templateId root="2.16.840.1.620020.10.20.22.4.2" /> < id nullFlavor="NA" /> <code codeSystem="local&quot ; code="RDWSD" displayName="RDWSD" /> < statusCode code="completed" /> <effectiveTime value=& quot;789989389216" /> <value unit="" xsi:type=& quot;PQ" value="41.6" /> <referenceRange> <observationRange> <text>37.1-47.8</text> </observationRange> </referenceRange> & lt;/observation> </component> </organizer> </entry&gt ; <entry> <organizer moodCode="EVN" classCode=" BATTERY"> <templateId root="2.16.840.1.917839.10.20.22.4.1& quot; /> <id nullFlavor="NA" /> <code codeSystem ="local" code="PT" displayName="PROTHROMBIN TIME" /> <statusCode code="completed" /> <component&gt ; <observation moodCode="EVN" classCode="OBS"> <templateId root="2.16.840.1.993187.10.20.22.4.2" /> <id nullFlavor="NA" /> <code codeSystem=& quot;local" code="INR" displayName="*INR" /> <statusCode code="completed" /> <effectiveTime value=& quot;306038650940" /> <value unit="" xsi:type=& quot;PQ" value="2.17" /> <interpretationCode codeSystem="local" code="*" /> < referenceRange> <observationRange> <text> 0.90-1.10</text> </observationRange> </ referenceRange> </observation> </component> < component> <observation moodCode="EVN" classCode=" OBS"> <templateId root="2.16.840.1.541632.10.20.22.4.2& quot; /> <id nullFlavor="NA" /> <code codeSystem="local" code="PTI" displayName="* PROTHROMBIN TIME" /> <statusCode code="completed" /> <effectiveTime value="748307789278" /> & lt;value unit="s" xsi:type="PQ" value="22.7" /&gt ; <interpretationCode codeSystem="local" code="*&quot ; /> <referenceRange> <observationRange> <text>9.4-11.5</text> </observationRange&gt ; </referenceRange> </observation> </ component> </organizer> </entry> <entry> < organizer moodCode="EVN" classCode="BATTERY"> < templateId root="2.16.840.1.964591.10.20.22.4.1" /> <id nullFlavor="NA" /> <code codeSystem="local" code= "FERR" displayName="FERRITIN" /> <statusCode code ="completed" /> <component> <observation moodCode="EVN" classCode="OBS"> <templateId root="2.16.840.1.118543.10.20.22.4.2" /> <id nullFlavor ="NA" /> <code codeSystem="local" code=" FERR" displayName="FERRITIN" /> <statusCode code=& quot;completed" /> <effectiveTime value="864943661522& quot; /> <value unit="ng/mL" xsi:type="PQ" value="66" /> <referenceRange> < observationRange> <text>13-150</text> </ observationRange> </referenceRange> </observation&gt ; </component> </organizer> </entry> <entry> <organizer moodCode="EVN" classCode="BATTERY"> <templateId root="2.16.840.1.175371.10.20.22.4.1" /> < id nullFlavor="NA" /> <code codeSystem="local" code="IRN" displayName="IRON" /> <statusCode code ="completed" /> <component> <observation moodCode="EVN" classCode="OBS"> <templateId root="2.16.840.1.495035.10.20.22.4.2" /> <id nullFlavor ="NA" /> <code codeSystem="local" code=" IRN" displayName="IRON" /> <statusCode code=" completed" /> <effectiveTime value="757283143671" /> <value unit="ug/dL" xsi:type="PQ" value="60& quot; /> <referenceRange> <observationRange> <text>50-170</text> </observationRange& gt; </referenceRange> </observation> </component > </organizer> </entry> <entry> <organizer moodCode="EVN" classCode="BATTERY"> <templateId root="2.16.840.1.836632.10.20.22.4.1" /> <id nullFlavor=& quot;NA" /> <code codeSystem="local" code="B12FO& quot; displayName="VITAMIN B12 & FOLATE" /> < statusCode code="completed" /> <component> < observation moodCode="EVN" classCode="OBS"> < templateId root="2.16.840.1.162344.10.20.22.4.2" /> < id nullFlavor="NA" /> <code codeSystem="local&quot ; code="B12" displayName="VITAMIN B12" /> < statusCode code="completed" /> <effectiveTime value=" 825519792740" /> <value unit="pg/mL" xsi:type=& quot;PQ" value="1028" /> <interpretationCode codeSystem="local" code="*" /> < referenceRange> <observationRange> <text> 180-914</text> </observationRange> </ referenceRange> </observation> </component> </ organizer> </entry> <entry> <organizer moodCode="EVN " classCode="BATTERY"> <templateId root=" 2.16.840.1.403040.10.20.22.4.1" /> <id nullFlavor="NA&quot ; /> <code codeSystem="local" code="CBCND" displayName="CBCWITH PLATELET NO DIFFERENTIAL" /> < statusCode code="completed" /> <component> < observation moodCode="EVN" classCode="OBS"> < templateId root="2.16.840.1.803094.10.20.22.4.2" /> < id nullFlavor="NA" /> <code codeSystem="local&quot ; code="MPV" displayName="MPV" /> < statusCode code="completed" /> <effectiveTime value=& quot;318805963842" /> <value unit="fL" xsi:type=& quot;PQ" value="8.5" /> <referenceRange> <observationRange> <text>7.4-10.4</text> </observationRange> </referenceRange> </ observation> </component> <component> < observation moodCode="EVN" classCode="OBS"> < templateId root="2.16.840.1.978460.10.20.22.4.2" /> < id nullFlavor="NA" /> <code codeSystem="local&quot ; code="PLT" displayName="PLATELETS" /> < statusCode code="completed" /> <effectiveTime value=& quot;679515019336" /> <value unit="10*3/uL" xsi: type="PQ" value="286" /> <referenceRange> <observationRange> <text>159-386</text& gt; </observationRange> </referenceRange></ observation> </component> <component> < observation moodCode="EVN" classCode="OBS"> < templateId root="2.16.840.1.120244.10.20.22.4.2" /> < id nullFlavor="NA" /> <code codeSystem="local&quot ; code="WBCIR" displayName="WBC" /> < statusCode code="completed" /> <effectiveTime value=& quot;768259737515" /> <value unit="10*3/uL" xsi:type=" PQ" value="7.4" /> <referenceRange> <observationRange> <text>3.6-11.2</text> </observationRange> </referenceRange> </ observation> </component> <component> < observation moodCode="EVN" classCode="OBS"> < templateId root="2.16.840.1.425005.10.20.22.4.2" /> <id nullFlavor="NA" /> <code codeSystem="local" code="RBC" displayName="RBC" /> <statusCode code="completed" /> <effectiveTime value=" 002877252530" /> <value unit="" xsi:type="PQ& quot; value="4.91" /> <referenceRange> & lt;observationRange> <text>3.63-4.92</text> </observationRange> </referenceRange> </ observation> </component> <component> < observation moodCode="EVN" classCode="OBS"> < templateId root="2.16.840.1.651346.10.20.22.4.2" /> < id nullFlavor="NA" /> <code codeSystem="local&quot ; code="HGB" displayName="HEMOGLOBIN" /> < statusCode code="completed" /> <effectiveTime value=& quot;541524617832" /> <value unit="" xsi:type=& quot;PQ" value="14.4" /> <interpretationCode codeSystem="local" code="*" /> < referenceRange> <observationRange> <text> 11.0-14.3</text> </observationRange> </ referenceRange> </observation> </component> < component> <observationmoodCode="EVN" classCode="OBS "> <templateId root="2.16.840.1.917784.10.20.22.4.2& quot; /> <id nullFlavor="NA" /> <code codeSystem="local" code="HCT" displayName="HEMATOCRIT& quot; /> <statusCode code="completed" /> & lt;effectiveTime value="996219926892" /> <value unit=& quot;%" xsi:type="PQ" value="42.3" /> <interpretationCode codeSystem="local" code="*" /&gt ; <referenceRange> <observationRange> <text>31.2-41.9</text> </observationRange> </referenceRange> </observation> </component&gt ; <component> <observation moodCode="EVN" classCode="OBS"> <templateId root=" 2.16.840.1.816501.10.20.22.4.2" /> <id nullFlavor="NA& quot; /> <code codeSystem="local" code="MCV" displayName="MCV" /> <statusCode code="completed& quot; /> <effectiveTime value="483311743247" /> <value unit="fL" xsi:type="PQ" value="86.1& quot; /> <referenceRange> <observationRange> <text>79.0-98.0</text> </observationRange> </referenceRange> </observation> </component > <component> <observation moodCode="EVN" classCode="OBS"> <templateId root=" 2.16.840.1.971241.10.20.22.4.2" /> <id nullFlavor="NA& quot; /> <code codeSystem="local" code="MCH" displayName="MCH" /> <statusCode code="completed& quot; /> <effectiveTime value="590960238000" /> <value unit="pg" xsi:type="PQ" value="29.4& quot; /> <referenceRange> <observationRange> <text>27.0-33.0</text> </ observationRange> </referenceRange> </observation&gt ; </component> <component><observation moodCode=" EVN" classCode="OBS"> <templateId root=" 2.16.840.1.303126.10.20.22.4.2" /> <id nullFlavor="NA& quot; /> <code codeSystem="local" code="MCHC" displayName="MCHC" /> <statusCode code="completed& quot; /> <effectiveTime value="464518953614" /> <value unit="" xsi:type="PQ" value="34.2&quot ; /> <referenceRange> <observationRange> <text>32.0-36.0</text> </observationRange&gt ; </referenceRange> </observation> </ component> <component> <observation moodCode="EVN& quot; classCode="OBS"> <templateId root=" 2.16.840.1.155169.10..22.4.2" /> <id nullFlavor="NA& quot; /> <code codeSystem="local" code="RDW" displayName="RDW" /> <statusCode code="completed& quot; /> <effectiveTime value="713823574198" /> <value unit="%" xsi:type="PQ" value=" 13.4" /> <referenceRange> <observationRange > <text>12.3-17.0</text> </ observationRange> </referenceRange> </observation&gt ; </component> <component> <observation moodCode=& quot;EVN" classCode="OBS"> <templateId root=" 2.16.840.1.522377.10.20.22.4.2" /> <id nullFlavor="NA& quot; /> <code codeSystem="local" code="RDWSD&quot ; displayName="RDWSD" /> <statusCode code=" completed" /> <effectiveTime value="375746697412" /> <value unit="" xsi:type="PQ" value=" 41.1" /> <referenceRange> <observationRange> <text>37.1-47.8</text> </observationRange&gt ; </referenceRange> </observation> </ component> </organizer> </entry> <entry> < organizer moodCode="EVN" classCode="BATTERY"> < templateId root="2.16.840.1.857259.10.20.22.4.1" /> <id nullFlavor="NA" /> <code codeSystem="local" code= "PT" displayName="PROTHROMBIN TIME" /> < statusCode code="completed" /> <component> < observation moodCode="EVN" classCode="OBS"> < templateId root="2.16.840.1.150222.10.20.22.4.2" /> < id nullFlavor="NA" /> <code codeSystem="local&quot ; code="INR" displayName="*INR" /> < statusCode code="completed" /> <effectiveTime value=& quot;117660812601" /> <value unit="" xsi:type=& quot;PQ" value="1.87" /> <interpretationCode codeSystem="local" code="*" /> < referenceRange> <observationRange> <text>0.90-1.10& lt;/text> </observationRange> </referenceRange& gt; </observation> </component> <component> <observation moodCode="EVN" classCode="OBS"> <templateId root="2.16.840.1.554446.10.20.22.4.2" /> <id nullFlavor="NA" /> <code codeSystem=&quot ;local" code="PTI" displayName="*PROTHROMBIN TIME" /&gt ; <statusCode code="completed" /> < effectiveTime value="165341941415" /> <value unit=&quot ;s" xsi:type="PQ" value="19.6" /> < interpretationCode codeSystem="local" code="*" /> < referenceRange> <observationRange> <text> 9.4-11.5</text> </observationRange> </ referenceRange> </observation> </component> </ organizer> </entry> <entry> <organizer moodCode="EVN " classCode="BATTERY"> <templateId root=" 2.16.840.1.064728.10.20.22.4.1" /> <id nullFlavor="NA&quot ; /> <code codeSystem="local" code="FERR" displayName="FERRITIN" /> <statusCode code="completed& quot; /> <component> <observation moodCode="EVN& quot; classCode="OBS"> <templateId root=" 2.16.840.1.277132.10.20.22.4.2" /> <id nullFlavor="NA& quot; /> <code codeSystem="local" code="FERR&quot ; displayName="FERRITIN" /> <statusCode code=" completed" /> <effectiveTime value="273865485562" /> <value unit="ng/mL" xsi:type="PQ" value=& quot;65" /> <referenceRange> < observationRange> <text>13-150</text> &lt ;/observationRange> </referenceRange> </observation& gt; </component> </organizer> </entry> <entry&gt ; <organizer moodCode="EVN" classCode="BATTERY"> <templateId root="2.16.840.1.218746.10.20.22.4.1" /> & lt;id nullFlavor="NA" /> <code codeSystem="local&quot ; code="IRN" displayName="IRON" /> <statusCode code="completed" /> <component> <observation moodCode="EVN" classCode="OBS"> <templateId root="2.16.840.1.471453.10..22.4.2" /> <id nullFlavor ="NA" /> <code codeSystem="local" code=" IRN" displayName="IRON" /> <statusCode code=" completed" /> <effectiveTime value="227372509601" /> <value unit="ug/dL" xsi:type="PQ" value=& quot;70" /> <referenceRange> < observationRange> <text>50-170</text> &lt ;/observationRange> </referenceRange> </observation& gt; </component> </organizer> </entry> <entry&gt ; <organizer moodCode="EVN" classCode="BATTERY"> <templateId root="2.16.840.1.288234.10.20.22.4.1" /> < id nullFlavor="NA" /> <code codeSystem="local" code="B12FO" displayName="VITAMIN B12 & FOLATE" /&gt ; <statusCode code="completed" /> <component> <observation moodCode="EVN" classCode="OBS">< templateId root="2.16.840.1.556471.10.20.22.4.2" /> < id nullFlavor="NA" /> <code codeSystem="local&quot ; code="B12" displayName="VITAMIN B12" /> < statusCode code="completed" /> <effectiveTime value=& quot;707595319786" /> <value unit="pg/mL" xsi:type ="PQ" value="1330" /> <interpretationCode codeSystem="local" code="*" /> < referenceRange> <observationRange> <text>180-914&lt ;/text> </observationRange> </referenceRange&gt ; </observation> </component> </organizer> &lt ;/entry> <entry> <organizer moodCode="EVN" classCode=& quot;BATTERY"> <templateId root=" 2.16.840.1.714172.10.20.22.4.1" /> <id nullFlavor="NA&quot ; /> <code codeSystem="local" code="PT" displayName="PROTHROMBIN TIME" /> <statusCode code=" completed" /> <component> <observation moodCode=& quot;EVN" classCode="OBS"> <templateId root=" 2..840.1.764528.10..22.4.2" /> <id nullFlavor="NA& quot; /> <code codeSystem="local" code="INR" displayName="*INR" /> <statusCode code="completed& quot; /> <effectiveTime value="212170114078" /> <value unit="" xsi:type="PQ" value="3.48&quot ; /> <interpretationCode codeSystem="local" code="*& quot; /> <referenceRange> <observationRange> <text>0.90-1.10</text> </observationRange& gt; </referenceRange> </observation> </component& gt; <component> <observation moodCode="EVN" classCode="OBS"> <templateId root=" 2.16.840.1.488701.10.20.22.4.2" /> <id nullFlavor="NA&quot ; /> <code codeSystem="local" code="PTI" displayName="*PROTHROMBIN TIME" /> <statusCode code=& quot;completed" /> <effectiveTime value="606137553353& quot; /> <value unit="s" xsi:type="PQ" value= "34.5" /> <interpretationCode codeSystem="local& quot; code="*" /> <referenceRange> < observationRange> <text>9.4-11.5</text> & lt;/observationRange> </referenceRange> </ observation> </component> </organizer> </entry> & lt;entry> <organizer moodCode="EVN" classCode="BATTERY& quot;> <templateId root="2.16.840.1.402977.10.20.22.4.1" /& gt; <id nullFlavor="NA" /> <code codeSystem=" local" code="CBCND" displayName="CBC WITH PLATELET NO DIFFERENTIAL" /> <statusCode code="completed" /> <component> <observation moodCode="EVN" classCode= "OBS"> <templateId root=" 2.16.840.1.966699.10.20.22.4.2" /> <id nullFlavor="NA" /&gt ; <code codeSystem="local" code="MPV" displayName="MPV" /> <statusCode code="completed& quot; /> <effectiveTime value="591168150465" /> <value unit="fL" xsi:type="PQ" value="8.1" /& gt; <referenceRange> <observationRange> <text>7.4-10.4</text> </observationRange> </referenceRange> </observation> </component& gt; <component> <observation moodCode="EVN" classCode="OBS"> <templateId root=" 2.16.840.1.369070.10.20.22.4.2" /> <id nullFlavor="NA& quot; /> <code codeSystem="local" code="PLT" displayName="PLATELETS" /> <statusCode code=" completed" /> <effectiveTimevalue="485696750785" / > <value unit="10*3/uL" xsi:type="PQ" value=& quot;276" /> <referenceRange> < observationRange> <text>159-386</text> < /observationRange> </referenceRange> </observation& gt; </component> <component> <observation moodCode="EVN" classCode="OBS"> <templateId root="2.16.840.1.639149.10.20.22.4.2" /> <id nullFlavor ="NA" /> <code codeSystem="local" code=" WBCIR" displayName="WBC" /> <statusCode code=" completed" /> <effectiveTime value="011416477310" /> <value unit="10*3/uL" xsi:type="PQ" value= "6.3" /> <referenceRange> < observationRange> <text>3.6-11.2</text> & lt;/observationRange> </referenceRange> </ observation> </component> <component> < observation moodCode="EVN" classCode="OBS"> < templateId root="2.16.840.1.983501.10.20.22.4.2" /> < id nullFlavor="NA" /> <code codeSystem="local&quot ; code="RBC" displayName="RBC" /> < statusCode code="completed" /> <effectiveTime value=& quot;880758782200" /> <value unit="" xsi:type=& quot;PQ" value="4.66" /> <referenceRange> <observationRange> <text>3.63-4.92</text> </observationRange> </referenceRange> </ observation> </component> <component> < observation moodCode="EVN" classCode="OBS"> < templateId root="2.16.840.1.891327.10.20.22.4.2" /> < id nullFlavor="NA" /> <code codeSystem="local&quot ; code="HGB" displayName="HEMOGLOBIN" /> < statusCode code="completed" /> <effectiveTime value=& quot;745592591950" /> <value unit="" xsi:type=& quot;PQ" value="13.8" /> <referenceRange> <observationRange> <text>11.0-14.3</text> </observationRange> </referenceRange> & lt;/observation> </component> <component> < observation moodCode="EVN" classCode="OBS"> < templateId root="2.16.840.1.210233.10.20.22.4.2" /> < id nullFlavor="NA" /> <code codeSystem="local&quot ; code="HCT" displayName="HEMATOCRIT" /> < statusCode code="completed" /> <effectiveTime value=& quot;093550464278" /> <value unit="%" xsi: type="PQ" value="39.7" /> <referenceRange&gt ; <observationRange> <text>31.2-41.9</ text> </observationRange> </referenceRange> &lt ;/observation> </component> <component> < observation moodCode="EVN" classCode="OBS"> < templateIdroot="2.16.840.1.438485.10.20.22.4.2" /> <id nullFlavor="NA" /> <code codeSystem="local" code="MCV" displayName="MCV" /> <statusCode code="completed" /> <effectiveTime value=" 116913506338" /> <value unit="fL" xsi:type=" PQ" value="85.3" /> <referenceRange> <observationRange> <text>79.0-98.0</text> </observationRange> </referenceRange> </ observation> </component> <component> < observation moodCode="EVN" classCode="OBS"> < templateId root="2.16.840.1.250989.10.20.22.4.2" /> < id nullFlavor="NA" /> <code codeSystem="local&quot ; code="MCH" displayName="MCH" /> < statusCode code="completed" /> <effectiveTime value=& quot;792850158762" /> <value unit="pg" xsi:type="PQ& quot; value="29.7" /> <referenceRange> & lt;observationRange> <text>27.0-33.0</text> </observationRange> </referenceRange> </ observation> </component> <component> < observation moodCode="EVN" classCode="OBS"> < templateId root="2.16.840.1.475688.10.20.22.4.2" /> <id nullFlavor="NA" /> <code codeSystem="local" code="MCHC" displayName="MCHC" /> < statusCode code="completed" /> <effectiveTime value=& quot;502065416583" /> <value unit="" xsi:type=& quot;PQ" value="34.8" /> <referenceRange>< observationRange> <text>32.0-36.0</text> </observationRange> </referenceRange> </ observation> </component> <component> < observation moodCode="EVN" classCode="OBS"> < templateId root="2.16.840.1.711625.10.20.22.4.2" /> < id nullFlavor="NA" /> <code codeSystem="local&quot ; code="RDW" displayName="RDW" /> < statusCode code="completed" /> <effectiveTime value=& quot;044599680559" /> <value unit="%" xsi: type="PQ" value="14.0" /> <referenceRange&gt ; <observationRange> <text>12.3-17.0</ text> </observationRange> </referenceRange> </observation> </component> <component> < observation moodCode="EVN" classCode="OBS"> < templateId root="2.16.840.1.510809.10.20.22.4.2" /> < id nullFlavor="NA" /> <code codeSystem="local" code="RDWSD" displayName="RDWSD" /> < statusCode code="completed" /> <effectiveTime value=& quot;044200709849" /> <value unit="" xsi:type=& quot;PQ" value="42.4" /> <referenceRange> <observationRange> <text>37.1-47.8</text> </observationRange> </referenceRange> </ observation> </component> </organizer> </entry> & lt;entry> <organizer moodCode="EVN" classCode="BATTERY& quot;> <templateId root="2.16.840.1.862587.10.20.22.4.1" /& gt; <id nullFlavor="NA" /> <code codeSystem=" local" code="CMP" displayName="COMPREHENSIVE METABOLIC PANEL " /> <statusCode code="completed" /> < component> <observation moodCode="EVN" classCode=" OBS"> <templateId root="2.16.840.1.885078.10..22.4.2& quot; /> <id nullFlavor="NA" /><code codeSystem=& quot;local" code="NA" displayName="SODIUM" /> < statusCode code="completed" /> <effectiveTime value=& quot;029303314615" /> <value unit="mmol/L" xsi: type="PQ" value="139" /> <referenceRange> <observationRange> <text>136-145</text& gt; </observationRange> </referenceRange> </observation> </component> <component> &lt ;observation moodCode="EVN" classCode="OBS"> &lt ;templateId root="2.16.840.1.688014.10.20.22.4.2" /> < id nullFlavor="NA" /> <code codeSystem="local&quot ; code="K" displayName="POTASSIUM" /> < statusCode code="completed" /> <effectiveTime value=& quot;559398971302" /><value unit="mmol/L" xsi:type="PQ " value="4.0" /> <referenceRange> & lt;observationRange> <text>3.5-5.1</text> & lt;/observationRange> </referenceRange> </ observation></component> <component> <observation moodCode="EVN" classCode="OBS"> <templateId root="2.16.840.1.515737.10.20.22.4.2" /> <id nullFlavor=& quot;NA" /> <code codeSystem="local" code="CL " displayName="CHLORIDE" /> <statusCode code=&quot ;completed" /> <effectiveTime value="456876607170&quot ; /> <value unit="mmol/L" xsi:type="PQ" value ="105" /> <referenceRange> <observationRange& gt; <text>98-107</text> </ observationRange> </referenceRange> </observation&gt ; </component><component> <observation moodCode=&quot ;EVN" classCode="OBS"> <templateId root=" 2.16.840.1.846776.10.20.22.4.2" /> <id nullFlavor="NA& quot; /> <code codeSystem="local" code="TCO2&quot ; displayName="TCO2" /> <statusCode code=" completed" /> <effectiveTime value="685717341210" /> <value unit="mmol/L" xsi:type="PQ" value=& quot;25.7" /> <referenceRange> < observationRange> <text>21.0-32.0</text> </observationRange> </referenceRange> </ observation> </component> <component> < observation moodCode="EVN" classCode="OBS"> < templateId root="2.16.840.1.386618.10.20.22.4.2" /> < id nullFlavor="NA" /> <code codeSystem="local" code="AGAP" displayName="*ANION GAP" /> < statusCode code="completed" /> <effectiveTime value=& quot;778515177177" /> <value unit="mmol/L" xsi: type="PQ" value="8.3" /> <referenceRange> <observationRange> <text>8.0-16.0</text> </observationRange> </referenceRange> </ observation> </component> <component> < observation moodCode="EVN" classCode="OBS"> < templateId root="2.16.840.1.183414.10.20.22.4.2" /> < id nullFlavor="NA" /> <code codeSystem="local&quot ; code="BUN" displayName="BUN" /> < statusCode code="completed" /> <effectiveTime value=& quot;120737923667" /> <value unit="" xsi:type=& quot;PQ" value="12" /> <referenceRange> <observationRange> <text>7-18</text> </observationRange> </referenceRange> </ observation></component> <component> <observation moodCode="EVN" classCode="OBS"> <templateId root="2.16.840.1.056503.10..22.4.2" /> <id nullFlavor=& quot;NA" /> <code codeSystem="local" code=" CREA" displayName="CREATININE" /> <statusCode code ="completed" /> <effectiveTime value="371475050786 " /> <value unit="" xsi:type="PQ" value= "0.56" /> <referenceRange> <observationRange& gt; <text>0.55-1.02</text> </ observationRange> </referenceRange> </observation&gt ; </component> <component> <observation moodCode=& quot;EVN" classCode="OBS"> <templateId root=" 2.16.840.1.107240.10..22.4.2" /> <id nullFlavor="NA& quot; /> <code codeSystem="local" code="B/C" displayName="*BUN/CREATININE RATIO" /> <statusCode code ="completed" /> <effectiveTime value="[id number]& quot; /> <value unit="" xsi:type="PQ" value=& quot;21.4" /> <interpretationCode codeSystem="local& quot; code="*" /> <referenceRange> < observationRange> <text>9.1-17.0</text> & lt;/observationRange> </referenceRange> </ observation> </component> <component> < observation moodCode="EVN" classCode="OBS"> < templateId root="[id number]" /> < id nullFlavor="NA" /> <code codeSystem="local" code= "GLU" displayName="GLUCOSE" /> <statusCode code ="completed" /> <effectiveTime value="[id number] " /> <value unit="" xsi:type="PQ" value= "106" /> <interpretationCode codeSystem="local& quot; code="*" /> <referenceRange> < observationRange> <text>65-99</text> < /observationRange> </referenceRange> </observation& gt; </component> <component> <observation moodCode="EVN" classCode="OBS"> <templateId root="2.16.840.1.660000.10..22.4.2" /> <id nullFlavor ="NA" /> <code codeSystem="local" code=" CA" displayName="CALCIUM" /> <statusCode code=& quot;completed" /> <effectiveTime value="362449192197& quot; /> <value unit="" xsi:type="PQ" value=& quot;8.5" /> <referenceRange> <observationRange> <text>8.5-10.1</text> </observationRange > </referenceRange> </observation> </ component><component> <observation moodCode="EVN" classCode="OBS"> <templateId root=" 2.16.840.1.141302.10..22.4.2" /> <id nullFlavor="NA& quot; /> <code codeSystem="local" code="BILT&quot ; displayName="BILIFUBIN TOTAL" /> <statusCode code=& quot;completed" /> <effectiveTime value="830173294831& quot; /> <value unit="" xsi:type="PQ" value=& quot;0.70" /> <referenceRange> < observationRange> <text>0.20-1.00</text> </observationRange> </referenceRange> </observation> </component> <component> <observation moodCode= "EVN" classCode="OBS"> <templateId root=&quot ;2.16.840.1.354345.10.20.22.4.2" /> <id nullFlavor="NA& quot; /> <code codeSystem="local" code="TP" displayName="TOTAL PROTEIN" /> <statusCode code=" completed" /> <effectiveTime value="862908904335" /> <value unit="" xsi:type="PQ" value=" 7.4" /> <referenceRange> <observationRange& gt; <text>6.4-8.2</text> </observationRange> </referenceRange> </observation> </component> <component> <observationmoodCode="EVN" classCode ="OBS"> <templateId root=" 2..840.1.193963.10.20.22.4.2" /> <id nullFlavor="NA& quot; /> <code codeSystem="local" code="ALB" displayName="ALBUMIN" /> <statusCode code=" completed" /> <effectiveTime value="391745619989" /> <value unit="" xsi:type="PQ" value=" 3.5" /> <referenceRange> <observationRange> <text>3.4-5.0</text> </observationRange> </referenceRange> </observation> </component > <component> <observation moodCode="EVN" classCode="OBS"> <templateId root=" 2.16.840.1.422063.10.20.22.4.2" /> <id nullFlavor="NA& quot; /> <code codeSystem="local" code="GLOB&quot ; displayName="*GLOBULIN" /> <statusCode code=" completed" /> <effectiveTime value="531812597453" /> <value unit="" xsi:type="PQ" value=" 3.9" /> <interpretationCode codeSystem="local" code="*" /> <referenceRange> < observationRange> <text>2.3-3.5</text> & lt;/observationRange> </referenceRange> </ observation> </component> <component> < observation moodCode="EVN" classCode="OBS"> < templateId root="2.16.840.1.880010.10.20.22.4.2" /> < id nullFlavor="NA" /> <code codeSystem="local&quot ; code="AGR" displayName="*A/GRATIO" /> < statusCode code="completed" /> <effectiveTime value=& quot;941370103412" /> <value unit="" xsi:type=& quot;PQ" value="0.9" /> <interpretationCode codeSystem="local" code="*" /> < referenceRange> <observationRange> <text> 1.5-2.2</text> </observationRange> </ referenceRange></observation> </component> < component> <observation moodCode="EVN" classCode=" OBS"> <templateId root="2.16.840.1.020463.10.20.22.4.2& quot; /> <id nullFlavor="NA" /> <code codeSystem="local" code="ALP" displayName="ALK PHOS& quot; /> <statusCode code="completed" /> & lt;effectiveTime value="642191183931" /> <value unit="U/ L" xsi:type="PQ" value="179" /> < interpretationCode codeSystem="local" code="*" /> <referenceRange> <observationRange> < text>46-116</text> </observationRange> </ referenceRange> </observation> </component> < component> <observation moodCode="EVN" classCode=" OBS"> <templateId root="2.16.840.1.814673.10.20.22.4.2& quot; /> <id nullFlavor="NA" /> <code codeSystem="local" code="ALT" displayName="ALT (SGPT)& quot; /> <statusCode code="completed" /> < effectiveTime value="113785660822" /> <value unit=&quot ;U/L" xsi:type="PQ" value="39" /> < referenceRange> <observationRange> <text> 16-63</text> </observationRange> </referenceRange&gt ; </observation> </component> <component> <observation moodCode="EVN" classCode="OBS"> <templateId root="2.16.840.1.097536.10.20.22.4.2" /> <id nullFlavor="NA" /> <code codeSystem=" local" code="AST" displayName="AST (SGOT)" /> <statusCode code="completed" /> <effectiveTime value="845051796071" /> <value unit="U/L" xsi :type="PQ" value="36" /> <referenceRange> <observationRange> <text>15-37</text> & lt;/observationRange> </referenceRange> </ observation> </component> </organizer> </entry> & lt;entry> <organizer moodCode="EVN" classCode="BATTERY& quot;> <templateIdroot="2.16.840.1.951532.10.20.22.4.1" /& gt; <id nullFlavor="NA" /> <code codeSystem="local " code="CRP" displayName="C-REACTIVE PROTEIN" /> <statusCode code="completed" /> <component> <observation moodCode="EVN" classCode="OBS"> <templateId root="2.16.840.1.905596.10.20.22.4.2" /> <id nullFlavor="NA" /> <code codeSystem=" local" code="CRP" displayName="C-REACTIVE PROTEIN" /&gt ; <statusCode code="completed" /> < effectiveTime value="178692910998" /> <value unit=&quot ;" xsi:type="PQ" value="0.17" /> < referenceRange> <observationRange> <text> 0.00-0.30</text> </observationRange> </ referenceRange> </observation> </component> </ organizer> </entry> <entry> <organizer moodCode="EVN& quot; classCode="BATTERY"> <templateId root=" 2.16.840.1.236399.10.20.22.4.1" /> <id nullFlavor="NA&quot ; /> <code codeSystem="local" code="URCA" displayName="URIC ACID" /><statusCode code="completed&quot ; /> <component> <observation moodCode="EVN" classCode="OBS"> <templateId root=" 2.16.840.1.499850.10.20.22.4.2" /> <id nullFlavor="NA& quot; /> <code codeSystem="local" code="URCA&quot ; displayName="URIC ACID" /> <statusCode code=" completed" /> <effectiveTime value="452085043586" /> <value unit="" xsi:type="PQ" value=" 4.0" /> <referenceRange> <observationRange& gt; <text>2.6-6.0</text> </ observationRange> </referenceRange> </observation&gt ; </component> </organizer> </entry> <entry> & lt;organizer moodCode="EVN" classCode="BATTERY"> &lt ;templateId root="2.16.840.1.372816.10.20.22.4.1" /> <id nullFlavor="NA" /> <code codeSystem="local" code= "GFRE" displayName="GFR ESTIMATION" /> < statusCode code="completed" /> <component> < observation moodCode="EVN" classCode="OBS"> < templateId root="2.16.840.1.060371.10.20.22.4.2" /> < id nullFlavor="NA" /> <code codeSystem="local&quot ; code="GFRN" displayName="*GFR EST NON AFR [place]" /> <statusCodecode="completed" /> < effectiveTime value="809150127958" /> <value unit="mL/ min" xsi:type="PQ" value=">90" /> < referenceRange> <observationRange> <text> NRG</text> </observationRange> </ referenceRange> </observation> </component> < component> <observation moodCode="EVN" classCode=" OBS"> <templateId root="2.16.840.1.539236.10.20.22.4.2& quot; /> <id nullFlavor="NA" /> <code codeSystem="local" code="GFRA" displayName="*GRFA EST AFR AMER" /> <statusCode code="completed" /> <effectiveTime value="582371436479" /> < value unit="mL/min" xsi:type="PQ" value=">90& quot; /> <referenceRange> <observationRange> <text>NRG</text> </observationRange> </referenceRange> </observation></component> </organizer> </entry> <entry> <organizer moodCode=& quot;EVN" classCode="BATTERY"> <templateId root=" 2.16.840.1.169932.10.20.22.4.1" /> <id nullFlavor="NA&quot ; /> <code codeSystem="local" code="SR" displayName="ERYTH. SED. RATE" /> <statusCode code=" completed" /> <component> <observation moodCode=& quot;EVN" classCode="OBS"> <templateId root=" 2.16.840.1.549839.10.20.22.4.2" /> <id nullFlavor="NA& quot; /> <code codeSystem="local" code="SR" displayName="ERYTH. SED. RATE" /> <statusCode code=& quot;completed" /> <effectiveTime value="216788263603& quot; /> <value unit="mm/h" xsi:type="PQ" value="23" /> <referenceRange> < observationRange> <text>0-30</text> </ observationRange> </referenceRange> </observation&gt ; </component> </organizer> </entry> <entry> <organizer moodCode="EVN" classCode="BATTERY"> <templateId root="2.16.840.1.570497.10.20.22.4.1" /> < id nullFlavor="NA" /> <code codeSystem="local" code="RFN" displayName="RHEUMATOID FACTOR NO REFLEX" /> <statusCode code="completed" /> <component> <observation moodCode="EVN" classCode="OBS"> <templateId root="2.16.840.1.232024.10.20.22.4.2" /> <id nullFlavor="NA" /> <code codeSystem=" local" code="RFN" displayName="RHEUMATOID FACTOR NO REFLEX& quot; /> <statusCode code="completed" /> & lt;effectiveTime value="920212399379" /><value unit="&quot ; xsi:type="PQ" value="Negative" /> < referenceRange> <observationRange> <text> NEGATIVE</text> </observationRange> </ referenceRange> </observation></component> </ organizer> </entry> <entry> <organizer moodCode="EVN " classCode="BATTERY"> <templateId root=" 2.16.840.1.323925.10.20.22.4.1" /> <id nullFlavor="NA&quot ; /> <code codeSystem="local" code="ANAIF" displayName="ANTINUCLEAR ANTIBODIES, IFA" /> <statusCode code="completed" /> <component> <observation moodCode="EVN" classCode="OBS"> <templateId root="2.16.840.1.799328.10.20.22.4.2" /> <id nullFlavor ="NA" /> <code codeSystem="local" code=" BORIS" displayName="*BORIS SCREEN" /> <statusCode code ="completed" /> <effectiveTime value="968656431159 " /> <value unit="" xsi:type="PQ" value=" Negative" /> <referenceRange> < observationRange> <text>NRG</text> </ observationRange> </referenceRange> </observation&gt ; </component> </organizer> </entry> <entry> <organizer moodCode="EVN" classCode="BATTERY"> <templateId root="2.16.840.1.061920.10.20.22.4.1" /> < id nullFlavor="NA" /> <code codeSystem="local" code="CCP" displayName="CYCLIC CITRULLINATED PEPTIDE" /> <statusCode code="completed" /> <component> <observation moodCode="EVN" classCode="OBS"> <templateId root="2.16.840.1.453294.10.20.22.4.2" /> <id nullFlavor="NA" /> <code codeSystem=" local" code="CCP" displayName="CYCLIC CITRULLINATED PEPTIDE& quot; /> <statusCode code="completed" /> & lt;effectiveTime value="672771300405" /> <value unit=& quot;" xsi:type="PQ" value="8" /> < referenceRange> <observationRange> <text> 0-19</text> </observationRange> </ referenceRange> </observation> </component> </ organizer> </entry> <entry> <organizer moodCode="EVN " classCode="BATTERY"> <templateId root=" 2.16.840.1.693602.10.20.22.4.1" /> <id nullFlavor="NA&quot ; /> <code codeSystem="local" code="2365115" displayName="CBC AUTO DIFF MANUAL IF INDICATED*" /> < statusCode code="completed" /> <component> < observation moodCode="EVN" classCode="OBS"> < templateId root="2.16.840.1.085953.10.20.22.4.2" /> < id nullFlavor="NA" /> <code codeSystem="local&quot ; code="HEMATOCRIT " displayName="HEMATOCRIT " />< statusCode code="completed" /> <effectiveTime value=& quot;852602145667" /> <value unit="%" xsi: type="PQ" value="39.4" /> <referenceRange&gt ; <observationRange> <text>36.0 - 44.0</ text> </observationRange> </referenceRange> </observation> </component> <component> < observation moodCode="EVN" classCode="OBS"> < templateId root="2.16.840.1.322130.10.20.22.4.2" /> < id nullFlavor="NA" /> <code codeSystem="local&quot ; code="HEMOGLOBIN " displayName="HEMOGLOBIN " /> <statusCode code="completed" /> <effectiveTime value="001203057678" /> <value unit="g/dL" xsi:type="PQ" value="13.5" /> <referenceRange > <observationRange> <text>12.0 -15.0< /text> </observationRange> </referenceRange> </observation> </component> <component> <observation moodCode="EVN" classCode="OBS"> <templateId root="2.16.840.1.548761.10.20.22.4.2" /> <id nullFlavor="NA" /> <code codeSystem=" local" code="WBC " displayName="WBC " /> & lt;statusCode code="completed" /> <effectiveTime value= "965906020534" /> <value unit="10^3/mL" xsi: type="PQ" value="5.9" /> <referenceRange> <observationRange> <text>4.0 - 10.1</ text> </observationRange> </referenceRange> </observation> </component> <component> & lt;observation moodCode="EVN" classCode="OBS"> & lt;templateId root="2.16.840.1.648551.10.20.22.4.2" /> <id nullFlavor="NA" /> <code codeSystem="local" code="%LYMPH" displayName="%LYMPH" /> <statusCode code="completed" /> < effectiveTime value="732221447886" /> <value unit=&quot ;%" xsi:type="PQ" value="34" /> &lt ;referenceRange> <observationRange> <text&gt ;24 - 44</text> </observationRange> </referenceRange > </observation> </component> <component> <observation moodCode="EVN" classCode="OBS"> <templateId root="2.16.840.1.285916.10.20.22.4.2" /> & lt;id nullFlavor="NA" /> <code codeSystem="local& quot; code="%MONO" displayName="%MONO" /&gt ; <statusCode code="completed" /> < effectiveTime value="634194748462" /> <value unit=&quot ;%" xsi:type="PQ" value="6.6" /> & lt;referenceRange> <observationRange> <text& gt;1.0 - 15.0</text> </observationRange> </ referenceRange> </observation> </component> < component> <observation moodCode="EVN" classCode=" OBS"> <templateId root="2.16.840.1.851515.10.20.22.4.2& quot; /><id nullFlavor="NA" /> <code codeSystem=& quot;local" code="%GRAN" displayName="%GRAN& quot; /> <statusCode code="completed" /> & lt;effectiveTime value="101634872819" /> <value unit=& quot;%" xsi:type="PQ" value="57.0" /> <referenceRange> <observationRange> < text>35.0 - 71.0</text> </observationRange> </ referenceRange> </observation> </component> < component> <observation moodCode="EVN" classCode=" OBS"> <templateId root="2.16.840.1.740815.10.20.22.4.2& quot; /> <id nullFlavor="NA" /> <code codeSystem= "local" code="%EOS" displayName="%EOS& quot; /> <statusCode code="completed" /> & lt;effectiveTime value="259210650597" /> <value unit=& quot;%" xsi:type="PQ" value="1" /> <referenceRange> <observationRange> <text >0 - 4</text> </observationRange> </ referenceRange> </observation> </component> < component> <observation moodCode="EVN" classCode=" OBS"> <templateId root="2.16.840.1.951400.10.20.22.4.2& quot; /> <id nullFlavor="NA" /> <code codeSystem="local" code="%BASO" displayName="& amp;#37;BASO" /> <statusCode code="completed" /&gt ; <effectiveTime value="377229606123" /> < value unit="%" xsi:type="PQ" value="1" /& gt; <referenceRange> <observationRange> <text>0 - 2</text> </observationRange> & lt;/referenceRange> </observation> </component> < component> <observation moodCode="EVN" classCode=" OBS"> <templateId root="2.16.840.1.499242.10..22.4.2&quot ; /> <id nullFlavor="NA" /> <code codeSystem="local" code="RBC" displayName="RBC" /& gt; <statusCode code="completed" /> < effectiveTime value="990470191379" /> <value unit=&quot ;10^6/mL" xsi:type="PQ" value="4.56" /> &lt ;referenceRange> <observationRange> <text&gt ;3.50 - 6.00</text> </observationRange> </ referenceRange> </observation> </component> < component> <observation moodCode="EVN" classCode="OBS& quot;> <templateIdroot="2.16.840.1.604416.10..22.4.2&quot ; /> <id nullFlavor="NA" /> <code codeSystem="local" code="MCV" displayName="MCV" /& gt; <statusCode code="completed" /> < effectiveTime value="091256654400" /> <value unit=&quot ;fl" xsi:type="PQ" value="86.4" /> < referenceRange> <observationRange> <text> 80.0 - 100</text> </observationRange> </ referenceRange> </observation> </component> < component> <observation moodCode="EVN" classCode=" OBS"> <templateId root="2.16.840.1.528394.10.20.22.4.2& quot; /> <id nullFlavor="NA" /> <code codeSystem="local" code="MCH" displayName="MCH" /& gt; <statusCode code="completed" /> < effectiveTime value="332310651507" /> <value unit="pg& quot; xsi:type="PQ" value="29.6" /> < referenceRange> <observationRange> <text> 27.0 - 34.0</text> </observationRange> </ referenceRange> </observation> </component> < component> <observation moodCode="EVN" classCode=" OBS"> <templateId root="2.16.840.1.264719.10..22.4.2& quot; /> <id nullFlavor="NA" /> <code codeSystem="local" code="MCHC" displayName="MCHC" /> <statusCode code="completed" /> < effectiveTime value="866592708869" /> <value unit=&quot ;g/dL" xsi:type="PQ" value="34.3" /> < referenceRange> <observationRange> <text>31.5 - 36.0</text> </observationRange> </ referenceRange> </observation> </component> < component> <observation moodCode="EVN" classCode=" OBS"> <templateId root="2.16.840.1.916154.10..22.4.2& quot; /> <id nullFlavor="NA" /> <code codeSystem="local" code="RDW" displayName="RDW" /& gt; <statusCode code="completed" /> < effectiveTime value="859482946175" /> <value unit=&quot ;%" xsi:type="PQ" value="13.7" /> & lt;referenceRange> <observationRange> <text& gt;11.5 - 14.0</text> </observationRange> </ referenceRange> </observation> </component> < component> <observation moodCode="EVN" classCode=" OBS"> <templateId root="2.16.840.1.910384.10.20.22.4.2& quot; /> <id nullFlavor="NA" /> <code codeSystem="local" code="PLT" displayName="PLT" /& gt; <statusCode code="completed" /> < effectiveTime value="644395658928" /> <value unit=&quot ;10^3/mL" xsi:type="PQ" value="279" /> < referenceRange> <observationRange> <text>150 - 450& lt;/text> </observationRange> </referenceRange& gt; </observation> </component> <component> <observation moodCode="EVN" classCode="OBS"> <templateId root="2.16.840.1.988628.10.20.22.4.2" /> <id nullFlavor="NA" /> <code codeSystem=&quot ;local" code="MPV" displayName="MPV" /> &lt ;statusCode code="completed" /> <effectiveTime value=& quot;428895286194" /> <value unit="fl" xsi:type=& quot;PQ" value="10.3" /> <referenceRange> <observationRange> <text>7.4 - 11.0</text> </observationRange> </referenceRange> </ observation> </component> <component> < observation moodCode="EVN" classCode="OBS"> < templateId root="2.16.840.1.423113.10.20.22.4.2" /> < id nullFlavor="NA" /> <code codeSystem="local&quot ; code="MANUALDIFF" displayName="MANUAL DIFF" /> <statusCode code="completed" /> <effectiveTime value="095500181464" /> <value unit="" xsi:type=&quot ;PQ" value="NOT INDICATED" /><referenceRange> <observationRange> <text>NRG</text> & lt;/observationRange> </referenceRange> </ observation> </component> </organizer> </entry> < entry> <organizer moodCode="EVN" classCode="BATTERY&quot ;> <templateId root="2.16.840.1.324317.10.20.22.4.1" /> <id nullFlavor="NA" /> <code codeSystem=" local" code="1029613" displayName="COMPREHENSIVE PROFILE*& quot; /> <statusCode code="completed" /> < component> <observation moodCode="EVN" classCode=" OBS"> <templateId root="2.16.840.1.243459.10.20.22.4.2& quot; /> <id nullFlavor="NA" /> <code codeSystem="local" code="ALBUMIN " displayName=" ALBUMIN " /> <statusCode code="completed" /> <effectiveTime value="802122112232" /> <value unit=& quot;g/dL" xsi:type="PQ" value="3.5" /> &lt ;referenceRange> <observationRange> <text&gt ;3.4 - 5.0</text> </observationRange> </ referenceRange> </observation> </component> < component> <observation moodCode="EVN" classCode=" OBS"> <templateId root="2.16.840.1.272546.10.20.22.4.2& quot; /> <id nullFlavor="NA" /> <code codeSystem="local" code="ALPI " displayName="ALPI &quot ; /> <statusCode code="completed" /> < effectiveTime value="254755632683" /> <value unit=&quot ;U/L" xsi:type="PQ" value="180" /> < interpretationCode codeSystem="local" code="*" /> <referenceRange> <observationRange> < text>46 - 116</text> </observationRange> </ referenceRange> </observation> </component> < component> <observation moodCode="EVN" classCode=" OBS"> <templateId root="2.16.840.1.331388.10.20.22.4.2& quot; /> <id nullFlavor="NA"/> <code codeSystem="local" code="BUN" displayName="BUN" /& gt; <statusCode code="completed" /> < effectiveTime value="786272078165" /> <value unit=&quot ;mg/dL" xsi:type="PQ" value="13" /> < referenceRange> <observationRange> <text> 7 - 18</text> </observationRange> </ referenceRange> </observation> </component> < component> <observation moodCode="EVN" classCode=" OBS"> <templateId root="2.16.840.1.533790.10.20.22.4.2& quot; /> <id nullFlavor="NA" /> <code codeSystem="local" code="CALCIUM " displayName=" CALCIUM " /> <statusCode code="completed" /> <effectiveTime value="753400616168" /> < value unit="mg/dL" xsi:type="PQ" value="8.1" /&gt ; <interpretationCode codeSystem="local" code="*&quot ; /> <referenceRange> <observationRange> <text>8.5 - 10.1</text> </observationRange& gt; </referenceRange> </observation> </ component> <component> <observation moodCode="EVN& quot; classCode="OBS"> <templateId root=" 2.16.840.1.938962.10.20.22.4.2" /> <id nullFlavor="NA& quot; /> <code codeSystem="local" code="GLUCOSE & quot; displayName="GLUCOSE " /> <statusCode code=" completed" /> <effectiveTime value="710931234569" /> <value unit="mg/dL" xsi:type="PQ" value=& quot;97" /> <referenceRange> < observationRange> <text>74 - 106</text> & lt;/observationRange> </referenceRange> </ observation> </component> <component> < observation moodCode="EVN" classCode="OBS"> < templateId root="2.16.840.1.763181.10.20.22.4.2" /> < id nullFlavor="NA" /> <code codeSystem="local&quot ; code="POTASSIUM " displayName="POTASSIUM " /> <statusCode code="completed" /> <effectiveTime value= "698513571328" /> <value unit="mmol/L" xsi: type="PQ" value="4.10" /> <referenceRange&gt ; <observationRange> <text>3.50 - 5.10</text> </observationRange> </referenceRange> </ observation> </component> <component> < observation moodCode="EVN" classCode="OBS"> < templateId root="2.16.840.1.496404.10.20.22.4.2" /> < id nullFlavor="NA" /> <code codeSystem="local&quot ; code="SODIUM " displayName="SODIUM " /> < statusCode code="completed" /> <effectiveTime value=& quot;981389230648" /> <value unit="mmol/L" xsi: type="PQ" value="139" /> <referenceRange> <observationRange> <text>136 - 145</text > </observationRange> </referenceRange> < /observation> </component> <component> < observation moodCode="EVN" classCode="OBS"> < templateId root="2.16.840.1.095994.10.20.22.4.2" /> < id nullFlavor="NA" /> <code codeSystem="local&quot ; code="COMPREHENSIVEPROFILE*" displayName="COMPREHENSIVEPROFILE* " /> <statusCode code="completed" /> < effectiveTime value="645235279751" /> <value unit=&quot ;" xsi:type="PQ" value="" /> < referenceRange> <observationRange> <text> NRG</text> </observationRange></referenceRange> </observation> </component> <component> &lt ;observation moodCode="EVN" classCode="OBS"> &lt ;templateId root="2.16.840.1.487185.10.20.22.4.2" /> < id nullFlavor="NA" /> <code codeSystem="local&quot ; code="CREATININE" displayName="CREATININE" /> <statusCode code="completed" /> <effectiveTime value ="653649747471" /> <value unit="mg/dL" xsi: type="PQ"value="0.6" /> <referenceRange> <observationRange> <text>0.6 - 1.3</text> </observationRange> </referenceRange> < /observation> </component> <component> < observation moodCode="EVN" classCode="OBS"> < templateId root="2.16.840.1.648871.10.20.22.4.2" /> < id nullFlavor="NA" /> <code codeSystem="local&quot ; code="CHLORIDE" displayName="CHLORIDE" /> < statusCode code="completed" /> <effectiveTime value=& quot;424101951154" /> <value unit="mmol/L" xsi: type="PQ" value="104" /> <referenceRange> <observationRange> <text>98 - 107</text& gt; </observationRange> </referenceRange> < /observation> </component> <component> < observation moodCode="EVN" classCode="OBS"> < templateId root="2.16.840.1.764821.10.20.22.4.2" /> < id nullFlavor="NA" /> <code codeSystem="local&quot ; code="CO2" displayName="CO2" /> < statusCode code="completed" /> <effectiveTime value=& quot;681184033469" /> <value unit="mmol/L" xsi:type=" PQ" value="28" /> <referenceRange> & lt;observationRange> <text>21 - 32</text> & lt;/observationRange> </referenceRange> </ observation> </component> <component> < observation moodCode="EVN" classCode="OBS"> < templateId root="2.16.840.1.764916.10.20.22.4.2" /> <id nullFlavor="NA" /> <code codeSystem="local" code="TOTALPROTEIN" displayName="TOTAL PROTEIN" /> <statusCode code="completed" /> <effectiveTime value="006710793497" /> <value unit="g/dL" xsi:type="PQ" value="7.2" /> <referenceRange& gt; <observationRange> <text>6.4 - 8.2</ text> </observationRange> </referenceRange> < /observation> </component> <component> < observation moodCode="EVN" classCode="OBS"> < templateId root="[id number]" /> < id nullFlavor="NA" /> <code codeSystem="local&quot ; code="TOTALBILI" displayName="TOTAL BILI" /> & lt;statusCode code="completed" /> <effectiveTime value= "[id number]" /> <value unit="mg/dL" xsi: type="PQ" value="1.00" /> <referenceRange&gt ; <observationRange> <text>0.20 - 1.00</text& gt; </observationRange> </referenceRange> </observation> </component> <component> &lt ;observation moodCode="EVN" classCode="OBS"> &lt ;templateId root="[id number]" /> < id nullFlavor="NA" /> <code codeSystem="local&quot ; code="AST" displayName="AST" /> < statusCode code="completed" /> <effectiveTime value=& quot;363667811817" /> <value unit="U/L" xsi:type=& quot;PQ" value="39" /> <interpretationCode codeSystem="local" code="*" /> < referenceRange> <observationRange> <text>15 - 37< /text> </observationRange> </referenceRange> </observation> </component> <component> <observation moodCode="EVN" classCode="OBS"> <templateId root="[id number]" /> <id nullFlavor="NA" /> <code codeSystem=" local" code="ALTI" displayName="ALTI" /> & lt;statusCode code="completed" /> <effectiveTime value= "505404828375" /> <value unit="U/L" xsi:type= "PQ" value="52" /> <referenceRange> & lt;observationRange> <text>12 - 78</text> </observationRange> </referenceRange> </ observation> </component> <component> < observation moodCode="EVN" classCode="OBS"> < templateId root="[id number]..22.4.2" /> < id nullFlavor="NA" /> <code codeSystem="local&quot ; code="AGE" displayName="AGE" /> < statusCode code="completed" /> <effectiveTime value=& quot;154205016976" /> <value unit="years" xsi:type ="PQ" value="52" /> <referenceRange> <observationRange> <text>NRG</text> </observationRange> </referenceRange> </ observation> </component><component> <observation moodCode="EVN" classCode="OBS"> <templateId root=& quot;2.16.840.1.224533.10.20.22.4.2" /> <id nullFlavor=&quot ;NA" /> <code codeSystem="local" code=" eGFRNONAFRAMER" displayName="eGFR NON AFR AMER" /> & lt;statusCode code="completed" /> <effectiveTime value= "213216468388" /> <value unit="mL/min" xsi: type="PQ" value="105.39" /> <referenceRange& gt; <observationRange> <text>NRG</text> </observationRange> </referenceRange> </ observation> </component> <component> < observation moodCode="EVN" classCode="OBS"> < templateId root="[id number].2" /> < id nullFlavor="NA" /> <code codeSystem="local&quot ; code="eGFRAFRAMER" displayName="eGFR AFR AMER" /> <statusCode code="completed" /> <effectiveTime value=& quot;166633923821" /> <value unit="mL/min" xsi: type="PQ" value="127.53" /> <referenceRange& gt; <observationRange> <text>NRG</text&gt ; </observationRange> </referenceRange> < /observation> </component> </organizer> </entry> <entry> <organizer moodCode="EVN" classCode="BATTERY& quot;> <templateId root="2.16.840.1.152129.10.20.22.4.1" /& gt; <id nullFlavor="NA" /> <code codeSystem=" local" code="2164084" displayName="=>PATHOLOGY ORDER& amp;lt;=" /> <statusCode code="completed" /> & lt;component> <observation moodCode="EVN" classCode=&quot ;OBS"> <templateId root="2.16.840.1.736821.10.20.22.4.2 " /> <id nullFlavor="NA" /> <code codeSystem="local" code="=>PATHOLOGYORDER<=" displayName="=>PATHOLOGYORDER<=" /> <statusCode code="completed" /> <effectiveTime value=" 473925383057" /> <value unit="" xsi:type="PQ& quot; value="" /> <referenceRange> < observationRange> <text>NRG</text> </ observationRange> </referenceRange> </observation&gt ; </component> </organizer> </entry></section> Encounters ACCT No. Visit Discharge Status Pt. Type Provider Facility Loc./Unit Complaint Date/Time [id number] 04/11/2018 04/11/2018 CLS Outpatie TIFFANIE, Z86.2, 028 00:01:00 23:59:59 nt JITENDRA Reddy D50.9, Z79.D [id number] 03/16/2018 04/11/2018 DIS Outpatie TIFFANIE, Z86.2, 010 15:41:00 00:15:10 nt JITENDRA K D50.9, Z79.D [id number] 02/09/2018 03/12/2018 DIS Outpatie TIFFANIE, Z86.2 D50.9 028 00:01:00 00:15:20 nt JITENDRA Reddy Z79.01 [id number] 01/20/2018 02/09/2018 DIS Outpatie TIFFANIE, Z86.2 D50.9 010 16:53:00 00:15:19 nt JITENDRA Barry Z79.01 [id number] 02/01/2018 02/02/2018 DIS Outpatie KYLE, M06.4, 529 16:11:00 03:30:00 nt KIMMIE L40.8, D64.9 [id number] 12/10/2017 01/10/2018 DIS Outpatie TIFFANIE, D50.9 D51 036 00:01:00 00:15:09 nt JITENDRA K M17.9 [id number] 11/12/2017 12/10/2017 DIS Outpatie TIFFANIE, <PV2.3.2>Iro 028 00:01:00 00:15:02 nt JITENDRA K n deficiency anemia, unspecified< /PV2.3.2><PV 2.3.2>D50.9 D51 M17.9</PV 2.3.2><PV2.3 .2>Iron deficiency anemia, unspecified< /PV2.3.2><PV 2.3.2>Osteoa rthritis of knee, unspecified< /PV2.3.2><PV 2.3.2>Vitami n B12 deficiency anemia, unspecified< /PV2.3.2> [id number] 11/02/2017 11/12/2017 DIS Outpatifior MORENO, D50.9 D51 010 16:54:00 00:15:09 nt JITENDRA K M17.9 [id number] 09/11/2017 10/12/2017 DIS Outpatie TIFFANIE, D50.9 D51 020 00:01:00 00:15:01 nt JITENDRA K M17.9 [id number] 09/13/2017 09/13/2017 DIS Emergenc BREE, HIP/ BACK 124 13:33:00 23:16:39 y PETER PAIN [id number] 08/31/2017 09/11/2017 DIS Outpatifior MORENO, D50.9 D51 012 12:55:00 00:15:08 nt JITENDRA K M17.9 [id number] 07/12/2017 08/12/2017 DIS Outpatie TIFFANIE, PAC 020 00:01:00 00:14:52 nt JITENDRA K MAINTENANCE; HX PE AND DVT [id number] 07/02/2017 07/12/2017 DIS Outpatie TIFFANIE, PAC 012 09:20:00 00:14:58 nt JITENDRA K MAINTENANCE; HX PE AND DVT [id number] 05/12/2017 06/12/2017 DIS Outpatie TIFFANIE, PAC 069 00:01:00 00:14:56 nt JITENDRA K MAINTENANCE, HX PE AND DVT [id number] 05/12/2017 06/10/2017 DIS Outpatie [place]OH[place]A, 02/23/17 RT 042 00:01:00 13:56:30 nt JOSE SHOULDER [id number] 04/11/2017 05/12/2017 DIS Outpatie [place], 02/23/17 RT 034 00:01:00 00:14:55 nt JOSE SHOULDER [id number] 04/11/2017 05/12/2017 DIS Outpatie HUHSIOBHAN, <PV2.3.2>Enc 051 00:01:00 00:14:54 nt JITENDRA K peter for adjustment and management of VAD</PV2.3.2 ><PV2.3.2>PA C MAINTENANCE, HX PE AND DVT</PV2.3.2 ><PV2.3.2>En counter for adjustment and management of VAD</PV2. 3.2><PV2.3.2 >Personal history of other venous thrombosis and embolism</PV 2.3.2><PV 2.3.2>Person al history of pulmonary embolism</PV 2.3.2> [id number] 03/12/2017 04/11/2017 DIS Outpatie HUHMAN, <PV2.3.2>Enc 044 00:01:00 00:14:59 nt JITENDRA K ounter for adjustment and management of VAD</PV2.3.2 ><PV2.3.2>PA C MAINTENANCE< /PV2.3.2><PV 2.3.2>Encoun ter for adjustment and management of VAD</PV2.3.2 ><PV2.3.2 >Anemia, unspecified< /PV2.3.2> [id number] 03/12/2017 04/11/2017 DIS Outpatie [place], 02/23/17 RT 026 00:01:00 00:14:59 nt JOSE SHOULDER [id number] 02/26/2017 03/12/2017 DIS Outpatie [place], 02/23/17 RT 018 10:51:00 00:14:47 nt JOSE SHOULDER [id number] 02/09/2017 03/12/2017 DIS Outpatie TIFFANIE, PAC 036 00:01:00 00:14:47 nt JITENDRA K MAINTENANCE [id number] 02/09/2017 02/09/2017 DIS Emergenc LENAGHAN, SWELLING L 186 19:46:00 23:38:58 y ANG ARM [id number] 01/10/2017 02/09/2017 DIS Outpatie HUHSIOBHAN, PAC 028 00:01:00 00:15:17 nt JITENDRA K MAINTENANCE [id number] 12/11/2016 01/10/2017 DIS Outpatie HUHMAN, PAC 010 08:09:00 00:14:51 nt JITENDRA K MAINTENANCE [id number] 11/12/2016 12/10/2016 DIS Outpatie HUHMAN, <PV2.3.2>PAC 040 00:01:00 00:14:44 nt JITENDRA K MAINTENANNCE </PV2.3.2><P V2.3.2>CBC CMP LIPID TSH FT4 AIC IRON FERRITIN</PV 2.3.2><PV2.3 .2>B12 FOLATE</PV2. 3.2> [id number] 10/12/2016 11/12/2016 DIS Outpatie HUHSIOBHAN, <PV2.3.2>PAC 032 00:01:00 00:15:03 nt JITENDRA Reddy MAINTENANNCE </PV2.3.2><P V2.3.2>CBC CMP LIPID TSH FT4 AIC IRON FERRITIN</PV 2.3.2><PV2.3 .2>B12 FOLATE</PV2. 3.2> [id number] 09/11/2016 10/12/2016 DIS Outpatie HUHSIOBHAN, <PV2.3.2>PAC 024 00:01:00 00:14:54 nt JITENDRA Reddy MAINTENANNCE </PV2.3.2><P V2.3.2>CBC CMP LIPID TSH FT4 AIC IRON FERRITIN</PV 2.3.2><PV2.3 .2>B12 FOLATE</PV2. 3.2> [id number] 08/26/2016 09/11/2016 DIS Outpatie TIFFANIE, <PV2.3.2>PAC 016 16:11:00 00:14:46 nt JITENDRA Reddy MAINTENANNCE </PV2.3.2><P V2.3.2>CBC CMP LIPID TSH FT4 AIC IRON FERRITIN</PV 2.3.2><PV2.3 .2>B12 FOLATE</PV2. 3.2> [id number] 06/12/2016 07/12/2016 DIS Outpatie TIFFANIE, PAC 022 00:01:00 00:14:45 nt JITENDRA K MAINTENANCE [id number] 05/28/2016 06/12/2016 [facility] 014 07:39:00 00:14:53 nt JITENDRA K MAINTENANCE [id number] 05/28/2016 05/29/2016 DIS Outpatie LIEVENS, <PV2.3.2>SMA 799 07:43:00 03:30:00 nt CARMEN LL BOWEL OBSTRUCITON< /PV2.3.2><PV 2.3.2>SMALL BOWEL BARIUM</PV2. 3.2> [id number] 04/11/2016 05/12/2016 DIS Outpatie TIFFANIE, PAC 036 00:01:00 00:14:26 nt JITENDRA Reddy MAINTENANCE [id number] 03/12/2016 04/11/2016 DIS Outpatie TIFFANIE, PAC 028 00:01:00 00:14:46 nt JITENDRA Reddy MAINTENANCE [id number] 02/13/2016 03/12/2016 DIS Outpatie TIFFANIE, PAC 010 12:34:00 00:14:28 nt JITENDRA Reddy MAINTENANCE [id number] 02/26/2016 02/27/2016 DIS Outpatie TIFFANIE, <PV2.3.2>HIP 372 13:40:00 03:30:00 nt JITENDRA Reddy PAIN</PV2.3. 2><PV2.3.2>L HIP XRAY</PV2.3. 2> [id number] 01/02/2016 01/03/2016 DIS Outpatie TIFFANIE, 156 14:25:00 03:30:02 nt JITENDRA Reddy [id number] 10/31/2015 11/03/2015 DIS Inpatien MARIANA, 650 03:13:00 15:23:23 t CRISTHIAN Browning [id number] 10/10/2015 10/11/2015 DIS Outpatie TIFFANIE, 664 16:51:00 03:30:04 kimi Reddy [id number] 04/14/2018 ACT Document 15:51:57 Registra tion [id number] 08/05/2013 08/05/2013 CLS Outpatie 13:58:00 23:59:59 nt [id number] 03/05/2016 ACT Outpatie CarmenPetra venegas [id number] 15:19:55 nt [facility] [id number] 06/15/2015 06/15/2015 DIS Outpatie Ingris COLON 7673 13:50:00 17:57:00 kimi KNOX [facility] [id number] 06/05/2015 06/05/2015 DIS Outpatie Ingris COLON 3174 05:08:00 23:59:00 kimi KNOX [facility] [id number] 03/11/2016 ACT Inpatien Gerber Wilkinson8TN 9673 18:33:00 t , [facility] [id number] 02/14/2014 02/22/2014 DIS Inpatien Hugh [address] Amy F8SE 601 05:11:00 19:32:00 lonnie KNOX, [facility] [address] [facility] [id number] 07/19/2013 Document 065 10:43:00 Registra tion [id number] 02/16/2018 02/16/2018 DIS Outpatie BEECH, 10:51:00 11:00:00 nt ROSE R [id number] 02/09/2018 02/09/2018 DIS Outpatie BEECH, [facility] 001 06:18:00 11:24:00 nt ROSE R Dist [address] [facility] [id number] 12/22/2017 12/22/2017 DIS Outpatie BEECH, 12:45:00 13:30:00 nt ROSE R [id number] 10/13/2017 10/13/2017 DIS Outpatie BEECH, 09:07:00 10:00:00 nt ROSE R [id number] 10/06/2017 10/06/2017 CLS Outpatie BEE, [facility] 001 06:26:00 23:59:59 nt ROSE R Dist #[address] [facility] [id number] 01/01/2018 01/01/2018 DIS Outpatie 12:13:20 12:13:20 nt [id number] 02/23/2017 02/24/2017 DIS Inpatien [place] [address] 00:46:00 11:45:00 lonnie [facility] [id number] 02/23/2017 Document 406 00:00:00 Registra tion [id number] 11/20/2016 Document 6 00:00:00 Registra tion
[2018-04-27] MEDS: SALINE FLUSH 10ml SYRINGE IVF PRN ×2 (18:40→20:22)
[2018-04-27] MEDS ORDERED: CYCLOBENZAPRINE 10 MG TABLET PO PRN (20:06)
[2018-04-27] MEDS ORDERED: BISACODYL 10 MG SUPPOSITORY RECTALLY PRN (20:06)
[2018-04-27 20:07] VITALS: BMI 33.3
[2018-04-27] MEDS: LR 1,000 ML IV SCH (20:20)
[2018-04-27] MEDS: HYDROMORPHONE 2 MG/ML INJECTION IVP PRN (20:21)
--- NOTE | 2018-04-27 20:43 | History & Physical Report ---
History of Present Illness Date: 04/28/18 Chief complaint: N/V/abd pain HPI: Patient seen via telemedicine with nursing assistance on 04/27/2018 Ms. Shah is a pleasant 52yo woman with h/o RA and psoriatic arthritis, obesity BMI pending, hysterectomy, PUD with perf and subsequent hernia, and gastric bypass who presents with onset 1600 04/26 of n/v then abdominal pain. Note progressive periumbilical pain today 6/10 now after narcotic in ED. No CP or SOB, no new med change. Last BM yesterday. No consistent regimen for bowels except softer foods. Review of Systems All systems PM: 10-point ROS was reviewed, no additional remarkable complaints except Past Medical History Surgical History: c sect x 2, hyst, gastric bypass, surgery for repair of ruptured gastric ulcer, hernia repair from previous ulcer surgery, b/l TKA, R shoulder replacement, cataract, retinal detachment, levi cord stimulator R hip , uvula/tonsil/adenoids Family History: Adopted (adopted) - Social History Smoking status: Never smoker Substance use type: does not use Housing: house Household members: none Medications Home Medications Medication Instructions Recorded Confirmed Type Cyclobenzaprine [Flexeril] 10 mg PO TID PRN 04/27/18 04/27/18 History Folic Acid [Folate] 1 mg PO HS 04/27/18 04/27/18 History METHOTREXATE 2.5mg TAB 7.5 mg PO TH@2200 04/27/18 04/27/18 History [Methotrexate] Oxycodone CR [Oxycontin] 20 mg PO QID PRN 04/27/18 04/27/18 History Pantoprazole Sodium [Protonix] 40 mg PO HS 04/27/18 04/27/18 History Warfarin [Coumadin] 6 mg PO HS 04/27/18 04/27/18 History Allergies Allergy/AdvReac Type Severity Reaction Status Date / Time amoxicillin Allergy Verified 04/27/18 18:24 cefaclor [From Ceclor] Allergy Verified 04/27/18 18:24 levofloxacin [From Levaquin] Allergy Verified 04/27/18 18:24 Penicillins Allergy Verified 04/27/18 18:24 Sulfa (Sulfonamide Allergy Verified 04/27/18 18:24 Antibiotics) Exam Vital Signs: Temperature 96.2 F L 07/17/18 20:06 Pulse Rate 102 H 04/27/18 20:06 Respiratory Rate 16 04/27/18 20:06 Blood Pressure 121/66 04/27/18 20:06 Pulse Oximetry 96 04/27/18 20:06 Telemetry Rhythm: Sinus Rhythm Height/Weight/BMI: Height 1.68 m Weight 93.8 kg Body Mass Index 33.3 - Constitutional Present: mild distress - Routine HEENT Exam Head: Present: normocephalic, atraumatic Eye: Present: EOMI, PERRL - Routine Neck Exam Present: full ROM - Routine Respiratory Exam Present: CTA bilaterally. Absent: accessory muscle use - Routine Cardiovascular Exam Present: RRR, S1, S2, no murmur - Routine Abdominal Exam Present: soft Comments: tympanitic and hyperactive, tender but no rebound or guarding - Routine Extremities Exam Absent: cyanosis, clubbing - Routine Skin Exam Present: intact - Routine Neurological Exam Present: alert, oriented X3, CN II-XII intact, moving all extremities Results - Labs CBC & Chem 7: 04/28/18 05:14 04/28/18 05:14 Assessment and Plan Assessment and Plan: 1. SBO confirmed by CT--admit to inpatient with IVF, NPO, suppository and plan NG if intractible emesis. AM xrays and should be on miralax et al for 1-2 stools daily (discussed). Likely adhesions from prior surgeries but will check TSH in AM with 4. 2. RA and psoriatic arthritis on MTX 3. PUD hx with PPI to continue IV 4. Hyperglycemia likely stress induced, but with obesity check TSH and if glucose higher in AM A1C. 5. Leukocytosis likely stress induced with no fever, check UA. Full code SCDs DVT Prophylaxis: SCD's GI Prophylaxis: Protonix Resuscitation Status: Full Code - Physician Narrative Physician: Virginie Butts MD Narrative: Date: 04/28/18 Time: 1500 Please see supplemental note dictated 04/28/18 for my comments. Hospital Course Summary Disclaimer: The visit summary below is not to be considered part of the above Progress Note.
[2018-04-28] MEDS: HYDROMORPHONE 2 MG/ML INJECTION IVP PRN ×8 (04:05→23:14)
[2018-04-28] MEDS: LR 1,000 ML IV SCH ×2 (06:20→19:57)
--- NOTE | 2018-04-28 08:34 | CT Scan Report ---
Indication: possible sbo PROCEDURE: CT abdomen pelvis wo con: Encounter: Initial Comparison: None Technique: Axial CT images were performed through the abdomen and pelvis without intravenous contrast. Coronal and sagittal two-dimensional reformats. Automated Exposure Control and Iterative Reconstruction dose reducing techniques were utilized. Findings: Mild atelectasis in the right middle lobe and lingula. The unenhanced contours of the liver are grossly unremarkable. The gallbladder is surgically absent. Postoperative changes from prior gastric surgery. The spleen is within normal limits. The pancreas and adrenal glands are normal. The kidneys are normal. No evidence of prior small bowel anastomosis. There are multiple dilated small bowel loops seen in the anterior central abdomen with small bowel loops measuring up to 4 cm in diameter. There is transition to decompressed distal bowel in the left mid abdomen near the anastomotic suture line with a region of the fecalized small bowel. The ileum is essentially totally decompressed. Colon is normal caliber. Small amount of free pelvic fluid. Uterus is surgically absent. Bone windows show no acute findings. Implanted epidural spinal stimulator device noted. Impression: Moderate grade small bowel obstruction with transition in the left abdomen. Surgical consultation is recommended. There is a preliminary report by [employer]. .
[2018-04-28] MEDS: ONDANSETRON 4 MG/2 ML INJECTION IVP PRN (08:43)
[2018-04-28] MEDS: PANTOPRAZOLE 40 MG INJECTION IVP SCH (09:07)
--- NOTE | 2018-04-28 09:17 | XRay Report ---
Indication: SBO PROCEDURE: XR abdomen 2V: Encounter: Initial Comparison: CT abdomen and pelvis from yesterday Findings: The lung bases are grossly clear. No free air. Multiple surgical clips in the upper abdomen. Nerve stimulator device noted. Moderate to large amount of stool in the colon. No gas-filled dilated small bowel loops appreciated. Colon is normal in caliber. Impression: No radiographic evidence of acute obstruction, however the fluid-filled bowel loops seen on recent CT comparison would not be visible by x-ray. .
--- NOTE | 2018-04-28 09:51 | History & Physical Report ---
History of Present Illness Date: 04/28/18 Chief complaint: SBO HPI: Patient was initially seen via telemedicine with nursing assistance on 04/27/2018 : Ms. Shah is a pleasant 52yo woman with h/o RA and psoriatic arthritis, obesity BMI pending, hysterectomy, PUD with perf and subsequent hernia, and gastric bypass who presents with onset 1600 04/26 of n/v then abdominal pain. Note progressive periumbilical pain today 6/10 now after narcotic in ED. No CP or SOB, no new med change. Last BM yesterday. No consistent regimen for bowels except softer foods. 04/28/18: Heavenly Moncada is a pleasant 52-year-old female patient of REJI Garzon, in [place], [place] who presented to [facility] ED last evening, 04/27/18, for evaluation of abdominal pain and vomiting. She has an extensive abdominal surgical history with suspected adhesions. She reports a SBO a year ago at which time she was hospitalized in [place] and required and NG. She reports increasing periumbilical pain and fullness since 04/26/18. Last bowel movement was 04/26/18 which she reports was moderate in size and normal for her without blood or dark tarry stools. Increasing abdominal pain with multiple bouts of vomiting beginning on 04/28/18. She reports that her vomit was dark and foul smelling which was concerning to her so she presented to [facility] for evaluation. She denies any fevers, chills, recent illnesses, chest pain, shortness of breath, diarrhea or dysuria. CT abdomen/pelvis in the ED revealed moderate grade small bowel obstruction with transition in the left abdomen. Labs revealed leukocytosis ( WBC 13.2) and mild thrombocytosis (Plt 413). Electrolytes were unremarkable. Slight elevation in ALT at 49 with normal AST at 32. Alk phos was elevated at 219. She was given 1 L NS with Compazine 10mg IV x 1 dose and fentanyl 50 mcg IV x 1 dose with improvement. She was admitted to inpatient status under the care of the hospitalist service and was initially seen by the tele-hospitalist. Her length of stay is expected to be greater than 2 over nights and will include further evaluation, IV hydration given NPO status, close monitoring of labs, IV pain and nausea control and possible surgical consultation. Review of Systems All systems PM: 10-point ROS was reviewed, no additional remarkable complaints except - Constitutional Constitutional: Absent: anorexia, chills, fatigue, fever(s), weakness - EENMT Eyes: Absent: diplopia, loss of vision, photophobia Ears: Absent: ear pain Balance: Absent: falling to one side Nose: Absent: nosebleeds, allergies Mouth/Throat: Present: dry mouth. Absent: sore throat, changes in swallowing - Cardiovascular Cardiovascular: Absent: chest pain, palpitations, syncope, dyspnea on exertion, orthopnea, edema, heart murmur Rhythm: Present: regular rhythm Vascular: Present: unilateral swelling (left greater than right x few weeks). Absent: pallor of an extermity, pedal edema - Respiratory Respiratory: Absent: cough, dyspnea, hemoptysis, dyspnea on exertion, wheezing, pain on inspiration, chest congestion - Gastrointestinal Gastrointestinal: Present: abdominal pain, constipation, nausea, vomiting. Absent: change in stool character, diarrhea, hematochezia, melena - Genitourinary Genitourinary: Absent: dysuria, flank pain Menstruation: post hysterectomy - Musculoskeletal Musculoskeletal: Absent: abnormal gait, deformity, muscle weakness - Integumentary/Breasts Integumentary: Present: rash (chronic - psoriasis) - Neurological Neurological: Absent: abnormal gait, confusion, dizziness, focal weakness, vertigo, weakness - Psychiatric Psychiatric: Absent: behavioral changes - Endocrine Endocrine: Absent: flushing, heat intolerance, palpitations - Hematologic/Lymphatic Hematologic/Lymphatic: Present: easy bruising (coumadin) - Allergic/Immunologic Allergic/Immunologic: Absent: seasonal rhinorrhea Past Medical History Medical History Updates: Psoriatic arthritis. Rheumatoid arthritis. Chronic pain. GERD. History of PUD with ulcer perforation. History of kidney stones. Cataracts. History of PE following hysterectomy. History of retinal detachment. History of blood transfusion without reaction. Surgical History: C-sect x 2 - 1995, 1996. Partial hysterectomy - 1997. Appendectomy - 1997. Cholecystectomy - 1997. Gastric bypass - 2000. Surgery for repair of ruptured gastric ulcer - 2011. Hernia repair from previous ulcer surgery - 2012. Bilateral TKA. Right shoulder replacement. Cataract removal. Retinal detachment repair. Spinal cord stimulator (right hip). Uvula/tonsil/ adenoids removal. Power port placement - 02/2018, Dr. Mcdermott. Family History: Family history unknown as patient reports being adopted. She has two living daughters who are reportedly healthy. Family History: As Above (adopted) - Social History Smoking status: Never smoker Substance use type: does not use Alcohol intake frequency: holidays/special occasions only Housing: house Household members: none Current occupational status: employed Does patient use chewing tobacco?: No Current residence: Apartment/Private Home Social history: PCP - REJI Zaragoza ([place]). 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 Medications Home Medications Medication Instructions Recorded Confirmed Type Cyclobenzaprine [Flexeril] 10 mg PO TID PRN 04/27/18 04/27/18 History Folic Acid [Folate] 1 mg PO HS 04/27/18 04/27/18 History METHOTREXATE 2.5mg TAB 7.5 mg PO TH@2200 04/27/18 04/27/18 History [Methotrexate] Oxycodone CR [Oxycontin] 20 mg PO QID PRN 04/27/18 04/27/18 History Pantoprazole Sodium [Protonix] 40 mg PO HS 04/27/18 04/27/18 History Warfarin [Coumadin] 6 mg PO HS 04/27/18 04/27/18 History Allergies Allergy/AdvReac Type Severity Reaction Status Date / Time amoxicillin Allergy Verified 04/27/18 18:24 cefaclor [From Ceclor] Allergy Verified 04/27/18 18:24 levofloxacin [From Levaquin] Allergy Verified 04/27/18 18:24 Penicillins Allergy Verified 04/27/18 18:24 Sulfa (Sulfonamide Allergy Verified 04/27/18 18:24 Antibiotics) Exam Vital Signs: Temperature 97.0 F 04/28/18 07:47 Pulse Rate 85 04/28/18 07:47 Respiratory Rate 18 04/28/18 07:47 Blood Pressure 106/57 04/28/18 07:47 Pulse Oximetry 95 04/28/18 07:47 Height/Weight/BMI: Height 5 ft 6 in Weight 206 lb 2.115 oz Body Mass Index 33.3 Comments: Patient is seen while resting in bed, watching TV. Reports increased nausea this morning while showering but improved with Zofran. Current pain 4/10 at rest to periumbilical region. - Constitutional Present: no acute distress, well nourished, well developed, cooperative - Routine HEENT Exam Head: Present: normocephalic, atraumatic Eye: Present: PERRL. Absent: conjunctival icterus ENT: Present: mucous membranes moist, oropharynx clear - Routine Neck Exam Present: supple, full ROM, trachea midline - Routine Chest/Breast/Axilla Exam Chest wall: Absent: pacemaker Comments: Power port to right chest. - Routine Respiratory Exam Present: CTA bilaterally. Absent: respiratory distress, wheezes - Routine Cardiovascular Exam Present: RRR, S1, S2, no murmur - Routine Abdominal Exam Present: soft, tenderness (mild, generalized). Absent: distended, rebound Comments: Passing gas; hypoactive bowel sounds. - Routine Extremities Exam Present: no edema, non tender, full ROM, pulses intact Comments: Left lower extremity larger than right without obvious edema; negative Castro's sign; brisk cap refill and N/V intact. - Routine Back/Spine/Pelvis Exam Back/Spine: Present: full ROM. Absent: vertebral tenderness - Routine Skin Exam Present: intact, dry, warm Comments: Afebrile; psoatic rash noted. - Routine Neurological Exam Present: alert, oriented X3, CN II-XII intact, moving all extremities, hearing grossly intact, normal speech - Routine Psychiatric Exam Present: normal affect, cooperative, good insight, good judgment Results - Labs CBC & Chem 7: 04/28/18 05:14 04/28/18 05:14 - Impressions Date of Exam: 04/27/18 Type of Exam(s): CT abdomen pelvis wo con Reason for Exam(s): possible sbo Findings: Mild atelectasis in the right middle lobe and lingula. The unenhanced contours of the liver are grossly unremarkable. The gallbladder is surgically absent. Postoperative changes from prior gastric surgery. The spleen is within normal limits. The pancreas and adrenal glands are normal. The kidneys are normal. No evidence of prior small bowel anastomosis. There are multiple dilated small bowel loops seen in the anterior central abdomen with small bowel loops measuring up to 4 cm in diameter. There is transition to decompressed distal bowel in the left mid abdomen near the anastomotic suture line with a region of the fecalized small bowel. The ileum is essentially totally decompressed. Colon is normal caliber. Small amount of free pelvic fluid. Uterus is surgically absent. Bone windows show no acute findings. Implanted epidural spinal stimulator device noted. Impression: Moderate grade small bowel obstruction with transition in the left abdomen. Surgical consultation is recommended. Date of Exam: 04/28/18 Type of Exam(s): XR abdomen 2V Reason for Exam(s): SBO Findings: The lung bases are grossly clear. No free air. Multiple surgical clips in the upper abdomen. Nerve stimulator device noted. Moderate to large amount of stool in the colon. No gas-filled dilated small bowel loops appreciated. Colon is normal in caliber. Impression: No radiographic evidence of acute obstruction, however the fluid-filled bowel loops seen on recent CT comparison would not be visible by x-ray. Assessment and Plan (1) Small bowel obstruction Current visit: Yes Status: Acute Assessment and Plan: Per tele-hospitalist on admission on 04/27/18: 1. SBO confirmed by CT--admit to inpatient with IVF, NPO, suppository and plan NG if intractible emesis. AM xrays and should be on miralax et al for 1-2 stools daily (discussed). Likely adhesions from prior surgeries but will check TSH in AM with 4. 2. RA and psoriatic arthritis on MTX 3. PUD hx with PPI to continue IV 4. Hyperglycemia likely stress induced, but with obesity check TSH and if glucose higher in AM A1C. 5. Leukocytosis likely stress induced with no fever, check UA. Full code SCDs Assessment: Small bowel obstruction, present on admission. Acute abdominal pain with nausea/vomiting. Leukocytosis (WBC 13.2), present on admission. Thrombocytosis (Plt 413), present on admission. Chronic anticoagulation with warfarin. Psoriatic arthritis. Rheumatoid arthritis. Chronic pain. GERD. History of PUD with ulcer perforation. History of kidney stones. Cataracts. History of PE following hysterectomy. History of retinal detachment. History of blood transfusion without reaction. Plan - 04/28/18: Admit patient to inpatient status under the care of the hospitalist service. Fentanyl 50 mcg and Compazine 10mg IV given in ED. Will continue Dilaudid 1mg IV Q2H PRN pain. Patient has an extensive history of chronic narcotic use for chronic pain. Zofran as needed for nausea/vomiting. Maintain NPO status. No vomiting since prior to admission. If vomiting resumes , consider placement of NG tube. Initial CT abdomen/pelvis revealed moderate grade SBO. KUB today showed no evidence of acute obstruction though limited exam as compared to prior CT per radiologist. KUB reviewed by myself and Dr. Butts. Initiate Dulcolax suppository now for bowel motivation. Continue LR 100cc/hr for hydration given NPO status. Monitor closely for signs of fluid overload. Protonix 40mg IV for GI protection and GERD. INR therapeutic at 2.79. Will hold home Coumadin (history of PE) given NPO status. SCDs for DVT prophylaxis. Consider initiation of Lovenox. Leukocytosis and thrombocytosis resolved. Electrolytes stable. Monitor labs closely. Recheck in AM. Upon discharge, patient's care will be returned to REJI Zaragoza. DVT Prophylaxis: SCD's GI Prophylaxis: Protonix Resuscitation Status: Full Code - Time spent with patient Time with patient PN: 70 minutes - Physician Narrative Physician: Virginie Butts MD Narrative: Date: 04/28/18 Time: 1500 I have independently evaluated and examined this patient. I reviewed the chart, the patient's history, and the DISH UP PERSON/PA's documented findings as above. We discussed and formulated the assessment and plan as above with additions as below: Mrs. Shah describes onset of abdominal discomfort 2 days ago followed by nausea and vomiting yesterday; symptoms slightly improved today with some nausea /dry heaves when she moved around the room this morning. Symptoms adequately controlled with antiemetics and she is reluctant to consider NG at this time. She reports abdominal pain is not as bad today as it was when she presented to the emergency room overnight. History of multiple abdominal surgeries and multiple prior SBO's-patient estimates this is her eighth or ninth bowel obstruction. Alert, cooperative female Respirations nonlabored, good airflow, breath sounds clear Regular rhythm Abdomen soft, moderately distended with mild generalized tenderness and active bowel sounds CT abdomen/pelvis reviewed by myself revealing dilated fluid-filled small bowel loops in the central abdomen with transition zone in the left mid abdomen; increased fecal content. Radiology reports the ileum is nearly totally decompressed. KUBs this morning are without evidence of bowel obstruction however radiology notes fluid-filled bowel loops as seen on CT would not be visible on plain x- ray. Nerve stimulator present with battery pack in the right lower quadrant Patient describes clinical improvement overnight and and prior bowel obstructions have all resolved spontaneously; at present declines NG tube- discussed with patient and her daughter advising her that if vomiting occurs and she will become necessary as there will be no other means of controlling emesis. Given reported clinical improvement will hold off on surgical consultation at this time. Dulcolax suppository tried this morning with minimal result. Ambulation encouraged. Monitor closely-if symptoms worsen will require NG and surgical consultation; if remains stable can continue conservative management. Nursing reports limited urine output-increase IV fluids. Hospital Course Summary Disclaimer: The visit summary below is not to be considered part of the above Progress Note. Hospital Course: Plan - 04/28/18: Admit patient to inpatient status under the care of the hospitalist service. Fentanyl 50 mcg and Compazine 10mg IV given in ED. Will continue Dilaudid 1mg IV Q2H PRN pain. Patient has an extensive history of chronic narcotic use for chronic pain. Zofran as needed for nausea/vomiting. Maintain NPO status. No vomiting since prior to admission. If vomiting resumes , consider placement of NG tube. Initial CT abdomen/pelvis revealed moderate grade SBO. KUB today showed no evidence of acute obstruction though limited exam as compared to prior CT per radiologist. KUB reviewed by myself and Dr. Butts. Initiate Dulcolax suppository now for bowel motivation. Continue LR 100cc/hr for hydration given NPO status. Monitor closely for signs of fluid overload. Protonix 40mg IV for GI protection and GERD. INR therapeutic at 2.79. Will hold home Coumadin (history of PE) given NPO status. SCDs for DVT prophylaxis. Consider initiation of Lovenox. Leukocytosis and thrombocytosis resolved. Electrolytes stable. Monitor labs closely. Recheck in AM. Upon discharge, patient's care will be returned to REJI Zaragoza.
[2018-04-28] MEDS: BISACODYL 10 MG SUPPOSITORY RECTALLY SCH (10:53)
[2018-04-28] MEDS: SALINE FLUSH 10ml SYRINGE IVF PRN (14:06)
[2018-04-28] MEDS ORDERED: NS 1,000 ML IV ONE (15:17)
[2018-04-29] MEDS: ONDANSETRON 4 MG/2 ML INJECTION IVP PRN ×4 (01:23→20:28)
[2018-04-29] MEDS: HYDROMORPHONE 2 MG/ML INJECTION IVP PRN ×7 (01:29→19:45)
[2018-04-29] MEDS: LR 1,000 ML IV SCH ×3 (06:16→17:04)
[2018-04-29] MEDS: SALINE FLUSH 10ml SYRINGE IVF PRN (08:28)
[2018-04-29] MEDS: PANTOPRAZOLE 40 MG INJECTION IVP SCH (08:28)
[2018-04-29] MEDS: BISACODYL 10 MG SUPPOSITORY RECTALLY SCH (08:28)
--- NOTE | 2018-04-29 10:35 | Progress Note ---
- Date 04/29/18 Subjective: Patient seen this am resting in bed. She had increased pain and nausea last night and would've been ok with an NG if there would've been an order. She is feeling better now. She's had no vomiting since admission. Has had a suppository with no results. Pain is currently 5/10 . Objective Vital signs: Temperature 96.4 F L 04/29/18 07:18 Pulse Rate 84 04/29/18 07:18 Respiratory Rate 20 04/29/18 07:18 Blood Pressure 138/71 04/29/18 07:18 Pulse Oximetry 97 04/29/18 07:18 Height/Weight/BMI: Height 1.68 m Weight 94.9 kg Body Mass Index 33.3 - Constitutional Present: no acute distress, well nourished, well developed - Routine HEENT Exam Head: Present: normocephalic, atraumatic - Routine Respiratory Exam Present: CTA bilaterally. Absent: wheezes - Routine Cardiovascular Exam Present: RRR, no murmur - Routine Abdominal Exam Present: soft, tenderness (diffuse - worst in the LUQ), non distended. Absent: normoactive bowel sounds (hypoactive BS's) - Routine Extremities Exam Present: no edema, normal capillary refill - Routine Skin Exam Present: dry, warm - Routine Neurological Exam Present: alert, oriented X3 - Routine Lymphatic Exam Lymphatic: Absent: adenopathy - Routine Psychiatric Exam Present: normal affect, cooperative Results - Labs CBC & Chem 7: 04/29/18 05:02 04/29/18 05:02 Assessment and Plan (1) Small bowel obstruction Current visit: Yes Status: Acute Assessment and Plan: Assessment: Small bowel obstruction, present on admission. Acute abdominal pain with nausea/vomiting. Leukocytosis (WBC 13.2), present on admission. Thrombocytosis (Plt 413), present on admission. Chronic anticoagulation with warfarin. Psoriatic arthritis. Rheumatoid arthritis. Chronic pain. GERD. History of PUD with ulcer perforation. History of kidney stones. Cataracts. History of PE following hysterectomy. History of retinal detachment. History of blood transfusion without reaction. Plan: Continues NPO. No NG at present, but is ordered if she develops vomiting. Continue LR 100cc/hr for hydration given NPO status. Monitor closely for signs of fluid overload. Continue Protonix 40mg IV for GI protection and GERD. Coumadin (history of PE) on hold given NPO status. SCDs and Lovenox for DVT prophylaxis. Continues on Dilaudid approx q 2 hrs prn pain and Zofran PRN nausea. Encourage ambulation. No indication for surgical intervention at this time. DVT Prophylaxis: Lovenox, Coumadin Resuscitation Status: Full Code - Physician Narrative Physician: Virginie Butts MD Narrative: Date: 04/29/18 Time: 2100 I have independently evaluated and examined this patient. I reviewed the chart, the patient's history, and the RISK COMPLIANCE MANAGER/PA's documented findings as above. We discussed and formulated the assessment and plan as above with additions as below: Heavenly reports persistent abdominal discomfort which is unchanged, she had minimal flatus this morning and passed a small amount of stool but overall feels abdominal distention is the same as it was yesterday and the day before. This bowel obstruction is taking longer to resolve than the majority she's experienced. Fatigued-appearing female, abdomen soft with mild distention and mild generalized tenderness, sparse bowel sounds present INR 1.86 Patient continues to decline NG through late afternoon; can be placed if emesis develops or if patient changes her mind. Lovenox 40 mg initiated for INR less than 2; KUB in a.m. Hospital Course Summary Disclaimer: The visit summary below is not to be considered part of the above Progress Note. Hospital Course: 04/28/18 Admit patient to inpatient status under the care of the hospitalist service. Fentanyl 50 mcg and Compazine 10mg IV given in ED. Will continue Dilaudid 1mg IV Q2H PRN pain. Patient has an extensive history of chronic narcotic use for chronic pain. Zofran as needed for nausea/vomiting. Maintain NPO status. No vomiting since prior to admission. If vomiting resumes , consider placement of NG tube. Initial CT abdomen/pelvis revealed moderate grade SBO. KUB today showed no evidence of acute obstruction though limited exam as compared to prior CT per radiologist. KUB reviewed by myself and Dr. Butts. Initiate Dulcolax suppository now for bowel motivation. Continue LR 100cc/hr for hydration given NPO status. Monitor closely for signs of fluid overload. Protonix 40mg IV for GI protection and GERD. INR therapeutic at 2.79. Will hold home Coumadin (history of PE) given NPO status. SCDs for DVT prophylaxis. Consider initiation of Lovenox. Leukocytosis and thrombocytosis resolved. Electrolytes stable. Monitor labs closely. Recheck in AM. Upon discharge, patient's care will be returned to REJI Zaragoza. 04/29/19 Continues NPO. No NG at present. Cont IVF's. No results with suppository and ambulation thus far. Pain fairly well controlled on Dilaudid approx q 2 hrs prn pain and Zofran PRN nausea. Encourage ambulation. No indication for surgical intervention at this time.
[2018-04-29] MEDS: ENOXAPARIN 40 MG/0.4 ML INJECTION SQ SCH (10:41)
[2018-04-30] MEDS: LR 1,000 ML IV SCH ×5 (00:06→23:13)
[2018-04-30] MEDS: HYDROMORPHONE 2 MG/ML INJECTION IVP PRN ×7 (01:43→23:13)
--- NOTE | 2018-04-30 08:08 | XRay Report ---
Indication: sbo PROCEDURE: XR abdomen 2V: Encounter: Initial Comparison: April 28, 2018 Findings: Lung bases are grossly clear. No free air. Bowel gas pattern is nonobstructive and nonspecific. Gas is seen throughout small and large bowel to the level of the rectum. Moderate stool in the colon. No abnormally dilated gas-filled bowel loops appreciated. No acute changes from the prior study. Impression: Radiographically nonobstructive bowel gas pattern. .
--- NOTE | 2018-04-30 09:13 | XRay Report ---
INDICATION: abdominal pain/SBO PROCEDURE: CHEST 2-VIEWS UPRIGHT (PA & LAT) Encounter: Initial COMPARISON: None FINDINGS: Minimal linear atelectasis or scarring in both lower lobes. Lungs are otherwise clear. There is no pleural effusion or pneumothorax. Right subclavian port. Upper abdominal surgical clips. The heart size, mediastinal contours and pulmonary vascularity are within normal limits. Spinal stimulator leads. IMPRESSION: No acute cardiopulmonary disease. .
[2018-04-30] MEDS: PANTOPRAZOLE 40 MG INJECTION IVP SCH (09:59)
[2018-04-30] MEDS: BISACODYL 10 MG SUPPOSITORY RECTALLY SCH (09:59)
[2018-04-30] MEDS: ONDANSETRON 4 MG/2 ML INJECTION IVP PRN ×2 (10:00→23:20)
[2018-04-30] MEDS: ENOXAPARIN 40 MG/0.4 ML INJECTION SQ SCH (10:01)
--- NOTE | 2018-04-30 12:11 | Progress Note ---
- Date 04/30/18 Subjective: Heavenly reports increased nausea this morning without emesis although nursing advised me that the patient was near inducing emesis due to discomfort. She describes ongoing generalized abdominal pain which she categorized as moderate and unchanged from prior days. She had a small bowel movement this morning but has had no flatus. Symptoms are essentially unchanged for the past 4 days. She denied dyspnea, fevers, chills, or palpitations. She is voiding without difficulty. She describes occasional lightheadedness. Objective Vital signs: Temperature 97.9 F 04/30/18 07:00 Pulse Rate 73 04/30/18 07:00 Respiratory Rate 16 04/30/18 07:00 Blood Pressure 143/77 H 04/30/18 07:00 Pulse Oximetry 99 04/30/18 07:00 I/O 2000/1000; weight relatively stable from admission Uncomfortable appearing female, alert, cooperative Conjunctiva clear, sclera anicteric Respirations nonlabored, good airflow, breath sounds clear Regular rhythm, S1-S2 Abdomen soft, mildly distended with moderate generalized tenderness, no peritoneal signs but guards especially in the lower abdomen; sparse bowel sounds Extremities without edema Height/Weight/BMI: Height 1.68 m Weight 92.8 kg Body Mass Index 33.3 Results - Labs CBC & Chem 7: 04/29/18 05:02 04/29/18 05:02 Labs: INR 1.44 - Imaging and Cardiology Abdominal x-ray Status: image reviewed by me (nonobstructive bowel gas pattern, no abnormally dilated bowel loops appreciated.) Chest x-ray Status: image reviewed by me (NAD, no free air) Assessment and Plan (1) Small bowel obstruction Current visit: Yes Status: Acute Assessment and Plan: Assessment: Small bowel obstruction, present on admission. Acute abdominal pain with nausea/vomiting. Leukocytosis (WBC 13.2), present on admission. Thrombocytosis (Plt 413), present on admission. Chronic anticoagulation with warfarin. Psoriatic arthritis. Rheumatoid arthritis. Chronic pain. Abnormal LFTs-on methotrexate GERD. History of PUD with ulcer perforation. History of kidney stones. Cataracts. History of PE following hysterectomy. History of retinal detachment. History of blood transfusion without reaction. Anemia, normocytic Plan: Symptoms unchanged, small bowel movement but no flatus-suspect bowel obstruction unchanged from admission. KUB unremarkable however bowel loops were fluid-filled on admission and not evident on plain films; may require repeat imaging by CT. Nausea has worsened and patient now agreeable to placement of NG tube. Warfarin on hold in the event surgical intervention is necessary. Requiring Dilaudid frequently for pain control-6 mg in the past 24 hours. No oral intake 5 days; will require parenteral nutrition in the near future. Plan surgical consultation later today. Have discussed patient with Dr. Diana. Hemoglobin has dropped progressively from admission, 15.2-12.9-11.7; suspect largely due to hydration. Recheck in a.m. DVT Prophylaxis: Lovenox GI Prophylaxis: Protonix Resuscitation Status: Full Code - Physician Narrative Narrative: Date: 04/30/18 Time: 1208 Hospital Course Summary Disclaimer: The visit summary below is not to be considered part of the above Progress Note. Hospital Course: 04/28/18 Admit patient to inpatient status under the care of the hospitalist service. Fentanyl 50 mcg and Compazine 10mg IV given in ED. Will continue Dilaudid 1mg IV Q2H PRN pain. Patient has an extensive history of chronic narcotic use for chronic pain. Zofran as needed for nausea/vomiting. Maintain NPO status. No vomiting since prior to admission. If vomiting resumes , consider placement of NG tube. Initial CT abdomen/pelvis revealed moderate grade SBO. KUB today showed no evidence of acute obstruction though limited exam as compared to prior CT per radiologist. KUB reviewed by myself and Dr. Butts. Initiate Dulcolax suppository now for bowel motivation. Continue LR 100cc/hr for hydration given NPO status. Monitor closely for signs of fluid overload. Protonix 40mg IV for GI protection and GERD. INR therapeutic at 2.79. Will hold home Coumadin (history of PE) given NPO status. SCDs for DVT prophylaxis. Consider initiation of Lovenox. Leukocytosis and thrombocytosis resolved. Electrolytes stable. Monitor labs closely. Recheck in AM. Upon discharge, patient's care will be returned to [facility]. 04/29/18 Continues NPO. No NG at present. Cont IVF's. No results with suppository and ambulation thus far. Pain fairly well controlled on Dilaudid approx q 2 hrs prn pain and Zofran PRN nausea. Encourage ambulation. No indication for surgical intervention at this time. 04/30/18 Symptoms unchanged, small bowel movement but no flatus-suspect bowel obstruction unchanged from admission. KUB unremarkable however bowel loops were fluid-filled on admission and not evident on plain films; may require repeat imaging by CT. Nausea has worsened and patient now agreeable to placement of NG tube. Warfarin on hold in the event surgical intervention is necessary. Requiring Dilaudid frequently for pain control-6 mg in the past 24 hours. No oral intake 5 days; will require parenteral nutrition in the near future. Dr. Diana consulted.
--- NOTE | 2018-04-30 13:35 | XRay Report ---
Indication: Check NG Tube Placement PROCEDURE: XR KUB: Encounter: Initial Comparison: April 30, 2018 at 0750 Findings: Nasogastric tube in place with the tip and side port projecting over the body of the stomach. Linear atelectasis in the left lower lobe. Bowel gas pattern is unchanged from the exam earlier in the day. Impression: Nasogastric tube projects in appropriate position. .
[2018-04-30] MEDS: BENZOCAINE/MENTHOL SORE THROAT LOZENGE MM PRN ×4 (13:48→20:57)
[2018-04-30] MEDS: SORE THROAT SPRAY 20ml PO PRN ×3 (13:48→18:54)
--- NOTE | 2018-04-30 21:06 | Consultation ---
DATE OF CONSULTATION 04/30/2018 HISTORY OF PRESENT ILLNESS This patient is 52 years old. This patient underwent a Jenn-en-Y gastric bypass operation in 2000 at [place], [place]. The patient did experience a perforated marginal ulcer at the stomach in 2012 and underwent an operation for treatment of this at [facility] at [place], [place]. The patient did have a fairly severe postoperative wound infection. The operation was performed through a long midline vertical abdominal incision. The wound did need to be opened up to treat that wound infection and the patient did have a wound VAC in place for about 40 days to heal the wound closed. After this, the patient did have a large loss of domain with a very large fascial defect in the mid portion of her abdomen. The patient did undergo ventral hernia repair with Strattice mesh, bilateral component separation with myocutaneous advancement flaps and panniculectomy on 02/14/[address] Burak Reese at [facility] at [place], [place] to repair this very large ventral hernia. The patient did have a large amount of adhesions found in the abdomen at the time of this operation. The previous site of the gastrostomy tube was quite adherent to the anterior abdominal wall and the stapling device was used to transect the stomach and release this and a small portion of the stomach was excised from the fascia at this time. The patient did make a good recovery from that operation in 2013. The patient states that since the operation on 02/14/2014, she has had approximately eight previous small bowel obstructions. All eight of these previous small bowel obstructions have resolved without operative treatment. The patient has treated some of these at home without going to the hospital by fasting for a few days and controlling her pain and nausea with medication at home. For her other small bowel obstruction episodes that she has had, she has been hospitalized at [facility]. All of her hospitalizations for small bowel obstruction have been at [facility]. She states that the physicians at [facility] wanted to transfer her back down to a hospital in [place] if she needed any operative treatment for the small bowel obstructions. Fortunately, all these small bowel obstruction episodes which required hospitalization at [facility] resolved spontaneously. The patient states that usually after a couple days of nonoperative treatment she would begin to have some relief of her abdominal pain and pressure symptoms and begin to feel better. The patient states she lives in [place], [place]. The patient did begin to experience abdominal pain and pressure and nausea and vomiting about 4 p.m. on 04/26/2018. The patient did think she was developing another small bowel obstruction. She initially tried to treat this at home for 24 hours but did not improve. The patient then came to [facility] Emergency Room late on the afternoon of 04/27/2018 for evaluation for possible small bowel obstruction. She did come to [facility] this time instead of [facility]. The patient did report abdominal pain and vomiting. She reported that her last bowel movement was on 04/26/2018. The patient had been able to pass some flatus up until a few hours before presentation at [facility] Emergency Room. The patient did undergo a CT scan of the abdomen and pelvis on 04/27/2018 at the time of evaluation at [facility] Emergency Room. The CT scan of the abdomen and pelvis did show a moderate-grade small bowel obstruction. There were multiple dilated small bowel loops at the anterior central abdomen with small bowel loops measuring up to 4 cm in diameter. There was a transition zone from dilated proximal small bowel to decompressed distal bowel at the left midabdomen. The ileum was decompressed. Colon was normal caliber. This was all interpreted as showing a moderate-grade small bowel obstruction. The patient was admitted to [facility] from the emergency room by the hospitalist service on the evening of 04/27/2018. Since admission to the hospital on 04/27/2018, the patient has been treated with bowel rest and intravenous fluids. The patient has refused to have a nasogastric tube inserted until the morning of 04/30/2018. The patient did have some increased nausea without emesis on the morning of 04/30/2018. This did concern the patient that her small bowel obstruction was not resolving as rapidly as it has in the past. The patient states that the abdominal discomfort and pressure sensation that she has at the upper abdomen with her small bowel obstruction episodes has not resolved yet at this time since admission to the hospital on 04/27/2018. These symptoms frequently improve after a couple of days but she does have ongoing generalized abdominal pain and pressure yet at this time which has not improved a lot since admission on 2017. The patient did have a small bowel movement on the morning of 2017. She has, overall, not had much improvement in her nausea and abdominal discomfort and pressure since she was admitted to the hospital. The patient did agree on the morning of 04/30/2018 to undergo insertion of a nasogastric tube. The patient states that she does just have a very small gastric pouch from her gastric bypass operation which this nasogastric tube is inserted into so there is not a lot of output from the nasogastric tube. The patient states that she does just have a small gastric pouch with a little bit of jejunum coming up to it as part of her Jenn-en-Y gastric bypass operation. PAST MEDICAL HISTORY PREVIOUS OPERATIONS AND PROCEDURES 1. section [address] Brian Schmidt at [facility] at [place], [place]. 2. Repeat section in [address] Brian Schmidt at [place], [place]. 3. Total abdominal hysterectomy in [address] Brian Schmidt at [place], [place]. The patient states that tubes and ovaries were left in at that time. 4. Jenn-en-Y gastric bypass for weight loss operation in 2000 at [place], [place]. 5. Operation for treatment of perforated marginal ulcer in 2012 at [facility] at [place], [place]. The patient did experience some postoperative wound infection after this operation. The abdominal incision was packed open and a wound VAC was placed and it did take about 40 days for the wound to heal closed with the wound VAC. 6. Esophagogastroduodenoscopy on 07/19/[address] Minh Colin at [facility] at [place], [place]. This was performed for evaluation of abdominal pain. The patient was known to be status post gastric bypass. Postoperative diagnoses were mild stomal ulceration with no evidence for outlet obstruction, esophagitis or ulcer. 7. Ventral hernia repair with Strattice mesh, bilateral component separation with myocutaneous advancement flaps and panniculectomy on 02/14/[address] Burak Reese at [facility] at [place], [place]. Postoperative diagnosis was large ventral hernia. The patient was found to have a large amount of adhesions in the abdomen at this time. The patient had a large fascial defect at the midportion of the abdomen. The patient did have the previous site of a gastrostomy tube quite adherent to the anterior abdominal wall. A stapler was used to transect the stomach and release this. A small portion of the stomach was then excised from the fascia. The ventral hernia was repaired with bilateral component separation with myocutaneous advancement flaps. A 20 cm x 40 cm piece of Strattice mesh was placed in an underlay fashion to reinforce the repair. PHYSICAL EXAMINATION VITAL SIGNS: Temperature is 96.9 degrees Fahrenheit oral. Pulse is 95. Respiratory rate is 20. Blood pressure is 143/73. Oxygen saturation is 96% on room air. ABDOMEN: The patient has an old Pfannenstiel abdominal incision scar. The patient has a long midline vertically oriented abdominal incision scar at the upper and lower abdomen. The abdomen is nondistended at this time. The abdomen is soft. There is very little abdominal tenderness at palpation of the abdomen. There is only some mild vague nonlocalized tenderness. LABORATORY DATA White blood cell count was 4700 with no bands on 04/29/2018. Hemoglobin was 11.7. Hematocrit was 34.5. INR was 2.79 on 04/28/2018. INR was 1.44 today. Serum sodium is 142. Serum potassium is 3.7. Serum chloride is 108. Serum creatinine is 0.4. Albumin is 3.1. IMAGING DATA The patient did have a CT scan of the abdomen and pelvis performed on 2017 at [facility]. This shows a moderate-grade small bowel obstruction. There is a transition zone at the small bowel with proximal dilated small bowel and decompressed distal ileum. The colon has normal caliber. KUB and upright abdominal x-rays performed on 04/30/2018 show a nonobstructive nonspecific bowel gas pattern. Gas is seen throughout the small and large bowel to the level of the rectum. There is moderate stool in the colon. No abnormal dilated gas-filled small bowel loops were seen on this study. IMPRESSION 1. Moderate-grade small bowel obstruction which is not yet clinically resolved. 2. Recent anticoagulation with warfarin. 3. Status post Jenn-en-Y gastric bypass operation in 2000. 4. Status post operation for treatment of perforated marginal ulcer at the stomach in 2012. 5. Status post ventral hernia repair with Strattice mesh, bilateral component separation with myocutaneous advancement flaps and panniculectomy on 2013. 6. History of eight previous episodes of small bowel obstruction which have resolved nonoperatively since 2013. 7. 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 RECOMMENDATIONS 1. Continue to hold warfarin. 2. The patient has not had any oral intake since 04/26/2018 and her serum albumin is 3.1. The patient would probably benefit from initiation of some TPN at this time for nutritional support. 3. Continue additional trial of nonoperative treatment of the small bowel obstruction since the patient did just have a nasogastric tube inserted for the first time today. With eight previous small bowel obstruction episodes which have resolved nonoperatively, there is still some chance that this episode may resolve without operative treatment. 4. An imaging study could be performed again at the first part of the week to monitor response to nonoperative treatment. If there is not much clinical improvement, it might be best to repeat another CT scan of the abdomen and pelvis. If the patient does improve clinically between now and the first of the week, she might be able to undergo a small bowel follow-through x-ray series to assess response to nonoperative treatment. JACKELIN
[2018-05-01] MEDS: HYDROMORPHONE 2 MG/ML INJECTION IVP PRN ×8 (02:03→23:19)
[2018-05-01] MEDS: LR 1,000 ML IV SCH ×3 (04:11→15:10)
[2018-05-01] MEDS: ONDANSETRON 4 MG/2 ML INJECTION IVP PRN ×2 (08:40→18:52)
[2018-05-01] MEDS: BISACODYL 10 MG SUPPOSITORY RECTALLY SCH (09:21)
[2018-05-01] MEDS: ENOXAPARIN 40 MG/0.4 ML INJECTION SQ SCH (09:21)
[2018-05-01] MEDS: PANTOPRAZOLE 40 MG INJECTION IVP SCH (09:22)
[2018-05-01] MEDS: BENZOCAINE/MENTHOL SORE THROAT LOZENGE MM PRN ×3 (09:27→14:12)
--- NOTE | 2018-05-01 11:03 | Progress Note ---
DATE 05/01/2018 HISTORY OF PRESENT ILLNESS The patient states she feels a little bit better this morning. She did pass some flatus through the night last night. The pain and pressure at the lower abdomen seems to be a little better today than it was yesterday. She still has some sensation of pain and pressure yet at the upper abdomen. She feels a little better overall. PHYSICAL EXAMINATION VITAL SIGNS: Temperature is 97.9 degrees Fahrenheit oral. Pulse is 87. Respiratory rate is 13. Blood pressure is 136/75. Oxygen saturation is 99% on room air. ABDOMEN: There is still some mild diffuse nonlocalized abdominal tenderness. No abdominal distention. The abdomen is soft. The patient does have a long vertically oriented midline upper and lower abdominal incision scar. There is an old Pfannenstiel abdominal incision scar. LABORATORY DATA White blood cell count is 7000 with no bands. Hemoglobin is 13. Hematocrit is 37.3. INR is 1.28 today. Serum sodium is 141. Serum potassium is 3.6. IMAGING DATA The patient did undergo a repeat CT scan of the abdomen and pelvis this morning. Report on this is still pending. IMPRESSION 1. Moderate-grade small bowel obstruction with some clinical improvement over the last 24 hours. 2. Status post Jenn-en-Y gastric bypass operation in 2000. 3. Status post operation for treatment of perforated marginal ulcer at the stomach in 2012. 4. Status post ventral hernia repair with Strattice mesh, bilateral component separation with myocutaneous advancement flaps and panniculectomy on 02/14/2014. 5. History of eight previous episodes of small bowel obstruction which have resolved nonoperatively since 2013. 6. 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 RECOMMENDATIONS 1. Continue to hold warfarin. 2. Await report on CT scan of the abdomen and pelvis performed earlier today. 3. The patient has not had any oral intake since 04/26/2018. The patient would probably benefit from initiation of some TPN at this time for nutritional support. 4. Continue nonoperative treatment of the small bowel obstruction since the patient is having some clinical improvement with this treatment. MTDD
[2018-05-01] MEDS ORDERED: TPN - PHARMACY CONSULT MC ONE (15:16)
[2018-05-01] MEDS: MULTI-VIT INFUSION 10 ML, MULTI-TRACE ELEMENTS 1 ML in TPN - STANDARD FORMULA 2,000 ML IV SCH (15:53)
[2018-05-01] MEDS ORDERED: FAT EMULSION 20% 250 ML BAG IV SCH (16:00)
[2018-05-01] MEDS: MAGNESIUM SULFATE 1gm PREMIX 1 GM/100 ML BAG IV SCH ×2 (16:12→17:16)
--- NOTE | 2018-05-01 16:51 | Progress Note ---
- Date 05/01/18 Subjective: Heavenly reports ongoing nausea with increased gag reflex which she attributes to presence of the NG tube; she experienced vomiting at least once overnight which she attributes to the NG as well. She continues to have abdominal cramping and denies flatus. She had a small formed stool yesterday morning and later had a small amount of diarrhea but is otherwise without further bowel activity. She denied dyspnea, arthralgias, fever, or chills. She is lightheaded when she is up. She is voiding well and denies dysuria. Objective Vital signs: Temperature 97.0 F 05/01/18 15:00 Pulse Rate 72 05/01/18 15:00 Respiratory Rate 18 05/01/18 15:00 Blood Pressure 141/68 H 05/01/18 15:00 Pulse Oximetry 95 05/01/18 15:00 I/O 1937/3150 NAD, alert, flat affect Conjunctiva clear, sclera anicteric Respirations nonlabored, good airflow, breath sounds clear Regular rhythm, S1-S2 Abdomen soft, nontender, bowel sounds present although NG is to suction Extremities without edema MAEW Height/Weight/BMI: Height 1.68 m Weight 91.6 kg Body Mass Index 33.3 Results - Labs CBC & Chem 7: 05/01/18 03:51 05/01/18 03:51 Labs: INR 1.28 Magnesium 1.4 Bilirubin 1.4, alkaline phosphatase 176, transaminases normal - Imaging and Cardiology CT scan - abdomen Status: image reviewed by me (base of lungs are clear, small bowel loops no longer distended, no air-fluid levels; NG tube appears to be in the small bowel) Assessment and Plan (1) Small bowel obstruction Current visit: Yes Status: Acute Assessment and Plan: Assessment: Small bowel obstruction, present on admission. Acute abdominal pain with nausea/vomiting. Leukocytosis (WBC 13.2), present on admission. Thrombocytosis (Plt 413), present on admission. Chronic anticoagulation with warfarin. Psoriatic arthritis. Rheumatoid arthritis. Chronic pain. Abnormal LFTs-on methotrexate GERD. History of PUD with ulcer perforation. History of kidney stones. Cataracts. History of PE following hysterectomy. History of retinal detachment. History of blood transfusion without reaction. Anemia, normocytic Hypomagnesemia Plan: Symptoms unchanged, minimal output per NG which appears to be in the small bowel by CT (prior gastric bypass) CT without dilated loops today; will discuss further with Dr. Diana. I'm inclined to pull the NG tube back several inches and consider clamping it with trial of clear liquids based on CT findings. May wish to wait for formal in-house reading of CT tomorrow prior to changing course. TPN initiated. Warfarin remains on hold; continues to require Dilaudid frequently for pain control (Uses OxyContin chronically at home for RA/psoriatic arthritis). Magnesium replaced IV today. Hemoglobin stable. Discussed with nursing and Dr. Diana. DVT Prophylaxis: Lovenox Resuscitation Status: Full Code - Physician Narrative Narrative: Date: 05/01/18 Time: 1644 Hospital Course Summary Disclaimer: The visit summary below is not to be considered part of the above Progress Note. Hospital Course: 04/28/18 Admit patient to inpatient status under the care of the hospitalist service. Fentanyl 50 mcg and Compazine 10mg IV given in ED. Will continue Dilaudid 1mg IV Q2H PRN pain. Patient has an extensive history of chronic narcotic use for chronic pain. Zofran as needed for nausea/vomiting. Maintain NPO status. No vomiting since prior to admission. If vomiting resumes , consider placement of NG tube. Initial CT abdomen/pelvis revealed moderate grade SBO. KUB today showed no evidence of acute obstruction though limited exam as compared to prior CT per radiologist. KUB reviewed by myself and Dr. Butts. Initiate Dulcolax suppository now for bowel motivation. Continue LR 100cc/hr for hydration given NPO status. Monitor closely for signs of fluid overload. Protonix 40mg IV for GI protection and GERD. INR therapeutic at 2.79. Will hold home Coumadin (history of PE) given NPO status. SCDs for DVT prophylaxis. Consider initiation of Lovenox. Leukocytosis and thrombocytosis resolved. Electrolytes stable. Monitor labs closely. Recheck in AM. Upon discharge, patient's care will be returned to [facility] Zaragoza. 04/29/18 Continues NPO. No NG at present. Cont IVF's. No results with suppository and ambulation thus far. Pain fairly well controlled on Dilaudid approx q 2 hrs prn pain and Zofran PRN nausea. Encourage ambulation. No indication for surgical intervention at this time. 04/30/18 Symptoms unchanged, small bowel movement but no flatus-suspect bowel obstruction unchanged from admission. KUB unremarkable however bowel loops were fluid-filled on admission and not evident on plain films; may require repeat imaging by CT. Nausea has worsened and patient now agreeable to placement of NG tube. Warfarin on hold in the event surgical intervention is necessary. Requiring Dilaudid frequently for pain control-6 mg in the past 24 hours. No oral intake 5 days; will require parenteral nutrition in the near future. Dr. Diana consulted. 05/01/18 Symptoms unchanged, minimal output per NG which appears to be in the small bowel by CT (prior gastric bypass) CT without dilated loops today; will discuss further with Dr. Diana. Will discuss pulling the NG tube back several inches and clamping it with trial of clear liquids with Cr. Diana. May wish to wait for formal in-house reading of CT tomorrow prior to changing course. TPN initiated. Warfarin remains on hold; continues to require Dilaudid frequently for pain control (Uses OxyContin chronically at home for RA/psoriatic arthritis). Magnesium replaced IV today. Hemoglobin stable.
[2018-05-01] MEDS: SALINE FLUSH 10ml SYRINGE IVF PRN (19:55)
[2018-05-02] MEDS: ONDANSETRON 4 MG/2 ML INJECTION IVP PRN ×2 (00:43→08:39)
[2018-05-02] MEDS: SALINE FLUSH 10ml SYRINGE IVF PRN ×5 (00:53→23:36)
[2018-05-02] MEDS: HYDROMORPHONE 2 MG/ML INJECTION IVP PRN ×2 (01:21→03:58)
--- NOTE | 2018-05-02 07:44 | Pharmacy Consult-TPN/PPN ---
Pharmacy Consult-TPN/PPN - Laboratory Information Chemistry Turbidity < 20 (0-20) 05/02/18 04:02 Sodium 140 MEQ/L (136-146) 05/02/18 04:02 Potassium 3.5 MEQ/L (3.6-5) L 05/02/18 04:02 Chloride 102 MEQ/L (98-107) 05/02/18 04:02 Carbon Dioxide 29 MEQ/L (22-30) D 05/02/18 04:02 Anion Gap 9 meq/L (5-15) 05/02/18 04:02 BUN 7.0 MG/DL (7-17) D 05/02/18 04:02 Creatinine 0.4 mg/dL (0.7-1.2) L 05/02/18 04:02 GFR Calculation 168 05/02/18 04:02 BUN/Creatinine Ratio 18 RATIO (6-26) 05/02/18 04:02 Glucose 257 MG/DL (65-110) H 05/02/18 04:02 Calculated Osmolality 276 MOSM/KG (261-280) 05/02/18 04:02 Calcium 8.9 MG/DL (8.4-10.2) 05/02/18 04:02 Phosphorus 2.9 MG/DL (2.5-4.5) 05/02/18 04:02 Magnesium 1.8 MG/DL (1.6-2.3) D 05/02/18 04:02 Total Bilirubin 1.40 MG/DL (0.20-1.30) H 05/01/18 03:51 Icterus Index < 2 (0-7) 05/02/18 04:02 AST 34 U/L (14-36) 05/01/18 03:51 ALT 35 U/L (1-35) 05/01/18 03:51 Alkaline Phosphatase 176 U/L (38-126) H 05/01/18 03:51 Total Protein 6.5 g/dL (6.3-8.2) 05/01/18 03:51 Albumin 4.0 g/dL (3.5-5.0) 05/02/18 04:02 Globulin 2.8 G/DL (2.4-3.6) 05/01/18 03:51 Albumin/Globulin Ratio 1.3 RATIO (1.1-2.2) 05/01/18 03:51 Plasma Lactate < 0.5 MMOL/L (0.6-2.2) L 04/28/18 05:14 TSH 0.70 mIU/L (0.47-4.68) 04/28/18 05:14 Specimen Hemolysis < 15 (0-25) 05/02/18 04:02 - Consult Information TPH Conxult: Day 2 Will continue the TPN as currently ordered. Thanks, Marcus Andrea, Pharmacist.
[2018-05-02] MEDS: ENOXAPARIN 40 MG/0.4 ML INJECTION SQ SCH (09:09)
[2018-05-02] MEDS: PANTOPRAZOLE 40 MG INJECTION IVP SCH (09:09)
[2018-05-02] MEDS: BISACODYL 10 MG SUPPOSITORY RECTALLY SCH (09:09)
[2018-05-02] MEDS: BENZOCAINE/MENTHOL SORE THROAT LOZENGE MM PRN (11:01)
--- NOTE | 2018-05-02 11:34 | CT Scan Report ---
Indication: SBO PROCEDURE: CT abdomen pelvis wo con: Encounter: Initial Comparison: April 27, 2018 Technique: Axial CT images were performed through the abdomen and pelvis without intravenous contrast. Coronal and sagittal two-dimensional reformats. Automated Exposure Control and Iterative Reconstruction dose reducing techniques were utilized. Findings: Mild atelectasis in the lung bases. Nasogastric tube in place terminating in the mid abdominal small bowel. Postoperative changes from gastric bypass. This could be retracted by approximately 15 cm to reside within the small gastric remnant. Excluded stomach is seen. The unenhanced contours of the liver are grossly normal. Gallbladder is surgically absent. The spleen is normal. The pancreas and adrenal glands are grossly normal. Kidneys appear normal on this noncontrast study. Prior small bowel dilatation has resolved. Bladder is normal. Uterus is absent. Colon is normal in caliber with a mild amount of stool present. Bone windows are unchanged. Impression: Interval resolution of the small bowel obstructive pattern with a nasogastric tube in place. The tube extends into the small bowel due to the patient's gastric bypass. This could be retracted by approximately 15 cm to have the tip reside within the gastric remnant. There is a preliminary report by [employer]. .
--- NOTE | 2018-05-02 14:48 | Progress Note ---
- Date 05/02/18 Subjective: Heavenly reports continued difficulty overnight with nausea, dry heaves, and one episode of emesis which she attributes to irritation in the back of her throat from the NG tube. She has a cough with phlegm also attributed to the NG. She describes mild exertional dyspnea. She had a loose stool this morning but is not passing gas. She continues to have generalized abdominal discomfort. She describes some lightheadedness when she first gets up and is voiding well with increased volume since TPN was initiated. She is ambulating in the halls. Objective Vital signs: Temperature 99.3 F 05/02/18 12:29 Pulse Rate 108 H 05/02/18 12:29 Respiratory Rate 18 05/02/18 12:29 Blood Pressure 129/78 05/02/18 12:29 Pulse Oximetry 97 - RA 05/02/18 12:29 I/O 1838/2890 Weight down 3.5 kg from admission NAD, alert, fluent speech Oropharynx clear, conjunctiva clear Respirations nonlabored, good airflow, breath sounds clear Regular rhythm, S1-S2 Abdomen soft, minimally distended, nontender, sparse bowel sounds present Extremities without edema Psoriatic changes on the extensor surfaces of both elbows Height/Weight/BMI: Height 1.68 m Weight 90.3 kg Body Mass Index 33.3 Results - Labs CBC & Chem 7: 05/02/18 04:02 05/02/18 04:02 Labs: INR 1.2 Mg 1.8 Assessment and Plan (1) Small bowel obstruction Current visit: Yes Status: Acute Assessment and Plan: Assessment: Small bowel obstruction, present on admission. Acute abdominal pain with nausea/vomiting. Leukocytosis (WBC 13.2), present on admission. Thrombocytosis (Plt 413), present on admission. Chronic anticoagulation with warfarin. Psoriatic arthritis. Rheumatoid arthritis. Chronic pain. Abnormal LFTs-on methotrexate GERD. History of PUD with ulcer perforation. History of kidney stones. Cataracts. History of PE following hysterectomy. History of retinal detachment. History of blood transfusion without reaction. Anemia, normocytic Hypomagnesemia Plan: Discussed with Dr. Diana earlier today-NG causing increased irritation in the throat with subsequent dry heaves/emesis. NG will be removed with plans to obtain Gastrografin small bowel follow-through study tomorrow; yesterday's CT formally read-resolution of SBO. Nothing by mouth overnight, continue TPN. Magnesium improved after replacement yesterday, borderline low potassium. Warfarin on hold. DVT Prophylaxis: Lovenox GI Prophylaxis: Protonix Resuscitation Status: Full Code - Physician Narrative Narrative: Date: 05/02/18 Time: 1444 Hospital Course Summary Disclaimer: The visit summary below is not to be considered part of the above Progress Note. Hospital Course: 04/28/18 Admit patient to inpatient status under the care of the hospitalist service. Fentanyl 50 mcg and Compazine 10mg IV given in ED. Will continue Dilaudid 1mg IV Q2H PRN pain. Patient has an extensive history of chronic narcotic use for chronic pain. Zofran as needed for nausea/vomiting. Maintain NPO status. No vomiting since prior to admission. If vomiting resumes , consider placement of NG tube. Initial CT abdomen/pelvis revealed moderate grade SBO. KUB today showed no evidence of acute obstruction though limited exam as compared to prior CT per radiologist. KUB reviewed by myself and Dr. Butts. Initiate Dulcolax suppository now for bowel motivation. Continue LR 100cc/hr for hydration given NPO status. Monitor closely for signs of fluid overload. Protonix 40mg IV for GI protection and GERD. INR therapeutic at 2.79. Will hold home Coumadin (history of PE) given NPO status. SCDs for DVT prophylaxis. Consider initiation of Lovenox. Leukocytosis and thrombocytosis resolved. Electrolytes stable. Monitor labs closely. Recheck in AM. Upon discharge, patient's care will be returned to [facility]. 04/29/18 Continues NPO. No NG at present. Cont IVF's. No results with suppository and ambulation thus far. Pain fairly well controlled on Dilaudid approx q 2 hrs prn pain and Zofran PRN nausea. Encourage ambulation. No indication for surgical intervention at this time. 04/30/18 Symptoms unchanged, small bowel movement but no flatus-suspect bowel obstruction unchanged from admission. KUB unremarkable however bowel loops were fluid-filled on admission and not evident on plain films; may require repeat imaging by CT. Nausea has worsened and patient now agreeable to placement of NG tube. Warfarin on hold in the event surgical intervention is necessary. Requiring Dilaudid frequently for pain control-6 mg in the past 24 hours. No oral intake 5 days; will require parenteral nutrition in the near future. Dr. Diana consulted. 05/01/18 Symptoms unchanged, minimal output per NG which appears to be in the small bowel by CT (prior gastric bypass) CT without dilated loops today; will discuss further with Dr. Diana. Will discuss pulling the NG tube back several inches and clamping it with trial of clear liquids with Cr. Diana. May wish to wait for formal in-house reading of CT tomorrow prior to changing course. TPN initiated. Warfarin remains on hold; continues to require Dilaudid frequently for pain control (Uses OxyContin chronically at home for RA/psoriatic arthritis). Magnesium replaced IV today. Hemoglobin stable. 05/02/[address] Diana earlier today-NG causing increased irritation in the throat with subsequent dry heaves/emesis. NG will be removed with plans to obtain Gastrografin small bowel follow-through study tomorrow; yesterday's CT formally read-resolution of SBO. Nothing by mouth overnight, continue TPN. Magnesium improved after replacement yesterday, borderline low potassium. Warfarin on hold.
[2018-05-02] MEDS: MULTI-VIT INFUSION 10 ML, MULTI-TRACE ELEMENTS 1 ML in TPN - STANDARD FORMULA 2,000 ML IV SCH (15:41)
[2018-05-02] MEDS: FAT EMULSION 20% 250 ML IV SCH (15:42)
[2018-05-02] MEDS: KETOROLAC 30 MG/ML INJECTION IVP PRN ×2 (16:14→23:36)
[2018-05-03] MEDS: HYDROMORPHONE 2 MG/ML INJECTION IVP PRN ×3 (00:58→12:19)
[2018-05-03] MEDS: SALINE FLUSH 10ml SYRINGE IVF PRN ×2 (04:18→08:24)
[2018-05-03] MEDS: ONDANSETRON 4 MG/2 ML INJECTION IVP PRN (05:17)
[2018-05-03] MEDS: KETOROLAC 30 MG/ML INJECTION IVP PRN ×2 (07:28→14:32)
[2018-05-03] MEDS ORDERED: DIATRIZOATE MEGLUMINE/SOD. (66%/10%) 120ml SOLN ONE (07:35)
[2018-05-03] MEDS: BISACODYL 10 MG SUPPOSITORY RECTALLY SCH (08:23)
[2018-05-03] MEDS: PANTOPRAZOLE 40 MG INJECTION IVP SCH (08:24)
[2018-05-03] MEDS: ENOXAPARIN 40 MG/0.4 ML INJECTION SQ SCH (08:24)
--- NOTE | 2018-05-03 09:37 | Progress Note ---
- Date 05/03/18 Subjective: Patient is seen this am resting in bed. States her pain is reasonable. "Nothing is moving through," but since drinking the barium for the gastrografin study she has had "rumbling" in her abdomen. She had some vomiting yesterday evening which she thinks is r/t the Dilaudid. No CP, SOA, F/C. Objective Vital signs: Temperature 97.5 F 05/03/18 07:43 Pulse Rate 89 05/03/18 07:43 Respiratory Rate 18 05/03/18 07:43 Blood Pressure 124/70 05/03/18 07:43 Pulse Oximetry 97 05/03/18 07:43 Height/Weight/BMI: Height 1.68 m Weight 89.2 kg Body Mass Index 33.3 - Constitutional Present: no acute distress, well nourished, well developed - Routine HEENT Exam Head: Present: normocephalic, atraumatic - Routine Respiratory Exam Present: CTA bilaterally. Absent: wheezes - Routine Cardiovascular Exam Present: RRR, no murmur - Routine Abdominal Exam Present: soft, normoactive bowel sounds (b/l upper quadrants and hypoactive in the lower quadrants, tender across lower abdomen), non distended - Routine Extremities Exam Present: no edema, normal capillary refill - Routine Skin Exam Present: dry, warm - Routine Neurological Exam Present: alert, oriented X3 - Routine Lymphatic Exam Lymphatic: Absent: adenopathy - Routine Psychiatric Exam Present: normal affect, cooperative Results - Labs CBC & Chem 7: 05/02/18 04:02 05/03/18 03:51 Assessment and Plan (1) Small bowel obstruction Current visit: Yes Status: Acute Assessment and Plan: Assessment: Small bowel obstruction, present on admission. Acute abdominal pain with nausea/vomiting. Leukocytosis (WBC 13.2), present on admission. Thrombocytosis (Plt 413), present on admission. Chronic anticoagulation with warfarin. Psoriatic arthritis. Rheumatoid arthritis. Chronic pain. Abnormal LFTs-on methotrexate GERD. History of PUD with ulcer perforation. History of kidney stones. Cataracts. History of PE following hysterectomy. History of retinal detachment. History of blood transfusion without reaction. Anemia, normocytic Hypomagnesemia Plan: Undergoing gastrografin study now. Further TPN and plans to be made following results. Potassium low - IV replacement ordered. Warfarin on hold. On Lovenox for DVT ppx. DVT Prophylaxis: Lovenox GI Prophylaxis: Protonix Resuscitation Status: Full Code - Physician Narrative Physician: Virginie Butts MD Narrative: Date: 05/03/18 Time: 1630 I have independently evaluated and examined this patient. I reviewed the chart, the patient's history, and the ARTIST CONSULTANT/PA's documented findings as above. We discussed and formulated the assessment and plan as above with additions as below: Heavenly was seen several hours after Gastrografin small bowel follow-through study was initiated and indicated the study was completed and she has had a couple of bowel movements. She denied abdominal pain or nausea when seen at about 11:30 this morning or when reevaluated midafternoon following initiation of clear liquids. NAD, alert Respirations nonlabored Abdomen soft, bowel sounds present, no focal tenderness Small bowel follow-through study reviewed by myself-unremarkable study, contrast in transverse colon after 1 hour and 15 minutes Tolerating clear liquids this afternoon; TPN rate decreased and will discontinue after current bag. Monitor Accu-Cheks with discontinuation of TPN. Will discuss with Dr. Diana when he is available later this afternoon-anticipate advancing diet as tolerated and potentially home tomorrow or the following day. Resume home pain meds po Discussed with nursing and Pharm.D. Hospital Course Summary Disclaimer: The visit summary below is not to be considered part of the above Progress Note. Hospital Course: 04/28/18 Admit patient to inpatient status under the care of the hospitalist service. Fentanyl 50 mcg and Compazine 10mg IV given in ED. Will continue Dilaudid 1mg IV Q2H PRN pain. Patient has an extensive history of chronic narcotic use for chronic pain. Zofran as needed for nausea/vomiting. Maintain NPO status. No vomiting since prior to admission. If vomiting resumes , consider placement of NG tube. Initial CT abdomen/pelvis revealed moderate grade SBO. KUB today showed no evidence of acute obstruction though limited exam as compared to prior CT per radiologist. KUB reviewed by myself and Dr. Butts. Initiate Dulcolax suppository now for bowel motivation. Continue LR 100cc/hr for hydration given NPO status. Monitor closely for signs of fluid overload. Protonix 40mg IV for GI protection and GERD. INR therapeutic at 2.79. Will hold home Coumadin (history of PE) given NPO status. SCDs for DVT prophylaxis. Consider initiation of Lovenox. Leukocytosis and thrombocytosis resolved. Electrolytes stable. Monitor labs closely. Recheck in AM. Upon discharge, patient's care will be returned to [facility]. 04/29/18 Continues NPO. No NG at present. Cont IVF's. No results with suppository and ambulation thus far. Pain fairly well controlled on Dilaudid approx q 2 hrs prn pain and Zofran PRN nausea. Encourage ambulation. No indication for surgical intervention at this time. 04/30/18 Symptoms unchanged, small bowel movement but no flatus-suspect bowel obstruction unchanged from admission. KUB unremarkable however bowel loops were fluid-filled on admission and not evident on plain films; may require repeat imaging by CT. Nausea has worsened and patient now agreeable to placement of NG tube. Warfarin on hold in the event surgical intervention is necessary. Requiring Dilaudid frequently for pain control-6 mg in the past 24 hours. No oral intake 5 days; will require parenteral nutrition in the near future. Dr. Diana consulted. 05/01/18 Symptoms unchanged, minimal output per NG which appears to be in the small bowel by CT (prior gastric bypass) CT without dilated loops today; will discuss further with Dr. Diana. Will discuss pulling the NG tube back several inches and clamping it with trial of clear liquids with Cr. Diana. May wish to wait for formal in-house reading of CT tomorrow prior to changing course. TPN initiated. Warfarin remains on hold; continues to require Dilaudid frequently for pain control (Uses OxyContin chronically at home for RA/psoriatic arthritis). Magnesium replaced IV today. Hemoglobin stable. 05/02/[address] Diana earlier today-NG causing increased irritation in the throat with subsequent dry heaves/emesis. NG will be removed with plans to obtain Gastrografin small bowel follow-through study tomorrow; yesterday's CT formally read-resolution of SBO. Nothing by mouth overnight, continue TPN. Magnesium improved after replacement yesterday, borderline low potassium. Warfarin on hold. 05/03/18 Gastrografin SBFT study normal; TPN will be discontinued; clear liquids initiated. GI symptoms significantly improved post Gastrografin. Potassium low - IV replacement ordered. Warfarin on hold. On Lovenox for DVT ppx.
--- NOTE | 2018-05-03 09:37 | Progress Note ---
DATE 05/02/2018 HISTORY OF PRESENT ILLNESS The patient did have TPN started yesterday for nutritional support. The patient does feel a little better this morning. She has not passed any further flatus since yesterday. The pain and pressure sensation at the abdomen seems to be less today than it was yesterday. She feels better from that standpoint. She has discomfort from the nasogastric tube. She has some nausea and gagging which she relates to the presence of the nasogastric tube. PHYSICAL EXAMINATION VITAL SIGNS: Temperature is 99.3 degrees Fahrenheit oral. Pulse is 94. Respiratory rate is 18. Blood pressure is 139/84. Oxygen saturation is 98% on room air. ABDOMEN: The abdomen is soft. The abdomen seems less tender today that it has been previously. No abdominal masses. LABORATORY DATA White blood cell count is 9100 with no bands. Hemoglobin is 14. Hematocrit is 39.5. INR is 1.2. Serum sodium is 140. Serum potassium is 3.5. Serum creatinine is 0.4. Serum albumin is 4. IMPRESSION 1. Moderate grade small bowel obstruction with some clinical improvement over the last the 24-48 hours. 2. Status post Jenn-en-Y gastric bypass operation in 2000. 3. Status post operation for treatment of perforated marginal ulcer at the stomach in 2012. 4. Status post ventral hernia repair with Stratus mesh, bilateral component separation with myocutaneous advancement flaps and panniculectomy on 02/14/2014. 5. History of eight previous episodes of small bowel obstruction which have resolved nonoperatively since 2013. 6. 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 RECOMMENDATIONS 1. Continue to hold warfarin. 2. Await report from radiologist on CT scan of the abdomen and pelvis performed on 05/01/2018. 3. Continue TPN. 4. I think that the nasogastric tube could be discontinued today. 5. Gastrografin small bowel follow-through x-ray series tomorrow a.m. 6. Continue to keep patient n.p.o. until we see the results of the small bowel follow-through x-ray series tomorrow. JACKELIN
[2018-05-03] MEDS: POTASSIUM CHLORIDE PREMIX 10 MEQ/100 ML BAG IV SCH ×4 (10:06→13:21)
--- NOTE | 2018-05-03 14:12 | XRay Report ---
Indication:SBO-multiple prior abdominal surgeries Procedure:XR small bowel follow through SMALL BOWEL FOLLOW-THROUGH: Senior Graphic Designer KUB: Two anesthesiology teacher portable abdominal radiographs were obtained. The bowel gas pattern is nonobstructive. Technique: The patient swallowed dilute Gastrografin without difficulty. Portable plain film AP abdominal radiographs were obtained in timed intervals until contrast was visualized in the colon. Findings: The small bowel follow-through is negative. There is no evidence of an obstruction. The mucosal fold patterns of the small bowel appear normal. No malrotation is identified. Transit time of contrast from stomach to terminal ileum was approximately one hour. Contrast was visualized in the ascending and transverse colon on the one hour and 15 minute image. Impression: Negative small bowel follow-through. .
[2018-05-03] MEDS ORDERED: Oxycodone CR 20 MG TABLET PO PRN (16:08)
[2018-05-03] MEDS ORDERED: Oxycodone *IR* 15 MG TABLET PO PRN (16:39)
[2018-05-03] MEDS: MULTI-VIT INFUSION 10 ML, MULTI-TRACE ELEMENTS 1 ML in TPN - STANDARD FORMULA 2,000 ML IV SCH (19:06)
[2018-05-03] MEDS: FAT EMULSION 20% 250 ML IV SCH (19:06)
[2018-05-03 19:41] VITALS: RESP 16
--- NOTE | 2018-05-03 19:42 | Progress Note ---
DATE 05/03/2018 HISTORY OF PRESENT ILLNESS Dr. Rishi Burton did interpret the 05/01/2018 CT scan of the abdomen and pelvis as showing resolution of the recent small bowel obstruction. The patient did undergo a small bowel x-ray series today which was negative and showed no evidence of a bowel obstruction. The patient was then started on a clear liquid diet today. The patient has been tolerating the clear liquid diet so far without any nausea, vomiting or abdominal pain. PHYSICAL EXAMINATION VITAL SIGNS: Temperature is 97.4 degrees Fahrenheit oral. Pulse is 75. Respiratory rate is 14. Blood pressure is 116/67. Oxygen saturation is 99% on room air. ABDOMEN: The abdomen is soft and nontender. LABORATORY DATA Sodium is 144. Potassium is 3.3. Chloride is 103. Serum creatinine is 0.4. ASSESSMENT Resolution of small bowel obstruction. RECOMMENDATIONS If the patient continues to tolerate the clear liquid diet throughout the remainder of the evening and through the night, diet could be advanced tomorrow. If the patient tolerates the advancement of the diet tomorrow, she could be dismissed from the hospital. JACKELIN
[2018-05-03] MEDS ORDERED: WARFARIN 6 MG TABLET PO SCH (21:00)
[2018-05-04 07:42] VITALS: O2SAT 97
--- NOTE | 2018-05-04 11:12 | Progress Note ---
- Date 05/04/18 Subjective: Patient is seen this morning sitting in her chair. She reports she is feeling fine. No pain. She had a full liquid breakfast and tolerated clear liquids last night. She's hoping to go home today. She had diarrhea following the Gastrografin, no stools since yesterday afternoon. No chest pain, shortness of breath, nausea, vomiting, fever or chills. Objective Vital signs: Temperature 97.3 F 05/04/18 07:38 Pulse Rate 100 05/04/18 07:38 Respiratory Rate 16 05/04/18 07:38 Blood Pressure 119/67 05/04/18 07:38 Pulse Oximetry 97 05/04/18 07:38 Height/Weight/BMI: Height 1.68 m Weight 89 kg Body Mass Index 33.3 - Constitutional Present: no acute distress, well nourished, well developed - Routine HEENT Exam Head: Present: normocephalic, atraumatic - Routine Respiratory Exam Present: CTA bilaterally. Absent: wheezes - Routine Cardiovascular Exam Present: RRR, no murmur - Routine Abdominal Exam Present: soft, non distended, non tender - Routine Extremities Exam Present: no edema, normal capillary refill - Routine Skin Exam Present: dry, warm - Routine Neurological Exam Present: alert, oriented X3 - Routine Lymphatic Exam Lymphatic: Absent: adenopathy - Routine Psychiatric Exam Present: normal affect, cooperative Results - Labs CBC & Chem 7: 05/02/18 04:02 05/04/18 07:59 Assessment and Plan Assessment and Plan: Assessment: Small bowel obstruction, present on admission - resolved Acute abdominal pain with nausea/vomiting -resolved Leukocytosis (WBC 13.2), present on admission -resolved Thrombocytosis (Plt 413), present on admission -resolved Chronic anticoagulation with warfarin. Psoriatic arthritis. Rheumatoid arthritis. Chronic pain. Abnormal LFTs-on methotrexate GERD. History of PUD with ulcer perforation. History of kidney stones. Cataracts. History of PE following hysterectomy. History of retinal detachment. History of blood transfusion without reaction. Anemia, normocytic Hypomagnesemia (not POA) Obesity with BMI 31.7 Plan: Advance to regular diet. Assuming she does well on this, we will dismiss later this afternoon. Labs and vitals are stable. DVT Prophylaxis: SCD's Resuscitation Status: Full Code - Physician Narrative Physician: Ashu Garcia MD Narrative: Date: 05/04/18 Time: 1527 Have independently interviewed and examined pt. Chart reviewed. Case discussed with my PA. Care plan developed with my supervision; agree with above. Doing well this afternoon. Eating okay-notes some slight fullness with eating. No emesis. Ambulating well. Breathing well. Feels ready to go home. Lungs: clear CV: regular AB: soft nt/nd MSE: awake alert appropriate Plan: Medically stable for discharge to home. See orders for details. Hospital Course Summary Disclaimer: The visit summary below is not to be considered part of the above Progress Note. Hospital Course: 04/28/18 Admit patient to inpatient status under the care of the hospitalist service. Fentanyl 50 mcg and Compazine 10mg IV given in ED. Will continue Dilaudid 1mg IV Q2H PRN pain. Patient has an extensive history of chronic narcotic use for chronic pain. Zofran as needed for nausea/vomiting. Maintain NPO status. No vomiting since prior to admission. If vomiting resumes , consider placement of NG tube. Initial CT abdomen/pelvis revealed moderate grade SBO. KUB today showed no evidence of acute obstruction though limited exam as compared to prior CT per radiologist. KUB reviewed by myself and Dr. Butts. Initiate Dulcolax suppository now for bowel motivation. Continue LR 100cc/hr for hydration given NPO status. Monitor closely for signs of fluid overload. Protonix 40mg IV for GI protection and GERD. INR therapeutic at 2.79. Will hold home Coumadin (history of PE) given NPO status. SCDs for DVT prophylaxis. Consider initiation of Lovenox. Leukocytosis and thrombocytosis resolved. Electrolytes stable. Monitor labs closely. Recheck in AM. Upon discharge, patient's care will be returned to [facility]. 04/29/18 Continues NPO. No NG at present. Cont IVF's. No results with suppository and ambulation thus far. Pain fairly well controlled on Dilaudid approx q 2 hrs prn pain and Zofran PRN nausea. Encourage ambulation. No indication for surgical intervention at this time. 04/30/18 Symptoms unchanged, small bowel movement but no flatus-suspect bowel obstruction unchanged from admission. KUB unremarkable however bowel loops were fluid-filled on admission and not evident on plain films; may require repeat imaging by CT. Nausea has worsened and patient now agreeable to placement of NG tube. Warfarin on hold in the event surgical intervention is necessary. Requiring Dilaudid frequently for pain control-6 mg in the past 24 hours. No oral intake 5 days; will require parenteral nutrition in the near future. Dr. Diana consulted. 05/01/18 Symptoms unchanged, minimal output per NG which appears to be in the small bowel by CT (prior gastric bypass) CT without dilated loops today; will discuss further with Dr. Diana. Will discuss pulling the NG tube back several inches and clamping it with trial of clear liquids with Cr. Diana. May wish to wait for formal in-house reading of CT tomorrow prior to changing course. TPN initiated. Warfarin remains on hold; continues to require Dilaudid frequently for pain control (Uses OxyContin chronically at home for RA/psoriatic arthritis). Magnesium replaced IV today. Hemoglobin stable. 05/02/[address] Diana earlier today-NG causing increased irritation in the throat with subsequent dry heaves/emesis. NG will be removed with plans to obtain Gastrografin small bowel follow-through study tomorrow; yesterday's CT formally read-resolution of SBO. Nothing by mouth overnight, continue TPN. Magnesium improved after replacement yesterday, borderline low potassium. Warfarin on hold. 05/03/18 Gastrografin SBFT study normal; TPN will be discontinued; clear liquids initiated. GI symptoms significantly improved post Gastrografin. Potassium low - IV replacement ordered. Warfarin on hold. On Lovenox for DVT ppx.
[2018-05-04] MEDS: PANTOPRAZOLE 40 MG INJECTION IVP SCH (11:19)
[2018-05-04] MEDS: ENOXAPARIN 40 MG/0.4 ML INJECTION SQ SCH (11:19)
[2018-05-04] MEDS: BISACODYL 10 MG SUPPOSITORY RECTALLY SCH (11:19)
[2018-05-04 11:37] VITALS: BP 119/80; PULSE 94; TEMP 97.6
--- NOTE | 2018-05-04 15:20 | Discharge Summary ---
Discharge Information Date of admission: 04/27/18 19:51 Anticipated date of discharge: 05/04/18 Attending Physician: Ashu Garcia MD Primary care physician: Shelly Mello APRN Consults: Consulting Provider: Pierre Diana Reason For Exam: SBO Small bowel obstruction, present on admission - resolved Acute abdominal pain with nausea/vomiting -resolved Leukocytosis (WBC 13.2), present on admission -resolved Thrombocytosis (Plt 413), present on admission -resolved Chronic anticoagulation with warfarin. Psoriatic arthritis. Rheumatoid arthritis. Chronic pain. Abnormal LFTs-on methotrexate GERD. History of PUD with ulcer perforation. History of kidney stones. Cataracts. History of PE following hysterectomy. History of retinal detachment. History of blood transfusion without reaction. Anemia, normocytic Hypomagnesemia-resolved - Procedures Procedures: Date of Exam: 05/03/18 Indication:SBO-multiple prior abdominal surgeries SMALL BOWEL FOLLOW-THROUGH: Director Of Plant Operations KUB: Two gi tech portable abdominal radiographs were obtained. The bowel gas pattern is nonobstructive. Technique: The patient swallowed dilute Gastrografin without difficulty. Portable plain film AP abdominal radiographs were obtained in timed intervals until contrast was visualized in the colon. Findings: The small bowel follow-through is negative. There is no evidence of an obstruction. The mucosal fold patterns of the small bowel appear normal. No malrotation is identified. Transit time of contrast from stomach to terminal ileum was approximately one hour. Contrast was visualized in the ascending and transverse colon on the one hour and 15 minute image. Impression: Negative small bowel follow-through. - Laboratory Labs: Dismissal labs 05/04/18 07:59 Sodium 144 Potassium 4.0 D Chloride 106 Carbon Dioxide 29 BUN 15.0 Creatinine 0.4 L Glucose 107 Calcium 9.4 Admission labs 04/27/18 04/27/18 18:25 18:25 WBC 13.2 H RBC 5.30 H Hgb 15.2 Hct 45.1 Plt Count 413 H Sodium 145 Potassium 3.7 Chloride 108 H Carbon Dioxide 26 BUN 12.0 Creatinine 0.5 L Glucose 128 H Calcium 9.7 INR 05/01/18 05/02/18 05/03/18 03:51 04:02 03:51 INR 1.28 H 1.20 H 1.16 UA 04/27/18 19:29 Ur Collection Type Urine, void-cc/notcc Urine Color Ashia Urine Clarity Clear Urine pH 5.5 Ur Specific Proctor >=1.030 H Urine Protein 2+ A Urine Glucose (UA) Negative Urine Ketones 1+ A Urine Occult Blood Negative Urine Nitrate Negative Urine Bilirubin 1+ A Urine Urobilinogen 1.0 Ur Leukocyte Esterase Negative Urine RBC None seen Urine WBC 5-10 H Ur Squamous Epith Cells 0-5 Urine Bacteria Trace H - Radiology Radiology: Date of Exam: 05/01/18 Indication: SBO PROCEDURE: CT abdomen pelvis wo con: Findings: Mild atelectasis in the lung bases. Nasogastric tube in place terminating in the mid abdominal small bowel. Postoperative changes from gastric bypass. This could be retracted by approximately 15 cm to reside within the small gastric remnant. Excluded stomach is seen. The unenhanced contours of the liver are grossly normal. Gallbladder is surgically absent. The spleen is normal. The pancreas and adrenal glands are grossly normal. Kidneys appear normal on this noncontrast study. Prior small bowel dilatation has resolved. Bladder is normal. Uterus is absent. Colon is normal in caliber with a mild amount of stool present. Bone windows are unchanged. Impression: Interval resolution of the small bowel obstructive pattern with a nasogastric tube in place. The tube extends into the small bowel due to the patient's gastric bypass. This could be retracted by approximately 15 cm to have the tip reside within the gastric remnant. Date of Exam: 04/27/18 Indication: possible sbo PROCEDURE: CT abdomen pelvis wo con: Findings: Mild atelectasis in the right middle lobe and lingula. The unenhanced contours of the liver are grossly unremarkable. The gallbladder is surgically absent. Postoperative changes from prior gastric surgery. The spleen is within normal limits. The pancreas and adrenal glands are normal. The kidneys are normal. No evidence of prior small bowel anastomosis. There are multiple dilated small bowel loops seen in the anterior central abdomen with small bowel loops measuring up to 4 cm in diameter. There is transition to decompressed distal bowel in the left mid abdomen near the anastomotic suture line with a region of the fecalized small bowel. The ileum is essentially totally decompressed. Colon is normal caliber. Small amount of free pelvic fluid. Uterus is surgically absent. Bone windows show no acute findings. Implanted epidural spinal stimulator device noted. Impression: Moderate grade small bowel obstruction with transition in the left abdomen. Surgical consultation is recommended. Date of Exam: 04/30/18 Indication: sbo PROCEDURE: XR abdomen 2V: Findings: Lung bases are grossly clear. No free air. Bowel gas pattern is nonobstructive and nonspecific. Gas is seen throughout small and large bowel to the level of the rectum. Moderate stool in the colon. No abnormally dilated gas- filled bowel loops appreciated. No acute changes from the prior study. Impression: Radiographically nonobstructive bowel gas pattern. History of Present Illness HPI: Patient was initially seen via telemedicine with nursing assistance on 04/27/2018 : Ms. Shah is a pleasant 52yo woman with h/o RA and psoriatic arthritis, obesity BMI pending, hysterectomy, PUD with perf and subsequent hernia, and gastric bypass who presents with onset 1600 04/26 of n/v then abdominal pain. Note progressive periumbilical pain today 03/21 now after narcotic in ED. No CP or SOB, no new med change. Last BM yesterday. No consistent regimen for bowels except softer foods. 04/28/18: Heavenly Moncada is a pleasant 52-year-old female patient of [facility], in [place], [place] who presented to [facility] ED last evening, 04/27/18, for evaluation of abdominal pain and vomiting. She has an extensive abdominal surgical history with suspected adhesions. She reports a SBO a year ago at which time she was hospitalized in [place] and required and NG. She reports increasing periumbilical pain and fullness since 04/26/18. Last bowel movement was 04/26/18 which she reports was moderate in size and normal for her without blood or dark tarry stools. Increasing abdominal pain with multiple bouts of vomiting beginning on 04/28/18. She reports that her vomit was dark and foul smelling which was concerning to her so she presented to [facility] for evaluation. She denies any fevers, chills, recent illnesses, chest pain, shortness of breath, diarrhea or dysuria. CT abdomen/pelvis in the ED revealed moderate grade small bowel obstruction with transition in the left abdomen. Labs revealed leukocytosis ( WBC 13.2) and mild thrombocytosis (Plt 413). Electrolytes were unremarkable. Slight elevation in ALT at 49 with normal AST at 32. Alk phos was elevated at 219. She was given 1 L NS with Compazine 10mg IV x 1 dose and fentanyl 50 mcg IV x 1 dose with improvement. She was admitted to inpatient status under the care of the hospitalist service and was initially seen by the tele-hospitalist. Her length of stay is expected to be greater than 2 over nights and will include further evaluation, IV hydration given NPO status, close monitoring of labs, IV pain and nausea control and possible surgical consultation. Objective Vital signs: See note dated today for exam findings Height/Weight/BMI: Height 1.68 m Weight 89 kg Body Mass Index 33.3 Hospital Course This is a general summary of the patient's hospital course. For more details refer to the complete medical record. Hospital course: 04/28/18 Admit patient to inpatient status under the care of the hospitalist service. Fentanyl 50 mcg and Compazine 10mg IV given in ED. Will continue Dilaudid 1mg IV Q2H PRN pain. Patient has an extensive history of chronic narcotic use for chronic pain. Zofran as needed for nausea/vomiting. Maintain NPO status. No vomiting since prior to admission. If vomiting resumes , consider placement of NG tube. Initial CT abdomen/pelvis revealed moderate grade SBO. KUB today showed no evidence of acute obstruction though limited exam as compared to prior CT per radiologist. KUB reviewed by myself and Dr. Butts. Initiate Dulcolax suppository now for bowel motivation. Continue LR 100cc/hr for hydration given NPO status. Monitor closely for signs of fluid overload. Protonix 40mg IV for GI protection and GERD. INR therapeutic at 2.79. Will hold home Coumadin (history of PE) given NPO status. SCDs for DVT prophylaxis. Consider initiation of Lovenox. Leukocytosis and thrombocytosis resolved. Electrolytes stable. Monitor labs closely. Recheck in AM. Upon discharge, patient's care will be returned to [facility]ago[facility]. 04/29/18 Continues NPO. No NG at present. Cont IVF's. No results with suppository and ambulation thus far. Pain fairly well controlled on Dilaudid approx q 2 hrs prn pain and Zofran PRN nausea. Encourage ambulation. No indication for surgical intervention at this time. 04/30/18 Symptoms unchanged, small bowel movement but no flatus-suspect bowel obstruction unchanged from admission. KUB unremarkable however bowel loops were fluid-filled on admission and not evident on plain films; may require repeat imaging by CT. Nausea has worsened and patient now agreeable to placement of NG tube. Warfarin on hold in the event surgical intervention is necessary. Requiring Dilaudid frequently for pain control-6 mg in the past 24 hours. No oral intake 5 days; will require parenteral nutrition in the near future. Dr. Diana consulted. 05/01/18 Symptoms unchanged, minimal output per NG which appears to be in the small bowel by CT (prior gastric bypass) CT without dilated loops today; will discuss further with Dr. Diana. Will discuss pulling the NG tube back several inches and clamping it with trial of clear liquids with Cr. Diana. May wish to wait for formal in-house reading of CT tomorrow prior to changing course. TPN initiated. Warfarin remains on hold; continues to require Dilaudid frequently for pain control (Uses OxyContin chronically at home for RA/psoriatic arthritis). Magnesium replaced IV today. Hemoglobin stable. 05/02/[address] Diana earlier today-NG causing increased irritation in the throat with subsequent dry heaves/emesis. NG will be removed with plans to obtain Gastrografin small bowel follow-through study tomorrow; yesterday's CT formally read-resolution of SBO. Nothing by mouth overnight, continue TPN. Magnesium improved after replacement yesterday, borderline low potassium. Warfarin on hold. 05/03/18 Gastrografin SBFT study normal; TPN will be discontinued; clear liquids initiated. GI symptoms significantly improved post Gastrografin. Potassium low - IV replacement ordered. Warfarin on hold. On Lovenox for DVT ppx. 05/04/18 Pt dismissed home today. She was able to pass stool and Gastrografin imaging revealed no SBO. She'll f-u with her PCP in a week and recheck INR on Thursday. Off work through 05/06. Time spent with patient: discharge greater than 30 minutes Resuscitation Status: Full Code Discharge Plan - Discharge Disposition Discharge Date: 05/04/18 Disposition: 01 Discharged Home, Self-Care *Condition: Stable Reason For Visit (Visit label in EMR): SBO - Discharge Medications *Discharge Medications: Continue Pantoprazole Sodium [Protonix] 40 mg PO HS Folic Acid [Folate] 1 mg PO HS Warfarin [Coumadin] 6 mg PO HS Cyclobenzaprine [Flexeril] 10 mg PO TID PRN PRN Reason: Prn Orders METHOTREXATE 2.5mg TAB [Methotrexate] 7.5 mg PO TH@2200 Oxycodone CR [Oxycontin] 20 mg PO QID PRN PRN Reason: Pain - Discharge Packet/Instructions *Diet: as tolerated. Eat small amounts at a time. *Activity: As tolerated. Off work through . *Pain Management/Treatment: Per Shelly Mello *Wound Care: n/a Additional Instructions: Check INR/protime on Thursday, Tania 27. *Expected Signs/Symptoms: Increasing strength *Notify Physician if: you develop intractable vomiting or abdominal pain *During Business Hours Contact: Your regular provider *After Business Hours Contact: Your regular provider's office and follow after- hours instructions or report to ER. *Pending Lab/Results: No Pending Lab - Referrals/Follow Up *Referrals/Follow Up: Shelly Mello APRN [Primary Care Provider] - 1 Week (follow up with Ivory Mello APRN on 05/11/18 at 3:45pm.) - Patient Handouts Patient Handouts: Bowel Obstruction (DC) - Dismissal Complete Discharge Instructions are:: Complete Physician Narrative - Narrative Physician: Ashu Garcia MD Attestation Narrative: Date: 05/04/18 Time: 1829 I have independently interviewed and examined patient prior to discharge. See my progress note for details.Case discussed with my PA. Care plan developed with my supervision; agree with above plan. Medically stable for discharge.
== END 2018-05-04 15:45 | disposition home or self-care (01) | DRG 390 ==
LOC: ED 17:34 → SUATTDRO 19:51 → EDHOLD 19:51 → SRG 20:00
PROVIDERS: ADMIT Hospitalist; ATTEND Hospitalist